=== PATIENT | female | born 1980 | race Caucasian/White ===

== ENCOUNTER 2020-12-10 18:41 | Inpatient (IN) ==
--- OUTSIDE RECORDS SUMMARY | 2020-12-10 18:43 | External Medical Summary | Continuity of Care Document ---
:1980 Author Name Jerry Isbell Address Unavailable Unavailable , Care Team Providers Name Role Phone Elin Isbell Unavailable [email or web address] Active medical history not documented Allergies and Adverse Reactions Allergy history not documented Medications Medications not documented Procedures Procedures not documented Immunizations Immunizations not documented Plan of Treatment Planned Observations Planned Goals not documented Results No Known Results Results not documented
--- OUTSIDE RECORDS SUMMARY | 2020-12-10 18:43 | External Medical Summary | Continuity of Care Document ---
:1980 Author Name Jerry Isbell Address Unavailable Unavailable , Care Team Providers Name Role Phone Elin Isbell Unavailable [email or web address] Active medical history not documented Allergies and Adverse Reactions Allergy history not documented Medications Medications not documented Procedures Procedures not documented Immunizations Immunizations not documented Plan of Treatment Planned Observations Planned Goals not documented Results No Known Results Results not documented
[2020-12-10] MEDS ORDERED: CEFEPIME 2,000 MG/20 ML VIAL IV STA (19:05)
[2020-12-10] MEDS ORDERED: VANCOMYCIN HCL 2,500 MG in SODIUM CHLORIDE 0.9% 500 ML IV ONE (19:05)
[2020-12-10] MEDS ORDERED: SODIUM CHLORIDE 0.9% 1000ML 2,000 ML IV ONE (19:05)
[2020-12-10] MEDS ORDERED: VANCOMYCIN CONSULT ACTIVE PRN ×2 (19:05→22:25)
[2020-12-10] MEDS ORDERED: CLINDAMYCIN 600 MG in DEXTROSE 5% 50 ML IV STA (19:05)
[2020-12-10] MEDS ORDERED: ACETAMINOPHEN 500 MG TAB PO STA (19:09)
--- NOTE | 2020-12-10 19:15 | Emergency Department Note ---
Impression & Plan Sepsis, Gas gangrene, Osteomyelitis of foot, right, acute, COVID-19 ED Provider Note NAME: KUSH WRIGHT AGE: 40 SEX: F : 1980 ARRIVES VIA: Walk-In INFORMANT: Patient ED PROVIDER(S): Kush Peacock DO CHIEF COMPLAINT: Right foot pain HPI: Patient is a 40-year-old female with a past medical history hyperglycemia who presents the ER for right foot pain. She believes this has been present for the past 2 to 3 weeks but is not 100% sure. She believes this is from shoveling snow in her shoes which have holes in it and believes that her feet may have been exposed too long to the cold and she obtained frostbite. She does not believe that she has picked at her foot. She denies any recent trauma. No headache or change in vision. She notes the pain to 10 out of 10 in the right foot. Is painful with walking. Denies any nausea vomiting. No cough or runny nose. No chest pain or shortness of breath. She is unsure when the fever started. ROS: See above HPI for pertinent positives & negatives. A total of 10 systems reviewed and were otherwise negative. PAST MEDICAL HISTORY:See Below PAST SURGICAL HISTORY:See Below FAMILY HISTORY:See Below SOCIAL HISTORY:See Below HOME MEDICATIONS:See Below ALLERGIES:See Below VITALS:See Below PHYSICAL EXAMINATION: GENERAL: Sitting up in bed, alert, disheveled, ill-appearing EYE EXAM: normal conjunctiva. OROPHARYNX: Dry mucous membranes NECK: supple, no nuchal rigidity, no adenopathy, non-tender LUNGS: Clear to auscultation. Normal chest wall mechanics HEART: Tachycardic S1 normal and S2 normal ABDOMEN: abdomen soft, non-tender, normo-active bowel sounds, no masses, no rebound or guarding. UPPER EXTREMITIES: Right lower extremity: Diaper wraparound right foot. Diaper was covered and serosanguineous foul-smelling discharge. Foot is erythematous circumferentially tracking up to ankle. Foot is swollen. Right third digit with an open wound. Plantar surface of foot draining serosanguineous/yellow discharge with skin peeling off. LOWER EXTREMITIES: No pitting edema. NEURO EXAM: Normal sensorium, cranial nerves II-XII grossly intact, normal speech, no gross weakness of arms, no gross weakness of legs. MEDICAL DECISION MAKING: Patient is a 40-year-old female who presents the ER for an infection of her right foot. IV was established blood work was obtained. Following initial evaluation sepsis alert was called. She was febrile and tachycardic. Labs show a leukocytosis of 16,000. No significant anemia. INR was unremarkable. Sodium 124 and potassium 3.2. She is given IV potassium replacement. Glucose was elevated at 472. Lactate was elevated 2.7. LFTs bilirubin were unremarkable. Troponin was negative. Pro-Jorge was elevated 2.8. Beta hydroxybutyric was only slightly elevated at 6.3. UA was contaminated. Covid was positive. X-rays of the foot showed gas likely consistent with fasciitis. Patient was given IV cefepime, clindamycin and vancomycin. Patient was updated bedside. Discussed with podiatry who evaluated the patient at bedside. Covid was ordered. Patient was given total of 2 L normal saline and 1 L of normal salt. Discussed with the hospitalist and patient was admitted and taken to the OR for sepsis secondary to neck fasciitis. Triage Nursing notes reviewed. Limited review of prior medical records performed Vital Signs: reviewed and remarkable for no significant abnormalities Differential diagnosis: Differential diagnosis includes etiologies such as sepsis, UTI, pneumonia, metabolic, electrolyte abnormalities, cardiac sources, intracerebral event, toxicologic, neurological, as well as others were entertained. ER treatment provided: See below Diagnostics interpreted by me: ECG: Sinus tachycardia rate of 109 Normal axis No PVCs T wave flattening in the inferior leads and lateral leads QTC 404 Cardiac Monitoring: An order was placed for continuous cardiac monitoring. The monitor shows a rate of 120 with sinus rhythm. Laboratory studies: As stated above and show below. Imaging studies: X-rays of the foot and tib-fib show osteomyelitis with likely necrotizing fasciitis Consultation(s): Discussed with podiatry as stated above Discussed with Christopher Dominguez has stated above Procedures: none Critical Care: I have personally spent 50 minutes of critical care time in the direct management of this patient. This includes bedside care, interpretation of diagnostic studies, and testing, discussion with consultants, patient, and family members, and other required patient management activities. This 50 minutes is in excess of all separately billable procedures. Past Med/Surg History Medical History No pertinent past medical history Social History Smoking Status: Current every day smoker Do You Dip or Chew Tobacco: No; Hx Alcohol Use: Yes Preferred Language: Guatemalan Feels Safe at Home: Yes Allergies Allergies Allergy/AdvReac Type Severity Reaction Status Date / Time penicillin G Allergy Unknown HIVES Unverified 12/10/20 19:37 Sulfa (Sulfonamide Allergy Unknown RETAINS Unverified 12/10/20 19:37 Antibiotics) WATER Home Meds Home Medications Medication Instructions Recorded Confirmed No Known Home Medications 12/10/20 12/10/20 Results & Data (ED) Vital Signs Vital Signs - 24 hr 12/10/20 18:48 12/10/20 19:27 12/10/20 19:30 Temperature 38.7 C H Temperature Source Temporal Artery Scan Pulse Rate 116 H 113 H 113 H Pulse Rate from SpO2 Sensor 113 H 113 H Respiratory Rate 20 21 22 Respiratory Effort / Characteristics Non-Labored Respiratory Depth Normal Respiratory Pattern Regular Blood Pressure 162/87 H 179/93 H 174/90 H Blood Pressure Mean 112 121 118 Blood Pressure Position Sitting Pulse Oximetry 99 100 97 Oxygen Delivery Method Room Air Sepsis Recent Fever Within 48 Hours Yes Sepsis New/Unexplained Change in Mental Status Yes Sepsis Action Taken by Nursing Physician Notified 12/10/20 19:40 12/10/20 19:50 12/10/20 20:00 Temperature Temperature Source Pulse Rate 111 H 118 H 117 H Pulse Rate from SpO2 Sensor 111 H 119 H 107 H Respiratory Rate 16 20 17 Respiratory Effort / Characteristics Respiratory Depth Respiratory Pattern Blood Pressure Blood Pressure Mean Blood Pressure Position Pulse Oximetry 96 97 92 Oxygen Delivery Method Sepsis Recent Fever Within 48 Hours Sepsis New/Unexplained Change in Mental Status Sepsis Action Taken by Nursing 12/10/20 20:01 12/10/20 20:10 12/10/20 20:20 Temperature Temperature Source Pulse Rate 118 H 111 H 113 H Pulse Rate from SpO2 Sensor 117 H 111 H 113 H Respiratory Rate 23 21 24 Respiratory Effort / Characteristics Respiratory Depth Respiratory Pattern Blood Pressure 127/66 Blood Pressure Mean 86 Blood Pressure Position Pulse Oximetry 97 98 98 Oxygen Delivery Method Sepsis Recent Fever Within 48 Hours Sepsis New/Unexplained Change in Mental Status Sepsis Action Taken by Nursing 12/10/20 20:30 12/10/20 20:40 12/10/20 20:50 Temperature Temperature Source Pulse Rate 112 H 110 H 110 H Pulse Rate from SpO2 Sensor 113 H 110 H 110 H Respiratory Rate 19 21 Respiratory Effort / Characteristics Respiratory Depth Respiratory Pattern Blood Pressure 117/60 Blood Pressure Mean 79 Blood Pressure Position Pulse Oximetry 97 97 97 Oxygen Delivery Method Sepsis Recent Fever Within 48 Hours Sepsis New/Unexplained Change in Mental Status Sepsis Action Taken by Nursing 12/10/20 21:00 12/10/20 21:10 12/10/20 21:20 Temperature Temperature Source Pulse Rate 113 H 104 H 107 H Pulse Rate from SpO2 Sensor 112 H 104 H 107 H Respiratory Rate 17 19 16 Respiratory Effort / Characteristics Respiratory Depth Respiratory Pattern Blood Pressure 106/69 Blood Pressure Mean 81 Blood Pressure Position Pulse Oximetry 99 97 98 Oxygen Delivery Method Sepsis Recent Fever Within 48 Hours Sepsis New/Unexplained Change in Mental Status Sepsis Action Taken by Nursing 12/10/20 21:30 12/10/20 21:40 Temperature Temperature Source Pulse Rate 103 H 103 H Pulse Rate from SpO2 Sensor 103 H 103 H Respiratory Rate 20 21 Respiratory Effort / Characteristics Respiratory Depth Respiratory Pattern Blood Pressure 99/52 L Blood Pressure Mean 67 Blood Pressure Position Pulse Oximetry 99 97 Oxygen Delivery Method Sepsis Recent Fever Within 48 Hours Sepsis New/Unexplained Change in Mental Status Sepsis Action Taken by Nursing Laboratory Data Result diagrams: 12/10/20 19:16 12/10/20 19:16 Lab Results 12/10/20 12/10/20 12/10/20 Range/Units 14:38 19:16 19:16 WBC 16.89 H (4.8-10.8) K/uL RBC 4.53 (4.2-5.4) M/uL Hgb 12.4 (12.0-16.0) g/dL Hct 35.8 L (37-47) % MCV 79.0 L (80-100) fL MCH 27.4 (25-34) pg MCHC 34.6 (32-36) g/dL RDW Std Deviation 44.3 (36.4-46.3) fL RDW Coeff of Yola 15.2 H (11.5-14.5) % Plt Count 416 H (130-400) K/uL MPV 11.6 H (7.4-10.4) fL Immature Gran % (Auto) 0.7 % Neut % (Auto) 87.9 % Lymph % (Auto) 6.6 % Ferry % (Auto) 4.6 % Eos % (Auto) 0.1 % Baso % (Auto) 0.1 % Neut # (Auto) 14.85 H (1.4-6.5) K/uL Lymph # (Auto) 1.11 L (1.2-3.4) K/uL Ferry # (Auto) 0.78 H (0.11-0.59) K/uL Eos # (Auto) 0.02 (0-0.5) K/uL Baso # (Auto) 0.02 (0-0.2) K/uL Immature Gran # (Auto) 0.11 H (0.00-0.02) K/uL PT 11.2 (9.0-12.0) Seconds INR 1.1 (0.9-1.1) APTT 27.5 (21.0-31.0) Seconds PTT Ratio 1.0 Sodium (136-145) mmol/L Potassium (3.5-5.1) mmol/L Chloride (98-107) mmol/L Carbon Dioxide (21-32) mmol/L Anion Gap (3-11) BUN (7-18) mg/dl Creatinine (0.6-1.2) mg/dl Est Cr Clr Drug Dosing ml/min Est GFR ( Amer) Est GFR (Non-Af Amer) BUN/Creatinine Ratio (10-20) Glucose (70-99) mg/dl Lactate (0.4-2.0) mmol/L Calcium (8.5-10.1) mg/dl Magnesium (1.8-2.4) mg/dl Total Bilirubin (0.2-1) mg/dl AST (15-37) U/L ALT (12-78) U/L Alkaline Phosphatase (45-117) U/L Troponin I (0-0.045) ng/ml C-Reactive Protein (0-0.29) mg/dl Total Protein (6.4-8.2) gm/dl Albumin (3.4-5.0) gm/dl Globulin (2.5-4.0) gm/dl Albumin/Globulin Ratio (0.9-2) Beta-Hydroxybutyric Acd (0.2-2.81) mg/dl Procalcitonin (0-0.5) ng/ml HCG, Qual (Negative) Urine Color Dark Yellow Urine Appearance Cloudy A (Clear) Urine pH 6.0 (4.5-7.5) Ur Specific [place] 1.036 H (1.000-1.030) Urine Protein 1+ H (Negative) Urine Glucose (UA) 3+ H (Negative) Urine Ketones 1+ H (Negative) Urine Blood 2+ H (Negative) Urine Nitrite Negative (Negative) Urine Bilirubin 1+ H (Negative) Urine Urobilinogen Positive H (Negative) Ur Leukocyte Esterase Negative (Negative) Urine RBC 5-10 H (0-4) /hpf Urine WBC 10-30 H (0-5) /hpf Ur Epithelial Cells 20-30 H (0-5) /lpf Urine Bacteria Negative (Negative) COVID-19 Eval Order SARS-CoV-2 (PCR) (Negative) Influenza Type A (PCR) (Neg) Influenza Type B (PCR) (Neg) RSV (RT-PCR) (Neg) 12/10/20 12/10/20 12/10/20 Range/Units 19:16 19:16 19:16 WBC (4.8-10.8) K/uL RBC (4.2-5.4) M/uL Hgb (12.0-16.0) g/dL Hct (37-47) % MCV (80-100) fL MCH (25-34) pg MCHC (32-36) g/dL RDW Std Deviation (36.4-46.3) fL RDW Coeff of Yola (11.5-14.5) % Plt Count (130-400) K/uL MPV (7.4-10.4) fL Immature Gran % (Auto) % Neut % (Auto) % Lymph % (Auto) % Ferry % (Auto) % Eos % (Auto) % Baso % (Auto) % Neut # (Auto) (1.4-6.5) K/uL Lymph # (Auto) (1.2-3.4) K/uL Ferry # (Auto) (0.11-0.59) K/uL Eos # (Auto) (0-0.5) K/uL Baso # (Auto) (0-0.2) K/uL Immature Gran # (Auto) (0.00-0.02) K/uL PT (9.0-12.0) Seconds INR (0.9-1.1) APTT (21.0-31.0) Seconds PTT Ratio Sodium 124 L (136-145) mmol/L Potassium 3.2 L (3.5-5.1) mmol/L Chloride 88 L (98-107) mmol/L Carbon Dioxide 29 (21-32) mmol/L Anion Gap 7.0 (3-11) BUN 10 (7-18) mg/dl Creatinine 1.05 (0.6-1.2) mg/dl Est Cr Clr Drug Dosing 85.8 ml/min Est GFR ( Amer) 75.9 Est GFR (Non-Af Amer) 65.5 BUN/Creatinine Ratio 9.3 L (10-20) Glucose 472 H* (70-99) mg/dl Lactate 2.4 H* (0.4-2.0) mmol/L Calcium 8.9 (8.5-10.1) mg/dl Magnesium 2.0 (1.8-2.4) mg/dl Total Bilirubin 1.0 (0.2-1) mg/dl AST 14 L (15-37) U/L ALT 16 (12-78) U/L Alkaline Phosphatase 126 H (45-117) U/L Troponin I < 0.015 (0-0.045) ng/ml C-Reactive Protein 26.10 H (0-0.29) mg/dl Total Protein 8.4 H (6.4-8.2) gm/dl Albumin 2.2 L (3.4-5.0) gm/dl Globulin 6.2 H (2.5-4.0) gm/dl Albumin/Globulin Ratio 0.4 L (0.9-2) Beta-Hydroxybutyric Acd 6.38 H (0.2-2.81) mg/dl Procalcitonin 2.80 H (0-0.5) ng/ml HCG, Qual (Negative) Urine Color Urine Appearance (Clear) Urine pH (4.5-7.5) Ur Specific [place] (1.000-1.030) Urine Protein (Negative) Urine Glucose (UA) (Negative) Urine Ketones (Negative) Urine Blood (Negative) Urine Nitrite (Negative) Urine Bilirubin (Negative) Urine Urobilinogen (Negative) Ur Leukocyte Esterase (Negative) Urine RBC (0-4) /hpf Urine WBC (0-5) /hpf Ur Epithelial Cells (0-5) /lpf Urine Bacteria (Negative) COVID-19 Eval Order SARS-CoV-2 (PCR) (Negative) Influenza Type A (PCR) (Neg) Influenza Type B (PCR) (Neg) RSV (RT-PCR) (Neg) 12/10/20 12/10/20 12/10/20 Range/Units 19:16 20:13 20:13 WBC (4.8-10.8) K/uL RBC (4.2-5.4) M/uL Hgb (12.0-16.0) g/dL Hct (37-47) % MCV (80-100) fL MCH (25-34) pg MCHC (32-36) g/dL RDW Std Deviation (36.4-46.3) fL RDW Coeff of Yola (11.5-14.5) % Plt Count (130-400) K/uL MPV (7.4-10.4) fL Immature Gran % (Auto) % Neut % (Auto) % Lymph % (Auto) % Ferry % (Auto) % Eos % (Auto) % Baso % (Auto) % Neut # (Auto) (1.4-6.5) K/uL Lymph # (Auto) (1.2-3.4) K/uL Ferry # (Auto) (0.11-0.59) K/uL Eos # (Auto) (0-0.5) K/uL Baso # (Auto) (0-0.2) K/uL Immature Gran # (Auto) (0.00-0.02) K/uL PT (9.0-12.0) Seconds INR (0.9-1.1) APTT (21.0-31.0) Seconds PTT Ratio Sodium (136-145) mmol/L Potassium (3.5-5.1) mmol/L Chloride (98-107) mmol/L Carbon Dioxide (21-32) mmol/L Anion Gap (3-11) BUN (7-18) mg/dl Creatinine (0.6-1.2) mg/dl Est Cr Clr Drug Dosing ml/min Est GFR ( Amer) Est GFR (Non-Af Amer) BUN/Creatinine Ratio (10-20) Glucose (70-99) mg/dl Lactate (0.4-2.0) mmol/L Calcium (8.5-10.1) mg/dl Magnesium (1.8-2.4) mg/dl Total Bilirubin (0.2-1) mg/dl AST (15-37) U/L ALT (12-78) U/L Alkaline Phosphatase (45-117) U/L Troponin I (0-0.045) ng/ml C-Reactive Protein (0-0.29) mg/dl Total Protein (6.4-8.2) gm/dl Albumin (3.4-5.0) gm/dl Globulin (2.5-4.0) gm/dl Albumin/Globulin Ratio (0.9-2) Beta-Hydroxybutyric Acd (0.2-2.81) mg/dl Procalcitonin (0-0.5) ng/ml HCG, Qual Negative (Negative) Urine Color Urine Appearance (Clear) Urine pH (4.5-7.5) Ur Specific [place] (1.000-1.030) Urine Protein (Negative) Urine Glucose (UA) (Negative) Urine Ketones (Negative) Urine Blood (Negative) Urine Nitrite (Negative) Urine Bilirubin (Negative) Urine Urobilinogen (Negative) Ur Leukocyte Esterase (Negative) Urine RBC (0-4) /hpf Urine WBC (0-5) /hpf Ur Epithelial Cells (0-5) /lpf Urine Bacteria (Negative) COVID-19 Eval Order [facility]FluRsv at [facility] SARS-CoV-2 (PCR) POSITIVE A* (Negative) Influenza Type A (PCR) Negative (Neg) Influenza Type B (PCR) Negative (Neg) RSV (RT-PCR) Negative (Neg) 12/10/20 Range/Units 21:15 WBC (4.8-10.8) K/uL RBC (4.2-5.4) M/uL Hgb (12.0-16.0) g/dL Hct (37-47) % MCV (80-100) fL MCH (25-34) pg MCHC (32-36) g/dL RDW Std Deviation (36.4-46.3) fL RDW Coeff of Yola (11.5-14.5) % Plt Count (130-400) K/uL MPV (7.4-10.4) fL Immature Gran % (Auto) % Neut % (Auto) % Lymph % (Auto) % Ferry % (Auto) % Eos % (Auto) % Baso % (Auto) % Neut # (Auto) (1.4-6.5) K/uL Lymph # (Auto) (1.2-3.4) K/uL Ferry # (Auto) (0.11-0.59) K/uL Eos # (Auto) (0-0.5) K/uL Baso # (Auto) (0-0.2) K/uL Immature Gran # (Auto) (0.00-0.02) K/uL PT (9.0-12.0) Seconds INR (0.9-1.1) APTT (21.0-31.0) Seconds PTT Ratio Sodium (136-145) mmol/L Potassium (3.5-5.1) mmol/L Chloride (98-107) mmol/L Carbon Dioxide (21-32) mmol/L Anion Gap (3-11) BUN (7-18) mg/dl Creatinine (0.6-1.2) mg/dl Est Cr Clr Drug Dosing ml/min Est GFR ( Amer) Est GFR (Non-Af Amer) BUN/Creatinine Ratio (10-20) Glucose (70-99) mg/dl Lactate 2.7 H* (0.4-2.0) mmol/L Calcium (8.5-10.1) mg/dl Magnesium (1.8-2.4) mg/dl Total Bilirubin (0.2-1) mg/dl AST (15-37) U/L ALT (12-78) U/L Alkaline Phosphatase (45-117) U/L Troponin I (0-0.045) ng/ml C-Reactive Protein (0-0.29) mg/dl Total Protein (6.4-8.2) gm/dl Albumin (3.4-5.0) gm/dl Globulin (2.5-4.0) gm/dl Albumin/Globulin Ratio (0.9-2) Beta-Hydroxybutyric Acd (0.2-2.81) mg/dl Procalcitonin (0-0.5) ng/ml HCG, Qual (Negative) Urine Color Urine Appearance (Clear) Urine pH (4.5-7.5) Ur Specific [place] (1.000-1.030) Urine Protein (Negative) Urine Glucose (UA) (Negative) Urine Ketones (Negative) Urine Blood (Negative) Urine Nitrite (Negative) Urine Bilirubin (Negative) Urine Urobilinogen (Negative) Ur Leukocyte Esterase (Negative) Urine RBC (0-4) /hpf Urine WBC (0-5) /hpf Ur Epithelial Cells (0-5) /lpf Urine Bacteria (Negative) COVID-19 Eval Order SARS-CoV-2 (PCR) (Negative) Influenza Type A (PCR) (Neg) Influenza Type B (PCR) (Neg) RSV (RT-PCR) (Neg) Administered Medications Discontinued Medications Acetaminophen (Acetaminophen 500 Mg Tab) 1,000 mg PO NOW STA Stop: 12/10/20 19:10 Last Admin: 12/10/20 19:28 Dose: 1,000 mg Documented by: [id number] Sodium Chloride (Nss 1000ml) 2,000 mls @ 999 mls/hr IV .Q2H1M ONE Stop: 12/10/20 21:05 Last Admin: 12/10/20 19:28 Dose: 999 mls/hr Documented by: [id number] Cefepime HCl (Maxipime) 2,000 mg in 20 mls @ 5 mls/min IV NOW STA; Protocol Stop: 12/10/20 19:08 Last Admin: 12/10/20 19:28 Dose: 5 mls/min Documented by: [id number] Clindamycin Phosphate 600 mg/ (Dextrose) 54 mls @ 100 mls/hr IV NOW STA Stop: 12/10/20 19:37 Last Infusion: 12/10/20 20:03 Dose: 0 mls/hr Documented by: [id number] Admin: 12/10/20 19:28 Dose: 100 mls/hr Documented by: [id number] Vancomycin HCl 2,500 mg/ (Sodium Chloride) 550 mls @ 200 mls/hr IV NOW ONE Stop: 12/10/20 21:49 Last Admin: 12/10/20 19:27 Dose: 200 mls/hr Documented by: [id number] Potassium Chloride (K Miguel / Wtr) 10 meq in 100 mls @ 100 mls/hr IV Q1H VANNESSA Stop: 12/10/20 21:59 Last Admin: 12/10/20 21:27 Dose: 100 mls/hr Documented by: [id number] Infusion: 12/10/20 21:10 Dose: 0 mls/hr Documented by: [id number] Admin: 12/10/20 20:08 Dose: 100 mls/hr Documented by: [id number] Insulin Human Regular (Novolin-R Insulin Per Unit Charge) 8 units IV NOW STA Stop: 12/10/20 20:00 Last Admin: 12/10/20 20:18 Dose: 8 units Documented by: [id number] Cosigned by: [id number] Discharge Plan Visit Data Chief Complaint: Foot Injury/Pain Stated Complaint: RT FOOT INFECTION ED Provider: Kush Peacock Discharge Problem: Sepsis, Gas gangrene, Osteomyelitis of foot, right, acute, COVID-19 Patient Disposition: Admitted As Inpatient Discharge Instructions Interventions: ED Discharge Assessment Last Done: 12/10/20 21:49 Forms Stand Alone Forms: [facility] Prescriptions Prescriptions: No Action No Known Home Medications RF: 0 Referrals Referrals: PCP,NO [Primary Care Provider] - Discharge Problem: Sepsis Qualifiers: Sepsis type: sepsis due to unspecified organism Sepsis acute organ dysfunction status: unspecified Qualified Code(s): A41.9 - Sepsis, unspecified organism
--- NOTE | 2020-12-10 19:19 | XRay Report ---
XR chest 1V portable HISTORY: 40 years-old Female SEPSIS acute sepsis COMPARISON: Chest radiograph 09/12/2015 TECHNIQUE: Portable AP view of the chest FINDINGS: Cardiac mediastinal and hilar silhouettes are within normal limits. No pneumothorax, pleural effusion , airspace consolidation or overt pulmonary edema. Bones of the chest appear grossly intact. IMPRESSION: No acute process. ACT 112: Negative or not required by law. The above report was generated using voice recognition software. It may contain grammatical, syntax o r spelling errors. Electronically signed by: Edward Elliott M.D. 12/10/2020 7:17 PM
[2020-12-10 19:32] LABS: Basophils # (auto) 0.02 K/uL (0-0.2); Basophils % (auto) 0.1 %; Eosinophils # (auto) 0.02 K/uL (0-0.5); Eosinophils % (auto) 0.1 %; Hematocrit (blood only) 35.8 % (37-47); Hemoglobin 12.4 g/dL (12.0-16.0); Immature Granulocytes # (auto) 0.11 K/uL (0.00-0.02); Immature Granulocytes % (auto) 0.7 %; Lymphocytes # (auto) 1.11 K/uL (1.2-3.4); Lymphocytes % (auto) 6.6 %; Mean Corpuscular Hemoglobin 27.4 pg (25-34); Mean Corpuscular Hgb Conc 34.6 g/dL (32-36); Mean Platelet Volume 11.6 fL (7.4-10.4); Monocytes # (auto) 0.78 K/uL (0.11-0.59); Monocytes % (auto) 4.6 %; Neutrophils # (auto) 14.85 K/uL (1.4-6.5); Neutrophils % (auto) 87.9 %; Platelet Count 416 K/uL (130-400); RDW Coefficient of Variation 15.2 % (11.5-14.5); RDW Standard Deviation 44.3 fL (36.4-46.3); Red Blood Count 4.53 M/uL (4.2-5.4); White Blood Count 16.89 K/uL (4.8-10.8)
[2020-12-10 19:50] LABS: Appearance Urine Cloudy (Clear); Blood Urine 2+ (Negative); Color Urine Dark Yellow; Glucose Urine UA 3+ (Negative); Ketones Urine 1+ (Negative); Leukocyte Esterase Urine Negative (Negative); Nitrite Urine Negative (Negative); Protein Urine 1+ (Negative); Specific Gravity Urine 1.036 (1.000-1.030); Urobilinogen Urine Positive (Negative)
[2020-12-10 19:58] LABS: Bilirubin Urine 1+ (Negative)
[2020-12-10 19:59] LABS: Alanine Aminotransferase 16 U/L (12-78); Albumin Globulin Ratio 0.4 (0.9-2); Albumin Level 2.2 gm/dl (3.4-5.0); Alkaline Phosphatase 126 U/L (45-117); Aspartate Aminotransferase 14 U/L (15-37); BUN Creatinine Ratio 9.3 (10-20); Blood Urea Nitrogen 10 mg/dl (7-18); Calcium 8.9 mg/dl (8.5-10.1); Carbon Dioxide 29 mmol/L (21-32); Chloride 88 mmol/L (98-107); Creatinine Clr Calc Pharmacy 85.8 ml/min; Est GFR (African American) 75.9; Est GFR (Non-African American) 65.5; Globulin 6.2 gm/dl (2.5-4.0); Glucose 472 mg/dl (70-99); Potassium 3.2 mmol/L (3.5-5.1); Sodium 124 mmol/L (136-145); Total Protein 8.4 gm/dl (6.4-8.2); Troponin I < 0.015 ng/ml (0-0.045)
[2020-12-10] MEDS ORDERED: NovoLIN-R INSULIN PER UNIT CHARGE IV STA (19:59)
--- NOTE | 2020-12-10 19:59 | XRay Report ---
XR foot RT min 3V routine, XR tibia fibula RT 2V HISTORY: 40 years-old Female r foot acute right foot and leg lower pain with sepsis COMPARISON: Right tibia and fibula radiographs 09/12/2015 TECHNIQUE: 3 views of the right foot with 2 views of the right tibia and fibula FINDINGS: FOOT: Moderate soft tissue gas is noted within the plantar forefoot. Bony destruction with lysis of the thi rd digit is noted with absence of the middle and distal phalanges and erosion of the distal and mid a spects of the proximal phalanx. Mild hallux valgus with mild multifocal osteoarthritis. There are 2 l inear metallic density foci measuring up to 3 mm within the plantar tissues of the distal first toe. Diffuse soft tissue swelling. Spurring of the calcaneus. TIBIA/FIBULA: Diffuse soft tissue swelling. No acute fracture, dislocation or opaque foreign body. IMPRESSION: 1. Bony destruction/lysis of the third digit as above suggests osteomyelitis. 2. Moderate soft tissue gas of the plantar forefoot is suspicious for fasciitis. 3. Diffuse soft tissue prominence of the right foot and lower leg is suggestive of cellulitis. ACT 112: Negative or not required by law. The above report was generated using voice recognition software. It may contain grammatical, syntax o r spelling errors. Electronically signed by: Edward Elliott M.D. 12/10/2020 7:58 PM
[2020-12-10] MEDS: POTASSIUM CHLORIDE / WTR 10 MEQ/100 ML PLCT IV SCH ×2 (20:08→21:27)
[2020-12-10 20:12] LABS: INR 1.1 (0.9-1.1); Partial Thromboplastin Time 27.5 Seconds (21.0-31.0); Prothrombin Time 11.2 Seconds (9.0-12.0)
[2020-12-10 20:16] LABS: Pregnancy Test, Serum Negative (Negative)
[2020-12-10 20:18] LABS: Epithelial Cell Urine 20-30 /lpf (0-5)
[2020-12-10 20:19] LABS: Bacteria Urine Negative (Negative)
[2020-12-10 20:22] LABS: Beta-Hydroxybutyrate 6.38 mg/dl (0.2-2.81)
[2020-12-10] MEDS ORDERED: NORMOSOL-R 1,000 ML IV ONE (20:30)
--- NOTE | 2020-12-10 20:40 | Podiatry Consultation ---
Date of Consultation December 10, 2020 Assessment & Plan (1) Gas gangrene: Patient seen, evaluated and treated. Reviewed x-ray findings with Patient. Discussed case with ED Physician. Reviewed acute Gas. Patient requires immediate transmetatarsal amputation with washout and delayed primary closure. Medicine agrees to admit to floor for IV abx therapy. Deep cultures will be taken at time of surgical intervention. I have reviewed findings in detail with Patient. I have discussed procedure in detail as well as recovery. I reviewed possible unwanted outcomes. All questions answered. Consent for procedure obtained. (2) Osteomyelitis of foot, right, acute: History of Present Illness History of Present Illness Patient is a type II diabetic, 40-year-old female who presents to the ED for right foot pain. She notes right foot has had symptoms of redness, swelling, and pain for 2 to 3 weeks. While in ED Patient tests positive for COVID-19. X- rays of right foot show gas in tissue. Patient complains of fever but can not say when this symptom first presented. Allergies Allergy/AdvReac Type Severity Reaction Status Date / Time penicillin G Allergy Unknown HIVES Unverified 12/10/20 19:37 Sulfa (Sulfonamide Allergy Unknown RETAINS Unverified 12/10/20 19:37 Antibiotics) WATER Home Medications Medication Instructions Recorded Confirmed Type No Known Home Medications 12/10/20 12/10/20 History Patient History Medical History No pertinent past medical history Social History Smoking Status: Current every day smoker Do You Dip or Chew Tobacco: No; Hx Alcohol Use: Yes Preferred Language: Austrian Feels Safe at Home: Yes Review of Systems Constitutional: + fever and + malaise Ear, Nose, Mouth, Throat: as per Subjective / HPI Respiratory: as per Subjective / HPI Cardiovascular: as per Subjective / HPI Gastrointestinal: as per Subjective / HPI Genitourinary: as per Subjective / HPI Musculoskeletal: as per Subjective / HPI Integumentary: + skin ulcer Neurologic: Loss of epicritc sensation Psychiatric: as per Subjective / HPI Endocrine: as per Subjective / HPI Hematologic / Lymphatic: as per Subjective / HPI Physical Exam Constitutional: well developed, well nourished and + disheveled Eyes: PERRL, conjunctivae normal, anicteric sclerae ENMT: external ear and nose normal, oropharynx normal Neck: trachea midline, no thyromegaly Respiratory: normal respiratory effort Cardiovascular: Rate/Rhythm: regular rate and regular rhythm Gastrointestinal (Abdomen): Inspection/Auscultation: abdomen normal to inspection Musculoskeletal: Right lower extremity: Diaper wraparound right foot. Diaper was covered and serosanguineous foul-smelling discharge. Foot is erythematous circumferentially tracking up to ankle. Foot is swollen. Right third digit with an open wound. Plantar surface of foot draining serosanguineous/yellow discharge with skin peeling off. Neurologic: loss of epicritic sensation Psychiatric: A+Ox3, euthymic affect Results & Data ([facility]) Vital Signs (Past 12 Hours) Vital Signs Temp Pulse Resp BP Pulse Ox 12/10/20 19:40 111 H 16 96 12/10/20 19:30 113 H 22 174/90 H 97 12/10/20 19:27 113 H 21 179/93 H 100 12/10/20 18:48 38.7 C H 116 H 20 162/87 H 99 X-ray: 3 views o the left foot and leg taken and reviewed: IMPRESSION: 1. Bony destruction/lysis of the third digit as above suggests osteomyelitis. 2. Moderate soft tissue gas of the plantar forefoot is suspicious for fasciitis. 3. Diffuse soft tissue prominence of the right foot and lower leg is suggestive of cellulitis.
--- NOTE | 2020-12-10 20:42 | Anesthesiology Consultation ---
Date of Service December 10, 2020 Assessment & Plan (1) Encounter for pre-operative examination: Chart Review Chart Review: Acceptable Risk for Surgery and Patient NOT seen in Pre Admission Testing Patient with sepsis and positive covid. Consults Requested none ASA ASA4E History Surgery Operation Date: 12/10/20 22:00 Proposed Procedures p Endoscopic Plantar Fasciectomy(Right) - Antonio Colmenares DPM, MS Height/Weight Height: 5 ft 8 in Weight: 98.9 kg Allergies Allergy/AdvReac Type Severity Reaction Status Date / Time penicillin G Allergy Unknown HIVES Unverified 12/10/20 19:37 Sulfa (Sulfonamide Allergy Unknown RETAINS Unverified 12/10/20 19:37 Antibiotics) WATER Medications Home Medications Medication Instructions Recorded Confirmed Last Taken No Known Home Medications 12/10/20 12/10/20 Unknown Active Medications Generic Name Dose Route Start Last Admin Trade Name Freq PRN Reason Stop Dose Admin Vancomycin HCl 2,500 mg/ 550 mls @ 200 mls/hr 12/10/20 19:05 12/10/20 19:27 Sodium Chloride IV 12/10/20 21:49 200 mls/hr NOW ONE Administration Potassium Chloride 10 meq in 100 mls @ 100 mls/hr 12/10/20 20:00 12/10/20 21:27 K Miguel / Wtr IV 12/10/20 21:59 100 mls/hr Q1H VANNESSA Administration Past Medical History Medical History No pertinent past medical history Exercise / Class Metabolic Activity II 4-5 Yardwork/Stairs/Walk up hill Social History Smoking Status: Current every day smoker Do You Dip or Chew Tobacco: No Hx Alcohol Use: Yes Physical Exam Vital Signs Last Vital Signs Temp 38.7 C H 12/10/20 18:48 Pulse 111 H 12/10/20 19:40 Resp 16 12/10/20 19:40 BP 174/90 H 12/10/20 19:30 Pulse Ox 96 12/10/20 19:40 Testing Laboratory Results 12/10/20 19:16 12/10/20 19:16 PT 11.2 Seconds (9.0-12.0) 12/10/20 19:16 INR 1.1 (0.9-1.1) 12/10/20 19:16 APTT 27.5 Seconds (21.0-31.0) 12/10/20 19:16 Urine Color Dark Yellow 12/10/20 14:38 Urine Appearance Cloudy (Clear) A 12/10/20 14:38 Urine pH 6.0 (4.5-7.5) 12/10/20 14:38 Ur Specific [place] 1.036 (1.000-1.030) H 12/10/20 14:38 Urine Protein 1+ (Negative) H 12/10/20 14:38 Urine Glucose (UA) 3+ (Negative) H 12/10/20 14:38 Urine Ketones 1+ (Negative) H 12/10/20 14:38 Urine Nitrite Negative (Negative) 12/10/20 14:38 Ur Leukocyte Esterase Negative (Negative) 12/10/20 14:38 Urine RBC 5-10 /hpf (0-4) H 12/10/20 14:38 Urine WBC 10-30 /hpf (0-5) H 12/10/20 14:38 Ur Epithelial Cells 20-30 /lpf (0-5) H 12/10/20 14:38
[2020-12-10] MEDS ORDERED: SUCCINYLCHOLINE 100MG/5ML SYR IV ONE (20:47)
[2020-12-10] MEDS ORDERED: MIDAZOLAM HCL 1 MG/ML 2ML VIAL ONE (20:47)
[2020-12-10] MEDS ORDERED: PROPOFOL IV EMULSION 10 MG/ML 20 ML VIAL IV ONE (20:47)
[2020-12-10] MEDS ORDERED: fentaNYL citrate 100 MCG/2 ML VIAL ONE (20:48)
[2020-12-10 21:11] LABS: Influenza A virus by PCR Negative (Neg); Influenza B virus by PCR Negative (Neg); RSV by PCR Negative (Neg)
[2020-12-10 21:15] LABS: SARS CoV2 RNA(COVID-19) InHosp POSITIVE (Negative)
[2020-12-10] MEDS ORDERED: LIDOCAINE HCL 1% 20 ML VIAL ONE (21:34)
[2020-12-10] MEDS ORDERED: fentaNYL citrate 100 MCG/2 ML VIAL IV PRN (21:43)
[2020-12-10] MEDS ORDERED: ONDANSETRON INJ 2 MG/ML 2 ML VIAL IV PRN (21:43)
[2020-12-10] MEDS ORDERED: ATROPINE SULFATE 0.1 MG/ML 10ML SYR IV PRN (21:43)
[2020-12-10] MEDS ORDERED: HYDROmorphone INJ 1 MG/ML SYRINGE IV PRN (21:43)
[2020-12-10] MEDS ORDERED: ePHEDrine sulfate 50 MG/ML AMP IV PRN (21:43)
--- NOTE | 2020-12-10 22:08 | Post Operative Brief Note ---
Immediate Post Op Note v1 Date of Surgery December 10, 2020 Pre & Post Diagnosis Operation Date: 12/10/20 23:36 I identified the patient and participated in the time-out.: Yes Procedure Transmetatarsal amputation of right foot Operation Date: 12/10/20 22:00 Surgeon Antonio Colmenares DPM, MS Gravity Prospecting Observer None Estimated Blood Loss 50 Findings Consistent with Post-Op Diagnosis
--- NOTE | 2020-12-10 22:26 | History & Physical Report ---
Date of Service December 10, 2020 Assessment & Plan (1) Admitted to intensive care unit: Admitted postop we will consult to podiatry Dr. Colmenares and hydropulper operator Dr. Savage Present on Admission?: Yes (2) Osteomyelitis of foot, right, acute: Right foot osteomyelitis/gas gangrene/sepsis- Broad-spectrum IV antibiotics to be continued from the emergency department. Patient was taken to the OR for surgical treatment. Follow wound cultures and sensitivities. Present on Admission?: Yes (3) Gas gangrene: See above Present on Admission?: Yes (4) Sepsis: See above Present on Admission?: Yes (5) COVID-19: COVID-19 test positive- No active symptoms Patient will be placed in isolation, but would not require active treatment unless symptoms should present. Present on Admission?: Yes (6) Hyperglycemia: Glucose 472 upon admission. Was given 8 units regular insulin and then taken to the OR Placed on ICU hyperglycemic protocol Check hemoglobin A1c Present on Admission?: Yes (7) Hyponatremia: Repeat in a.m. after IV fluids Present on Admission?: Yes History of Present Illness Chief Complaint: The patient presents to the emergency department with complaint of right foot pain of 2 to 3 weeks duration, that she thinks may have occurred due to frostbite from cold exposure due to holes in her sneakers. Primary Care Provider: NO PCP The patient is a 40-year-old female with reported PMH of hyperglycemia, who presents to the emergency department as noted above. Work-up in the emergency department included the following abnormal laboratories: Beta hydroxybutyric acid 6.38, albumin 2.2, pro-Jorge 2.80, WBC 16.89, platelets 416, sodium 124, potassium 3.2, glucose 472, lactate 2.4 and she was COVID-19 positive. Imaging studies included x-ray of right foot, tib/fib which showed bony destruction/lysis of the third digit suggesting osteomyelitis. Moderate soft tissue gas at the plantar forefoot suspicious for fasciitis. Diffuse soft tissue prominence of the right foot and lower leg suggestive of cellulitis. The patient was given vancomycin IV, cefepime IV, clindamycin IV, 1 L Normosol, 2 L normal saline, 2 10 mEq K riders, and 8 units of regular insulin IV in the ED. Patient was taken from the ED to the operating room by Dr. Colmenares, with plans to admit directly to the ICU afterwards. Allergies Allergy/AdvReac Type Severity Reaction Status Date / Time penicillin G Allergy Unknown HIVES Unverified 12/10/20 19:37 Sulfa (Sulfonamide Allergy Unknown RETAINS Unverified 12/10/20 19:37 Antibiotics) WATER Home Medications Medication Instructions Recorded Confirmed Type No Known Home Medications 12/10/20 12/10/20 History Past Med/Surg History Medical History No pertinent past medical history Social History Smoking Status: Current every day smoker Cigarettes Per Day: 1 pack; Do You Dip or Chew Tobacco: No; Hx Alcohol Use: No Hx Substance Use: No Preferred Language: Romanian Communication Ability: Effective Current Living Situation: Spouse Current Living Situation Comment: lives with girlfriend Other Information That Helps Us Care for You: No Feels Safe at Home: Yes Safety Concerns: Feels Safe At This Time Review of Systems Review of Systems: The patient denies chest pain, palpitations, shortness of breath, dyspnea on exertion, cough, sore throat, fevers, chills, sweats, nausea, vomiting, diarrhea , constipation, abdominal pain, pelvic pain, blood in urine or stool, dysuria, urinary frequency or urgency, lightheadedness, dizziness, headache, memory loss, loss of consciousness, focal or generalized weakness, numbness or tingling in arms, generalized arthralgias or myalgias, back or neck pain, or night sweats. The review of systems is otherwise negative other than for that already noted above, and at least 10 systems have been reviewed. Physical Exam Physical Exam: The patient is awake, alert and oriented 3, well developed and well nourished, normocephalic and atraumatic, lying in bed and in no acute distress. HEENT--PERRL, EOMI, mucous membranes and oropharynx dry. Neck--supple. No JVD. No bruits. Thyroid normal, trachea midline, no adenopathy. Heart--normal S1 and S2. No murmurs, rubs or gallops. Lungs--clear bilaterally, no respiratory distress, no accessory muscle use. Abdomen--normal bowel sounds and soft. Nontender. Nondistended. Obese Extremities--deferred due to recent dressing change and urgent plan for OR Dermatologic--see above Neurologic--cranial nerves II through XII grossly intact. Rheumatologic--limited range of motion due to above Psychiatric--normal affect. Results & Data Results & Data ([facility]) Vital Signs (Past 12 Hours) Vital Signs Temp Pulse Resp BP Pulse Ox 12/10/20 21:40 103 H 21 97 12/10/20 21:30 103 H 20 99/52 L 99 12/10/20 21:20 107 H 16 98 12/10/20 21:10 104 H 19 97 12/10/20 21:00 113 H 17 106/69 99 12/10/20 20:50 110 H 97 12/10/20 20:40 110 H 21 97 12/10/20 20:30 112 H 19 117/60 97 12/10/20 20:20 113 H 24 98 12/10/20 20:10 111 H 21 98 12/10/20 20:01 118 H 23 127/66 97 12/10/20 20:00 117 H 17 92 12/10/20 19:50 118 H 20 97 12/10/20 19:40 111 H 16 96 12/10/20 19:30 113 H 22 174/90 H 97 12/10/20 19:27 113 H 21 179/93 H 100 12/10/20 18:48 101.7 F H 116 H 20 162/87 H 99 Laboratory Results Laboratory Results WBC 19.02 K/uL (4.8-10.8) H 12/11/20 04:45 RBC 3.85 M/uL (4.2-5.4) L 12/11/20 04:45 Hgb 10.2 g/dL (12.0-16.0) L 12/11/20 04:45 Hct 30.3 % (37-47) L 12/11/20 04:45 MCV 78.7 fL (80-100) L 12/11/20 04:45 MCH 26.5 pg (25-34) 12/11/20 04:45 MCHC 33.7 g/dL (32-36) 12/11/20 04:45 RDW Std Deviation 43.8 fL (36.4-46.3) 12/11/20 04:45 RDW Coeff of Yola 15.2 % (11.5-14.5) H 12/11/20 04:45 Plt Count 329 K/uL (130-400) 12/11/20 04:45 MPV 11.3 fL (7.4-10.4) H 12/11/20 04:45 Immature Gran % (Auto) 1.0 % 12/11/20 04:45 Neut % (Auto) 82.2 % 12/11/20 04:45 Lymph % (Auto) 8.9 % 12/11/20 04:45 Brown % (Auto) 7.2 % 12/11/20 04:45 Eos % (Auto) 0.5 % 12/11/20 04:45 Baso % (Auto) 0.2 % 12/11/20 04:45 Neut # (Auto) 15.63 K/uL (1.4-6.5) H 12/11/20 04:45 Lymph # (Auto) 1.70 K/uL (1.2-3.4) 12/11/20 04:45 Brown # (Auto) 1.37 K/uL (0.11-0.59) H 12/11/20 04:45 Eos # (Auto) 0.09 K/uL (0-0.5) 12/11/20 04:45 Baso # (Auto) 0.04 K/uL (0-0.2) 12/11/20 04:45 Immature Gran # (Auto) 0.19 K/uL (0.00-0.02) H 12/11/20 04:45 PT 12.4 Seconds (9.0-12.0) H 12/11/20 04:45 INR 1.2 (0.9-1.1) H 12/11/20 04:45 APTT 25.2 Seconds (21.0-31.0) 12/11/20 04:45 PTT Ratio 1.0 12/11/20 04:45 VBG pH 7.36 (7.36-7.41) 12/11/20 04:45 Sodium 131 mmol/L (136-145) L D 12/11/20 01:20 Potassium 3.3 mmol/L (3.5-5.1) L 12/11/20 01:20 Chloride 97 mmol/L (98-107) L 12/11/20 01:20 Carbon Dioxide 26 mmol/L (21-32) 12/11/20 01:20 Anion Gap 8.0 (3-11) 12/11/20 01:20 BUN 11 mg/dl (7-18) 12/11/20 01:20 Creatinine 0.85 mg/dl (0.6-1.2) 12/11/20 01:20 Est Cr Clr Drug Dosing 106.0 ml/min 12/11/20 01:20 Est GFR ( Amer) 98.0 12/11/20 01:20 Est GFR (Non-Af Amer) 84.5 12/11/20 01:20 BUN/Creatinine Ratio 12.7 (10-20) 12/11/20 01:20 Glucose 386 mg/dl (70-99) H* 12/11/20 01:20 POC Glucose 356 mg/dl (70-99) H* 12/11/20 04:49 Lactate 1.6 mmol/L (0.4-2.0) 12/11/20 01:20 Calcium 7.5 mg/dl (8.5-10.1) L D 12/11/20 01:20 Phosphorus 2.3 mg/dl (2.5-4.9) L 12/11/20 01:20 Magnesium 1.8 mg/dl (1.8-2.4) 12/11/20 01:20 Total Bilirubin 1.0 mg/dl (0.2-1) 12/10/20 19:16 AST 14 U/L (15-37) L 12/10/20 19:16 ALT 16 U/L (12-78) 12/10/20 19:16 Alkaline Phosphatase 126 U/L (45-117) H 12/10/20 19:16 Troponin I < 0.015 ng/ml (0-0.045) 12/10/20 19:16 C-Reactive Protein 26.10 mg/dl (0-0.29) H 12/10/20 19:16 Total Protein 8.4 gm/dl (6.4-8.2) H 12/10/20 19:16 Albumin 2.2 gm/dl (3.4-5.0) L 12/10/20 19:16 Globulin 6.2 gm/dl (2.5-4.0) H 12/10/20 19:16 Albumin/Globulin Ratio 0.4 (0.9-2) L 12/10/20 19:16 Beta-Hydroxybutyric Acd 6.83 mg/dl (0.2-2.81) H 12/11/20 01:20 Procalcitonin 2.80 ng/ml (0-0.5) H 12/10/20 19:16 HCG, Qual Negative (Negative) 12/10/20 19:16 Urine Color Dark Yellow 12/10/20 14:38 Urine Appearance Cloudy (Clear) A 12/10/20 14:38 Urine pH 6.0 (4.5-7.5) 12/10/20 14:38 Ur Specific [place] 1.036 (1.000-1.030) H 12/10/20 14:38 Urine Protein 1+ (Negative) H 12/10/20 14:38 Urine Glucose (UA) 3+ (Negative) H 12/10/20 14:38 Urine Ketones 1+ (Negative) H 12/10/20 14:38 Urine Blood 2+ (Negative) H 12/10/20 14:38 Urine Nitrite Negative (Negative) 12/10/20 14:38 Urine Bilirubin 1+ (Negative) H 12/10/20 14:38 Urine Urobilinogen Positive (Negative) H 12/10/20 14:38 Ur Leukocyte Esterase Negative (Negative) 12/10/20 14:38 Urine RBC 5-10 /hpf (0-4) H 12/10/20 14:38 Urine WBC 10-30 /hpf (0-5) H 12/10/20 14:38 Ur Epithelial Cells 20-30 /lpf (0-5) H 12/10/20 14:38 Urine Bacteria Negative (Negative) 12/10/20 14:38 Nasal Screen MRSA (PCR) Negative (Negative) 12/11/20 00:45 COVID-19 Eval Order CovFluRsv at [facility] [place] 12/10/20 20:13 SARS-CoV-2 (PCR) POSITIVE (Negative) A* 12/10/20 20:13 Influenza Type A (PCR) Negative (Neg) 12/10/20 20:13 Influenza Type B (PCR) Negative (Neg) 12/10/20 20:13 RSV (RT-PCR) Negative (Neg) 12/10/20 20:13 Diagnostic Findings [facility], [id number] XRay Report Patient: KUSH WRIGHT AAdmit Date: 12/10/20MR#: [id number]: [address]:[id number]: Date: 1980[facility] Zip: [place], [place] [address]Vyz: 40Location: EDSex: FRoom/Bed:Att Phy:Diagnosis: RT FOOT INFECTIONPri Phy: PCP,NOService Date: 12/10/20Fam Phy:Interpreting Phy: Eric ElliottAdmmar Phy: Ordering Phy: Kush Peacock, DO cc: ~ XR chest 1V portable HISTORY: 40 years-old Female SEPSIS acute sepsis COMPARISON: Chest radiograph 09/12/2015 TECHNIQUE: Portable AP view of the chest FINDINGS: Cardiac mediastinal and hilar silhouettes are within normal limits. No pneumothorax, pleural effusion, airspace consolidation or overt pulmonary edema. Bones of the chest appear grossly intact. IMPRESSION: No acute process. ACT 112: Negative or not required by law. The above report was generated using voice recognition software. It may contain grammatical, syntax or spelling errors. Electronically signed by: Edward Elliott M.D. 12/10/2020 7:17 PM Dictated: 12/10/201916Transcribed: 12/10/201916 [facility], [id number] XRay Report Patient: KUSH WRIGHT AAdmit Date: 12/10/20MR#: [id number]: [address]:[id number]: Date: 1980[facility] Zip: [place], [place] [address]Slm: 40Location: EDSex: FRoom/Bed:Att Phy:Diagnosis: RT FOOT INFECTIONPri Phy: PCP,NOService Date: 12/10/20Fam Phy:Interpreting Phy: Eric ElliottAdmit Phy: Ordering Phy: Kush Peacock DO cc: ~ XR foot RT min 3V routine, XR tibia fibula RT 2V HISTORY: 40 years-old Female r foot acute right foot and leg lower pain with sepsis COMPARISON: Right tibia and fibula radiographs 09/12/2015 TECHNIQUE: 3 views of the right foot with 2 views of the right tibia and fibula FINDINGS: FOOT: Moderate soft tissue gas is noted within the plantar forefoot. Bony destruction with lysis of the third digit is noted with absence of the middle and distal phalanges and erosion of the distal and mid aspects of the proximal phalanx. Mild hallux valgus with mild multifocal osteoarthritis. There are 2 linear meta llic density foci measuring up to 3 mm within the plantar tissues of the distal first toe. Diffuse soft tissue swelling. Spurring of the calcaneus. TIBIA/FIBULA: Diffuse soft tissue swelling. No acute fracture, dislocation or opaque foreign body. IMPRESSION: 1. Bony destruction/lysis of the third digit as above suggests osteomyelitis. 2. Moderate soft tissue gas of the plantar forefoot is suspicious for fasciitis. 3. Diffuse soft tissue prominence of the right foot and lower leg is suggestive of cellulitis. ACT 112: Negative or not required by law. The above report was generated using voice recognition software. It may contain grammatical, syntax or spelling errors. Electronically signed by: Edward Elliott M.D. 12/10/2020 7:58 PM Dictated: 12/10/201953Transcribed: 12/10/201953 Code Status & VTE Plan Code Status Full code VTE Prophylaxis Plan VTE Prophylaxis will be ordered: Yes Critical Care Time Critical Care Time: Yes Total Critical Care Time: 40 PG Care Time/CCT Total # of Minutes Spent Total Time Spent with Patient: Total time spent is greater than 50% in coordina tion of care (as documented) at patient's floor/unit and/or counseling patient: Critical Care Time: Yes Total Critical Care Time: 40 Coding Level of Care Code 16596 Initial Inpt Care Lvl 3 Diagnoses Admitted to intensive care unit Z78.9 Osteomyelitis of foot, right, acute M86.171 Gas gangrene A48.0 Sepsis A41.9 Sepsis acute organ dysfunction status: unspecified Sepsis type: sepsis due to unspecified organism COVID-19 U07.1 Hyperglycemia R73.9 Hyponatremia E87.1 Additional Codes Critical Care Time - Critical Care Time: Yes ([id number]) Time Spent (min) 40 (1) Sepsis Sepsis acute organ dysfunction status: unspecified Sepsis type: sepsis due to unspecified organism Qualified Code(s): A41.9 - Sepsis, unspecified organism
[2020-12-10] MEDS ORDERED: AZTREONAM 2,000 MG in DEXTROSE 5% 100 ML IV SCH (22:30)
[2020-12-10] MEDS ORDERED: VANCOMYCIN HCL 1,000 MG in SODIUM CHLORIDE 0.9% 250 ML IV SCH (22:30)
[2020-12-10] MEDS ORDERED: GELATIN SPONGE SZ 100 ONE (23:23)
[2020-12-10] MEDS ORDERED: BUPIVACAINE 0.5 % 5 MG/1 ML MPF 30ML VIAL INFIL ONE (23:35)
--- NOTE | 2020-12-10 23:40 | History & Physical Report ---
Date of Service December 10, 2020 Assessment & Plan (1) Gas gangrene: Patient seen, evaluated and treated. Reviewed x-ray findings with Patient. Discussed case with ED Physician. Reviewed acute Gas. Patient requires immediate transmetatarsal amputation with washout and delayed primary closure. Medicine agrees to admit to floor for IV abx therapy. Deep cultures will be taken at time of surgical intervention. I have reviewed findings in detail with Patient. I have discussed procedure in detail as well as recovery. I reviewed possible unwanted outcomes. All questions answered. Consent for procedure obtained. All potential risks, benefits, complications, alternatives, rehab, potential for incomplete relief of symptoms, need for further surgery, DVT, PE, , persistent pain, swelling, scarring, weakness, neurovascular, wound complications and potential for amputations were discussed with patient. Unwanted outcomes such as, but not limited to were reviewed including under correction, overcorrection, return of deformity, infection. All questions were answered. Patient has decided to proceed with procedure as indicated. (2) Osteomyelitis of foot, right, acute: History of Present Illness Chief Complaint: Right foot infection Primary Care Provider: NO PCP Patient is a type II diabetic, 40-year-old female who presents to the ED for right foot pain. She notes right foot has had symptoms of redness, swelling, and pain for 2 to 3 weeks. While in ED Patient tests positive for COVID-19. X- rays of right foot show gas in tissue. Patient complains of fever but can not say when this symptom first presented. Allergies Allergy/AdvReac Type Severity Reaction Status Date / Time penicillin G Allergy Unknown HIVES Unverified 12/10/20 19:37 Sulfa (Sulfonamide Allergy Unknown RETAINS Unverified 12/10/20 19:37 Antibiotics) WATER Home Medications Medication Instructions Recorded Confirmed Type No Known Home Medications 12/10/20 12/10/20 History Past Med/Surg History Medical History No pertinent past medical history Social History Smoking Status: Current every day smoker Do You Dip or Chew Tobacco: No; Hx Alcohol Use: Yes Preferred Language: Romanian Feels Safe at Home: Yes Review of Systems + fever and + malaise as per Subjective / HPI as per Subjective / HPI as per Subjective / HPI as per Subjective / HPI as per Subjective / HPI as per Subjective / HPI + skin ulcer Loss of epicritc sensation as per Subjective / HPI as per Subjective / HPI as per Subjective / HPI Physical Exam Constitutional: well developed, well nourished and + disheveled Eyes: PERRL, conjunctivae normal, anicteric sclerae ENMT: external ear and nose normal, oropharynx normal Neck: trachea midline, no thyromegaly Respiratory: normal respiratory effort Cardiovascular: Rate/Rhythm: regular rate and regular rhythm Gastrointestinal (Abdomen): Inspection/Auscultation: abdomen normal to inspection Psychiatric: A+Ox3, euthymic affect Results & Data ([facility]) Vital Signs (Past 12 Hours) Vital Signs Temp Pulse Resp BP Pulse Ox 12/10/20 21:40 103 H 21 97 12/10/20 21:30 103 H 20 99/52 L 99 12/10/20 21:20 107 H 16 98 12/10/20 21:10 104 H 19 97 12/10/20 21:00 113 H 17 106/69 99 12/10/20 20:50 110 H 97 12/10/20 20:40 110 H 21 97 12/10/20 20:30 112 H 19 117/60 97 12/10/20 20:20 113 H 24 98 12/10/20 20:10 111 H 21 98 12/10/20 20:01 118 H 23 127/66 97 12/10/20 20:00 117 H 17 92 12/10/20 19:50 118 H 20 97 12/10/20 19:40 111 H 16 96 12/10/20 19:30 113 H 22 174/90 H 97 12/10/20 19:27 113 H 21 179/93 H 100 12/10/20 18:48 38.7 C H 116 H 20 162/87 H 99 Code Status & VTE Plan VTE Prophylaxis Plan VTE Prophylaxis will be ordered: Yes
--- NOTE | 2020-12-10 23:50 | Operative Report ---
Post Operative Report Pre & Post Diagnosis Operation Date: 12/10/20 22:00 <No data on this case meets the specified criteria> I identified the patient and participated in the time-out.: Yes Procedure Operation Date: 12/10/20 22:00 History of present illness: Patient is a 40-year-old female with Right foot diabetic ulcer, osteomyelitis, and gas gangrene. I reviewed surgical intervention, removal of nonviable bone and soft tissue to include TMA of right foot. Procedure in detail was discussed as well as postoperative care. All questions were answered. All potential risks, benefits, complications, alternatives, rehab, potential for incomplete relief of symptoms, need for further surgery, DVT, PE, , persistent pain, swelling, scarring, weakness, neurovascular, wound complications and potential for amputations were discussed with patient. Unwanted outcomes such as, but not limited to were reviewed including under correction, overcorrection, return of deformity, infection. All questions were answered. Patient has decided to proceed with procedure as indicated. Preoperative diagnosis: Right foot gas gangerne, osteomyelitis, diabetic foot ulcer right foot Postoperative: Same Surgeon Dr. Colmenares Immigration Paralegal: none Anesthesia: local with monitored anesthesia care Hemostasis: pneumatic right ankle tourniquet Estimated blood loss: minimal Procedure in detail: Under mild sedation the patient was brought in the operating room placed on the operating table in supine position. Following IV sedation local anesthesia was obtained about the right ankle utilizing 20 cc of one-to-one mixture of 1% lidocaine plain and 0.5% Marcaine plain. The foot and ankle were then prepped scrubbed and draped in the usual aseptic manner. Attention was then directed to the distal right forefoot. Significant necrosis was noted to the dorsal and plantar soft tissue. Purlence was noted exiting from fourth third digit of right foot. An incision was created proximal to the affected tissue utilizing a sharp, sterile, #15 blade. The incision which was deepened through subcutaneous tissue using sharp blunt dissection. Care was taken to identify and retract all vital neurovascular structures. All bleeders were ligated and cauterized necessary. At this time the left metatarsal phalangeal joints were disarticulated and the toes were removed and placed on the back table. The metatarsals were then resected utilizing an oscillating bone saw. The forefoot was removed and sent to pathology. The third toe was sent to microbiology for cultures and sensitivities. Deep culture swab was taken. The incision was elongated at the rearfoot plantarly utilizing a sharp, sterile, number 15 blade and the rearfoot was opened No trafficking or communicating abscesses were noted. Copious amounts of sterile normal saline were utilized to flush the incision site. The incision site was dressed with sterile compressive dressing consisting of 4 x 4's, Hiren Kerlix, ABD. The Patient tolerated procedure and anesthesia well. She was transferred to recovery room vital signs stable and vascular status intact. Following a period of postoperative monitoring the patient will be ad mitted to the ICU per medicine on the following written and postoperative oral instructions. Keep dressing clean dry and intact, avoid ambulation, elevate right ankle and foot, contact Dr. Colmenares for all postoperative care if any problems arise . Surgeon Antonio Colmenares, DPM, MS Immigration Paralegal None Estimated Blood Loss 50 Findings Consistent with Post-Op Diagnosis Specimens 1.) RIght forefoot Pathology 2.) Right third toe Micro 3.) Deep cultures right foot Description of Procedure History of present illness: Patient is a 40-year-old female with Right foot diabetic ulcer, osteomyelitis, and gas gangrene. I reviewed surgical intervention, removal of nonviable bone and soft tissue to include TMA of right foot. Procedure in detail was discussed as well as postoperative care. All questions were answered. All potential risks, benefits, complications, alternatives, rehab, potential for incomplete relief of symptoms, need for further surgery, DVT, PE, , persistent pain, swelling, scarring, weakness, neurovascular, wound complications and potential for amputations were discussed with patient. Unwanted outcomes such as, but not limited to were reviewed including under correction, overcorrection, return of deformity, infection. All questions were answered. Patient has decided to proceed with procedure as indicated. Preoperative diagnosis: Right foot gas gangerne, osteomyelitis, diabetic foot ulcer right foot Postoperative: Same Surgeon Dr. Colmenares Immigration Paralegal: none Anesthesia: local with monitored anesthesia care Hemostasis: pneumatic right ankle tourniquet Estimated blood loss: minimal Procedure in detail: Under mild sedation the patient was brought in the operating room placed on the operating table in supine position. Following IV sedation local anesthesia was obtained about the right ankle utilizing 20 cc of one-to-one mixture of 1% lidocaine plain and 0.5% Marcaine plain. The foot and ankle were then prepped scrubbed and draped in the usual aseptic manner. Attention was then directed to the distal right forefoot. Significant necrosis was noted to the dorsal and plantar soft tissue. Purlence was noted exiting f rom fourth third digit of right foot. An incision was created proximal to the affected tissue utilizing a sharp, sterile, #15 blade. The incision which was deepened through subcutaneous tissue using sharp blunt dissection. Care was taken to identify and retract all vital neurovascular structures. All bleeders were ligated and cauterized necessary. At this time the left metatarsal phalangeal joints were disarticulated and the toes were removed and placed on the back table. The metatarsals were then resected utilizing an oscillating bone saw. The forefoot was removed and sent to pathology. The third toe was sent to microbiology for cultures and sensitivities. Deep culture swab was taken. The incision was elongated at the rearfoot plantarly utilizing a sharp, sterile, number 15 blade and the rearfoot was opened No trafficking or communicating abscesses were noted. Copious amounts of sterile normal saline were utilized to flush the incision site. The incision site was dressed with sterile compressive dressing consisting of 4 x 4's, Hiren Henderson, ABD. The Patient tolerated procedure and anesthesia well. She was transferred to recovery room vital signs stable and vascular status intact. Following a period of postoperative monitoring the patient will be admitted to the ICU per medicine on the following written and postoperative oral instructions. Keep dressing clean dry and intact, avoid ambulation, elevate right ankle and foot, contact Dr. Colmenares for all postoperative care if any problems arise . I attest to the content of the Intraoperative Record and any orders documented therein. Any exceptions are noted below.
--- NOTE | 2020-12-11 00:40 | Anesthesiology Progress Note ---
Date of Service December 11, 2020 Assessment & Plan (1) Encounter for pre-operative examination: Patient brought to PACU room 19 as it was a negative pressure room. Patient placed on monitors and preoxygenated. RSI with elective glidescope induction done without difficulty. VSS. Transported to OR #1 on monitors with supplemental oxygen via Ambu bag and ETT. Surgery completed as detailed by surgeon. When operation complete, patient brought back to PACU room 19 intubated and with supplemental oxygen via ambu bag. Patient on monitor and successfully extubated without incident. HELP DESK REPRESENTATIVE x2 present to recover patient. She was extubated to [facility] and slowly had oxygen weaned down. She was awake, conversant and oriented x3. Moved extremities x4. Denied pain or nausea. HELP DESK REPRESENTATIVE's transported patient to ICU bed #5 when she met appropriate criteria. Report given by myself to ICU provider, questions answered. Present on Admission?: No Physical Exam Vital Signs: Last Vital Signs Temp 37.0 C 12/11/20 00:20 Pulse 97 H 12/11/20 00:20 Resp 28 H 12/11/20 00:20 BP 112/70 12/11/20 00:20 Pulse Ox 92 12/11/20 00:20 Constitutional: + obese ENMT: Mouth: + dentition abnormality, + edentulous (top) and + poor dentition; no TMJ abnormality and no loose teeth Thyromental Distance: < 3.5 Finger Breadths Mallampati Class: III Neck: normal visual inspection and + thick neck Respiratory: normal respiratory effort and + cough Cardiovascular: Rate/Rhythm: regular rate and regular rhythm Neurologic: + does not move all extremities Psychiatric: Orientation: alert and oriented x 3
--- NOTE | 2020-12-11 00:40 | Anesthesiology Progress Note ---
Date of Service December 11, 2020 Anesthesia Post Procedure Vital Signs Vital Signs: Temp Pulse Pulse Resp BP BP Pulse Ox 12/11/20 00:20 37.0 C 97 H 28 H 112/70 92 12/11/20 00:15 37.1 C 98 H 20 111/72 93 12/11/20 00:10 96 H 22 95 12/11/20 00:05 100 H 26 H 114/68 95 12/10/20 23:55 36.8 C 100 H 24 118/74 86 L 12/10/20 23:45 97 H 20 126/86 85 L 12/10/20 21:40 103 H 21 97 12/10/20 21:30 103 H 20 99/52 L 99 12/10/20 21:20 107 H 16 98 12/10/20 21:10 104 H 19 97 12/10/20 21:00 113 H 17 106/69 99 12/10/20 20:50 110 H 97 12/10/20 20:40 110 H 21 97 12/10/20 20:30 112 H 19 117/60 97 12/10/20 20:20 113 H 24 98 12/10/20 20:10 111 H 21 98 12/10/20 20:01 118 H 23 127/66 97 12/10/20 20:00 117 H 17 92 12/10/20 19:50 118 H 20 97 12/10/20 19:40 111 H 16 96 12/10/20 19:30 113 H 22 174/90 H 97 12/10/20 19:27 113 H 21 179/93 H 100 12/10/20 18:48 38.7 C H 116 H 20 162/87 H 99 Transfer of Care Handoff Completed per policy Notes Mental Status: alert / awake / arousable and participated in evaluation Patient Amnestic to Procedure: Yes Nausea / Vomiting: adequately controlled Pain: adequately controlled Airway Patency, RR, SpO2: stable & adequate BP & HR: stable & adequate Hydration State: stable & adequate Anesthetic Complications: no major complications apparent and Pt Satisfied with anesthetic care
[2020-12-11] MEDS ORDERED: ICU PROTOCOL FOR HYPERGLYCEMIA PRN ×2 (00:47→00:51)
[2020-12-11] MEDS ORDERED: DKA GOAL RANGE 150-250 mg/dl ONE (00:51)
[2020-12-11] MEDS ORDERED: MEROPENEM CONSULT ACITVE PRN (00:56)
[2020-12-11] MEDS ORDERED: PENDING 1/2NSS+20mEq KCL IVF SCH (01:00)
[2020-12-11] MEDS ORDERED: MEROPENEM 1,000 MG in SYRINGE 0 ML IV SCH (01:00)
--- NOTE | 2020-12-11 01:02 | Critical Care Consultation ---
Date of Consultation December 11, 2020 Assessment & Plan (1) Admitted to intensive care unit: Reason Critically Ill: 40-year-old female with osteomyelitis and gas gangrene to the RIGHT foot who is status post transmetatarsal amputation with fasciotomy of the affected extremity. Requiring close hemodynamic monitoring status post surgical intervention. Patient with concomitant hyperglycemia with new diagnosis of diabetes and COVID-19 positive. NEURO - * CAM ICU: NEGATIVE CARDIAC/VASCULAR - * No history of cardiac disease or hypertension. * Monitor closely for hypotension in the patient meeting sepsis criteria with potential for worsening illness status post surgical intervention. * Monitor on telemetry. RESPIRATORY - * COPD and the current smoker. * Requiring oxygen post intubation for surgical intervention. * Chest x-ray initially clear in emergency department. * Monitor closely for progression to COVID-19 pneumonia. GI/NUTRITION - * Progress diet as tolerated. DMII diet * Prophylaxis: Famotidine RENAL/LYTES - * Hypokalemia: * Replace as needed. * Trend K+ while on insulin gtt. * Pseudohyponatremia: * 2/2 Hyperglycemia. * Corrected sodium calculated to be 130. * IVF: 1/2 NSS w/ 20 mEq of KCl - * [place] in place - Strict I&Os. ENDO - * Hyperglycemia w/ new diagnosis of DMII per laboratory findings. * BSGs per unit protocol. ISS --> gtt per unit policy. * Will add AM A1c HEME - * Stable H&H * Will monitor s/p amputation procedure. ID - * Sepsis 2/2 Gas Gangrene of the RIGHT Foot and toes w/ osteomyelitis of the toes. * Initially concerns for necrotizing fasciitis. Per surgeon, tissues w/o findings c/w NSTI. Good tissue margins achieved. * Source control in the form of transmetatarsal amputation. * Blood/Foot cultures pending. * Initially received Cefepime, Vancomycin, and Clindamycin in the ED. * Will Continue Clindamycin and Vancomycin. * Will add Meropenem per NSTI treatment recommendations. * Repeat Lactate/PCT. * COVID-19 Infection: * Uncertain as to onset of infection and/or presence of symptoms. * Patient not w/ c/o SOB, hypoxia, loss of taste/smell, etc. on presentation. * Did c/o generalized fatigue but equated it to foot infection. * CXR w/o infiltrative changes. * Hold on treatment at this time given uncertainty of duration of s/s or if the patient is w/ symptoms at all. * Continue w/ isolation precautions. LINES/IV ACCESS - * PIVs x3 * [place] DVT PROPHYLAXIS - * Will hold on DVT prophylaxis for at least 12 hrs s/p amputation per foot/ankle surgeon recommendations. * SCDs I have personally spent 55 minutes of critical care time in the direct management of this patient. This is a life/limb threatening event. This includes time spent evaluating patient, direct bedside care, chart review, placing orders, interpretation of diagnostic studies, discussion with consultants, patient, and family members, as well as other required patient management activities. This time is exclusive of all separately billable procedures, and teaching time and separate from and in addition to any other critical care service time. Thank you for allowing us to participate in the care of this patient. Please refer to my attending physician's documentation for any further recommendations. (2) Osteomyelitis of foot, right, acute: (3) Gas gangrene: (4) COVID-19: (5) Sepsis: (6) Hyperglycemia: (7) Hypokalemia: Supervising Physician Co-Signing Physician Notes Patient seen separately from the PA overnight. Agree with the assessment and plan. Right foot osteomyelitis status post transmetatarsal amputation. Patient came with hyperglycemia. No evidence of DKA given lack of anion gap acidosis. Will wean off the insulin drip and start long-acting insulin with the assistance of pharmacy team. Continue electrolyte replacement. Continue broad-spectrum antibiotics. Patient is stable for transfer to the floor with telemetry. History of Present Illness Attending Physician: Christopher Dominguez MD History of Present Illness Patient is a 40-year-old female with no significant reported past medical history who presented to the emergency department with intense pain to the RIGHT foot. Apparently, the patient had noticed pain to the RIGHT foot and toes after shoveling snow several days ago. She initially reported blisters and notes that she noticed increasing smell as well as generalized fatigue and fevers. This prompted visit to the emergency department today. While in the emergency department, the patient was noted to have a moderate leukocytosis as well as significant hyperglycemia. She also was noted to have pseudohyponatremia and hypokalemia. X-rays were suspicious of osteomyelitis to toes of the RIGHT foot as well as possibility of gas gangrene. Patient received IV cefepime, clindamycin, and vancomycin in the emergency department. Unfortunately, the patient also tested positive for COVID-19. She was taken emergently to the operating room where she underwent transmetatarsal amputation of the RIGHT great toe as well as fasciotomy of the foot. Foot and ankle surgeon did not feel tissue findings were consistent with necrotizing fasciitis. He was able to achieve clear margins. Patient was successfully extubated status post amputation. Upon arrival in the ICU, the patient is drowsy, but awake and alert. She is oriented. She reports that she had significant pain upon arrival which she reports has completely resolved at this time. 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 She has no prior history of diabetes. She does report a history of COPD with ongoing smoking. When asked about recent sick contacts, particular with COVID-19, she reports that she thinks that she was around people who claimed to find COVID-19, "but I thought I stayed far enough away." She states that she did notice fevers and chills, but she equated this to her increasing foot pain and obvious infection. She denies any shortness of breath, cough, wheezing, nasal congestion, loss of taste or smell, or other constitutional Covid symptoms. Her last tetanus booster was in 2004 she believes. Allergies Allergy/AdvReac Type Severity Reaction Status Date / Time penicillin G Allergy Unknown HIVES Unverified 12/10/20 19:37 Sulfa (Sulfonamide Allergy Unknown RETAINS Unverified 12/10/20 19:37 Antibiotics) WATER Home Medications Medication Instructions Recorded Confirmed Type No Known Home Medications 12/10/20 12/10/20 History Patient History Medical History No pertinent past medical history Social History Smoking Status: Current every day smoker Cigarettes Per Day: 1 pack; Do You Dip or Chew Tobacco: No; Hx Alcohol Use: No Hx Substance Use: No Preferred Language: Montserratian Communication Ability: Effective Current Living Situation: Spouse Current Living Situation Comment: lives with girlfriend Other Information That Helps Us Care for You: No Feels Safe at Home: Yes Safety Concerns: Feels Safe At This Time Review of Systems Review of Systems: A complete 10 point review of systems was reviewed with the patient with pertinent positives and negatives as per history of present illness. All else were negative. Physical Exam Physical Exam: VITAL SIGNS - Vital signs and nursing notes were reviewed. GENERAL - 40-year-old female appearing her stated age who is in no acute distress. Drowsy, but communicates well with provider and answers questions appropriately. SKIN - Postoperative dressing to the RIGHT foot clean, dry, and intact. Mild warmth to touch to the proximal portion of the lower leg. No significant erythema. No crepitus to palpation. No streaking or other significant findings noted. HEAD - NC/AT. EYES - PERRL with EOMI bilaterally. Sclera anicteric. EARS - No deformities of external structures noted on gross examination bilaterally. NOSE - Midline and without cyanosis. MOUTH/OROPHARYNX - Without perioral cyanosis. Buccal mucosa pink and moist and without leukoplakia. NECK - Neck with FROM. No nuchal rigidity. LUNGS - Chest wall symmetric without accessory muscle use, intercostals retractions, or central cyanosis. Normal vesicular breath sounds CTA B/L. No wheezes, rales, or rhonchi appreciated. CARDIAC - RRR with S1/S2. No murmur, rubs, or gallops appreciated. ABDOMEN - Abdominal contour obese without pulsations or visible masses. BS normoactive all four quadrants. No tenderness, palpable masses, hepatosplenomegaly, or ascites noted. EXTREMITIES - As above. +3/5 radial and LEFT sided dorsalis pedis pulses palpated throughout. +5/5 strength noted in UE/LE bilaterally. NEUROLOGIC - Cranial nerves II through XII grossly intact. PSYCH - A&Ox3 and cooperates fully with examiner. Pt is very pleasant and interacts well with examiner. Results & Data Results & Data ([facility]) Vital Signs (Past 12 Hours) Vital Signs Temp Pulse Pulse Resp BP BP Pulse Ox 12/11/20 00:20 37.0 C 97 H 28 H 112/70 92 12/11/20 00:15 37.1 C 98 H 20 111/72 93 12/11/20 00:10 96 H 22 95 12/11/20 00:05 100 H 26 H 114/68 95 12/10/20 23:55 36.8 C 100 H 24 118/74 86 L 12/10/20 23:45 97 H 20 126/86 85 L 12/10/20 21:40 103 H 21 97 12/10/20 21:30 103 H 20 99/52 L 99 12/10/20 21:20 107 H 16 98 12/10/20 21:10 104 H 19 97 12/10/20 21:00 113 H 17 106/69 99 12/10/20 20:50 110 H 97 12/10/20 20:40 110 H 21 97 12/10/20 20:30 112 H 19 117/60 97 12/10/20 20:20 113 H 24 98 12/10/20 20:10 111 H 21 98 12/10/20 20:01 118 H 23 127/66 97 12/10/20 20:00 117 H 17 92 12/10/20 19:50 118 H 20 97 12/10/20 19:40 111 H 16 96 12/10/20 19:30 113 H 22 174/90 H 97 12/10/20 19:27 113 H 21 179/93 H 100 12/10/20 18:48 38.7 C H 116 H 20 162/87 H 99 Coding Level of Care Code Critical Care 1st 30-74 mins Diagnoses Admitted to intensive care unit Z78.9 Osteomyelitis of foot, right, acute M86.171 Gas gangrene A48.0 COVID-19 U07.1 Sepsis A41.9 Sepsis acute organ dysfunction status: unspecified Sepsis type: sepsis due to unspecified organism Hyperglycemia R73.9 Hypokalemia E87.6 Time Spent (min) 55 (1) Sepsis Sepsis acute organ dysfunction status: unspecified Sepsis type: sepsis due to unspecified organism Qualified Code(s): A41.9 - Sepsis, unspecified organism
[2020-12-11] MEDS ORDERED: PHARMACY GLYCEMIC MGMT CONSULT PRN (01:10)
[2020-12-11 01:29] LABS: Hematocrit (blood only) 31.1 % (37-47); Hemoglobin 10.4 g/dL (12.0-16.0)
[2020-12-11] MEDS ORDERED: INSULIN REGULAR 250 UNITS in SODIUM CHLORIDE 0.9% 247.5 ML IV SCH (01:30)
[2020-12-11] MEDS ORDERED: GLUCOSE 10 TABS/TUBE PO PRN (01:30)
[2020-12-11] MEDS ORDERED: GLUCOSE 40% GEL 15 GM TUBE PO PRN (01:30)
[2020-12-11] MEDS ORDERED: NovoLIN-R BOLUS FROM BAG IV ONE (01:30)
[2020-12-11] MEDS ORDERED: CARBOHYDRATES FOR HYPOGLYCEMIA PO PRN (01:30)
[2020-12-11] MEDS ORDERED: GLUCAGON FOR INJ 1 MG VIAL IM PRN (01:30)
[2020-12-11] MEDS ORDERED: DEXTROSE 50% 50 ML SYRINGE IV PRN (01:30)
[2020-12-11] MEDS: NSS + 20MEQ KCL 20 MEQ/1,000 ML BAG IV SCH ×3 (01:31→16:30)
[2020-12-11 01:57] LABS: BUN Creatinine Ratio 12.7 (10-20); Calcium 7.5 mg/dl (8.5-10.1); Est GFR (Non-African American) 84.5; Magnesium 1.8 mg/dl (1.8-2.4); Phosphorus 2.3 mg/dl (2.5-4.9); Potassium 3.3 mmol/L (3.5-5.1)
[2020-12-11] MEDS ORDERED: POTASSIUM PHOS 3 MMOL/1 ML INFUSION IV STA (02:00)
[2020-12-11] MEDS ORDERED: MAGNESIUM SULFATE / D5W 1 GM/100 ML BAG IV ONE (02:00)
[2020-12-11 02:16] LABS: Beta-Hydroxybutyrate 6.83 mg/dl (0.2-2.81)
--- NOTE | 2020-12-11 02:26 | Procedure Note ---
Procedure Note Date of Service December 11, 2020 Procedure: [facility] Indwelling Peripherally Inserted IV Catheter Placement Attending: Dr. Savage APC: Girish Gilbert PA-C Indication: Need for IV Access, Poor Vascular Access Anesthesia: None Verbal consent was obtained from patient prior to performing the procedure. A time-out was completed verifying correct patient, procedure, site, positioning, and implant(s) or special equipment if applicable. Utilizing bedside ultrasound, vascularity of the LEFT upper extremity was assessed. Vessel size was noted for appropriate catheter selection and skin was marked with gentle pressure. Patients LEFT upper extremity was prepped and draped in the usual sterile fashion utilizing chlorhexidine. Ultrasound guidance was used to aid needle placement. A 22 g Endurance Catheter was introduced into the LEFT forearm vein under direct ultrasound guidance. Guide wire was easily deployed without resistance. Catheter was threaded over the guide wire without resistance and the entire apparatus was removed intact. Good venous blood return was noted in the catheter. The IV catheter was easily flushed with sterile saline flush. Sterile clave was attached to the end of the catheter and good blood return was again noted. Tourniquet was released. StatLock device and sterile dressing were applied. The patient tolerated the procedure well. Blood Loss: Minimal Complications: None Procedural Ultrasound Guidance: Procedure Date: 12/11/2020 Indication: Poor Vascular Access Attending: Dr. Savage APC: Girish Gilbert PA-C Artery/Veins Identified: YES Access confirmed in Vein with ultrasound: YES Complications: NONE Patient tolerated procedure: WELL Coding CPT Codes Tubes, Drains, and Vasc Access - Tubes, Drains, and Vasc Access: [id number] Venipuncture, Age 1/>Req phys skill, (sep proc), Dx/Tx (not rtn) ([id number]) [facility] [place] Procedure Codes (Charges) Tubes, Drains, and Vasc Access Procedure 1: Tubes, Drains, and Vasc Access: [id number] Venipuncture, Age 1/>Req phys skill, (sep proc), Dx/Tx (not rtn)
[2020-12-11] MEDS ORDERED: POTASSIUM PHOSPHATE 15 MMOL in SODIUM CHLORIDE 0.9% 250 ML IV ONE (02:30)
[2020-12-11] MEDS: POTASSIUM CHLORIDE / WTR 10 MEQ/100 ML PLCT IV SCH ×4 (02:54→05:50)
[2020-12-11] MEDS: PENDING D5 1/2NS+20mEq KCL IVF SCH ×4 (02:54→18:24)
[2020-12-11] MEDS: CLINDAMYCIN 900 MG in DEXTROSE 5% 50 ML IV SCH ×3 (04:08→20:02)
[2020-12-11 05:00] LABS: Basophils # (auto) 0.04 K/uL (0-0.2); Basophils % (auto) 0.2 %; Eosinophils # (auto) 0.09 K/uL (0-0.5); Eosinophils % (auto) 0.5 %; Hematocrit (blood only) 30.3 % (37-47); Hemoglobin 10.2 g/dL (12.0-16.0); Immature Granulocytes # (auto) 0.19 K/uL (0.00-0.02); Lymphocytes % (auto) 8.9 %; Mean Corpuscular Hemoglobin 26.5 pg (25-34); Mean Corpuscular Hgb Conc 33.7 g/dL (32-36); Mean Corpuscular Volume 78.7 fL (80-100); Mean Platelet Volume 11.3 fL (7.4-10.4); Monocytes # (auto) 1.37 K/uL (0.11-0.59); Monocytes % (auto) 7.2 %; Neutrophils # (auto) 15.63 K/uL (1.4-6.5); Neutrophils % (auto) 82.2 %; Platelet Count 329 K/uL (130-400); RDW Coefficient of Variation 15.2 % (11.5-14.5); RDW Standard Deviation 43.8 fL (36.4-46.3); Red Blood Count 3.85 M/uL (4.2-5.4); White Blood Count 19.02 K/uL (4.8-10.8)
[2020-12-11 05:10] LABS: INR 1.2 (0.9-1.1); Partial Thromboplastin Time 25.2 Seconds (21.0-31.0); Prothrombin Time 12.4 Seconds (9.0-12.0)
[2020-12-11] MEDS: VANCOMYCIN HCL 1,250 MG in SODIUM CHLORIDE 0.9% 250 ML IV SCH ×2 (05:22→20:02)
[2020-12-11 05:43] LABS: Albumin Globulin Ratio 0.3 (0.9-2); Albumin Level 1.5 gm/dl (3.4-5.0); BUN Creatinine Ratio 11.5 (10-20); Bilirubin,Total 0.7 mg/dl (0.2-1); Calcium 7.8 mg/dl (8.5-10.1); Creatinine Clr Calc Pharmacy 96.9 ml/min; Est GFR (African American) 87.9; Est GFR (Non-African American) 75.8; Globulin 4.9 gm/dl (2.5-4.0); Phosphorus 2.7 mg/dl (2.5-4.9); Total Protein 6.4 gm/dl (6.4-8.2)
[2020-12-11 06:05] LABS: Beta-Hydroxybutyrate 0.97 mg/dl (0.2-2.81)
[2020-12-11 06:06] LABS: Magnesium 2.4 mg/dl (1.8-2.4); Potassium 3.7 mmol/L (3.5-5.1)
[2020-12-11 06:10] LABS: Estimated Average Glucose 269 mg/dl
[2020-12-11] MEDS ORDERED: AZTREONAM 2,000 MG in DEXTROSE 5% 100 ML IV SCH (06:30)
--- NOTE | 2020-12-11 07:41 | Pharmacy Report ---
Pharmacy Abx Dose Short Note - Date of Service December 11, 2020 - Assessment & Plan Assessment 40 year old F receiving VANCOMYCIN + MEROPENEM + CLINDAMYCIN for sepsis secondary to nec fasciitis / gas gangrene, osteomyelitis or R foot. Pharmacy is consulted to dose vancomycin S/P TMA R foot and fasciotomy 12/10 Wound and blood cx's obtained MAPs in 60s currently, not receiving pressor support, SCr appears stable but UOP < 0.5mL/kg/hr Plan Vancomycin * 2500mg load x 1 given (~25mg/kg) * Maint dose: 1250mg (~13mg/kg) Q 12 hrs * He may be a candidate for AUC method of dosing, however if renal fxn changing we may need to alter our treatment plan. SCr being checked frequently due to labs ordered for insulin drip monitoring * Goals for sepsis / osteo / nec fasc : AUC/TERESA 400-600 or trough 15-20mcg/mL if unable to use AUC dosing method * Trough level ordered with 3rd maint dose due to concern for changing renal fxn and risk assoc w/ under dosing Pharmacy will continue to follow and will adjust dose/frequency as necessary. Thank you.
--- NOTE | 2020-12-11 07:51 | Hospitalist Progress Note ---
Date of Service December 11, 2020 Assessment & Plan (1) Osteomyelitis of foot, right, acute: Right foot osteomyelitis/gas gangrene/sepsis- 12/10/20 right foot transmetatarsal amputation, Surgeon: Antonio Colmenares clindamycin and meropenem Td given (2) Gas gangrene: Admission pre surgical x ray 12/10/20 IMPRESSION: 1. Bony destruction/lysis of the third digit as above suggests osteomyelitis. 2. Moderate soft tissue gas of the plantar forefoot is suspicious for fasciitis. 3. Diffuse soft tissue prominence of the right foot and lower leg is suggestive of cellulitis (3) Sepsis: Pt with fever tachypnea, leukocytosis and procalcitonin elevation (4) COVID-19: COVID-19 test positive- cxr negative on presentation but is mildly hypoxic requiring supplemental oxygen, pulmonary medicine consult does not feel hypoxia is from covid pneumonina but from post anesthesia hypoventilation and atelectasis Patient will be placed in isolation, but would not require active treatment unless symptoms should present. (5) Hyperglycemia: Glucose 472 upon admission. Was given 8 units regular insulin and then taken to the OR Placed on ICU hyperglycemic protocol, not with DKA hemoglobin A1c 11 (6) Hyponatremia: remains mild (7) DVT prophylaxis: will start post procedure lovenox Admission and Anticipated Discharge Date Admission Date: December 10, 2020 Subjective pt was seen in ICU, seems a bit groggy, good pain control, initial hypoxia felt secondary to post anesthesia hypoventilation, now improved, not suspected to be from Covid + state, CXR did not look concerning. Pt is aware of transmetatarsal amputation Review of Systems Review of Systems: Mild distress and moderate fatigue no headache, blurry or double vision no speech or swallowing issues no chest pain, pressure or palpitations no shortness of breath, cough or wheezes no abdominal pain, nausea or vomiting, diarrhea or constipation no dysuria, hematuria or frequency no focal joint pain patient has neuropathy some distal right lower extremity swelling no back pain, CVA tenderness or radicular pain Surgical site is wrapped no focal signs of weakness as distal extremity neuropathy and numbness at baseline no complaints of anxiety or depression.. Physical Exam Physical Exam: The patient appeared well nourished and normally developed. Vital signs as documented. Head exam is normocephalic atraumatic no scleral icterus Neck is without JVD, thyromegaly, or carotid bruits. Lungs are clear to auscultation, no focal loss of breath sounds Cardiac exam, Rhythm is regular.. No murmurs, rubs or gallops. Abdominal exam reveals normal bowel sounds, soft non tender, no masses Right lower extremity has a bandage in place obvious deformity of a transmetatarsal amputation there is some mild swelling noted above the bandage the bandages not overly tight Neurologic exam is alert and oriented, no focal loss of strength or sensation Skin is without bruises or rashes Psychologically is without concerns for anxiety or depression Results & Data Results & Data ([facility]) Vital Signs (Past 12 Hours) Vital Signs Temp Pulse Pulse Resp BP BP Pulse Ox 12/11/20 06:00 98.4 F 80 93 12/11/20 05:39 80 93/58 L 97 12/11/20 05:06 82 85/49 L 92 12/11/20 05:00 81 94 12/11/20 04:36 78 92/59 L 95 12/11/20 04:06 81 102/60 91 12/11/20 04:00 97.9 F 82 95 12/11/20 03:36 81 98/59 L 90 12/11/20 03:06 81 102/58 L 91 12/11/20 03:00 81 94 12/11/20 02:35 83 103/70 94 12/11/20 02:26 84 103/62 95 12/11/20 02:15 81 98/60 L 94 12/11/20 02:05 82 105/67 93 12/11/20 02:00 83 93 12/11/20 01:55 85 90/61 L 93 12/11/20 01:45 84 109/73 94 12/11/20 01:35 87 111/72 94 12/11/20 01:30 85 94 12/11/20 01:25 87 108/67 96 12/11/20 01:21 85 105/69 92 12/11/20 01:15 88 94 12/11/20 01:05 88 102/60 91 12/11/20 01:00 90 95 12/11/20 00:56 92 H 105/62 95 12/11/20 00:48 91 H 93 12/11/20 00:45 92 H 112/67 93 12/11/20 00:20 98.6 F 97 H 28 H 112/70 92 12/11/20 00:15 98.8 F 98 H 20 111/72 93 12/11/20 00:10 96 H 22 95 12/11/20 00:05 100 H 26 H 114/68 95 12/10/20 23:55 98.2 F 100 H 24 118/74 86 L 12/10/20 23:45 97 H 20 126/86 85 L 12/10/20 21:40 103 H 21 97 12/10/20 21:30 103 H 20 99/52 L 99 12/10/20 21:20 107 H 16 98 12/10/20 21:10 104 H 19 97 12/10/20 21:00 113 H 17 106/69 99 12/10/20 20:50 110 H 97 12/10/20 20:40 110 H 21 97 12/10/20 20:30 112 H 19 117/60 97 12/10/20 20:20 113 H 24 98 12/10/20 20:10 111 H 21 98 12/10/20 20:01 118 H 23 127/66 97 12/10/20 20:00 117 H 17 92 12/10/20 19:50 118 H 20 97 PG Care Time/CCT Total # of Minutes Spent Total Time Spent with Patient: Total time spent is greater than 50% in coordination of care (as documented) at patient's floor/unit and/or counseling patient: Coding Level of Care Code 91229 Subseq Hosp Care Lvl 3 Diagnoses Osteomyelitis of foot, right, acute M86.171 Gas gangrene A48.0 Sepsis A41.9 Sepsis acute organ dysfunction status: unspecified Sepsis type: sepsis due to unspecified organism COVID-19 U07.1 Hyperglycemia R73.9 Hyponatremia E87.1 DVT prophylaxis Z29.9 (1) Sepsis Sepsis acute organ dysfunction status: unspecified Sepsis type: sepsis due to unspecified organism Qualified Code(s): A41.9 - Sepsis, unspecified organism
[2020-12-11] MEDS ORDERED: ACETAMINOPHEN 500 MG TAB PO PRN (07:59)
[2020-12-11] MEDS ORDERED: oxyCODONE HCL IR 5 MG TAB (IMMEDIATE RELEASE) PO PRN ×2 (07:59)
--- NOTE | 2020-12-11 08:20 | Electrocardiogram Report ---
Test Reason : Blood Pressure : / mmHG Vent. Rate : 109 BPM Atrial Rate : 109 BPM P-R Int : 112 ms QRS Dur : 080 ms QT Int : 300 ms P-R-T Axes : 053 007 052 degrees QTc Int : 404 ms Sinus tachycardia Nonspecific T wave abnormality Abnormal ECG When compared with ECG of 31-AUG-1999 11:27, No significant change was found Confirmed by Shan Bradshaw ([id number]) on 12/11/2020 8:19:40 AM Referred By: REFERRED SELF Confirmed By:Speedy Bradshaw
[2020-12-11] MEDS ORDERED: FAMOTIDINE 20 MG in SYRINGE 3 ML IV SCH (09:00)
[2020-12-11] MEDS ORDERED: INSULIN GLARGINE SOLOSTAR 100 UNITS/ML 3 ML PEN SC SCH (09:00)
[2020-12-11] MEDS ORDERED: DIPHTHERIA/TETANUS/PERTUSSIS 0.5 ML SYR/VIAL IM ONE (09:00)
[2020-12-11] MEDS: INSULIN ASPART 100 UNITS/ML 3 ML PEN SC SCH ×6 (10:20→23:36)
[2020-12-11] MEDS: MEROPENEM 500 MG in SYRINGE 0 ML IV SCH ×3 (10:22→21:31)
[2020-12-11] MEDS ORDERED: VANCOMYCIN HCL 1,000 MG in SODIUM CHLORIDE 0.9% 250 ML IV SCH (10:30)
[2020-12-11] MEDS ORDERED: INSULIN PROTOCOL GOAL RANGE ONE (10:32)
--- NOTE | 2020-12-11 10:56 | Pharmacy Report ---
Pharmacy Glycemic Short Note 2 - Date of Service December 11, 2020 - Glycemic Short BSG Results (Last 24 hours): 12/10/20 12/11/20 12/11/20 19:16 00:52 01:20 Glucose 472 H* 386 H* POC Glucose 407 H* 12/11/20 12/11/20 12/11/20 02:26 04:12 04:45 Glucose 344 H* POC Glucose 412 H* 389 H* 12/11/20 12/11/20 12/11/20 04:49 05:33 06:05 Glucose POC Glucose 356 H* 351 H* 337 H* 12/11/20 12/11/20 12/11/20 08:29 09:34 10:34 Glucose POC Glucose 222 H 173 H 149 H OUTPATIENT ANTIDIABETIC REGIMEN: * n/a * A1c = 11% 12/11/20 ASSESSMENT: * Newly dx type 2 diabetic admitted for sepsis, gas gangrene, osteomyelitis of R foot requiring surgical intervention (TMA R foot w/ fasciotomy); pt also found to have COVID19 on screening * Patient was severely hyperglycemic on presentation however no AG acidosis present and calculated serum osmo less than 320 * IV insulin drip initiated this AM for severe hyperglycemia in the setting of sepsis and severe SSTI / osteo. * BSGs have dropped to 140-180 range - will continue insulin drip at this time however begin transition to SQ basal / bolus regimen if diet advanced. Will begin "moderate" stress basal dosing this AM to allow for easier transition in the near future should diet advance. PLAN FOR INPATIENT GLYCEMIC CONTROL: * Continue IV insulin drip, reduce goal range to 110-180 * Basal insulin * Lantus 15 units SQ BID - please administer while on insulin drip; if patient's diet advanced and insulin infusion rate falling, will give additional Lantus and plan to dc insulin drip 2-4 hrs afterwards * Prandial insulin * Nutritional / Prandial insulin per carb ratio of calculated by insulin infusion rate change calculator PLAN FOR DISCHARGE: * given patient's A1c 11 and severe infection; would recommend initiation of triple therapy if possible: metformin + basal insulin + (either prandial insulin or GLP-1 Ag); should avoid SGL2T inhibitors given risks of amputation. Insurance coverage of GLP-1 Ag should be confirmed prior to prescribing.
--- NOTE | 2020-12-11 12:55 | XRay Report ---
XR foot RT min 3V routine HISTORY: 40 years-old Female Post Operative status post partial amputation of the right foot COMPARISON: Right foot radiographs 12/10/2020 TECHNIQUE: 3 views of the right foot FINDINGS: Status post partial rotation of the right foot the level of the proximal aspects of the second throug h fifth metatarsals with complete resection of the first digit. The stump of the fifth metatarsal ext ends 1.4 cm distally in relation to the other metatarsal bases. Expected postoperative soft tissue sw elling with deep tissue air. Spurring of the calcaneus. Arterial calcifications. No opaque foreign noah dy. Overlying gauze material. IMPRESSION: Status post amputation of the right forefoot with expected postoperative changes. ACT 112: Negative or not required by law. The above report was generated using voice recognition software. It may contain grammatical, syntax o r spelling errors. Electronically signed by: Edward Elliott M.D. 12/11/2020 12:53 PM
[2020-12-11] MEDS ORDERED: INSULIN GLARGINE SOLOSTAR 100 UNITS/ML 3 ML PEN SC ONE ×2 (13:30→20:00)
[2020-12-11] MEDS ORDERED: [UNRECOGNIZED DRUG - REMARK] ONE (15:30)
[2020-12-11] MEDS: ENOXAPARIN INJ 40 MG/0.4 ML SYR SQ SCH (20:01)
[2020-12-11] MEDS: FAMOTIDINE 20 MG TAB PO SCH (20:03)
--- NOTE | 2020-12-11 20:31 | Surgery Consultation ---
Date of Consultation December 11, 2020 Assessment & Plan (1) Gas gangrene: 1.) Patient seen, evaluated and treated. 2.) Post op Day #1 Transmetatarsal amputation open with rearfoot fasciotomy 3.) Dressing change saline moisten 4x4 gauze, ABD, kerlix, tessie 4.) Patient is NWB right foot 5.) Wound Vac ordered 125mgHg continuous 6) Patient will require skin graft for wound coverage once granulation present. This was discussed with Patient. (2) Osteomyelitis of foot, right, acute: History of Present Illness Reason for Consultation: Right foot wound Attending Physician: Paresh Cleveland MD History of Present Illness Patient is a 40-year-old female who presented to the emergency department (12/10/20) with pain to the RIGHT foot. She reported blisters and notes that she noticed increasing smell as well as generalized fatigue and fevers. X-rays were suspicious of osteomyelitis to toes of the RIGHT foot as well as gas gangrene. Patient received IV cefepime, clindamycin, and vancomycin in the emergency department. She tested positive for COVID-19 while in ED. Later that evening she underwent a transmetatarsal amputation of the RIGHT great toe as well as fasciotomy of the foot. No apparent tracking was noted and clear margins were achieve. Patient was successfully extubated status post amputation and transferred to the ICU. Allergies Allergy/AdvReac Type Severity Reaction Status Date / Time penicillin G Allergy Intermediate HIVES Unverified 12/11/20 12:16 Sulfa (Sulfonamide AdvReac Mild RETAINS Unverified 12/11/20 12:16 Antibiotics) WATER Home Medications Medication Instructions Recorded Confirmed Type No Known Home Medications 12/10/20 12/10/20 History Patient History Medical History No pertinent past medical history Social History Smoking Status: Current every day smoker Cigarettes Per Day: 1 pack; Do You Dip or Chew Tobacco: No; Hx Alcohol Use: No Hx Substance Use: No Preferred Language: Finnish Communication Ability: Effective Current Living Situation: Spouse Current Living Situation Comment: lives with girlfriend Other Information That Helps Us Care for You: No Feels Safe at Home: Yes Safety Concerns: Feels Safe At This Time Review of Systems Constitutional: + fever and + malaise Ear, Nose, Mouth, Throat: as per Subjective / HPI Respiratory: as per Subjective / HPI Cardiovascular: as per Subjective / HPI Gastrointestinal: as per Subjective / HPI Genitourinary: as per Subjective / HPI Musculoskeletal: as per Subjective / HPI Integumentary: + skin ulcer Neurologic: Loss of epicritc sensation Psychiatric: as per Subjective / HPI Endocrine: as per Subjective / HPI Hematologic / Lymphatic: as per Subjective / HPI Physical Exam Constitutional: well developed, well nourished and + disheveled Eyes: PERRL, conjunctivae normal, anicteric sclerae ENMT: external ear and nose normal, oropharynx normal Neck: trachea midline, no thyromegaly Respiratory: normal respiratory effort Cardiovascular: Rate/Rhythm: regular rate and regular rhythm Gastrointestinal (Abdomen): Inspection/Auscultation: abdomen normal to inspection Psychiatric: A+Ox3, euthymic affect Results & Data ([facility]) Vital Signs (Past 12 Hours) Vital Signs Temp Pulse Pulse Resp BP BP BP 12/11/20 20:15 36.8 C 86 18 112/74 12/11/20 18:38 37.2 C 90 18 109/70 12/11/20 16:00 36.8 C 86 12/11/20 15:36 85 95/69 L 12/11/20 15:06 87 103/66 12/11/20 15:00 37.0 C 85 12/11/20 14:36 86 95/72 L 12/11/20 14:07 80 12/11/20 14:06 80 100/60 12/11/20 14:00 80 12/11/20 13:36 81 93/61 L 12/11/20 13:30 80 12/11/20 13:06 80 89/61 L 12/11/20 13:00 80 12/11/20 12:36 79 94/64 L 12/11/20 12:30 82 12/11/20 12:07 80 12/11/20 12:06 79 92/57 L 12/11/20 12:00 79 12/11/20 11:36 81 87/58 L 12/11/20 11:30 36.9 C 78 12/11/20 11:06 78 89/59 L 12/11/20 11:00 78 12/11/20 10:37 80 12/11/20 10:36 79 91/58 L 12/11/20 10:30 78 12/11/20 10:06 78 101/63 12/11/20 10:00 79 12/11/20 09:36 78 94/58 L 12/11/20 09:30 36.6 C 80 12/11/20 09:06 81 100/60 12/11/20 09:00 81 12/11/20 08:36 79 94/64 L 12/11/20 08:33 80 102/66 12/11/20 08:30 82 12/11/20 08:25 85 102/66 Pulse Ox 12/11/20 20:15 94 12/11/20 18:38 96 12/11/20 16:00 93 12/11/20 15:36 95 12/11/20 15:06 92 12/11/20 15:00 90 12/11/20 14:36 92 12/11/20 14:07 93 12/11/20 14:06 93 12/11/20 14:00 92 12/11/20 13:36 94 12/11/20 13:30 94 12/11/20 13:06 91 12/11/20 13:00 90 12/11/20 12:36 92 12/11/20 12:30 92 12/11/20 12:07 90 12/11/20 12:06 90 12/11/20 12:00 90 12/11/20 11:36 93 12/11/20 11:30 93 12/11/20 11:06 94 12/11/20 11:00 94 12/11/20 10:37 95 12/11/20 10:36 94 12/11/20 10:30 93 12/11/20 10:06 92 12/11/20 10:00 92 12/11/20 09:36 94 12/11/20 09:30 92 12/11/20 09:06 93 12/11/20 09:00 93 12/11/20 08:36 94 12/11/20 08:33 94 12/11/20 08:30 93 12/11/20 08:25 94
[2020-12-12] MEDS: NSS + 20MEQ KCL 20 MEQ/1,000 ML BAG IV SCH ×3 (01:27→23:35)
[2020-12-12] MEDS: CLINDAMYCIN 900 MG in DEXTROSE 5% 50 ML IV SCH ×3 (04:10→20:02)
[2020-12-12] MEDS: MEROPENEM 500 MG in SYRINGE 0 ML IV SCH ×4 (04:10→21:11)
[2020-12-12] MEDS: INSULIN ASPART 100 UNITS/ML 3 ML PEN SC SCH ×5 (04:22→21:29)
[2020-12-12] MEDS ORDERED: VANCOMYCIN TROUGH ONE (07:30)
[2020-12-12 08:10] LABS: Hematocrit (blood only) 30.2 % (37-47); Hemoglobin 10.1 g/dL (12.0-16.0); Mean Corpuscular Hemoglobin 26.5 pg (25-34); Mean Corpuscular Hgb Conc 33.4 g/dL (32-36); Mean Corpuscular Volume 79.3 fL (80-100); Mean Platelet Volume 10.7 fL (7.4-10.4); Platelet Count 383 K/uL (130-400); RDW Coefficient of Variation 15.8 % (11.5-14.5); RDW Standard Deviation 46.4 fL (36.4-46.3); Red Blood Count 3.81 M/uL (4.2-5.4); White Blood Count 17.21 K/uL (4.8-10.8)
[2020-12-12] MEDS: FAMOTIDINE 20 MG TAB PO SCH ×2 (08:12→21:11)
[2020-12-12 08:27] LABS: Basophils % (auto) 0.6 %; Eosinophils # (auto) 0.35 K/uL (0-0.5); Immature Granulocytes # (auto) 0.39 K/uL (0.00-0.02); Immature Granulocytes % (auto) 2.3 %; Lymphocytes # (auto) 2.45 K/uL (1.2-3.4); Lymphocytes % (auto) 14.2 %; Monocytes # (auto) 1.05 K/uL (0.11-0.59); Monocytes % (auto) 6.1 %; Neutrophils # (auto) 12.87 K/uL (1.4-6.5); Neutrophils % (auto) 74.8 %
[2020-12-12 08:38] LABS: Albumin Level 1.4 gm/dl (3.4-5.0); BUN Creatinine Ratio 13.1 (10-20); Calcium 7.7 mg/dl (8.5-10.1); Creatinine Clr Calc Pharmacy 85.9 ml/min; Est GFR (African American) 72.5; Est GFR (Non-African American) 62.6; Potassium 3.5 mmol/L (3.5-5.1)
[2020-12-12 08:41] LABS: Albumin Globulin Ratio 0.3 (0.9-2); Bilirubin,Total 0.5 mg/dl (0.2-1); Globulin 4.8 gm/dl (2.5-4.0); INR 1.1 (0.9-1.1); Partial Thromboplastin Ratio 1.1; Partial Thromboplastin Time 28.8 Seconds (21.0-31.0); Prothrombin Time 11.5 Seconds (9.0-12.0); Total Protein 6.2 gm/dl (6.4-8.2)
--- NOTE | 2020-12-12 08:53 | Pharmacy Report ---
Pharmacy Abx Dose Short Note - Date of Service December 12, 2020 - Assessment & Plan Assessment 40 year old F receiving vancomycin, meropenem, and clindamycin for treatment of sepsis secondary to nec fasciitis / gas gangrene, osteomyelitis or R foot. Pharmacy is consulted to dose vancomycin S/P TMA R foot and fasciotomy 12/10 Wound and blood cx's obtained Day # 3 of antimicrobial therapy. Plan Vancomycin * Trough level of 15.5 mcg/mL is therapeutic. Level is a bit before steady state. Will plan on getting a repeat on morning unless renal function significantly changes tomorrow. * Continue dose of 1250 mg IV every 12 hours * Goal: AUC/TERESA 400-600 or trough 15-20mcg/mL if unable to use AUC dosing method * Trough or random level ordered for: 12/14/20 @0830 Pharmacy will continue to follow and will adjust dose/frequency as necessary. Thank you.
[2020-12-12] MEDS ORDERED: INSULIN GLARGINE SOLOSTAR 100 UNITS/ML 3 ML PEN SC SCH ×2 (09:00→21:00)
[2020-12-12] MEDS: VANCOMYCIN HCL 1,250 MG in SODIUM CHLORIDE 0.9% 250 ML IV SCH ×2 (10:16→21:11)
--- NOTE | 2020-12-12 14:06 | Hospitalist Progress Note ---
Date of Service December 12, 2020 Assessment & Plan (1) Osteomyelitis of foot, right, acute: Right foot osteomyelitis/gas gangrene/sepsis- 12/10/20 right foot transmetatarsal amputation, Surgeon: Antonio Colmenares clindamycin and meropenem Td given Cultures of the intraoperative areas are not yet finalized to de-escalate her antibiotics if appropriate Wound VAC was ordered by surgery and it is currently being procured and will be placed prior to discharge there is mention in surgery's note about possible ventral plastic surgery can flap being needed (2) Gas gangrene: Admission pre surgical x ray 12/10/20 IMPRESSION: 1. Bony destruction/lysis of the third digit as above suggests osteomyelitis. 2. Moderate soft tissue gas of the plantar forefoot is suspicious for fasciitis. 3. Diffuse soft tissue prominence of the right foot and lower leg is suggestive of cellulitis (3) Sepsis: Pt with fever tachypnea, leukocytosis and procalcitonin elevation this is now resolved (4) COVID-19: COVID-19 test positive- cxr negative on presentation Patient will be placed in isolation, hypoxemia has resolved (5) Hyperglycemia: Pharmacy glycemic protocol, although elevated glucose on patient on presentation patient was not with DKA hemoglobin A1c 11 will need to have diabetic education prior to going home due to her poorly compliant A1c (6) Hyponatremia: remains mild (7) DVT prophylaxis: will start post procedure lovenox Admission and Anticipated Discharge Date Admission Date: December 10, 2020 Subjective Patient is slightly emotionally distraught today with anxiety from being socially isolated in the hospital. She was able to be redirected regarding the need to stay to find further culture sensitivities on organisms that cause her diabetic foot infection and eventually result in transmetatarsal amputation. We are also coordinating wound VAC placement as surgery feels once this wound granulates and there actually may require plastic surgery reconstruction. Patient herself besides being emotionally distraught is in no significant distress and her neuropathy is helpful with her pain control Review of Systems Review of Systems: Mild distress and moderate fatigue, she is emotionally distraught no headache, blurry or double vision no speech or swallowing issues no chest pain, pressure or palpitations no shortness of breath, cough or wheezes no abdominal pain, nausea or vomiting, diarrhea or constipation no dysuria, hematuria or frequency no focal joint pain patient has neuropathy some distal right lower extremity swelling no back pain, CVA tenderness or radicular pain Surgical site remains wrapped no focal signs of weakness as distal extremity neuropathy and numbness at baseline no complaints of anxiety or depression.. Physical Exam Physical Exam: The patient appeared well nourished and normally developed. Vital signs as documented. Head exam is normocephalic atraumatic no scleral icterus Neck is without JVD, thyromegaly, or carotid bruits. Lungs are clear to auscultation, no focal loss of breath sounds Cardiac exam, Rhythm is regular.. No murmurs, rubs or gallops. Abdominal exam reveals normal bowel sounds, soft non tender, no masses Right lower extremity has a bandage in place obvious deformity of a transmetatarsal amputation there is some blood seen on bandages in the center of the plantar aspect this wound is not been redressed in surgery. Neurologic exam is alert and oriented, no focal loss of strength or sensation Skin is without bruises or rashes Psychologically is with concerns for anxiety patient is agreeable to as needed Ativan Results & Data Results & Data ([facility]) Vital Signs (Past 12 Hours) Vital Signs Temp Pulse Pulse Resp BP BP Pulse Ox 12/12/20 11:34 98.1 F 86 20 104/65 95 12/12/20 08:10 98.6 F 90 18 123/78 93 12/12/20 07:14 87 12/12/20 04:03 98.1 F 88 18 126/68 93 PG Care Time/CCT Total # of Minutes Spent Total Time Spent with Patient: Total time spent is greater than 50% in coordination of care (as documented) at patient's floor/unit and/or counseling patient: Coding Level of Care Code 24320 Subseq Hosp Care Lvl 3 Diagnoses Osteomyelitis of foot, right, acute M86.171 Gas gangrene A48.0 Sepsis A41.9 Sepsis acute organ dysfunction status: unspecified Sepsis type: sepsis due to unspecified organism COVID-19 U07.1 Hyperglycemia R73.9 Hyponatremia E87.1 DVT prophylaxis Z29.9 (1) Sepsis Sepsis acute organ dysfunction status: unspecified Sepsis type: sepsis due to unspecified organism Qualified Code(s): A41.9 - Sepsis, unspecified organism
--- NOTE | 2020-12-12 14:07 | Pharmacy Report ---
Pharmacy Glycemic Short Note 2 - Date of Service December 12, 2020 - Glycemic Short BSG Results (Last 24 hours): 12/11/20 12/11/20 12/11/20 13:33 14:14 15:38 Glucose POC Glucose 109 H 104 H 111 H 12/11/20 12/11/20 12/12/20 20:03 23:17 04:15 Glucose POC Glucose 131 H 121 H 124 H 12/12/20 12/12/20 12/12/20 07:41 07:52 11:37 Glucose 104 H POC Glucose 122 H 149 H OUTPATIENT ANTIDIABETIC REGIMEN: * n/a * A1c = 11% 12/11/20 ASSESSMENT: 12/12 * Patient successfully transitioned off the insulin infusion yesterday. Blood sugars remain very well controlled today. Of note, PO intake has decreased today and she remains on fluids * Patient continues on antibiotics for SSTI and is not growing alpha strep in 11/23 blood cultures * Will continue with current novolog scale * Will scale evening dose of Lantus due to decreased PO intake 12/11 * Newly dx type 2 diabetic admitted for sepsis, gas gangrene, osteomyelitis of R foot requiring surgical intervention (TMA R foot w/ fasciotomy); pt also found to have COVID19 on screening * Patient was severely hyperglycemic on presentation however no AG acidosis present and calculated serum osmo less than 320 * IV insulin drip initiated this AM for severe hyperglycemia in the setting of sepsis and severe SSTI / osteo. * BSGs have dropped to 140-180 range - will continue insulin drip at this time however begin transition to SQ basal / bolus regimen if diet advanced. Will begin "moderate" stress basal dosing this AM to allow for easier transition in the near future should diet advance. PLAN FOR INPATIENT GLYCEMIC CONTROL: * Basal insulin: Lantus 15 units this morning, then scale this evening (5,10, or 15 units based on BSG-See MAR for details) * Correctional Insulin: Novolog Correction per scale ACHS Goal Range: Low 110 mg/dL - High 140 mg/dL Correction Factor: 25 mg/dL/unit * Prandial insulin: Per carb ratio of 1 unit per 8 grams CHO consumed BSGs continue to improve, no changes needed to inpatient regimen at this time. Pharmacy will continue to monitor patient daily and write orders per [facility] inpatient glycemic control protocol. Thanks. * Please note that the plan above was derived based on current level of insulin resistance and hospital stress. These recommendations are appropriate for inpatient admission only. Plan of care upon discharge will need to be reassessed to avoid potential outpatient hypo/hyperglycemia. PLAN FOR DISCHARGE: * given patient's A1c 11 and severe infection; would recommend initiation of triple therapy if possible: metformin + basal insulin + (either prandial insulin or GLP-1 Ag); should avoid SGL2T inhibitors given risks of amputation. Insurance coverage of GLP-1 Ag should be confirmed prior to prescribing.
[2020-12-12] MEDS ORDERED: LORazepam 0.5 MG TAB PO PRN (17:58)
[2020-12-12] MEDS: ENOXAPARIN INJ 40 MG/0.4 ML SYR SQ SCH (20:01)
--- NOTE | 2020-12-12 21:36 | Orthopedic Progress Note ---
Date of Service December 12, 2020 Assessment & Plan (1) Gas gangrene: 1.) Post op Day #2 Transmetatarsal amputation right foot open with rearfoot fasciotomy 2.) Wound Vac intact and running 3.) Patient is NWB right foot 4.) I will utilize skin graft for closure. This was discussed with Patient who is agreeable. Vac change on 12/13/20, will evaluate granulation tissue for timeline. This can be completed as out Patient if needed. 5.) I discussed use of [facility] upon discharge with Patient who is agreeable if available. 6.) Awaiting culture and sensitivities results. Will consider ID consult for recommendation of Abx therapy upon discharge. (2) Osteomyelitis of foot, right, acute: Admission and Anticipated Discharge Date Admission Date: December 10, 2020 Subjective Post operative Day #2 open transmetatarsal amputation right foot. Patient seen at bedside and is resting comfortably in Bed. She appears with out complaints. Review of Systems Constitutional: + fever and + malaise Ear, Nose, Mouth, Throat: as per Subjective / HPI Respiratory: as per Subjective / HPI Cardiovascular: as per Subjective / HPI Gastrointestinal: as per Subjective / HPI Genitourinary: as per Subjective / HPI Musculoskeletal: as per Subjective / HPI Integumentary: + skin ulcer Neurologic: Loss of epicritc sensation Psychiatric: as per Subjective / HPI Endocrine: as per Subjective / HPI Hematologic / Lymphatic: as per Subjective / HPI Physical Exam Constitutional: well developed, well nourished and + disheveled Eyes: PERRL, conjunctivae normal, anicteric sclerae ENMT: external ear and nose normal, oropharynx normal Neck: trachea midline, no thyromegaly Respiratory: normal respiratory effort Cardiovascular: Rate/Rhythm: regular rate and regular rhythm Gastrointestinal (Abdomen): Inspection/Auscultation: abdomen normal to inspection Psychiatric: A+Ox3, euthymic affect Results & Data ([facility]) Vital Signs (Past 12 Hours) Vital Signs Temp Pulse Pulse Pulse Resp BP BP 12/12/20 20:10 36.7 C 81 16 111/71 12/12/20 18:31 86 12/12/20 14:35 36.6 C 83 18 99/64 L 12/12/20 11:34 36.7 C 86 20 104/65 Pulse Ox 02/23/21 20:10 94 12/12/20 18:31 12/12/20 14:35 97 12/12/20 11:34 95
[2020-12-13] MEDS: MEROPENEM 500 MG in SYRINGE 0 ML IV SCH ×2 (03:31→09:10)
[2020-12-13] MEDS: CLINDAMYCIN 900 MG in DEXTROSE 5% 50 ML IV SCH (03:37)
[2020-12-13 07:39] LABS: Hematocrit (blood only) 27.9 % (37-47); Hemoglobin 9.3 g/dL (12.0-16.0); Mean Corpuscular Hemoglobin 26.1 pg (25-34); Mean Corpuscular Hgb Conc 33.3 g/dL (32-36); Mean Corpuscular Volume 78.4 fL (80-100); Mean Platelet Volume 10.3 fL (7.4-10.4); Platelet Count 378 K/uL (130-400); RDW Coefficient of Variation 15.7 % (11.5-14.5); RDW Standard Deviation 45.7 fL (36.4-46.3); Red Blood Count 3.56 M/uL (4.2-5.4); White Blood Count 16.87 K/uL (4.8-10.8)
[2020-12-13] MEDS: NSS + 20MEQ KCL 20 MEQ/1,000 ML BAG IV SCH (08:00)
[2020-12-13] MEDS: VANCOMYCIN HCL 1,250 MG in SODIUM CHLORIDE 0.9% 250 ML IV SCH (08:01)
[2020-12-13 08:04] LABS: Albumin Level 1.4 gm/dl (3.4-5.0); BUN Creatinine Ratio 13.7 (10-20); Calcium 7.3 mg/dl (8.5-10.1); Creatinine Clr Calc Pharmacy 94.5 ml/min; Est GFR (African American) 84.5; Est GFR (Non-African American) 72.9; Potassium 3.7 mmol/L (3.5-5.1)
[2020-12-13 08:07] LABS: Albumin Globulin Ratio 0.3 (0.9-2); Bilirubin,Total 0.5 mg/dl (0.2-1); Globulin 4.7 gm/dl (2.5-4.0); Total Protein 6.1 gm/dl (6.4-8.2)
[2020-12-13 08:10] LABS: Basophils % (auto) 0.6 %; Eosinophils # (auto) 0.48 K/uL (0-0.5); Eosinophils % (auto) 2.8 %; Immature Granulocytes # (auto) 0.63 K/uL (0.00-0.02); Immature Granulocytes % (auto) 3.7 %; Lymphocytes # (auto) 2.59 K/uL (1.2-3.4); Lymphocytes % (auto) 15.4 %; Monocytes # (auto) 1.02 K/uL (0.11-0.59); Neutrophils # (auto) 12.05 K/uL (1.4-6.5); Neutrophils % (auto) 71.5 %
[2020-12-13 08:11] LABS: INR 1.1 (0.9-1.1); Partial Thromboplastin Ratio 1.1; Partial Thromboplastin Time 30.2 Seconds (21.0-31.0); Prothrombin Time 11.1 Seconds (9.0-12.0)
[2020-12-13] MEDS: FAMOTIDINE 20 MG TAB PO SCH (08:12)
[2020-12-13] MEDS: INSULIN ASPART 100 UNITS/ML 3 ML PEN SC SCH ×2 (08:32→12:50)
[2020-12-13] MEDS ORDERED: INSULIN GLARGINE SOLOSTAR 100 UNITS/ML 3 ML PEN SC SCH (09:00)
--- NOTE | 2020-12-13 10:30 | Pharmacy Report ---
Pharmacy Glycemic Short Note 2 - Date of Service December 13, 2020 - Glycemic Short BSG Results (Last 24 hours): 12/12/20 12/12/20 12/12/20 11:37 17:00 21:10 Glucose POC Glucose 149 H 178 H 141 H 12/13/20 12/13/20 07:14 08:10 Glucose 112 H POC Glucose 117 H OUTPATIENT ANTIDIABETIC REGIMEN: * n/a * A1c = 11% 12/11/20 ASSESSMENT: 12/13: * Pt has received 35 units of insulin over the past 24hrs * 25 units of basal with Lantus * 10 units of bolus with NovoLog * BSGs [phone] mg/dl * AM fasting BSG is in goal range at 117 mg/dl - continue Lantus 25 units per day but change to once daily dosing to transition to outpatient * Post-prandial BSGs are in goal range. No changes needed to CF/CR 12/12 * Patient successfully transitioned off the insulin infusion yesterday. Blood sugars remain very well controlled today. Of note, PO intake has decreased today and she remains on fluids * Patient continues on antibiotics for SSTI and is not growing alpha strep in 11/23 blood cultures * Will continue with current novolog scale * Will scale evening dose of Lantus due to decreased PO intake 12/11 * Newly dx type 2 diabetic admitted for sepsis, gas gangrene, osteomyelitis of R foot requiring surgical intervention (TMA R foot w/ fasciotomy); pt also found to have COVID19 on screening * Patient was severely hyperglycemic on presentation however no AG acidosis present and calculated serum osmo less than 320 * IV insulin drip initiated this AM for severe hyperglycemia in the setting of sepsis and severe SSTI / osteo. * BSGs have dropped to 140-180 range - will continue insulin drip at this time however begin transition to SQ basal / bolus regimen if diet advanced. Will begin "moderate" stress basal dosing this AM to allow for easier transition in the near future should diet advance. PLAN FOR INPATIENT GLYCEMIC CONTROL: * Basal insulin: Lantus 25 units SQ daily in the morning * Correctional Insulin: Novolog Correction per scale ACHS Goal Range: Low 110 mg/dL - High 140 mg/dL Correction Factor: 25 mg/dL/unit * Prandial insulin: Per carb ratio of 1 unit per 8 grams CHO consumed * Please note that the plan above was derived based on current level of insulin resistance and hospital stress. These recommendations are appropriate for inpatient admission only. Plan of care upon discharge will need to be reassessed to avoid potential outpatient hypo/hyperglycemia. PLAN FOR DISCHARGE: * A1c = 11 % on 12/11/20 * Goal A1c = <7 % based on age and comorbidities * A1c is greater than or equal to 10% --> consider triple therapy with metformin + basal insulin + (GLP1-RA OR prandial insulin). May need to continue additional antidiabetic agent based on patient specific factors (efficacy, hypo risk, weight gain/loss, side effects, cost) * Recommend starting once daily basal insulin with Lantus + metformin at discharge. Pt can f/u with PCP re: GLP-1 vs prandial insulin. * Lantus 25 units SQ daily in AM (pt received dose this morning) Pt can take Lantus pen home with her that was used inpatient. * Metformin XR 500mg PO daily with evening meal. Typically the XR formulation of metformin is better tolerated than the immediate release formulation. Continue to titrate metformin dosing upwards as recommended. Dosage increases should be made in increments of 500 mg weekly, up to 2,000 mg/day PO, given in divided doses. Doses above 2000 mg/day may be better tolerated if divided and given 3 times per day with meals. Max: 2,550 mg/day PO, in divided doses * B12 supplementation may be necessary with fci metformin * Discussed with DM educator and RN- will provide additional insulin administration training.
--- NOTE | 2020-12-13 18:07 | Discharge Summary ---
Date of Service December 13, 2020 Admission HPI Per Admitting Provider The patient is a 40-year-old female with reported PMH of hyperglycemia, who presents to the emergency department as noted above. Work-up in the emergency department included the following abnormal laboratories: Beta hydroxybutyric acid 6.38, albumin 2.2, pro-Jorge 2.80, WBC 16.89, platelets 416, sodium 124, potassium 3.2, glucose 472, lactate 2.4 and she was COVID-19 positive. Imaging studies included x-ray of right foot, tib/fib which showed bony destruction/lysis of the third digit suggesting osteomyelitis. Moderate soft tissue gas at the plantar forefoot suspicious for fasciitis. Diffuse soft tissue prominence of the right foot and lower leg suggestive of cellulitis. The patient was given vancomycin IV, cefepime IV, clindamycin IV, 1 L Normosol, 2 L normal saline, 2 10 mEq K riders, and 8 units of regular insulin IV in the ED. Patient was taken from the ED to the operating room by Dr. Colmenares, with plans to admit directly to the ICU afterwards. Principal Diagnosis Diabetic foot infection with resultant transmetatarsal amputation Uncontrolled diabetes with a A1c of 11 Covid positive testing without pulmonary symptoms or hypoxia Discharge Exam The patient appeared morbidly obese with a BMI of 33 Vital signs as documented. Lungs are clear to auscultation and appear unlabored Cardiac exam, Rhythm is regular.. No murmurs, rubs or gallops. Abdominal exam reveals normal bowel sounds, soft non tender, no masses Right foot has a wound VAC on the transmetatarsal amputation Neurologic exam is alert and oriented, no focal loss of strength peripheral neuropathy Psychologically is with concerns for anxiety patient refused additional anxiolytic medications while hospitalized Discharge Data Allergies Allergy/AdvReac Type Severity Reaction Status Date / Time penicillin G Allergy Intermediate HIVES Unverified 12/11/20 12:16 Sulfa (Sulfonamide AdvReac Mild RETAINS Unverified 12/11/20 12:16 Antibiotics) WATER Consultations 12/10/20 20:01 Consult Podiatry Stat ED Decision to Admit Stat 12/11/20 00:47 Consult Case Management - Discharge Planning Routine Consult Senior Oracle Database Administrator Routine 12/12/20 12:09 Consult Case Management - Discharge Planning Routine Procedures Performed Operation Date: 12/10/20 22:00 Actual Procedures p right foot transmetatarsal amputation(Right) - Antonio Colmenares, DPM, MS Diabetes Follow up Diabetes Follow-up Needed for HgbA1c >9% Hospital Course (1) Osteomyelitis of foot, right, acute: Right foot osteomyelitis/gas gangrene/sepsis- 12/10/20 right foot transmetatarsal amputation, Surgeon: Antonio Colmenares clindamycin and ciprofloxacin Td given Cultures of the intraoperative areas are suggestive of strep Wound VAC was ordered by surgery and and is placed at time of discharge there is mention in surgery's note about possible ventral plastic surgery can flap being needed (2) Gas gangrene: Admission pre surgical x ray 12/10/20 IMPRESSION: 1. Bony destruction/lysis of the third digit as above suggests osteomyelitis. 2. Moderate soft tissue gas of the plantar forefoot is suspicious for fasciitis. 3. Diffuse soft tissue prominence of the right foot and lower leg is suggestive of cellulitis (3) Sepsis: Pt with fever tachypnea, leukocytosis and procalcitonin elevation this is now resolved (4) COVID-19: COVID-19 test positive- cxr negative on presentation Patient will be placed in isolation, hypoxemia has resolved She was given home Covid instructions (5) Hyperglycemia: Pharmacy glycemic protocol, although elevated glucose on patient on presentation patient was not with DKA hemoglobin A1c 11 diabetic education prior to going home recommends Metformin and Lantus once a day with continued outpatient follow-up (6) Hyponatremia: remains mild Total Time Total Time Spent Total Time Spent (In Minutes): It required greater than 30 minutes to prepare this patient for discharge Discharge Plan Discharge Items Patient Disposition: Home - Home Health Services Reason For Visit: DIABETIC FOOT OTEOMYELTIS, NECROTIZING FASCIITIS, Discharge Diagnosis: diabetic foot infection gangrene transmetatarsal amputation Activity: Per Instructions section Activity Comment: elevted leg as much as able, keep dressing in place until you see wound fabiola Non-emergency contact: Primary Care Provider and Surgeon Call non-emergency contact if: you have any medication questions and your symptoms worsen Follow-up/Referrals: PCPOLIVIA [Primary Care Provider] - 12/19/20 8:00 am ([facility] [address] [facility] [address] [facility] [address]) Diet: Carb Consistent or DM2 Addtl Attending Provider Instructions: please take good care of your diabetes this will help your wound heal best follow up with wound care center elevate your leg as much as possible take your antibiotics regularly Home Isolation COVID-19 Instructions The following information about Home Isolation is from the CDC Website: https://www.cdc.gov/coronavirus/2019-ncov/hcp/rhejyjhr-fpsavtl-bxaoby.html Stay home except to get medical care People who are mildly ill with COVID-19 are able to isolate at home during their illness. You should restrict activities outside your home, except for getting medical care. Do not go to work, school, or public areas. Avoid using public transportation, ride-sharing, or taxis. Separate yourself from other people and animals in your home People: As much as possible, you should stay in a specific room and away from other people in your home. Also, you should use a separate bathroom, if available. Animals: You should restrict contact with pets and other animals while you are sick with COVID-19, just like you would around other people. Although there have not been reports of pets or other animals becoming sick with COVID-19, it is still recommended that people sick with COVID-19 limit contact with animals until more information is known about the virus. When possible, have another member of your household care for your animals while you are sick. If you are sick with COVID-19, avoid contact with your pet, including petting, snuggling, being kissed or licked, and sharing food. If you must care for your pet or be around animals while you are sick, wash your hands before and after you interact with pets and wear a face mask. Call ahead before visiting your doctor If you have a medical appointment, call the healthcare provider and tell them that you have or may have COVID-19. This will help the healthcare providers office take steps to keep other people from getting infected or exposed. Wear a face mask You should wear a face mask when you are around other people (e.g., sharing a room or vehicle) or pets and before you enter a healthcare providers office. If you are not able to wear a face mask (for example, because it causes trouble breathing), then people who live with you should not stay in the same room with you, or they should wear a face mask if they enter your room. Cover your coughs and sneezes Cover your mouth and nose with a tissue when you cough or sneeze. Throw used tissues in a lined trash can. Immediately wash your hands with soap and water for at least 20 seconds or, if soap and water are not available, clean your hands with an alcohol-based hand fiberglass boat builder that contains at least 60% alcohol. Clean your hands often Wash your hands often with soap and water for at least 20 seconds, especially after blowing your nose, coughing, or sneezing; going to the bathroom; and before eating or preparing food. If soap and water are not readily available, use an alcohol-based hand fiberglass boat builder with at least 60% alcohol, covering all surfaces of your hands and rubbing them together until they feel dry. Soap and water are the best option if hands are visibly dirty. Avoid touching your eyes, nose, and mouth with unwashed hands. Avoid sharing personal household items You should not share dishes, drinking glasses, cups, eating utensils, towels, or bedding with other people or pets in your home. After using these items, they should be washed thoroughly with soap and water. Clean all high-touch surfaces everyday High touch surfaces include counters, tabletops, doorknobs, bathroom fixtures, toilets, phones, keyboards, tablets, and bedside tables. Also, clean any surfaces that may have blood, stool, or body fluids on them. Use a household cleaning spray or wipe, according to the label instructions. Labels contain instructions for safe and effective use of the cleaning product including preca utions you should take when applying the product, such as wearing gloves and making sure you have good ventilation during use of the product. Monitor your symptoms Seek prompt medical attention if your illness is worsening (e.g., difficulty breathing).Beforeseeking care, call your healthcare provider and tell them that you have, or are being evaluated for, COVID-19. Put on a face mask before you enter the facility. These steps will help the healthcare providers office to keep other people in the office or waiting room from getting infected or exposed. Ask your healthcare provider to call the local or state health department. Persons who are placed under active monitoring or facilitated self- monitoring should follow instructions provided by their local health department or occupational health professionals, as appropriate. When working with your local health department check their available hours. If you have a medical emergency and need to call 911, notify the dispatch personnel that you have, or are being evaluated for COVID-19. If possible, put on a face mask before emergency medical services arrive. Discontinuing home isolation Patients with confirmed COVID-19 should remain under home isolation precautions until the risk of secondary transmission to others is thought to be low. The decision to discontinue home isolation precautions should be made on a [id number] basis, in consultation with healthcare providers and state and local health departments. Addtl Fixing Carpenter Provider Instructions: DIABETES - A diabetes medication (Metformin) and insulin (Lantus) is being added to help improve your blood sugar levels. - Lantus is a 24 hour/slow-release insulin. You will take 25 units in the morning, at the same time every day - Metformin is a pill that helps decrease the amount of sugar your body makes and helps make your cells more sensitive to insulin. You will take 500mg with supper every day. You want to take the Metformin with food to help minimize any stomach upset or diarrhea. - Dietary changes are also encouraged. Try to limit/avoid sugar-sweetened drinks, sodas, and juices. Try to watch your portions of carbohydrates (breads, noodles, potatoes, snacks). Try to boost your intake of protein (meat, eggs, nuts, peanut butter) and vegetables. - Check your blood sugar 2x/day- fasting/before breakfast and another time. Try to vary this other time from day to day (before lunch, before supper, before bed). - Please notify your provider with blood sugar levels persistently above 200 or below 70. - If you have any questions, please call our diabetes office anytime at [phone]. Pending Studies at Discharge: No Stand-Alone Forms: My [facility] [id number], Smoking Cessation Medications and DC Order Prescriptions: New clindamycin HCl 300 mg capsule 300 mg PO Q8H 10 Days Qty: 30 RF: 0 ciprofloxacin HCl [Cipro] 500 mg tablet 500 mg PO BID Qty: 20 RF: 0 Lantus Solostar U-100 Insulin 100 unit/mL (3 mL) insulin pen 25 unit subcut PM Qty: 3 RF: 5 (DME) pen needle, diabetic, safety 31 gauge x 3/16" needle See Rx Instructions .ROUTE .MEDSUPPLY Qty: 100 RF: 0 metformin 500 mg tablet 500 mg PO BID Qty: 60 RF: 4 (DME) pen needle, diabetic [Verifine Pen Needle] 32 gauge x 5/32" needle See Rx Instructions .ROUTE .MEDSUPPLY Qty: 50 RF: 0 (DME) lancets [OneTouch Delica Lancets] 33 gauge misc See Rx Instructions .ROUTE .MEDSUPPLY Qty: 100 RF: 0 (DME) OneTouch Verio test strips Strip See Rx Instructions .ROUTE .MEDSUPPLY Qty: 10 RF: 0 No Action No Known Home Medications RF: 0 Discharge Orders: Discharge Order (Routine); Ordered 12/13/20 Ordered By: Paresh Cleveland Admission Data Admit Date/Time: 12/10/20 22:24 Attending Provider: Paresh Cleveland Admit Provider: Christopher Dominguez Primary Care Provider: PCP,NO Other Providers: Antonio Colmenares ; Christopher Dominguez ; Alban Savage ; [facility] Coding Level of Care Code D/C Day Management >30 mins Diagnoses Osteomyelitis of foot, right, acute M86.171 Gas gangrene A48.0 Sepsis A41.9 Sepsis acute organ dysfunction status: unspecified Sepsis type: sepsis due to unspecified organism COVID-19 U07.1 Hyperglycemia R73.9 Hyponatremia E87.1
[2020-12-14] MEDS ORDERED: VANCOMYCIN TROUGH ONE (08:30)
== END 2020-12-13 14:15 | disposition home health service (06) ==
LOC: ED 18:41 → SUATTDRO 22:24 → 1E 22:24 → 2W 12-11 16:06

== ENCOUNTER 2022-09-24 22:50 | Inpatient (IN) ==
[2022-09-24] MEDS ORDERED: LABETALOL HCL IV 5 MG/ML 20ML IV STA (23:21)
--- NOTE | 2022-09-24 23:25 | Emergency Department Note ---
History of Present Illness General Chief complaint: Fall Stated complaint: FALL/WEAKNESS SHORT OF BREATH Time Seen by Provider: 09/24/22 23:03 Source: patient Mode of arrival: EMS Limitations: no limitations History of Present Illness Provider complaint: Shortness of breath, fall This is a 42-year-old female presents emergency department after falling to the floor from a seated position on the edge of her bed due to increased shortness of breath. Patient states she has been weak and dizzy all day. She does not believe she hit her head. She is uncertain if she passed out. No other recent falls or injury. No recent fevers, chills, URI symptoms. Patient states she has had increased swelling to her legs and abdomen over the last 2 weeks, but only in the last few days that she developed some abdominal discomfort. She denies vomiting, diarrhea, change in urine. She denies any history of kidney problems. Patient is a diabetic and states her blood sugars have been between 80 and 120. She states she does not know what her blood pressure normally runs and does not take any antihypertensive medication. Home Medications Medication Instructions Recorded Confirmed Type No Known Home Medications 09/24/22 09/24/22 History Allergies Allergy/AdvReac Type Severity Reaction Status Date / Time penicillin G Allergy Intermediate HIVES Unverified 05/22/21 20:45 Sulfa (Sulfonamide AdvReac Mild RETAINS Unverified 05/22/21 20:45 Antibiotics) WATER Past Med/Surg History Medical History No pertinent past medical history Social History Smoking Status: Current every day smoker Tobacco Type: Cigarettes Cigarettes Per Day: 1 pack; Hx Alcohol Use: Yes Alcohol type: hard liquor Hx Substance Use: No Preferred Language: Stateless Communication Ability: Effective Decal Decorator Required: No Beliefs That Will Affect Care: None Current Living Situation: Spouse Current Living Situation Comment: lives with girlfriend Feels Safe at Home: Yes Assistive Devices: Glasses and Walker Review of Systems A total of 10 systems reviewed and were otherwise negative All systems reviewed & are unremarkable except as noted in HPI & below Physical Exam Vital Signs Vital Signs - 24 hr 09/24/22 22:56 09/24/22 23:45 09/25/22 01:00 Temperature 36.5 C Temperature Source Oral Pulse Rate 92 H Pulse Rate [Apical] 79 78 Pulse Rhythm [Apical] Regular Pulse Strength [Apical] Normal Respiratory Rate 32 H 26 H 20 Respiratory Effort / Characteristics Non-Labored Spontaneous Respiratory Depth Normal Respiratory Pattern Regular Blood Pressure 231/124 H Blood Pressure [Right Arm] 207/114 H 205/111 H Blood Pressure Mean 159 Blood Pressure Mean [Right Arm] 145 142 Blood Pressure Position [Right Arm] Lying Pulse Oximetry 98 98 98 Oxygen Delivery Method Room Air Room Air Room Air Sepsis Recent Fever Within 48 Hours No Sepsis New/Unexplained Change in Mental Status No Sepsis Action Taken by Nursing No Action Required GENERAL: alert, well appearing, well nourished, no distress, non-toxic EYE EXAM: normal conjunctiva, PERRL and EOM's grossly intact OROPHARYNX: no exudate, no erythema, lips, buccal mucosa, and tongue normal and mucous membranes are moist NECK: supple, no nuchal rigidity, no adenopathy, non-tender LUNGS: Clear to auscultation. Normal chest wall mechanics, no w/r/r HEART: no murmurs, S1 normal and S2 normal ABDOMEN: abdomen soft, non-tender, normo-active bowel sounds, no masses, no yuridia ound or guarding. BACK: Back is symmetrical on inspection and there is no deformity, no midline tenderness, no CVA tenderness. SKIN: no rashes and no bruising UPPER EXTREMITIES: upper extremities are grossly normal. FROM, nml pulses b/l. LOWER EXTREMITIES: No pitting edema. FROM, nml pulses b/l. NEURO EXAM: Normal sensorium, cranial nerves II-XII grossly intact, normal speech, no gross weakness of arms, no gross weakness of legs. Gross sensation intact. Course Administered Medications Carvedilol (Carvedilol 12.5 Mg Tab) 12.5 mg PO BID [facility] Stop: 10/25/22 09:44 Last Admin: 09/25/22 21:04 Dose: 12.5 mg Documented By: Admin: 09/25/22 09:45 Dose: 12.5 mg Documented By: SEEMA Enoxaparin Sodium (Enoxaparin Inj 40 Mg/0.4 Ml Syr) 40 mg SQ Q12H VANNESSA Stop: 10/25/22 08:59 Last Admin: 09/25/22 21:03 Dose: 40 mg Documented By: Admin: 09/25/22 12:44 Dose: 40 mg Documented By: YASMIN Pantoprazole Sodium 40 mg/ (Syringe) 10 mls @ 5 mls/min IV BID [facility] Stop: 10/25/22 08:59 Last Admin: 09/25/22 21:05 Dose: 5 mls/min Documented By: Admin: 09/25/22 09:27 Dose: 5 mls/min Documented By: SEEMA Nicardipine HCl 25 mg/ Sodium (Chloride) 250 mls @ 25 mls/hr IV .Q10H VANNESSA; Protocol Stop: 10/25/22 18:59 Last Titration: 09/25/22 21:36 Dose: 2.5 mg/hr, 25 mls/hr Documented By: Admin: 09/25/22 19:16 Dose: 5 mg/hr, 50 mls/hr Documented By: MARIO Co-signed By: KWASI Insulin Aspart (Insulin Aspart Per Unit) 0 units SC ACHS [facility] Stop: 10/25/22 07:29 Last Admin: 09/25/22 21:05 Dose: Not Given Documented By: Admin: 09/25/22 17:06 Dose: Not Given Documented By: SRINIVAS Co-signed By: DEEPA Admin: 09/25/22 14:13 Dose: Not Given Documented By: YASMIN Co-signed By: JANI Admin: 09/25/22 11:24 Dose: Not Given Documented By: SEEMA Co-signed By: LUKASZ Discontinued Medications Clonidine HCl (Clonidine Hcl 0.2 Mg/24 Hr Transderm Sys) 1 patch TD Q7D@0600 [facility] Stop: 10/25/22 05:59 Last Admin: 09/25/22 11:10 Dose: Not Given Documented By: SEEMA Furosemide (Furosemide Inj 20 Mg/2 Ml Vial) 20 mg IV ONE ONE Stop: 09/25/22 00:04 Last Admin: 09/25/22 00:39 Dose: 20 mg Documented By: SRINIVAS(2) Furosemide (Furosemide Inj 20 Mg/2 Ml Vial) 20 mg IV ONE ONE Stop: 09/25/22 02:21 Last Admin: 09/25/22 02:35 Dose: 20 mg Documented By: SRINIVAS(2) Furosemide (Furosemide Inj 20 Mg/2 Ml Vial) Confirm Administered Dose 20 mg IV .STK-MED ONE Stop: 09/25/22 02:34 Last Admin: 09/25/22 02:36 Dose: Not Given Documented By: SRINIVAS(2) Furosemide (Furosemide 40 Mg/4 Ml Vial) 80 mg IV ONE ONE Stop: 09/25/22 10:01 Last Admin: 09/25/22 11:10 Dose: Not Given Documented By: SEEMA Furosemide (Furosemide 40 Mg/4 Ml Vial) Confirm Administered Dose 80 mg IV .STK- MED ONE Stop: 09/25/22 09:21 Last Admin: 09/25/22 09:28 Dose: 80 mg Documented By: SEEMA Hydralazine HCl (Hydralazine Hcl 20 Mg/Ml Vial) 10 mg IV Q20M PRN PRN Reason: SBP > 190 / DBP > 120 Stop: 10/25/22 03:27 Last Admin: 09/25/22 04:10 Dose: 10 mg Documented By: NIMA Sodium Chloride (Nss 1000ml) 1,000 mls @ 125 mls/hr IV .Q8H VANNESSA Stop: 10/24/22 23:29 Last Infusion: 09/25/22 07:40 Dose: 0 mls/hr Documented By: Admin: 09/24/22 23:40 Dose: 125 mls/hr Documented By: SONIA Thiamine HCl 500 mg/ Sodium (Chloride) 55 mls @ 220 mls/hr IV TODAY@1700 ONE Stop: 09/25/22 17:14 Last Infusion: 09/25/22 18:20 Dose: 0 mls/hr Documented By: Admin: 09/25/22 17:32 Dose: 220 mls/hr Documented By: SRINIVAS Labetalol HCl (Labetalol Hcl Iv 5 Mg/Ml 20ml) 10 mg IV NOW STA Stop: 09/24/22 23:22 Last Admin: 09/24/22 23:41 Dose: 10 mg Documented By: SONIA Co-signed By: NIMA Labetalol HCl (Labetalol Hcl Iv 5 Mg/Ml 20ml) 10 mg IV NOW STA Stop: 09/25/22 00:56 Last Admin: 09/25/22 01:10 Dose: 10 mg Documented By: SRINIVAS(2) Co-signed By: NICOL Labetalol HCl (Labetalol Hcl Iv 5 Mg/Ml 20ml) 20 mg IV NOW STA Stop: 09/25/22 03:18 Last Admin: 09/25/22 03:26 Dose: 20 mg Documented By: CC Co-signed By: SONIA Labetalol HCl (Labetalol Hcl Iv 5 Mg/Ml 20ml) 20 mg IV Q15M PRN PRN Reason: 1st Line: SBP >190 /DBP > 120 Stop: 10/25/22 03:27 Last Admin: 09/25/22 06:03 Dose: 20 mg Documented By: CC Co-signed By: SONIA Labetalol HCl (Labetalol Hcl Iv 5 Mg/Ml 20ml) 10 mg IV NOW STA Stop: 09/25/22 04:48 Last Admin: 09/25/22 04:53 Dose: 10 mg Documented By: CC Co-signed By: TAMMY Lorazepam (Lorazepam 1 Mg/1 Ml Syr) 0.25 mg IV NOW STA; Protocol Stop: 09/25/22 02:16 Last Admin: 09/25/22 02:30 Dose: 0.25 mg Documented By: SRINIVAS(2) Lorazepam (Lorazepam 1 Mg/1 Ml Syr) 0.5 mg IV NOW STA; Protocol Stop: 09/25/22 03:29 Last Admin: 09/25/22 04:25 Dose: Not Given Documented By: NIMA Metoprolol Tartrate (Metoprolol Tartrate 25 Mg Tab) 12.5 mg PO BID [facility] Stop: 10/25/22 08:59 Last Admin: 09/25/22 09:18 Dose: Not Given Documented By: SEEMA Metoprolol Tartrate (Metoprolol Tartrate 1 Mg/Ml Vial) 5 mg IV Q4 [facility] Stop: 10/25/22 11:59 Last Admin: 09/25/22 16:55 Dose: 5 mg Documented By: Admin: 09/25/22 14:09 Dose: 5 mg Documented By: YASMIN Miscellaneous (Check Clonidine Patch Placement) 1 each N/A QS [facility] Stop: 10/25/22 07:59 Last Admin: 09/25/22 11:10 Dose: Not Given Documented By: SEEMA Miscellaneous (Remove Nitro-Dur Patch) 1 each N/A TODAY@0630 [facility] Stop: 09/25/22 06:31 Last Admin: 09/25/22 06:48 Dose: 1 each Documented By: NIMA Nitroglycerin (Nitroglycerin 2% Ointment 30gm Tube) 1 inch EXT NOW STA Stop: 09/25/22 00:04 Last Admin: 09/25/22 00:37 Dose: 1 inch Documented By: SRINIVAS(2) Nitroglycerin (Nitroglycerin 2% Ointment 30gm Tube) 1 inch EXT Q6H VANNESSA Stop: 10/25/22 08:14 Last Admin: 09/25/22 16:54 Dose: 1 inch Documented By: Admin: 09/25/22 08:58 Dose: 1 inch Documented By: SEEMA Ondansetron HCl (Ondansetron Inj 2 Mg/Ml 2 Ml Vial) Confirm Administered Dose 4 mg .ROUTE .STK-MED ONE Stop: 09/25/22 09:25 Last Admin: 09/25/22 09:25 Dose: 4 mg Documented By: HG Potassium Chloride (Potassium Chloride 20 Meq/15 Ml Udc) 40 meq PO NOW STA Stop: 09/25/22 09:25 Last Admin: 09/25/22 12:45 Dose: 40 meq Documented By: YASMIN Critical Care Time Critical Care Time: Yes Total Critical Care Time: 48 Critical care of 48 min performed to assess and manage high likelihood of life- threatening hypertensive emergency, involving labs and imaging performed with assessment to evaluate hypertension and shortness of breath diagnosis with frequent reassessment. This time includes bedside time, treatment discussions with patient/family/consultants, documentation time and excludes procedure time. Medical Decision Making Differential Diagnosis Differential diagnoses includes but is not limited to pneumonia, bronchitis, COPD/Asthma exacerbation, pneumothorax, pulmonary embolism, congestive heart failure, acute coronary syndrome Medical Records Attestation: I reviewed the patient's medical records. Home Medications Current Medication List: was personally reviewed by me Laboratory Data Attestation: I reviewed the patient's lab results. Result diagrams: 09/25/22 19:08 09/25/22 19:08 Lab Results 09/24/22 09/24/22 09/24/22 Range/Units 23:02 23:02 23:02 WBC 11.62 H (4.8-10.8) K/ul RBC 3.71 L (3.93-5.22) M/uL Hgb 9.1 L (12.0-16.0) g/dl Hct 29.4 L (34.1-44.9) % MCV 79.2 L (80.0-100.0) fL MCH 24.5 L (25.0-34.0) pg MCHC 31.0 L (32.0-36.0) g/dL RDW Std Deviation 54.4 H (36.4-46.3) fL RDW Coeff of Yola 19.0 H (11.5-14.5) % Plt Count 386 (130-400) K/uL MPV 10.8 (9.4-12.3) fL Immature Gran % (Auto) 0.4 % Neut % (Auto) 85.1 % Lymph % (Auto) 8.6 % Burt % (Auto) 3.4 % Eos % (Auto) 1.5 % Baso % (Auto) 1.0 % Neut # (Auto) 9.88 H (1.4-6.5) K/uL Lymph # (Auto) 1.00 L (1.2-3.4) K/uL Burt # (Auto) 0.39 (0.24-0.82) K/uL Eos # (Auto) 0.18 (0-0.50) K/uL Baso # (Auto) 0.12 (0-0.2) K/uL Immature Gran # (Auto) 0.05 H (0.00-0.02) K/uL PT 11.9 (9.0-12.0) Seconds INR 1.1 (0.9-1.1) Sodium 139 (136-145) mmol/L Potassium 3.8 (3.5-5.1) mmol/L Chloride 110 H (98-107) mmol/L Carbon Dioxide 21 (21-32) mmol/L Anion Gap 8 (3-11) BUN 17 (6-23) mg/dl Creatinine 2.10 H (0.6-1.2) mg/dl Est Cr Clr Drug Dosing 50.3 ml/min Est GFR ( Amer) 32.4 ml/min Est GFR (Non-Af Amer) 27.9 ml/min BUN/Creatinine Ratio 8.1 L (10-20) Glucose 112 H (70-99(Fasting)) mg/dl Calcium 8.3 L (8.5-10.1) mg/dl Magnesium 1.8 (1.7-2.4) mg/dl Total Bilirubin 0.7 (0.2-1.0) mg/dl AST 14 (13-39) U/L ALT 10 (7-52) U/L Alkaline Phosphatase 72 (34-104) U/L Troponin I High Sens 12.5 (0-14) pg/ml B-Natriuretic Peptide (0-100) pg/ml Total Protein 6.9 (6.0-8.3) gm/dl Albumin 3.0 L (3.4-5.0) gm/dl Globulin 3.9 (2.5-4.0) gm/dl Albumin/Globulin Ratio 0.8 L (0.9-2) Lipase 13 (11-82) U/L TSH (0.300-4.500) uIu/ml Free T4 (0.61-1.60) ng/dl HCG, Qual (Negative) Urine Color Urine Appearance (Clear) Urine pH (4.5-7.5) Ur Specific [place] (1.000-1.030) Urine Protein (Negative) Urine Glucose (UA) (Negative) Urine Ketones (Negative) Urine Blood (Negative) Urine Nitrite (Negative) Urine Bilirubin (Negative) Urine Urobilinogen (Negative) Ur Leukocyte Esterase (Negative) Urine WBC (Auto) (0-5) /hpf Urine RBC (Auto) (0-4) /hpf U Hyaline Cast (Auto) (0-5) /lpf U Epithel Cells (Auto) (0-5) /lpf Urine Bacteria (Auto) (Negative) SARS-CoV-2 (PCR) (Negative) Influenza Type A (PCR) (Neg) Influenza Type B (PCR) (Neg) RSV (RT-PCR) (Neg) 09/24/22 09/24/22 09/25/22 Range/Units 23:02 23:02 00:12 WBC (4.8-10.8) K/ul RBC (3.93-5.22) M/uL Hgb (12.0-16.0) g/dl Hct (34.1-44.9) % MCV (80.0-100.0) fL MCH (25.0-34.0) pg MCHC (32.0-36.0) g/dL RDW Std Deviation (36.4-46.3) fL RDW Coeff of Yola (11.5-14.5) % Plt Count (130-400) K/uL MPV (9.4-12.3) fL Immature Gran % (Auto) % Neut % (Auto) % Lymph % (Auto) % Burt % (Auto) % Eos % (Auto) % Baso % (Auto) % Neut # (Auto) (1.4-6.5) K/uL Lymph # (Auto) (1.2-3.4) K/uL Burt # (Auto) (0.24-0.82) K/uL Eos # (Auto) (0-0.50) K/uL Baso # (Auto) (0-0.2) K/uL Immature Gran # (Auto) (0.00-0.02) K/uL PT (9.0-12.0) Seconds INR (0.9-1.1) Sodium (136-145) mmol/L Potassium (3.5-5.1) mmol/L Chloride (98-107) mmol/L Carbon Dioxide (21-32) mmol/L Anion Gap (3-11) BUN (6-23) mg/dl Creatinine (0.6-1.2) mg/dl Est Cr Clr Drug Dosing ml/min Est GFR ( Amer) ml/min Est GFR (Non-Af Amer) ml/min BUN/Creatinine Ratio (10-20) Glucose (70-99(Fasting)) mg/dl Calcium (8.5-10.1) mg/dl Magnesium (1.7-2.4) mg/dl Total Bilirubin (0.2-1.0) mg/dl AST (13-39) U/L ALT (7-52) U/L Alkaline Phosphatase (34-104) U/L Troponin I High Sens (0-14) pg/ml B-Natriuretic Peptide (0-100) pg/ml Total Protein (6.0-8.3) gm/dl Albumin (3.4-5.0) gm/dl Globulin (2.5-4.0) gm/dl Albumin/Globulin Ratio (0.9-2) Lipase (11-82) U/L TSH 4.887 H (0.300-4.500) uIu/ml Free T4 0.78 (0.61-1.60) ng/dl HCG, Qual Negative (Negative) Urine Color Yellow Urine Appearance Cloudy A (Clear) Urine pH 6.5 (4.5-7.5) Ur Specific [place] 1.017 (1.000-1.030) Urine Protein 4+ H (Negative) Urine Glucose (UA) Trace H (Negative) Urine Ketones Trace H (Negative) Urine Blood 1+ H (Negative) Urine Nitrite Negative (Negative) Urine Bilirubin Negative (Negative) Urine Urobilinogen Negative (Negative) Ur Leukocyte Esterase Negative (Negative) Urine WBC (Auto) >30 H (0-5) /hpf Urine RBC (Auto) 0-4 (0-4) /hpf U Hyaline Cast (Auto) 5-10 H (0-5) /lpf U Epithel Cells (Auto) >30 H (0-5) /lpf Urine Bacteria (Auto) 2+ H (Negative) SARS-CoV-2 (PCR) (Negative) Influenza Type A (PCR) (Neg) Influenza Type B (PCR) (Neg) RSV (RT-PCR) (Neg) 09/25/22 09/25/22 Range/Units 00:15 00:17 WBC (4.8-10.8) K/ul RBC (3.93-5.22) M/uL Hgb (12.0-16.0) g/dl Hct (34.1-44.9) % MCV (80.0-100.0) fL MCH (25.0-34.0) pg MCHC (32.0-36.0) g/dL RDW Std Deviation (36.4-46.3) fL RDW Coeff of Yola (11.5-14.5) % Plt Count (130-400) K/uL MPV (9.4-12.3) fL Immature Gran % (Auto) % Neut % (Auto) % Lymph % (Auto) % Burt % (Auto) % Eos % (Auto) % Baso % (Auto) % Neut # (Auto) (1.4-6.5) K/uL Lymph # (Auto) (1.2-3.4) K/uL Burt # (Auto) (0.24-0.82) K/uL Eos # (Auto) (0-0.50) K/uL Baso # (Auto) (0-0.2) K/uL Immature Gran # (Auto) (0.00-0.02) K/uL PT (9.0-12.0) Seconds INR (0.9-1.1) Sodium (136-145) mmol/L Potassium (3.5-5.1) mmol/L Chloride (98-107) mmol/L Carbon Dioxide (21-32) mmol/L Anion Gap (3-11) BUN (6-23) mg/dl Creatinine (0.6-1.2) mg/dl Est Cr Clr Drug Dosing ml/min Est GFR ( Amer) ml/min Est GFR (Non-Af Amer) ml/min BUN/Creatinine Ratio (10-20) Glucose (70-99(Fasting)) mg/dl Calcium (8.5-10.1) mg/dl Magnesium (1.7-2.4) mg/dl Total Bilirubin (0.2-1.0) mg/dl AST (13-39) U/L ALT (7-52) U/L Alkaline Phosphatase (34-104) U/L Troponin I High Sens (0-14) pg/ml B-Natriuretic Peptide 1316 H (0-100) pg/ml Total Protein (6.0-8.3) gm/dl Albumin (3.4-5.0) gm/dl Globulin (2.5-4.0) gm/dl Albumin/Globulin Ratio (0.9-2) Lipase (11-82) U/L TSH (0.300-4.500) uIu/ml Free T4 (0.61-1.60) ng/dl HCG, Qual (Negative) Urine Color Urine Appearance (Clear) Urine pH (4.5-7.5) Ur Specific [place] (1.000-1.030) Urine Protein (Negative) Urine Glucose (UA) (Negative) Urine Ketones (Negative) Urine Blood (Negative) Urine Nitrite (Negative) Urine Bilirubin (Negative) Urine Urobilinogen (Negative) Ur Leukocyte Esterase (Negative) Urine WBC (Auto) (0-5) /hpf Urine RBC (Auto) (0-4) /hpf U Hyaline Cast (Auto) (0-5) /lpf U Epithel Cells (Auto) (0-5) /lpf Urine Bacteria (Auto) (Negative) SARS-CoV-2 (PCR) NEGATIVE (Negative) Influenza Type A (PCR) Negative (Neg) Influenza Type B (PCR) Negative (Neg) RSV (RT-PCR) Negative (Neg) Imaging Data My Impression: X-ray: I interpreted the following studies. Chest: A single view study of the chest was reviewed and was negative for focal infiltrate, effusion, or wide mediastinum. Marked CM noted compared to prior. Appearance of evolving pulmon mayra edema. Radiologist's Impression: Chest X-Ray 09/24/22 23:21 XR chest 1V portable HISTORY: 42 years-old Female sob acute shortness of breath COMPARISON: CT abdomen and pelvis of same day, Chest radiograph 12/10/2020 TECHNIQUE: AP view of the chest FINDINGS: Cardiac silhouette is enlarged. Mild pulmonary vascular congestion. No pneumothorax. Small pleural effusions with mild bibasilar atelectasis. Bones appear grossly intact. IMPRESSION: 1. Cardiomegaly with pulmonary vascular congestion. 2. Small pleural effusions. ACT 112: Negative or not required by law. The above report was generated using voice recognition software. It may contain grammatical, syntax or spelling errors. Electronically signed by: Eric Elliott M.D. 09/25/2022 6:[address] abdomen pelvis without contrast: Moderate right and small left pleural effusion, small pericardial fluid, moderate abdominal ascites and diffuse subcutaneous edema may reflect anasarca in the correct clinical setting. Cholelithiasis noted. Equivocal slight gallbladder wall thickening. Further evaluation with sonography recommended if right upper quadrant symptoms are present. Wall thickening may reflect inflammation or noninflammatory causes of wall thickening such as underdistention or portal hypertension of present. Nonobstructing right-sided renal calyceal stone noted. Radiologist: Aneudy Mittal MD ECG Data Attestation: I personally reviewed and interpreted this ECG as follows: Indication: + SOB/dyspnea Rate (beats per minute): 90 Rhythm: + normal sinus ECG Intervals/blocks: + Normal QRS and + Normal QT ECG [place]: + Normal ECG ST segments: + Nonspecific ST abnormalities MDM Narrative An order was placed for continuous cardiac monitoring. The monitor shows a rate of _82_ with _normal sinus__ rhythm. This is a 42-year-old female presents emergency department due to concern for shortness of breath and fall earlier this evening. Patient noted to have severe hypertension on arrival via EMS. Patient not hypoxic but did complain of feeling short of breath. Patient also noted evolving lower extremity edema over the last 2 weeks. Labs drawn and sent, EKG and chest x-ray performed. Chest x- ray with marked cardiomegaly compared to prior as well as appearance of evolving pulmonary edema. Patient given IV labetalol initially and following review of c hest x-ray, Nitropaste and Lasix was added. Patient does not routinely use diuretics. Patient does have a prior documented history of noncompliance. No prior cardiac history, patient is a known diabetic. Patient found to have EVA, no significant hyperglycemia or evidence of DKA. Patient with a normal and nonfocal neuro exam, she denies headaches, vision changes, and dizziness. Fall was from a seated position on the edge of her bed earlier this evening. She denies any concern for injury, no evidence of trauma on physical exam. Patient given additional labetalol, and due to some abdominal pain noted during bedside exam, she was sent for CT imaging. No evidence of other acute pathology. UA was ultimately obtained which showed significant proteinuria and hematuria. It is unclear if this is strictly secondary to EVA versus evolving nephrotic syndrome. Case discussed with hospitalist for additional evaluation and management. Patient had no worsening shortness of breath while in the emergency room. She was not hypoxic, although did feel improved with supplemental oxygen via nasal cannula. Impression & Plan Acute dyspnea, Generalized weakness, Hypertensive emergency, EVA (acute kidney injury), Noncompliance Discharge Plan Visit Data Chief Complaint: Fall Stated Complaint: FALL/WEAKNESS SHORT OF BREATH ED Provider: Sienna Dorantes Discharge Problem: Acute dyspnea, Generalized weakness, Hypertensive emergency, EVA (acute kidney injury), Noncompliance Patient Disposition: Admitted As Inpatient Discharge Instructions Interventions: ED Discharge Assessment Last Done: 09/25/22 03:38
[2022-09-24] MEDS ORDERED: SODIUM CHLORIDE 0.9% 1000ML 1,000 ML IV SCH (23:30)
[2022-09-24 23:41] LABS: Basophils # (auto) 0.12 K/uL (0-0.2); Eosinophils # (auto) 0.18 K/uL (0-0.50); Eosinophils % (auto) 1.5 %; Hematocrit (blood only) 29.4 % (34.1-44.9); Hemoglobin 9.1 g/dl (12.0-16.0); Immature Granulocytes # (auto) 0.05 K/uL (0.00-0.02); Immature Granulocytes % (auto) 0.4 %; Lymphocytes % (auto) 8.6 %; Mean Corpuscular Hemoglobin 24.5 pg (25.0-34.0); Mean Corpuscular Volume 79.2 fL (80.0-100.0); Mean Platelet Volume 10.8 fL (9.4-12.3); Monocytes # (auto) 0.39 K/uL (0.24-0.82); Monocytes % (auto) 3.4 %; Neutrophils # (auto) 9.88 K/uL (1.4-6.5); Neutrophils % (auto) 85.1 %; Platelet Count 386 K/uL (130-400); RDW Standard Deviation 54.4 fL (36.4-46.3); Red Blood Count 3.71 M/uL (3.93-5.22); White Blood Count 11.62 K/ul (4.8-10.8)
[2022-09-24 23:46] LABS: Pregnancy Test, Serum Negative (Negative)
[2022-09-24 23:58] LABS: Albumin Globulin Ratio 0.8 (0.9-2); BUN Creatinine Ratio 8.1 (10-20); Bilirubin,Total 0.7 mg/dl (0.2-1.0); Calcium 8.3 mg/dl (8.5-10.1); Creatinine Clr Calc Pharmacy 50.3 ml/min; Est GFR (African American) 32.4 ml/min; Est GFR (Non-African American) 27.9 ml/min; Globulin 3.9 gm/dl (2.5-4.0); Magnesium 1.8 mg/dl (1.7-2.4); Potassium 3.8 mmol/L (3.5-5.1); Total Protein 6.9 gm/dl (6.0-8.3)
[2022-09-24 23:59] LABS: Troponin I High Sensitivity 12.5 pg/ml (0-14)
[2022-09-25 00:01] LABS: INR 1.1 (0.9-1.1); Prothrombin Time 11.9 Seconds (9.0-12.0)
[2022-09-25] MEDS ORDERED: NITROGLYCERIN 2% OINTMENT 30GM TUBE EXT STA (00:03)
[2022-09-25] MEDS ORDERED: FUROSEMIDE INJ 20 MG/2 ML VIAL IV ONE ×3 (00:03→02:33)
[2022-09-25 00:08] LABS: Thyroid Stimulating Hormone 4.887 uIu/ml (0.300-4.500)
[2022-09-25 00:28] LABS: Appearance Urine Cloudy (Clear); Bacteria Urine Automated 2+ (Negative); Bilirubin Urine Negative (Negative); Blood Urine 1+ (Negative); Color Urine Yellow; Epithelial Cell Urine Auto >30 /lpf (0-5); Glucose Urine UA Trace (Negative); Ketones Urine Trace (Negative); Leukocyte Esterase Urine Negative (Negative); Nitrite Urine Negative (Negative); Protein Urine 4+ (Negative); Specific Gravity Urine 1.017 (1.000-1.030); Urobilinogen Urine Negative (Negative); WBC Urine Automated >30 /hpf (0-5); pH Urine 6.5 (4.5-7.5)
[2022-09-25 00:40] LABS: T4 Free Thyroxine 0.78 ng/dl (0.61-1.60)
[2022-09-25] MEDS ORDERED: LABETALOL HCL IV 5 MG/ML 20ML IV STA ×4 (00:55→04:47)
[2022-09-25 01:36] LABS: Influenza A virus by PCR Negative (Neg); Influenza B virus by PCR Negative (Neg); RSV by PCR Negative (Neg); SARS CoV2 RNA(COVID-19) Ceph NEGATIVE (Negative)
[2022-09-25] MEDS ORDERED: ACETAMINOPHEN 325 MG TAB PO PRN (01:36)
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
[2022-09-25] MEDS ORDERED: LORazepam 1 MG/1 ML SYR IV STA ×2 (02:15→03:28)
[2022-09-25 02:53] LABS: RBC Urine Automated 0-4 /hpf (0-4)
[2022-09-25] MEDS ORDERED: hydrALAZINE HCL 20 MG/ML VIAL IV PRN ×4 (03:28→09:21)
[2022-09-25] MEDS ORDERED: LABETALOL HCL IV 5 MG/ML 20ML IV PRN ×3 (03:28→03:39)
[2022-09-25] MEDS ORDERED: GLUCOSE 40% GEL 15 GM TUBE PO PRN (03:37)
[2022-09-25] MEDS ORDERED: DEXTROSE 50% 50 ML SYRINGE IV PRN (03:37)
[2022-09-25] MEDS ORDERED: CARBOHYDRATES FOR HYPOGLYCEMIA PO PRN (03:37)
[2022-09-25] MEDS ORDERED: GLUCOSE 10 TAB/TUBE PO PRN (03:37)
[2022-09-25] MEDS ORDERED: GLUCAGON FOR INJ 1 MG VIAL SQ PRN (03:37)
[2022-09-25 05:50] LABS: Basophils # (auto) 0.09 K/uL (0-0.2); Basophils % (auto) 0.9 %; Eosinophils # (auto) 0.11 K/uL (0-0.50); Eosinophils % (auto) 1.1 %; Hematocrit (blood only) 24.5 % (34.1-44.9); Hemoglobin 7.8 g/dl (12.0-16.0); Immature Granulocytes # (auto) 0.04 K/uL (0.00-0.02); Immature Granulocytes % (auto) 0.4 %; Lymphocytes # (auto) 1.05 K/uL (1.2-3.4); Lymphocytes % (auto) 10.2 %; Mean Corpuscular Hemoglobin 24.8 pg (25.0-34.0); Mean Corpuscular Hgb Conc 31.8 g/dL (32.0-36.0); Mean Platelet Volume 10.5 fL (9.4-12.3); Monocytes # (auto) 0.45 K/uL (0.24-0.82); Monocytes % (auto) 4.4 %; Neutrophils # (auto) 8.57 K/uL (1.4-6.5); Platelet Count 310 K/uL (130-400); RDW Coefficient of Variation 18.9 % (11.5-14.5); RDW Standard Deviation 53.5 fL (36.4-46.3); Red Blood Count 3.14 M/uL (3.93-5.22); White Blood Count 10.31 K/ul (4.8-10.8)
[2022-09-25 06:11] LABS: BUN Creatinine Ratio 8.4 (10-20); Est GFR (African American) 33.7 ml/min; Est GFR (Non-African American) 29.1 ml/min; Potassium 3.4 mmol/L (3.5-5.1)
--- NOTE | 2022-09-25 06:44 | XRay Report ---
XR chest 1V portable HISTORY: 42 years-old Female sob acute shortness of breath COMPARISON: CT abdomen and pelvis of same day, Chest radiograph 12/10/2020 TECHNIQUE: AP view of the chest FINDINGS: Cardiac silhouette is enlarged. Mild pulmonary vascular congestion. No pneumothorax. Small pleural ef fusions with mild bibasilar atelectasis. Bones appear grossly intact. IMPRESSION: 1. Cardiomegaly with pulmonary vascular congestion. 2. Small pleural effusions. ACT 112: Negative or not required by law. The above report was generated using voice recognition software. It may contain grammatical, syntax o r spelling errors. Electronically signed by: Eric Elliott M.D. 09/25/2022 6:43 AM
[2022-09-25 06:50] LABS: Ovalocytes 2+; Polychromasia 1+; Tear Drop Cells 1+
--- NOTE | 2022-09-25 07:03 | CT Scan Report ---
ABDOMEN AND PELVIS CT WITHOUT CONTRAST CT DOSE: 2541.83 mGy.cm HISTORY: Acute generalized abdominal pain abd pain TECHNIQUE: Multiaxial CT images of the abdomen and pelvis were performed without contrast. A dose lo wering technique was utilized adhering to the principles of ALARA. COMPARISON STUDY: None. FINDINGS: Cardiomegaly. Decreased attenuation of the cardiac blood pool suggestive of anemia. Trace p ericardial effusion. Small left and small to moderate right pleural effusions. Intralobular septal th ickening with subsegmental bibasilar atelectasis. No pneumatosis or pneumoperitoneum. The unenhanced spleen is enlarged measuring up to 14 cm. There is trace edema surrounding the pancreas. Adrenal glan d thickening suggestive of hyperplasia. Cholelithiasis without gallbladder distention or definite gal lbladder wall thickening. The unenhanced liver is within normal limits. 4 mm nonobstructing calculus of the interpolar right kidney. Bilateral perinephric stranding. No uret eral calculi or hydronephrosis. Partial distention of the urinary bladder with mild wall thickening. 1.4 cm cystic focus within the cervix may represent a nabothian cyst. Right ovarian follicle. Atheros clerosis of the aorta without aneurysm. Mild periportal lymphadenopathy. Mildly enlarged iliac chain lymph nodes. Pelvic sidewall lymph nodes measure up to 1.2 cm on the right. Inguinal adenopathy measu res up to 1.4 cm on the right. No bowel obstruction or bowel wall thickening. The appendix is not visualized. Small volume of abdomi nal pelvic ascites with anasarca. No acute fracture. IMPRESSION: 1. Cardiomegaly with fluid overload manifested by pulmonary edema, small left and small to moderate r ight pleural effusions, trace pericardial effusion with small volume of abdominopelvic ascites and an asarca. 2. No bowel obstruction or bowel wall thickening. 3. Cholelithiasis. 4. Nonobstructing right renal calculus. 5. Additional findings as above. ACT 112: Negative or not required by law. The above report was generated using voice recognition software. It may contain grammatical, syntax o r spelling errors. Electronically signed by: Eric Elliott M.D. 09/25/2022 7:01 AM
[2022-09-25 07:20] LABS: Estimated Average Glucose 91 mg/dl; Hemoglobin A1C 4.8 % (4.5-5.6)
[2022-09-25] MEDS ORDERED: SODIUM CHLORIDE 0.9% 250 ML IV PRN (07:51)
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
[2022-09-25] MEDS ORDERED: CHECK CLONIDINE PATCH PLACEMENT SCH (08:00)
[2022-09-25] MEDS: NITROGLYCERIN 2% OINTMENT 30GM TUBE EXT SCH ×2 (08:58→16:54)
[2022-09-25] MEDS ORDERED: NITROGLYCERIN 0.3 MG/HR PATCH TD SCH (09:00)
[2022-09-25] MEDS ORDERED: METOPROLOL TARTRATE 25 MG TAB PO SCH (09:00)
--- NOTE | 2022-09-25 09:03 | XCELERA ---
[id number]
[2022-09-25] MEDS ORDERED: FUROSEMIDE 40 MG/4 ML VIAL IV ONE ×3 (09:20→11:00)
[2022-09-25] MEDS ORDERED: POTASSIUM CHLORIDE 20 MEQ/15 ML UDC PO STA (09:24)
[2022-09-25] MEDS ORDERED: ONDANSETRON INJ 2 MG/ML 2 ML VIAL ONE (09:24)
[2022-09-25] MEDS: PANTOprazole 40 MG in SYRINGE 0 ML IV SCH ×2 (09:27→21:05)
[2022-09-25] MEDS: carvediloL 12.5 MG TAB PO SCH ×2 (09:45→21:04)
--- NOTE | 2022-09-25 09:58 | Cardiology Consultation ---
Date of Consultation September 25, 2022 Assessment & Plan (1) Acute diastolic CHF (congestive heart failure): (2) Hypervolemia: Ms. Daugherty is a 42 year old female with a history of Type 2 Diabetes Mellitus, Osteomyelitis of the Right Foot s/p Partial Amputation, Tobacco Use, Obesity, Uncontrolled Hypertension, and Non-compliance who presented last evening with Newly Diagnosed Diastolic CHF/Acute Hypervolemia, Markedly Elevated Blood Pressure, EVA, and Anemia. She presented to [facility] ER on the evening of 09/24/22 complaining of Generalized Weakness resulting in a fall, and she was unable to get herself up off the floor. Additionally, patient complains of shortness of breath, dyspnea on exertion, orthopnea, PND, swollen and heavy legs, and marked abdominal distention which has gradually accumulated over the past week and a half. Admittedly, the patient has been eating more salt leading up to this h ospitalization. Patient has never had anything like this in the past. She has been unable to get any significant sleep over the past week because of her breathing issues with orthopnea and PND. Patient's current body weight is 137 kg and her body weight on 05/22/2021 was 106 kg -- and a lot of this appears to be fluid weight. She also remains markedly hypertensive with systolic blood pressures ranging between 170-215 mmHg. I&O's so far show a negative fluid balance of > 1.5 L. Her EKG on admission shows normal sinus rhythm with short OR interval, low voltage QRS, and nonspecific ST and T-wave abnormalities. Chest x-ray shows marked cardiomegaly with pulmonary edema. BNP is elevated at 1316 pg/mL, high sensitivity troponin I is unremarkable. Patient is markedly anemic today with a microcytic hypochromic anemia and hemoglobin of 7.8 g/dL. She is hypokalemic at 3.4 mmol/L. Serum creatinine was elevated at 2.10 mg/dL, but is now down to 2.03 mg/dL. Her TSH is elevated and her hemoglobin A1c is down to 4.8% after previously being 11%. Echocardiogram 09/25/22: -- Normal LV size and systolic function with an LVEF of 60%-65%, no regional wall motion abnormalities. -- Normal RV size and systolic function. -- Mild concentric LVH with type 2 LV diastolic dysfunction. -- Borderline left atrial enlargement. -- Normal aortic root dimensions. -- Mild MR. -- Mild TR. -- RVSP is elevated at 40 to 50 mmHg. -- IVC was not visualized. We had this discussion today regarding what congestive heart failure is, and specifically what diastolic congestive heart failure is as well as contributing factors. We discussed the importance of blood pressure control to prevent progression of LVH and worsened diastolic dysfunction. Patient was counseled at length regarding the importance of sodium restriction in her diet. We reviewed her echocardiogram findings in the various tests that she has had done up to this point. Recommend the followin. Stop oral Metoprolol. 2. Begin Coreg 12.5 mg b.i.d., with plans to titrate this dose. 3. IV Lasix 80 mg now x 1 dose. 4. Potassium Chloride Elixir 40 mEq now x 1 dose. 5. Daily BMP, serum Mg levels. 6. 2 gram low sodium diet. 7. Monitor daily body weights. 8. Monitor I&O's. 9. Consider adding Jardiance 10 mg daily. 10. When renal function allows start an ACEI or an ARB. 11. Increase IV Hydralazine to 20 mg every 6 hours as needed for hypertension. We will continue to follow this patient along while hospitalized. We will also get her enrolled in [facility] either while hospitalized or shortly after discharge. All the patient's questions were answered to her satisfaction. (3) Uncontrolled hypertension: She remains markedly hypertensive despite the initiation of antihypertensive medications -- with systolic blood pressures ranging between 170-215 mmHg. -- Begin Coreg 12.5 mg b.i.d.. -- When renal function allows start an ACEI or an ARB. -- Increase IV Hydralazine to 20 mg every 6 hours as needed for hypertension. -- IV Lasix 80 mg x 1 dose now. (4) EVA (acute kidney injury): Serum creatinine on admission was 2.10 mg/dL and is now down to 2.03 mg/dL -- suspect that this is related to marked hypervolemia, intravascular overload with inefficient perfusion to the kidneys. -- Treat volume overload, monitor daily BMP. (5) Hypokalemia: Serum K+ today is slightly low at 3.4 mmol/L. -- Add potassium chloride supplementation. (6) Microcytic anemia: Hgb is 7.8 g/dL and she has a known microcytic hypochromic anemia -- suspect that her hemoglobin appears lower because of the hypervolemia and its dilutional effect. -- Type and crossmatch PRBCs. -- Transfuse as per hospitalist service. History of Present Illness Reason for Consultation: -- Hypervolemia. -- Newly diagnosed Diastolic CHF. Requesting Physician: Paresh Cleveland MD Attending Physician: Brian Conroy MD History of Present Illness Ms. Daugherty is a 42 year old female with a history of Type 2 Diabetes Mellitus, Osteomyelitis of the Right Foot s/p Partial Amputation, Tobacco Use, Obesity, Uncontrolled Hypertension, and Non-compliance who presented to [facility] ER on the evening of 09/24/22 complaining of Generalized Weakness resulting in a fall, and she was unable to get herself up off the floor. Additionally, patient complains of shortness of breath, dyspnea on exertion, orthopnea, PND, swollen and heavy legs, and marked abdominal distention which has gradually accumulated over the past week and a half. Admittedly, the patient has been eating more salt leading up to this hospitalization. Patient has never had anything like this in the past. She has been unable to get any significant sleep over the past week because of her breathing issues with orthopnea and PND. Patient's current body weight is 137 kg and her body weight on 05/22/2021 was 106 kg -- and a lot of this appears to be fluid weight. She also remains markedly hypertensive with systolic blood pressures ranging between 170-215 mmHg. I&O's so far show a negative fluid balance of > 1.5 L. Her EKG on admission shows normal sinus rhythm with short OR interval, low voltage QRS, and nonspecific ST and T-wave abnormalities. Chest x-ray shows marked cardiomegaly with pulmonary edema. BNP is elevated at 1316 pg/mL, high sensitivity troponin I is unremarkable. Patient is markedly anemic today with a microcytic hypochromic anemia and hemoglobin of 7.8 g/dL. She is hypokalemic at 3.4 mmol/L. Serum creatinine was elevated at 2.10 mg/dL, but is now down to 2.03 mg/dL. Her TSH is elevated and her hemoglobin A1c is down to 4.8% after previously being 11%. Echocardiogram 09/25/22 shows normal LV size and systolic function with an LVEF of 60%-65%, no regional wall motion abnormalities, normal RV size and systolic function, mild concentric LVH with type 2 LV diastolic dysfunction, borderline left atrial enlargement, normal aortic root, mild MR, mild TR, and RVSP is elevated at 40 to 50 mmHg. IVC was not visualized. Patient offers no other complaints. Patient denies any exertional chest pain, heaviness, tightness, pressure, or discomfort. She denies any exertional neck, jaw, back, or arm pain. She denies any palpitations, tachy-palpitations, syncope, or any significant near-syncope. Patient has not had any signs or symptoms suggestive of stroke or mini stroke. Patient has not had any recent fevers, chills, melena, hematochezia, hematemesis, hematuria, or any obvious sources of blood loss. Past Medical History: -- Type 2 DM. -- Osteomyelitis of the right foot s/p transmetatarsal amputation 12/10/2020. -- Microcytic hypochromic anemia. -- SARS Co-V 2 infection. Social History: -- Lives with girlfriend. -- Smokes 1 ppd, began smoking at age 7. Allergies Allergy/AdvReac Type Severity Reaction Status Date / Time penicillin G Allergy Intermediate HIVES Unverified 05/22/21 20:45 Sulfa (Sulfonamide AdvReac Mild RETAINS Unverified 05/22/21 20:45 Antibiotics) WATER Home Medications Medication Instructions Recorded Confirmed Type No Known Home Medications 09/24/22 09/24/22 History Patient History Medical History No pertinent past medical history Social History Smoking Status: Current every day smoker Tobacco Type: Cigarettes Cigarettes Per Day: 1 pack; Hx Alcohol Use: No Hx Substance Use: No Preferred Language: Estonian Communication Ability: Effective Current Living Situation: Spouse Current Living Situation Comment: lives with girlfriend Feels Safe at Home: Yes Assistive Devices: Glasses Review of Systems Review of Systems: -- Patient does feel nauseated at the present but has not been vomiting. Continues to complain of abdominal pain secondary to distention. -- 10 point ROS completed and is negative with the exception of what is mentioned in the HPI. Physical Exam Physical Exam: GENERAL: Patient is lying semi recumbent on her ER litter, she is tachypneic with a respiratory rate of 25. Current BP 181/95. HEENT: Head is atraumatic, normocephalic. EOM's intact. Facies symmetric. No perioral cyanosis. NECK: JVP cannot be assessed due to body habitus. Carotid upstrokes are + 2 bilaterally without obvious bruits. CHEST/LUNGS: Diminished breath sounds with crackles in bilateral bases to the mid lung [place]. No wheezes appreciated. CVS: S1 and S2 are regular without obvious murmurs, gallops, or rubs. PMI is nonpalpable. No lifts, heaves, or thrills. No abdominal aortic or renal bruits. ABDOMINAL EXAM: Bowel sounds are present. Abdomen appears to be distended, it is also edematous. No masses or organomegaly. EXTREMITIES: No clubbing or cyanosis, previous transmetatarsal amputation of the right foot is noted. +3 distal leg edema, +2 pitting edema in bilateral thighs. Intact radial pulses bilaterally. NEUROLOGIC EXAM: Patient is awake, alert, and oriented. Pleasant and cooperative. Answers questions appropriately. Speech is clear. 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 -- No arrhythmias identified. Results & Data ([facility]) Vital Signs (Past 12 Hours) Vital Signs Temp Pulse Pulse Resp BP BP Pulse Ox 09/25/22 09:30 79 23 97 09/25/22 09:30 179/97 H 09/25/22 09:15 80 22 96 09/25/22 09:15 179/86 H 09/25/22 09:00 71 13 98 09/25/22 09:00 181/95 H 09/25/22 08:46 97 09/25/22 08:46 205/138 H 09/25/22 08:45 97 09/25/22 08:31 80 18 97 09/25/22 08:31 215/112 H 09/25/22 08:30 80 27 H 97 09/25/22 08:15 79 21 98 09/25/22 08:15 171/99 H 09/25/22 08:00 78 14 96 09/25/22 08:00 189/100 H 09/25/22 07:45 79 26 H 97 09/25/22 07:45 123/94 09/25/22 07:30 78 25 H 98 09/25/22 07:30 176/97 H 09/25/22 07:15 78 21 98 09/25/22 07:15 178/102 H 09/25/22 07:00 77 23 98 09/25/22 07:00 189/105 H 09/25/22 06:46 77 24 97 09/25/22 06:46 179/100 H 09/25/22 06:45 77 32 H 98 09/25/22 06:49 76 20 179/100 H 98 09/25/22 06:30 76 19 158/74 H 98 09/25/22 06:16 74 17 147/78 H 98 09/25/22 06:00 77 18 171/97 H 97 09/25/22 05:45 75 17 189/99 H 100 09/25/22 05:36 76 18 198/104 H 100 09/25/22 05:15 75 19 179/106 H 100 09/25/22 05:09 73 18 192/101 H 100 09/25/22 04:45 76 17 189/105 H 100 09/25/22 04:30 75 18 184/119 H 100 09/25/22 04:00 73 18 196/104 H 100 09/25/22 03:58 73 28 H 100 09/25/22 03:45 77 19 195/111 H 100 09/25/22 03:32 74 18 182/102 H 97 09/25/22 03:00 77 21 231/126 H 100 09/25/22 02:07 89 29 H 100 09/25/22 01:00 78 20 205/111 H 98 09/24/22 23:45 79 26 H 207/114 H 98 09/24/22 22:56 36.5 C 92 H 32 H 231/124 H 98 O2 Del Method FiO2 09/25/22 09:30 Room Air 09/25/22 09:30 09/25/22 09:15 Room Air 09/25/22 09:15 09/25/22 09:00 Room Air 09/25/22 09:00 09/25/22 08:46 Room Air 09/25/22 08:46 09/25/22 08:45 Room Air 09/25/22 08:31 Room Air 09/25/22 08:31 09/25/22 08:30 Room Air 09/25/22 08:15 Room Air 09/25/22 08:15 09/25/22 08:00 Room Air 09/25/22 08:00 09/25/22 07:45 Room Air 09/25/22 07:45 09/25/22 07:30 Room Air 09/25/22 07:30 09/25/22 07:15 Room Air 09/25/22 07:15 09/25/22 07:00 Room Air 09/25/22 07:00 09/25/22 06:46 Room Air 09/25/22 06:46 09/25/22 06:45 Room Air 09/25/22 06:49 Room Air 09/25/22 06:30 Room Air 09/25/22 06:16 Room Air 09/25/22 06:00 Room Air 09/25/22 05:45 BiPAP 09/25/22 05:36 BiPAP 09/25/22 05:15 BiPAP 09/25/22 05:09 BiPAP 09/25/22 04:45 BiPAP 09/25/22 04:30 BiPAP 09/25/22 04:00 BiPAP 09/25/22 03:58 40 09/25/22 03:45 BiPAP 09/25/22 03:32 Room Air 09/25/22 03:00 BiPAP 09/25/22 02:07 40 09/25/22 01:00 Room Air 09/24/22 23:45 Room Air 09/24/22 22:56 Room Air Laboratory Results Laboratory Results - last 24 hr 09/24/22 09/24/22 09/24/22 23:02 23:02 23:02 WBC 11.62 H RBC 3.71 L Hgb 9.1 L Hct 29.4 L MCV 79.2 L MCH 24.5 L MCHC 31.0 L RDW Std Deviation 54.4 H RDW Coeff of Yola 19.0 H Plt Count 386 MPV 10.8 Immature Gran % (Auto) 0.4 Neut % (Auto) 85.1 Lymph % (Auto) 8.6 [place] % (Auto) 3.4 Eos % (Auto) 1.5 Baso % (Auto) 1.0 Neut # (Auto) 9.88 H Lymph # (Auto) 1.00 L [place] # (Auto) 0.39 Eos # (Auto) 0.18 Baso # (Auto) 0.12 Immature Gran # (Auto) 0.05 H Polychromasia Tear Drop Cells Ovalocytes PT 11.9 INR 1.1 Sodium 139 Potassium 3.8 Chloride 110 H Carbon Dioxide 21 Anion Gap 8 BUN 17 Creatinine 2.10 H Est Cr Clr Drug Dosing 50.3 Est GFR ( Amer) 32.4 Est GFR (Non-Af Amer) 27.9 BUN/Creatinine Ratio 8.1 L Glucose 112 H POC Glucose Estimat Average Glucose Hemoglobin A1c Calcium 8.3 L Magnesium 1.8 Total Bilirubin 0.7 AST 14 ALT 10 Alkaline Phosphatase 72 Troponin I High Sens 12.5 B-Natriuretic Peptide Total Protein 6.9 Albumin 3.0 L Globulin 3.9 Albumin/Globulin Ratio 0.8 L Lipase 13 TSH Free T4 HCG, Qual Urine Color Urine Appearance Urine pH Ur Specific [place] Urine Protein Urine Glucose (UA) Urine Ketones Urine Blood Urine Nitrite Urine Bilirubin Urine Urobilinogen Ur Leukocyte Esterase Urine WBC (Auto) Urine RBC (Auto) U Hyaline Cast (Auto) U Epithel Cells (Auto) Urine Bacteria (Auto) SARS-CoV-2 (PCR) Influenza Type A (PCR) Influenza Type B (PCR) RSV (RT-PCR) Blood Type Blood Type Recheck Antibody Screen Crossmatch 09/24/22 09/24/22 09/25/22 23:02 23:02 00:12 WBC RBC Hgb Hct MCV MCH MCHC RDW Std Deviation RDW Coeff of Yola Plt Count MPV Immature Gran % (Auto) Neut % (Auto) Lymph % (Auto) [place] % (Auto) Eos % (Auto) Baso % (Auto) Neut # (Auto) Lymph # (Auto) [place] # (Auto) Eos # (Auto) Baso # (Auto) Immature Gran # (Auto) Polychromasia Tear Drop Cells Ovalocytes PT INR Sodium Potassium Chloride Carbon Dioxide Anion Gap BUN Creatinine Est Cr Clr Drug Dosing Est GFR ( Amer) Est GFR (Non-Af Amer) BUN/Creatinine Ratio Glucose POC Glucose Estimat Average Glucose Hemoglobin A1c Calcium Magnesium Total Bilirubin AST ALT Alkaline Phosphatase Troponin I High Sens B-Natriuretic Peptide Total Protein Albumin Globulin Albumin/Globulin Ratio Lipase TSH 4.887 H Free T4 0.78 HCG, Qual Negative Urine Color Yellow Urine Appearance Cloudy A Urine pH 6.5 Ur Specific [place] 1.017 Urine Protein 4+ H Urine Glucose (UA) Trace H Urine Ketones Trace H Urine Blood 1+ H Urine Nitrite Negative Urine Bilirubin Negative Urine Urobilinogen Negative Ur Leukocyte Esterase Negative Urine WBC (Auto) >30 H Urine RBC (Auto) 0-4 U Hyaline Cast (Auto) 5-10 H U Epithel Cells (Auto) >30 H Urine Bacteria (Auto) 2+ H SARS-CoV-2 (PCR) Influenza Type A (PCR) Influenza Type B (PCR) RSV (RT-PCR) Blood Type Blood Type Recheck Antibody Screen Crossmatch 09/25/22 09/25/22 09/25/22 00:15 00:17 05:31 WBC 10.31 RBC 3.14 L Hgb 7.8 L Hct 24.5 L MCV 78.0 L MCH 24.8 L MCHC 31.8 L RDW Std Deviation 53.5 H RDW Coeff of [place]ola 18.9 H Plt Count 310 MPV 10.5 Immature Gran % (Auto) 0.4 Neut % (Auto) 83.0 Lymph % (Auto) 10.2 [place] % (Auto) 4.4 Eos % (Auto) 1.1 Baso % (Auto) 0.9 Neut # (Auto) 8.57 H Lymph # (Auto) 1.05 L [place] # (Auto) 0.45 Eos # (Auto) 0.11 Baso # (Auto) 0.09 Immature Gran # (Auto) 0.04 H Polychromasia 1+ Tear Drop Cells 1+ Ovalocytes 2+ PT INR Sodium Potassium Chloride Carbon Dioxide Anion Gap BUN Creatinine Est Cr Clr Drug Dosing Est GFR ( Amer) Est GFR (Non-Af Amer) BUN/Creatinine Ratio Glucose POC Glucose Estimat Average Glucose Hemoglobin A1c Calcium Magnesium Total Bilirubin AST ALT Alkaline Phosphatase Troponin I High Sens B-Natriuretic Peptide 1316 H Total Protein Albumin Globulin Albumin/Globulin Ratio Lipase TSH Free T4 HCG, Qual Urine Color Urine Appearance Urine pH Ur Specific [place] Urine Protein Urine Glucose (UA) Urine Ketones Urine Blood Urine Nitrite Urine Bilirubin Urine Urobilinogen Ur Leukocyte Esterase Urine WBC (Auto) Urine RBC (Auto) U Hyaline Cast (Auto) U Epithel Cells (Auto) Urine Bacteria (Auto) SARS-CoV-2 (PCR) NEGATIVE Influenza Type A (PCR) Negative Influenza Type B (PCR) Negative RSV (RT-PCR) Negative Blood Type Blood Type Recheck Antibody Screen Crossmatch 09/25/22 09/25/22 09/25/22 05:31 05:31 08:18 WBC RBC Hgb Hct MCV MCH MCHC RDW Std Deviation RDW Coeff of [place]ola Plt Count MPV Immature Gran % (Auto) Neut % (Auto) Lymph % (Auto) [place] % (Auto) Eos % (Auto) Baso % (Auto) Neut # (Auto) Lymph # (Auto) [place] # (Auto) Eos # (Auto) Baso # (Auto) Immature Gran # (Auto) Polychromasia Tear Drop Cells Ovalocytes PT INR Sodium 140 Potassium 3.4 L Chloride 112 H Carbon Dioxide 21 Anion Gap 7 BUN 17 Creatinine 2.03 H Est Cr Clr Drug Dosing 52.0 Est GFR ( Amer) 33.7 Est GFR (Non-Af Amer) 29.1 BUN/Creatinine Ratio 8.4 L Glucose 107 H POC Glucose Estimat Average Glucose 91 Hemoglobin A1c 4.8 Calcium 8.0 L Magnesium Total Bilirubin AST ALT Alkaline Phosphatase Troponin I High Sens B-Natriuretic Peptide Total Protein Albumin Globulin Albumin/Globulin Ratio Lipase TSH Free T4 HCG, Qual Urine Color Urine Appearance Urine pH Ur Specific [place] Urine Protein Urine Glucose (UA) Urine Ketones Urine Blood Urine Nitrite Urine Bilirubin Urine Urobilinogen Ur Leukocyte Esterase Urine WBC (Auto) Urine RBC (Auto) U Hyaline Cast (Auto) U Epithel Cells (Auto) Urine Bacteria (Auto) SARS-CoV-2 (PCR) Influenza Type A (PCR) Influenza Type B (PCR) RSV (RT-PCR) Blood Type O Positive Blood Type Recheck Antibody Screen NEGATIVE Crossmatch See Detail 09/25/22 09/25/22 08:58 09:50 WBC RBC Hgb Hct MCV MCH MCHC RDW Std Deviation RDW Coeff of [place] Plt Count MPV Immature Gran % (Auto) Neut % (Auto) Lymph % (Auto) [place] % (Auto) Eos % (Auto) Baso % (Auto) Neut # (Auto) Lymph # (Auto) [place] # (Auto) Eos # (Auto) Baso # (Auto) Immature Gran # (Auto) Polychromasia Tear Drop Cells Ovalocytes PT INR Sodium Potassium Chloride Carbon Dioxide Anion Gap BUN Creatinine Est Cr Clr Drug Dosing Est GFR ( Amer) Est GFR (Non-Af Amer) BUN/Creatinine Ratio Glucose POC Glucose 124 H Estimat Average Glucose Hemoglobin A1c Calcium Magnesium Total Bilirubin AST ALT Alkaline Phosphatase Troponin I High Sens B-Natriuretic Peptide Total Protein Albumin Globulin Albumin/Globulin Ratio Lipase TSH Free T4 HCG, Qual Urine Color Urine Appearance Urine pH Ur Specific [place] Urine Protein Urine Glucose (UA) Urine Ketones Urine Blood Urine Nitrite Urine Bilirubin Urine Urobilinogen Ur Leukocyte Esterase Urine WBC (Auto) Urine RBC (Auto) U Hyaline Cast (Auto) U Epithel Cells (Auto) Urine Bacteria (Auto) SARS-CoV-2 (PCR) Influenza Type A (PCR) Influenza Type B (PCR) RSV (RT-PCR) Blood Type Blood Type Recheck O Positive Antibody Screen Crossmatch Diagnostic Findings CXR 09/24/22: Cardiac silhouette is enlarged. Mild pulmonary vascular congestion. No pneumothorax. Small pleural effusions with mild bibasilar atelectasis. Bones appear grossly intact. IMPRESSION: 1. Cardiomegaly with pulmonary vascular congestion. 2. Small pleural effusions. CT SCAN ABD/PELVIS 09/24/22: 1. Cardiomegaly with fluid overload manifested by pulmonary edema, small left and small to moderate right pleural effusions, trace pericardial effusion with small volume of abdominopelvic ascites and anasarca. 2. No bowel obstruction or bowel wall thickening. 3. Cholelithiasis. 4. Nonobstructing right renal calculus. 5. Additional findings as above. Medications Administered Medications No Known Home Medications 09/24/22 [History Confirmed 09/24/22] Home Medications Acetaminophen (Acetaminophen 325 Mg Tab) 650 mg PO Q4H PRN PRN Reason: Pain or Fever Stop: 10/25/22 01:35 Carvedilol (Carvedilol 12.5 Mg Tab) 12.5 mg PO BID VANNESSA Stop: 10/25/22 09:44 Last Admin: 09/25/22 09:45 Dose: 12.5 mg Dextrose (Dextrose 50% 50 Ml Syringe) 25 - 50 ml IV UD PRN; Protocol PRN Reason: Hypoglycemia Protocol Stop: 10/25/22 03:36 Enoxaparin Sodium (Enoxaparin Inj 40 Mg/0.4 Ml Syr) 40 mg SQ Q12H VANNESSA Stop: 10/25/22 08:59 Glucagon (Glucagon For Inj 1 Mg Vial) 1 mg SQ UD PRN; Protocol PRN Reason: Hypoglycemia Protocol Stop: 10/25/22 03:36 Glucose (Glucose 40% Gel 15 Gm Tube) 15 - 30 gm PO UD PRN; Protocol PRN Reason: Hypoglycemia Protocol Stop: 10/25/22 03:36 Glucose (Glucose 10 Tab/Tube) 4 - 8 tab PO UD PRN; Protocol PRN Reason: Hypoglycemia Treatment Stop: 10/25/22 03:36 Hydralazine HCl (Hydralazine Hcl 20 Mg/Ml Vial) 20 mg IV Q6H PRN PRN Reason: sbp>185 or dbp>95 Stop: 10/25/22 08:03 Pantoprazole Sodium 40 mg/ (Syringe) 10 mls @ 5 mls/min IV BID VANNESSA Stop: 10/25/22 08:59 Last Admin: 09/25/22 09:27 Dose: 5 mls/min Sodium Chloride (Nss) 250 mls @ 15 mls/hr IV .[id number] PRN PRN Reason: For Transfusion Duration Stop: 09/25/22 17:51 Insulin Aspart (Insulin Aspart Per Unit) 0 units SC ACHS [facility] Stop: 10/25/22 07:29 Metoprolol Tartrate (Metoprolol Tartrate 1 Mg/Ml Vial) 5 mg IV Q4 [facility] Stop: 10/25/22 11:59 Miscellaneous (Carbohydrates For Hypoglycemia ) 15 - 30 gm PO UD PRN PRN Reason: Hypoglycemia Protocol Stop: 10/25/22 03:36 Nitroglycerin (Nitroglycerin 2% Ointment 30gm Tube) 1 inch EXT Q6H [facility] Stop: 10/25/22 08:14 Last Admin: 09/25/22 08:58 Dose: 1 inch PG Care Time/CCT Total # of Minutes Spent Total Time Spent with Patient: Total time spent is greater than 50% in coordination of care (as documented) at patient's floor/unit and/or counseling patient:42 [place] [address] Inpt Consult Level 5 Patient Type New History Detailed Exam Detailed Medical Decision Making High Complexity Diagnoses Acute diastolic CHF (congestive heart failure) I50.31 Hypervolemia E87.70 Uncontrolled hypertension I10 EVA (acute kidney injury) N17.9 Hypokalemia E87.6 Microcytic anemia D50.9 Time Spent (min) 68
[2022-09-25] MEDS: INSULIN ASPART PER UNIT SC SCH ×4 (11:24→21:05)
[2022-09-25] MEDS: ENOXAPARIN INJ 40 MG/0.4 ML SYR SQ SCH ×2 (12:44→21:03)
[2022-09-25] MEDS: METOPROLOL TARTRATE 1 MG/ML VIAL IV SCH ×2 (14:09→16:55)
--- NOTE | 2022-09-25 14:15 | Electrocardiogram Report ---
Test Reason : Blood Pressure : / mmHG Vent. Rate : 090 BPM Atrial Rate : 090 BPM P-R Int : 126 ms QRS Dur : 080 ms QT Int : 310 ms P-R-T Axes : 030 -12 259 degrees QTc Int : 379 ms Normal sinus rhythm Possible Left atrial enlargement Low voltage QRS Nonspecific ST and T wave abnormality Abnormal ECG When compared with ECG of 10-DEC-2020 19:20, No significant change Confirmed by Brian Conroy ([id number]) on 09/25/2022 2:14:53 PM Referred By: REFERRED SELF Confirmed By:Brian Conroy
--- NOTE | 2022-09-25 14:19 | Electrocardiogram Report ---
Test Reason : Blood Pressure : / mmHG Vent. Rate : 079 BPM Atrial Rate : 079 BPM P-R Int : 108 ms QRS Dur : 066 ms QT Int : 256 ms P-R-T Axes : 046 -03 -61 degrees QTc Int : 293 ms Poor data quality, interpretation may be adversely affected Sinus rhythm with short AR Low voltage QRS Nonspecific ST and T wave abnormality Abnormal ECG When compared with ECG of 24-SEP-2022 23:05, (unconfirmed) QT has shortened Confirmed by Brian Conroy ([id number]) on 09/25/2022 2:18:45 PM Referred By: REFERRED SELF Confirmed By:Brian Conroy
[2022-09-25] MEDS ORDERED: THIAMINE HCL 500 MG in SODIUM CHLORIDE 0.9% 50 ML IV ONE (17:00)
--- NOTE | 2022-09-25 17:10 | Nephrology Consultation ---
Date of Consultation September 25, 2022 Assessment & Plan (1) EVA (acute kidney injury): * EVA possibly related to hypertensive emergency and acute diastolic CHF * Urinalysis w/ 4+ protein. Microscopy is negative for blood or cellular casts * Will order renal US * Monitor PRP * Agree w/ IV diuretic therapy (2) Chronic kidney disease, stage II (mild): * Stage G2/A3 CKD (mild impairment). Baseline Cr 0.9. Probable underlying DKD, hypertensive nephrosclerosis (3) Hypertensive emergency: * Management as per hospitalist service and Cardiology * Consider ACEi/ARB once kidney function is clearly improving (4) Acute diastolic CHF (congestive heart failure): * Continue diuresis * Will likely need maintenance diuretic therapy and regular follow up at CHF clinic as outpatient History of Present Illness Reason for Consultation: EVA/CKD Attending Physician: Paresh Cleveland MD History of Present Illness Miss Daugherty is a 42 year old white female who is seen at the request of Dr. Cleveland for evaluation of EVA/CKD. Medical records in the EMR were reviewed today and are summarized as follows: Miss Daugherty reports a history of AODM and HTN but does not have a PCP and has not maintained regular medical follow up. Her medical history is also significant for obesity, active tobacco use and PVD s/p partial amputation of R foot. Miss Daugherty reports a 60 lb weight gain over the last couple of weeks. Today she fell while trying to get out of bed. She presented to [facility] where she was found to have hypertensive urgency w/ SBP 200 and EVA/CKD. Cr has risen from 0.9 to 2.0. Urinalysis was + for protein. She was anemic w/ Hgb of 7.8. Physical exam revealed abdominal distention and tense LE swelling. 09/25/22 Echo w/ LVEF 60-65%, mild LVH, RVSP 40-50 mm Hg. Primary service has treated HTN w/ IV Labetalol. Cardiology has started oral Coreg and provided IV Hydralazine and Furosemide. Patient reports diuresis. Allergies Allergy/AdvReac Type Severity Reaction Status Date / Time penicillin G Allergy Intermediate HIVES Unverified 05/22/21 20:45 Sulfa (Sulfonamide AdvReac Mild RETAINS Unverified 05/22/21 20:45 Antibiotics) WATER Home Medications Medication Instructions Recorded Confirmed Type No Known Home Medications 09/24/22 09/24/22 History Patient History Medical History No pertinent past medical history Social History Smoking Status: Current every day smoker Tobacco Type: Cigarettes Cigarettes Per Day: 1 pack; Hx Alcohol Use: No Hx Substance Use: No Preferred Language: Angolan Communication Ability: Effective Current Living Situation: Spouse Current Living Situation Comment: lives with girlfriend Feels Safe at Home: Yes Assistive Devices: Glasses Review of Systems Constitutional: no fever Eyes: no worsening vision Ear, Nose, Mouth, Throat: no problem reported Respiratory: no cough and no dyspnea Cardiovascular: no chest pain Gastrointestinal: no abdominal pain, no nausea, no vomiting and no diarrhea/loose stools Physical Exam Constitutional: + obese; not in distress Eyes: PERRL, conjunctivae normal, anicteric sclerae ENMT: external ear and nose normal, oropharynx normal Neck: normal visual inspection Respiratory: normal respiratory effort, lungs clear to auscultation Cardiovascular: Rate/Rhythm: regular rate and regular rhythm Extremities: + edema Gastrointestinal (Abdomen): Inspection/Auscultation: + abdomen distended and + hypoactive bowel sounds Percussion/Palpation: abdomen nontender Neurologic: Speech / Cognition: normal speech and normal cognition Results & Data ([facility]) Vital Signs (Past 12 Hours) Vital Signs Temp Pulse Pulse Resp BP BP Pulse Ox 09/25/22 14:09 72 193/101 H 09/25/22 14:09 36.6 C 71 18 193/101 H 97 09/25/22 12:20 72 20 169/89 H 97 09/25/22 11:20 36.6 C 76 20 169/81 H 97 09/25/22 11:13 09/25/22 11:13 78 20 170/97 H 96 09/25/22 10:50 36.6 C 78 22 117/83 96 09/25/22 10:35 36.6 C 79 16 173/113 H 95 09/25/22 10:15 36.5 C 78 22 176/85 H 93 09/25/22 09:30 79 23 97 09/25/22 09:30 179/97 H 09/25/22 09:15 80 22 96 09/25/22 09:15 179/86 H 09/25/22 09:00 71 13 98 09/25/22 09:00 181/95 H 09/25/22 08:46 97 09/25/22 08:46 205/138 H 09/25/22 08:45 97 09/25/22 08:31 80 18 97 09/25/22 08:31 215/112 H 09/25/22 08:30 80 27 H 97 09/25/22 08:15 79 21 98 09/25/22 08:15 171/99 H 09/25/22 08:00 78 14 96 09/25/22 08:00 189/100 H 09/25/22 07:45 79 26 H 97 09/25/22 07:45 123/94 09/25/22 07:30 78 25 H 98 09/25/22 07:30 176/97 H 09/25/22 07:15 78 21 98 09/25/22 07:15 178/102 H 09/25/22 07:00 77 23 98 09/25/22 07:00 189/105 H 09/25/22 06:46 77 24 97 09/25/22 06:46 179/100 H 09/25/22 06:45 77 32 H 98 09/25/22 06:49 76 20 179/100 H 98 09/25/22 06:30 76 19 158/74 H 98 09/25/22 06:16 74 17 147/78 H 98 09/25/22 06:00 77 18 171/97 H 97 09/25/22 05:45 75 17 189/99 H 100 09/25/22 05:36 76 18 198/104 H 100 09/25/22 05:15 75 19 179/106 H 100 09/25/22 05:09 73 18 192/101 H 100 Pulse Ox O2 Del Method O2 Del Method 09/25/22 14:09 09/25/22 14:09 09/25/22 12:20 09/25/22 11:20 09/25/22 11:13 96 Room Air 09/25/22 11:13 Room Air 09/25/22 10:50 09/25/22 10:35 09/25/22 10:15 09/25/22 09:30 Room Air 09/25/22 09:30 09/25/22 09:15 Room Air 09/25/22 09:15 09/25/22 09:00 Room Air 09/25/22 09:00 09/25/22 08:46 Room Air 09/25/22 08:46 09/25/22 08:45 Room Air 09/25/22 08:31 Room Air 09/25/22 08:31 09/25/22 08:30 Room Air 09/25/22 08:15 Room Air 09/25/22 08:15 09/25/22 08:00 Room Air 09/25/22 08:00 09/25/22 07:45 Room Air 09/25/22 07:45 09/25/22 07:30 Room Air 09/25/22 07:30 09/25/22 07:15 Room Air 09/25/22 07:15 09/25/22 07:00 Room Air 09/25/22 07:00 09/25/22 06:46 Room Air 09/25/22 06:46 09/25/22 06:45 Room Air 09/25/22 06:49 Room Air 09/25/22 06:30 Room Air 09/25/22 06:16 Room Air 09/25/22 06:00 Room Air 09/25/22 05:45 BiPAP 09/25/22 05:36 BiPAP 09/25/22 05:15 BiPAP 09/25/22 05:09 BiPAP Laboratory Results Laboratory Results - last 24 hr 09/24/22 09/24/22 09/24/22 23:02 23:02 23:02 WBC 11.62 H RBC 3.71 L Hgb 9.1 L Hct 29.4 L MCV 79.2 L MCH 24.5 L MCHC 31.0 L RDW Std Deviation 54.4 H RDW Coeff of Yola 19.0 H Plt Count 386 MPV 10.8 Immature Gran % (Auto) 0.4 Neut % (Auto) 85.1 Lymph % (Auto) 8.6 Carlton % (Auto) 3.4 Eos % (Auto) 1.5 Baso % (Auto) 1.0 Neut # (Auto) 9.88 H Lymph # (Auto) 1.00 L Carlton # (Auto) 0.39 Eos # (Auto) 0.18 Baso # (Auto) 0.12 Immature Gran # (Auto) 0.05 H Polychromasia Tear Drop Cells Ovalocytes PT 11.9 INR 1.1 Sodium 139 Potassium 3.8 Chloride 110 H Carbon Dioxide 21 Anion Gap 8 BUN 17 Creatinine 2.10 H Est Cr Clr Drug Dosing 50.3 Est GFR ( Amer) 32.4 Est GFR (Non-Af Amer) 27.9 BUN/Creatinine Ratio 8.1 L Glucose 112 H POC Glucose Estimat Average Glucose Hemoglobin A1c Calcium 8.3 L Magnesium 1.8 Total Bilirubin 0.7 AST 14 ALT 10 Alkaline Phosphatase 72 Troponin I High Sens 12.5 B-Natriuretic Peptide Total Protein 6.9 Albumin 3.0 L Globulin 3.9 Albumin/Globulin Ratio 0.8 L Lipase 13 TSH Free T4 HCG, Qual Urine Color Urine Appearance Urine pH Ur Specific [place] Urine Protein Urine Glucose (UA) Urine Ketones Urine Blood Urine Nitrite Urine Bilirubin Urine Urobilinogen Ur Leukocyte Esterase Urine WBC (Auto) Urine RBC (Auto) U Hyaline Cast (Auto) U Epithel Cells (Auto) Urine Bacteria (Auto) SARS-CoV-2 (PCR) Influenza Type A (PCR) Influenza Type B (PCR) RSV (RT-PCR) Blood Type Blood Type Recheck Antibody Screen Crossmatch 09/24/22 09/24/22 09/25/22 23:02 23:02 00:12 WBC RBC Hgb Hct MCV MCH MCHC RDW Std Deviation RDW Coeff of Yola Plt Count MPV Immature Gran % (Auto) Neut % (Auto) Lymph % (Auto) Carlton % (Auto) Eos % (Auto) Baso % (Auto) Neut # (Auto) Lymph # (Auto) Carlton # (Auto) Eos # (Auto) Baso # (Auto) Immature Gran # (Auto) Polychromasia Tear Drop Cells Ovalocytes PT INR Sodium Potassium Chloride Carbon Dioxide Anion Gap BUN Creatinine Est Cr Clr Drug Dosing Est GFR ( Amer) Est GFR (Non-Af Amer) BUN/Creatinine Ratio Glucose POC Glucose Estimat Average Glucose Hemoglobin A1c Calcium Magnesium Total Bilirubin AST ALT Alkaline Phosphatase Troponin I High Sens B-Natriuretic Peptide Total Protein Albumin Globulin Albumin/Globulin Ratio Lipase TSH 4.887 H Free T4 0.78 HCG, Qual Negative Urine Color Yellow Urine Appearance Cloudy A Urine pH 6.5 Ur Specific [place] 1.017 Urine Protein 4+ H Urine Glucose (UA) Trace H Urine Ketones Trace H Urine Blood 1+ H Urine Nitrite Negative Urine Bilirubin Negative Urine Urobilinogen Negative Ur Leukocyte Esterase Negative Urine WBC (Auto) >30 H Urine RBC (Auto) 0-4 U Hyaline Cast (Auto) 5-10 H U Epithel Cells (Auto) >30 H Urine Bacteria (Auto) 2+ H SARS-CoV-2 (PCR) Influenza Type A (PCR) Influenza Type B (PCR) RSV (RT-PCR) Blood Type Blood Type Recheck Antibody Screen Crossmatch 09/25/22 09/25/22 09/25/22 00:15 00:17 05:31 WBC 10.31 RBC 3.14 L Hgb 7.8 L Hct 24.5 L MCV 78.0 L MCH 24.8 L MCHC 31.8 L RDW Std Deviation 53.5 H RDW Coeff of Yola 18.9 H Plt Count 310 MPV 10.5 Immature Gran % (Auto) 0.4 Neut % (Auto) 83.0 Lymph % (Auto) 10.2 Carlton % (Auto) 4.4 Eos % (Auto) 1.1 Baso % (Auto) 0.9 Neut # (Auto) 8.57 H Lymph # (Auto) 1.05 L Carlton # (Auto) 0.45 Eos # (Auto) 0.11 Baso # (Auto) 0.09 Immature Gran # (Auto) 0.04 H Polychromasia 1+ Tear Drop Cells 1+ Ovalocytes 2+ PT INR Sodium Potassium Chloride Carbon Dioxide Anion Gap BUN Creatinine Est Cr Clr Drug Dosing Est GFR ( Amer) Est GFR (Non-Af Amer) BUN/Creatinine Ratio Glucose POC Glucose Estimat Average Glucose Hemoglobin A1c Calcium Magnesium Total Bilirubin AST ALT Alkaline Phosphatase Troponin I High Sens B-Natriuretic Peptide 1316 H Total Protein Albumin Globulin Albumin/Globulin Ratio Lipase TSH Free T4 HCG, Qual Urine Color Urine Appearance Urine pH Ur Specific [place] Urine Protein Urine Glucose (UA) Urine Ketones Urine Blood Urine Nitrite Urine Bilirubin Urine Urobilinogen Ur Leukocyte Esterase Urine WBC (Auto) Urine RBC (Auto) U Hyaline Cast (Auto) U Epithel Cells (Auto) Urine Bacteria (Auto) SARS-CoV-2 (PCR) NEGATIVE Influenza Type A (PCR) Negative Influenza Type B (PCR) Negative RSV (RT-PCR) Negative Blood Type Blood Type Recheck Antibody Screen Crossmatch 09/25/22 09/25/22 09/25/22 05:31 05:31 08:18 WBC RBC Hgb Hct MCV MCH MCHC RDW Std Deviation RDW Coeff of Yola Plt Count MPV Immature Gran % (Auto) Neut % (Auto) Lymph % (Auto) Carlton % (Auto) Eos % (Auto) Baso % (Auto) Neut # (Auto) Lymph # (Auto) Carlton # (Auto) Eos # (Auto) Baso # (Auto) Immature Gran # (Auto) Polychromasia Tear Drop Cells Ovalocytes PT INR Sodium 140 Potassium 3.4 L Chloride 112 H Carbon Dioxide 21 Anion Gap 7 BUN 17 Creatinine 2.03 H Est Cr Clr Drug Dosing 52.0 Est GFR ( Amer) 33.7 Est GFR (Non-Af Amer) 29.1 BUN/Creatinine Ratio 8.4 L Glucose 107 H POC Glucose Estimat Average Glucose 91 Hemoglobin A1c 4.8 Calcium 8.0 L Magnesium Total Bilirubin AST ALT Alkaline Phosphatase Troponin I High Sens B-Natriuretic Peptide Total Protein Albumin Globulin Albumin/Globulin Ratio Lipase TSH Free T4 HCG, Qual Urine Color Urine Appearance Urine pH Ur Specific [place] Urine Protein Urine Glucose (UA) Urine Ketones Urine Blood Urine Nitrite Urine Bilirubin Urine Urobilinogen Ur Leukocyte Esterase Urine WBC (Auto) Urine RBC (Auto) U Hyaline Cast (Auto) U Epithel Cells (Auto) Urine Bacteria (Auto) SARS-CoV-2 (PCR) Influenza Type A (PCR) Influenza Type B (PCR) RSV (RT-PCR) Blood Type O Positive Blood Type Recheck Antibody Screen NEGATIVE Crossmatch See Detail 09/25/22 09/25/22 09/25/22 08:58 09:50 11:40 WBC RBC Hgb Hct MCV MCH MCHC RDW Std Deviation RDW Coeff of Yola Plt Count MPV Immature Gran % (Auto) Neut % (Auto) Lymph % (Auto) Carlton % (Auto) Eos % (Auto) Baso % (Auto) Neut # (Auto) Lymph # (Auto) Carlton # (Auto) Eos # (Auto) Baso # (Auto) Immature Gran # (Auto) Polychromasia Tear Drop Cells Ovalocytes PT INR Sodium Potassium Chloride Carbon Dioxide Anion Gap BUN Creatinine Est Cr Clr Drug Dosing Est GFR ( Amer) Est GFR (Non-Af Amer) BUN/Creatinine Ratio Glucose POC Glucose 124 H 127 H Estimat Average Glucose Hemoglobin A1c Calcium Magnesium Total Bilirubin AST ALT Alkaline Phosphatase Troponin I High Sens B-Natriuretic Peptide Total Protein Albumin Globulin Albumin/Globulin Ratio Lipase TSH Free T4 HCG, Qual Urine Color Urine Appearance Urine pH Ur Specific [place] Urine Protein Urine Glucose (UA) Urine Ketones Urine Blood Urine Nitrite Urine Bilirubin Urine Urobilinogen Ur Leukocyte Esterase Urine WBC (Auto) Urine RBC (Auto) U Hyaline Cast (Auto) U Epithel Cells (Auto) Urine Bacteria (Auto) SARS-CoV-2 (PCR) Influenza Type A (PCR) Influenza Type B (PCR) RSV (RT-PCR) Blood Type Blood Type Recheck O Positive Antibody Screen Crossmatch 09/25/22 16:59 WBC RBC Hgb Hct MCV MCH MCHC RDW Std Deviation RDW Coeff of Yola Plt Count MPV Immature Gran % (Auto) Neut % (Auto) Lymph % (Auto) Carlton % (Auto) Eos % (Auto) Baso % (Auto) Neut # (Auto) Lymph # (Auto) Carlton # (Auto) Eos # (Auto) Baso # (Auto) Immature Gran # (Auto) Polychromasia Tear Drop Cells Ovalocytes PT INR Sodium Potassium Chloride Carbon Dioxide Anion Gap BUN Creatinine Est Cr Clr Drug Dosing Est GFR ( Amer) Est GFR (Non-Af Amer) BUN/Creatinine Ratio Glucose POC Glucose 111 H Estimat Average Glucose Hemoglobin A1c Calcium Magnesium Total Bilirubin AST ALT Alkaline Phosphatase Troponin I High Sens B-Natriuretic Peptide Total Protein Albumin Globulin Albumin/Globulin Ratio Lipase TSH Free T4 HCG, Qual Urine Color Urine Appearance Urine pH Ur Specific [place] Urine Protein Urine Glucose (UA) Urine Ketones Urine Blood Urine Nitrite Urine Bilirubin Urine Urobilinogen Ur Leukocyte Esterase Urine WBC (Auto) Urine RBC (Auto) U Hyaline Cast (Auto) U Epithel Cells (Auto) Urine Bacteria (Auto) SARS-CoV-2 (PCR) Influenza Type A (PCR) Influenza Type B (PCR) RSV (RT-PCR) Blood Type Blood Type Recheck Antibody Screen Crossmatch PG Care Time/CCT Total # of Minutes Spent Total Time Spent with Patient: Total time spent is greater than 50% in coordination of care (as documented) at patient's floor/unit and/or counseling patient: Coding Level of Care Code 17899 Inpt Consult Level 5 Diagnoses EVA (acute kidney injury) N17.9 Chronic kidney disease, stage II (mild) N18.2 Hypertensive emergency I16.1 Acute diastolic CHF (congestive heart failure) I50.31
[2022-09-25 17:48] LABS: Appearance Urine Clear (Clear); Bacteria Urine Automated Negative (Negative); Bilirubin Urine Negative (Negative); Blood Urine Trace (Negative); Color Urine Yellow; Epithelial Cell Urine Auto >30 /lpf (0-5); Glucose Urine UA Negative (Negative); Ketones Urine Negative (Negative); Leukocyte Esterase Urine Negative (Negative); Nitrite Urine Negative (Negative); Protein Urine 3+ (Negative); RBC Urine Automated 0-4 /hpf (0-4); Specific Gravity Urine 1.009 (1.000-1.030); Urobilinogen Urine Negative (Negative); pH Urine 5.5 (4.5-7.5)
[2022-09-25 18:27] LABS: Creatinine Urine Random 25.1 mg/dl; Protein Creatinine Ratio Urine 11.5 (0-0.2)
[2022-09-25] MEDS ORDERED: niCARdipine 25 MG in SODIUM CHLORIDE 0.9% 240 ML IV SCH (19:00)
[2022-09-25] MEDS ORDERED: STAT IV Infusion **Titration per Protocol STA (19:00)
[2022-09-25 19:20] LABS: Basophils # (auto) 0.11 K/uL (0-0.2); Basophils % (auto) 1.1 %; Hematocrit (blood only) 26.8 % (34.1-44.9); Hemoglobin 8.5 g/dl (12.0-16.0); Immature Granulocytes # (auto) 0.03 K/uL (0.00-0.02); Immature Granulocytes % (auto) 0.3 %; Lymphocytes # (auto) 1.04 K/uL (1.2-3.4); Lymphocytes % (auto) 10.3 %; Mean Corpuscular Hemoglobin 25.4 pg (25.0-34.0); Mean Corpuscular Hgb Conc 31.7 g/dL (32.0-36.0); Mean Corpuscular Volume 80.2 fL (80.0-100.0); Monocytes # (auto) 0.55 K/uL (0.24-0.82); Monocytes % (auto) 5.4 %; Neutrophils # (auto) 8.17 K/uL (1.4-6.5); Neutrophils % (auto) 80.9 %; Platelet Count 305 K/uL (130-400); RDW Coefficient of Variation 18.9 % (11.5-14.5); RDW Standard Deviation 55.3 fL (36.4-46.3); Red Blood Count 3.34 M/uL (3.93-5.22)
[2022-09-25 19:46] LABS: BUN Creatinine Ratio 8.1 (10-20); Creatinine Clr Calc Pharmacy 49.4 ml/min; Est GFR (African American) 32.2 ml/min; Est GFR (Non-African American) 27.8 ml/min; Magnesium 1.6 mg/dl (1.7-2.4); Potassium 3.7 mmol/L (3.5-5.1); Troponin I High Sensitivity 10.8 pg/ml (0-14)
--- NOTE | 2022-09-25 19:57 | Critical Care Consultation ---
Date of Consultation September 25, 2022 Assessment & Plan (1) Hypertensive emergency: Reason Critically Ill: 42-year-old female presents to the ICU with hypertensive emergency and acute diastolic heart failure, now requiring nicardipine drip and diuresis. Neuro - [facility] ICU: Negative Cardiac - Hypertensive emergencyinitial SBP 230 and most recent 190. Patient remained hypertensive following oral management and now requiring vasoactive antihypertensive drip, nicardipine -History of uncontrolled hypertension -Goal SBP 140-160. We will wean nicardipine as tolerated and uptitrate dose of oral medications. -Plan to start CHARAN inhibitor once renal function improves Acute diastolic heart failurelikely onset by uncontrolled hypertension/hypertensive emergency -No prior history. Normal LV and systolic function with mild concentric LVH and type II diastolic dysfunction on echo. Mild MR, mild TR, and RV SP elevated 40-50 also noted -Cardiology following appreciate recommendations -Patient was started on Coreg 1.5 twice daily in favor of metoprolol. Will uptitrate -Given 80 mg Lasix IV x1 dose, maintain negative fluid balance -Low-sodium diet, strict I's and O's, daily weights -Expect to improve with blood pressure control and diuresis Respiratory - History of tobacco abuse. Due to pulmonary edema patient was started on BiPAP in the emergency department but refused therapy. She is currently stable from a pulmonary standpoint and lungs are currently clear to auscultation following d iuresis. -CXR: Cardiomegaly with with pulmonary vascular congestion and small pleural effusions -Continuous monitoring on pulse ox -Encourage smoking cessation -Continue with diuresis as needed GI - CT abdomen and pelvis: 1. Cardiomegaly with fluid overload manifested by pulmonary edema, small left and small to moderate right pleural effusions, trace pericardial effusion with small volume of abdominopelvic ascites and anasarca. 2. No bowel obstruction or bowel wall thickening. 3. Cholelithiasis. 4. Nonobstructing right renal calculus. RENAL/LYTES - EVA on CKDpatient currently hypervolemic and creatinine of 2.2 appears to show slight improvement -Nephrology following and appreciate recommendations -Suspect this is most likely related to hypertensive emergency and acute diastolic heart failure urinalysis plus for protein -. Undergoing 24-hour urine study -Follow-up renal ultrasound -Continue diuresis -Monitor routine BMP and replete electrolytes as indicated -Nephrotoxins and renally adjust medications - Refused Foleymonitor strict I's and O's ENDO - DM type IImost recent hemoglobin A1c of 4.8 with previous study of 11 -Patient noncompliant with previous home meds? -Continue sliding scale -ICU hyperglycemic protocol HEME - Microcytic anemiamost recent hemoglobin 8.5 appears to be chronic -No indication for transfusion at this time. Monitor with routine CBC ID - No indication for infectious process at this time LINES/IV ACCESS - Peripheral IVs DVT PROPHYLAXIS - SCDs I have personally spent 40 minutes of critical care time in the direct management of this patient. This is a life/limb threatening event. This includes time spent evaluating patient, direct bedside care, chart review, placing orders, interpretation of diagnostic studies, discussion with consultants, patient, and family members, as well as other required patient management activities. This time is exclusive of all separately billable procedures, and teaching time and separate from and in addition to any other critical care service time. Thank you for allowing us to participate in the care of this patient. Please refer to my attending physician's documentation for any further recommendations. (2) Acute diastolic CHF (congestive heart failure): (3) EVA (acute kidney injury): (4) Acute dyspnea: (5) Generalized weakness: (6) Hypervolemia: (7) Tobacco use: (8) Microcytic anemia: (9) Chronic kidney disease, stage II (mild): (10) Diabetes: (11) Hypokalemia: History of Present Illness Attending Physician: Paresh Cleevland MD History of Present Illness Patient is a 42-year-old female with past medical history significant for uncontrolled DM type II, osteomyelitis of right foot s/p partial amputation, tobacco abuse, uncontrolled hypertension, obesity who presents to the emergency department on 09/24 with complaints of generalized weakness and recent fall in which she was unable to get herself up off the floor. Patient also reported shortness of breath and recent weight gain of 60 pounds over the past few weeks. Patient apparently has failed to follow-up with primary care in the past. Chest x-ray showed marked cardiomegaly with pulmonary edema and she had elevated BNP. She was significantly hypertensive with initial SBP 230. She had microcytic anemia with hemoglobin 7.8. EVA with creatinine 2.10. She underwent an echo today which showed EF 60 to 65%, mild concentric LVH with type II LV diastolic dysfunction, mild MR, mild TR, and elevated RVSP. Patient was undergoing diuresis and treatment for hypertensive urgency and CHF exacerbation. She underwent CT abdomen which showed Cardiomegaly with fluid overload manifested by pulmonary edema, small left and small to moderate right pleural effusions, trace pericardial effusion with small volume of abdominopelvic asci thien and anasarca; No bowel obstruction or bowel wall thickening; cholelithiasis; Nonobstructing right renal calculus. On arrival to the ICU the patient is alert and oriented and is currently hemodynamically stable. She has refused BiPAP but is currently maintaining oxygen saturation on room air. We will blood pressure appears to be responsive to nicardipine and is currently within range of SBP 140-160. She currently denies headache, dizziness, syncopal events, changes in vision, cough or congestion, fevers, shortness of breath or wheezing, chest pain or palpitations, abdominal pain, nausea vomiting or diarrhea. She does report extensive swelling in her lower extremities which she states started a couple of weeks ago. She is undergoing 24-hour urine study but has refused catheter. She remained hypertensive despite oral meds and was started on nicardipine drip and has been transferred to ICU for further management at this time. Allergies Allergy/AdvReac Type Severity Reaction Status Date / Time penicillin G Allergy Intermediate HIVES Unverified 05/22/21 20:45 Sulfa (Sulfonamide AdvReac Mild RETAINS Unverified 05/22/21 20:45 Antibiotics) WATER Home Medications Medication Instructions Recorded Confirmed Type No Known Home Medications 09/24/22 09/24/22 History Patient History Medical History No pertinent past medical history Social History Smoking Status: Current every day smoker Tobacco Type: Cigarettes Cigarettes Per Day: 1 pack; Hx Alcohol Use: Yes Alcohol type: hard liquor Hx Substance Use: No Preferred Language: Salvadorean Communication Ability: Effective 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 Beliefs That Will Affect Care: None Current Living Situation: Spouse Current Living Situation Comment: lives with girlfriend Feels Safe at Home: Yes Assistive Devices: Glasses and Walker Review of Systems Review of Systems: All systems reviewed & are unremarkable except as noted in HPI & below Physical Exam Constitutional: WD/WN, vitals as above + obese, cooperative and comfortable Eyes: PERRL, conjunctivae normal, anicteric sclerae ENMT: external ear and nose normal, oropharynx normal Neck: trachea midline, no thyromegaly Respiratory: normal respiratory effort, lungs clear to auscultation Cardiovascular: Rate/Rhythm: regular rate and regular rhythm Heart Sounds: normal S1 and normal S2; no murmur Extremities: + edema (Bilateral lower extremity +4) Gastrointestinal (Abdomen): normal bowel sounds, soft, nontender, no hepatosplenomegaly Musculoskeletal: no cyanosis or clubbing, extremities motor strength 5/5 (Pa rtial amputation of the left lower extremity) Skin: no rashes, warm and dry Psychiatric: A+Ox3, euthymic affect Results & Data Results & Data ([facility]) Vital Signs (Past 12 Hours) Vital Signs Temp Pulse Pulse Resp BP BP Pulse Ox 09/25/22 18:43 36.7 C 70 19 196/102 H 98 09/25/22 18:40 09/25/22 17:35 78 20 198/101 H 95 09/25/22 16:55 73 187/100 H 09/25/22 14:09 72 193/101 H 09/25/22 14:09 36.6 C 71 18 193/101 H 97 09/25/22 12:20 72 20 169/89 H 97 09/25/22 11:20 36.6 C 76 20 169/81 H 97 09/25/22 11:13 09/25/22 11:13 78 20 170/97 H 96 09/25/22 10:50 36.6 C 78 22 117/83 96 09/25/22 10:35 36.6 C 79 16 173/113 H 95 09/25/22 10:15 36.5 C 78 22 176/85 H 93 09/25/22 09:30 79 23 97 09/25/22 09:30 179/97 H 09/25/22 09:15 80 22 96 09/25/22 09:15 179/86 H 09/25/22 09:00 71 13 98 09/25/22 09:00 181/95 H 09/25/22 08:46 97 09/25/22 08:46 205/138 H 09/25/22 08:45 97 09/25/22 08:31 80 18 97 09/25/22 08:31 215/112 H 09/25/22 08:30 80 27 H 97 09/25/22 08:15 79 21 98 09/25/22 08:15 171/99 H 09/25/22 08:00 78 14 96 09/25/22 08:00 189/100 H Pulse Ox O2 Del Method O2 Del Method 09/25/22 18:43 Room Air 09/25/22 18:40 Room Air 09/25/22 17:35 09/25/22 16:55 09/25/22 14:09 09/25/22 14:09 09/25/22 12:20 09/25/22 11:20 09/25/22 11:13 96 Room Air 09/25/22 11:13 Room Air 09/25/22 10:50 09/25/22 10:35 09/25/22 10:15 09/25/22 09:30 Room Air 09/25/22 09:30 09/25/22 09:15 Room Air 09/25/22 09:15 09/25/22 09:00 Room Air 09/25/22 09:00 09/25/22 08:46 Room Air 09/25/22 08:46 09/25/22 08:45 Room Air 09/25/22 08:31 Room Air 09/25/22 08:31 09/25/22 08:30 Room Air 09/25/22 08:15 Room Air 09/25/22 08:15 09/25/22 08:00 Room Air 09/25/22 08:00 Coding Level of Care Code Critical Care 1st 30-74 mins Diagnoses Hypertensive emergency I16.1 Acute diastolic CHF (congestive heart failure) I50.31 EVA (acute kidney injury) N17.9 Acute dyspnea R06.00 Generalized weakness R53.1 Hypervolemia E87.70 Tobacco use Z72.0 Microcytic anemia D50.9 Chronic kidney disease, stage II (mild) N18.2 Diabetes E11.9 Hypokalemia E87.6
[2022-09-26 05:23] LABS: Ferritin 34.3 ng/ml (8-388)
[2022-09-26 05:26] LABS: Iron 17 mcg/dl (35-150); Total Iron Binding Cap Calc 160 mcg/dl (250-450); Transferrin (FE) Percent Satur 11 % (15-50); Unsaturated Iron Binding Cap 143 mcg/dl (155-355)
[2022-09-26 05:31] LABS: BUN Creatinine Ratio 7.9 (10-20); Calcium 7.7 mg/dl (8.5-10.1); Creatinine Clr Calc Pharmacy 45.7 ml/min; Est GFR (African American) 29.3 ml/min; Est GFR (Non-African American) 25.3 ml/min; Potassium 3.6 mmol/L (3.5-5.1)
--- NOTE | 2022-09-26 05:34 | Billing Data ---
Date of Service September 26, 2022 Coding Level of Care Code 94632 Initial Inpt Care Lvl 3
[2022-09-26] MEDS: ENOXAPARIN INJ 40 MG/0.4 ML SYR SQ SCH (07:25)
[2022-09-26] MEDS: carvediloL 12.5 MG TAB PO SCH (07:25)
[2022-09-26] MEDS: POTASSIUM CHLORIDE / WTR 10 MEQ/100 ML PLCT IV SCH ×2 (07:26→08:34)
[2022-09-26] MEDS: INSULIN ASPART PER UNIT SC SCH ×2 (08:12→12:02)
--- NOTE | 2022-09-26 08:24 | Nephrology Consultation ---
Date of Consultation September 26, 2022 Assessment & Plan (1) EVA (acute kidney injury): * EVA possibly related to hypertensive emergency and acute diastolic CHF * Urinalysis w/ 4+ protein. Microscopy is negative for blood or cellular casts * Will order renal US * Monitor PRP * Agree w/ IV diuretic therapy (2) Chronic kidney disease, stage II (mild): * Stage G2/A3 CKD (mild impairment). Baseline Cr 0.9. Probable underlying DKD, hypertensive nephrosclerosis (3) Hypertensive emergency: * Management as per hospitalist service and Cardiology * Consider ACEi/ARB once kidney function is clearly improving (4) Acute diastolic CHF (congestive heart failure): * Continue diuresis * Will likely need maintenance diuretic therapy and regular follow up at CHF clinic as outpatient History of Present Illness Attending Physician: Rico Price MD Allergies Allergy/AdvReac Type Severity Reaction Status Date / Time penicillin G Allergy Intermediate HIVES Unverified 05/22/21 20:45 Sulfa (Sulfonamide AdvReac Mild RETAINS Unverified 05/22/21 20:45 Antibiotics) WATER Home Medications Medication Instructions Recorded Confirmed Type No Known Home Medications 09/24/22 09/24/22 History Patient History Medical History No pertinent past medical history Social History Smoking Status: Current every day smoker Tobacco Type: Cigarettes Cigarettes Per Day: 1 pack; Hx Alcohol Use: Yes Alcohol type: hard liquor Hx Substance Use: No Preferred Language: Tajik Communication Ability: Effective 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 Beliefs That Will Affect Care: None Current Living Situation: Spouse Current Living Situation Comment: lives with girlfriend Feels Safe at Home: Yes Assistive Devices: Glasses and Walker Review of Systems Constitutional: no fever Eyes: no worsening vision Ear, Nose, Mouth, Throat: no problem reported Respiratory: no cough and no dyspnea Cardiovascular: no chest pain Gastrointestinal: no abdominal pain, no nausea, no vomiting and no diarrhea/loose stools Physical Exam Constitutional: + obese; not in distress Eyes: PERRL, conjunctivae normal, anicteric sclerae ENMT: external ear and nose normal, oropharynx normal Neck: normal visual inspection Respiratory: normal respiratory effort, lungs clear to auscultation Cardiovascular: Rate/Rhythm: regular rate and regular rhythm Extremities: + edema Gastrointestinal (Abdomen): Inspection/Auscultation: + abdomen distended and + hypoactive bowel sounds Percussion/Palpation: abdomen nontender Neurologic: Speech / Cognition: normal speech and normal cognition Results & Data ([facility]) Vital Signs (Past 12 Hours) Vital Signs Temp Pulse Pulse Resp BP BP Pulse Ox 09/26/22 08:21 36.5 C 67 22 150/78 H 96 09/26/22 06:15 65 16 93 09/26/22 06:15 153/80 H 09/26/22 06:00 64 14 93 09/26/22 06:00 148/78 H 09/25/22 23:00 67 18 95 09/25/22 23:00 137/88 09/25/22 22:45 67 19 98 09/25/22 22:45 147/83 H 09/25/22 22:30 68 18 99 09/25/22 22:30 134/99 09/25/22 22:15 69 17 99 09/25/22 22:15 144/81 H 09/25/22 22:00 69 19 100 09/25/22 22:00 145/90 H 09/25/22 21:45 71 24 100 09/25/22 21:45 144/89 H 09/25/22 21:30 72 22 98 09/25/22 21:30 141/74 H 09/25/22 21:15 70 19 98 09/25/22 21:15 141/75 H 09/25/22 21:00 71 20 93 09/25/22 21:00 136/73 09/25/22 20:45 72 12 94 09/25/22 20:45 141/80 H 09/25/22 20:30 71 22 92 09/26/22 05:45 66 15 91 09/26/22 05:45 154/78 H 09/26/22 05:30 66 18 93 09/26/22 05:30 145/81 H 09/26/22 05:15 66 17 93 09/26/22 05:15 146/77 H 09/26/22 05:00 66 17 94 09/26/22 05:00 144/79 H 09/26/22 04:45 66 17 94 09/26/22 04:45 153/77 H 09/26/22 04:15 64 17 92 09/26/22 04:15 130/65 09/26/22 04:00 64 18 92 09/26/22 04:00 128/65 09/26/22 03:45 64 12 93 09/26/22 03:45 135/66 09/26/22 03:30 63 17 93 09/26/22 03:30 128/68 09/26/22 03:15 64 16 93 09/26/22 03:15 133/68 09/26/22 03:00 63 19 94 09/26/22 03:00 131/65 09/26/22 02:45 64 16 92 09/26/22 02:45 127/64 09/26/22 02:30 65 17 91 09/26/22 02:30 132/64 09/26/22 02:15 64 14 89 L 09/26/22 02:15 129/64 09/26/22 02:00 64 16 91 09/26/22 02:00 114/61 09/26/22 01:45 65 19 91 09/26/22 01:45 125/60 09/26/22 01:30 67 18 92 09/26/22 01:30 136/69 09/26/22 01:15 67 18 94 09/26/22 01:15 129/68 09/26/22 01:00 67 17 96 09/26/22 01:00 146/72 H 09/26/22 00:45 74 18 09/26/22 00:30 69 22 98 09/26/22 00:30 165/87 H 09/26/22 00:15 73 18 09/26/22 00:15 143/73 H 09/26/22 00:00 69 15 92 09/26/22 00:00 156/83 H 09/25/22 23:45 68 18 95 09/25/22 23:45 159/79 H 09/25/22 23:30 64 17 93 09/25/22 23:30 129/75 09/26/22 00:00 112 H O2 Del Method O2 Flow Rate 09/26/22 08:21 Nasal Cannula 1 09/26/22 06:15 09/26/22 06:15 09/26/22 06:00 09/26/22 06:00 09/25/22 23:00 09/25/22 23:00 09/25/22 22:45 09/25/22 22:45 09/25/22 22:30 09/25/22 22:30 09/25/22 22:15 09/25/22 22:15 09/25/22 22:00 09/25/22 22:00 09/25/22 21:45 09/25/22 21:45 09/25/22 21:30 09/25/22 21:30 09/25/22 21:15 09/25/22 21:15 09/25/22 21:00 09/25/22 21:00 09/25/22 20:45 09/25/22 20:45 09/25/22 20:30 09/26/22 05:45 09/26/22 05:45 09/26/22 05:30 09/26/22 05:30 09/26/22 05:15 09/26/22 05:15 09/26/22 05:00 09/26/22 05:00 09/26/22 04:45 09/26/22 04:45 09/26/22 04:15 09/26/22 04:15 09/26/22 04:00 09/26/22 04:00 09/26/22 03:45 09/26/22 03:45 09/26/22 03:30 09/26/22 03:30 09/26/22 03:15 09/26/22 03:15 09/26/22 03:00 09/26/22 03:00 09/26/22 02:45 09/26/22 02:45 09/26/22 02:30 09/26/22 02:30 09/26/22 02:15 09/26/22 02:15 09/26/22 02:00 09/26/22 02:00 09/26/22 01:45 09/26/22 01:45 09/26/22 01:30 09/26/22 01:30 09/26/22 01:15 09/26/22 01:15 09/26/22 01:00 09/26/22 01:00 09/26/22 00:45 09/26/22 00:30 09/26/22 00:30 09/26/22 00:15 09/26/22 00:15 09/26/22 00:00 09/26/22 00:00 09/25/22 23:45 2 09/25/22 23:45 09/25/22 23:30 2 09/25/22 23:30 09/26/22 00:00 Laboratory Results Laboratory Tests 09/26/22 09/26/22 04:21 04:21 Sodium 140 Potassium 3.6 Chloride 112 H Carbon Dioxide 23 BUN 18 Creatinine 2.28 H Glucose 78 Transferrin % Sat 11 L Ferritin 34.3 Laboratory Tests 09/25/22 09/25/22 17:29 17:29 Urine Color Yellow Ur Specific Surveyor 1.009 Urine Protein 3+ H Urine Blood Trace H Ur Leukocyte Esterase Negative Urine RBC (Auto) 0-4 Protein/Creatinin Ratio 11.5 H Diagnostic Findings 09/24/[address]: Cardiomegaly. Decreased attenuation of the cardiac blood pool suggestive of anemia. Trace pericardial effusion. Small left and small to moderate right pleural effusions. Intralobular septal thickening with subsegmental bibasilar atelectasis. No pneumatosis or pneumoperitoneum. The unenhanced spleen is enlarged measuring up to 14 cm. There is trace edema surrounding the pancreas. Adrenal gland thickening suggestive of hyperplasia. Cholelithiasis without gallbladder distention or definite gallbladder wall thickening. The unenhanced liver is within normal limits. 4 mm nonobstructing calculus of the interpolar right kidney. Bilateral perinephric stranding. No ureteral calculi or hydronephrosis. Partial distention of the urinary bladder with mild wall thickening. 1.4 cm cystic focus within the cervix may represent a nabothian cyst. Right ovarian follicle. Atherosclerosis of the aorta without aneurysm. Mild periportal lymphadenopathy. Mildly enlarged iliac chain lymph nodes. Pelvic sidewall lymph nodes measure up to 1.2 cm on the right. Inguinal adenopathy measures up to 1.4 cm on the right. No bowel obstruction or bowel wall thickening. The appendix is not visualized. Small volume of abdominal pelvic ascites with anasarca. No acute fracture. PG Care Time/CCT Total # of Minutes Spent Total Time Spent with Patient: Total time spent is greater than 50% in coordination of care (as documented) at patient's floor/unit and/or counseling patient: Coding Diagnoses EVA (acute kidney injury) N17.9 Chronic kidney disease, stage II (mild) N18.2 Hypertensive emergency I16.1 Acute diastolic CHF (congestive heart failure) I50.31
--- NOTE | 2022-09-26 08:27 | Critical Care Progress Note ---
Date of Service September 26, 2022 Assessment & Plan (1) Uncontrolled hypertension: Plan: Reason Critically Ill: 42-year-old female with he/him pronouns presents to the ICU with hypertensive emergency and acute diastolic heart failure, now requiring nicardipine drip and diuresis. Neuro - [facility]: Negative Concern Bipolar/Schizophrenia/ADD/ADHD -patient states he has these conditions, stopped medications since psychiatrist several years ago and never found another psychiatrist. -consulted behavioral health to reconnect patient to psychiatric services Cardiac - Hypertensive emergencyinitial SBP 230 and most recent 150. Patient remained hypertensive following oral management and required vasoactive antihypertensive drip, nicardipine, stopped 11:30pm on 09/25 -History of uncontrolled hypertension -Goal SBP 140-160. Will uptitrate dose of oral medications. -Plan to start CHARAN inhibitor once renal function improves Acute diastolic heart failurelikely onset by uncontrolled hypertension/hypertensive emergency -No prior history. Normal LV and systolic function with mild concentric LVH and type II diastolic dysfunction on echo. Mild MR, mild TR, and RV SP elevated 40-50 also noted -Cardiology following appreciate recommendations -Patient was started on Coreg 12.5mg twice daily in favor of metoprolol. Will uptitrate -Given 80 mg Lasix IV x1 dose on admit, maintain negative fluid balance -Low-sodium diet with fluid restriction, strict I's and O's, daily weights -Expect to improve with blood pressure control and diuresis Respiratory - History of tobacco abuse. Due to pulmonary edema patient was started on BiPAP in the emergency department but refused therapy. he is currently stable from a pulmonary standpoint and lungs are currently clear to auscultation following diuresis. -CXR: Cardiomegaly with with pulmonary vascular congestion and small pleural effusions -Continuous monitoring on pulse ox -Encourage smoking cessation -Continue with diuresis as needed GI - CT abdomen and pelvis: 1. Cardiomegaly with fluid overload manifested by pulmonary edema, small left and small to moderate right pleural effusions, trace pericardial effusion with small volume of abdominopelvic ascites and anasarca. 2. No bowel obstruction or bowel wall thickening. 3. Cholelithiasis. 4. Nonobstructing right renal calculus. RENAL/LYTES - EVA on CKDpatient currently hypervolemic and creatinine of 2.28 -Nephrology following and appreciate recommendations -Suspect this is most likely related to hypertensive emergency and acute diastolic heart failure urinalysis plus for protein -Undergoing 24-hour urine study -Follow-up renal ultrasound -Continue diuresis -Monitor routine BMP and replete electrolytes as indicated -Nephrotoxins and renally adjust medications - Refused Foleymonitor strict I's and O's ENDO - DM type IImost recent hemoglobin A1c of 4.8 with previous study of 11 -Patient noncompliant with previous home meds? -Continue sliding scale -ICU hyperglycemic protocol HEME - Microcytic anemiamost recent hemoglobin 8.5 appears to be chronic -No indication for transfusion at this time. Monitor with routine CBC ID - No indication for infectious process at this time LINES/IV ACCESS - Peripheral IVs DVT PROPHYLAXIS - SCDs Thank you for allowing us to participate in this patient's care. Please see Dr. Savage's note for further details. Patient may be downgraded from the ICU at this time. (2) Acute diastolic CHF (congestive heart failure): (3) Chronic kidney disease, stage II (mild): (4) Hypervolemia: (5) Generalized weakness: (6) EVA (acute kidney injury): (7) Noncompliance: (8) Diabetes: (9) Severe anxiety: Plan Patient seen and examined with the resident physician. Agree with plan aside for any additions/exceptions noted: Patient with acute diastolic heart failure and uncontrolled hypertension likely due to poor compliance. Renal failure is noted as well likely from hypertensive nephrosclerosis. Appreciate cardiology and nephrology input. Defer diuretics to them. Patient stable for downgrade to the floor. Patient keeps reiterating that she is going to leave AGAINST MEDICAL ADVICE. I encouraged her to stay given her multiple health issues which are acute on chronic. We are consulting psychiatry to assist with the behavioral health issues. On exam she appears edematous. Minimal crackles noted at the bases. No wheezes. No obvious murmur. Neurologically intact. Anxious appearing. Poor eye contact. Admission and Anticipated Discharge Date Admission Date: September 25, 2022 Subjective 42yo Female uses He/him pronouns seen at bedside seated in chair, calm comfortable cooperative, states fluid in his legs improved and had no difficulty walking to bathroom. He denies SOB, headache, CP or abd pain. He repeatedly asks to go home, states he has schizophrenia bipolar ADD that is better managed at home. When asked about his weight increase of 30kg over the past year, he states he 'must have eaten a lot of good food'. Patient states he does not have a fisher gill net and did not know he had heart failure. Review of Systems Review of Systems: All systems reviewed & are unremarkable except as noted in HPI & below Physical Exam Constitutional: + morbidly obese, cooperative, comfortable and + edematous Eyes: PERRL, conjunctivae normal, anicteric sclerae ENMT: external ear and nose normal, oropharynx normal Neck: trachea midline, no thyromegaly Respiratory: Auscultation: + diminished lung sounds Cardiovascular: Rate/Rhythm: regular rate and regular rhythm Extremities: + edema (pitting b/l up to thigh) Gastrointestinal (Abdomen): Inspection/Auscultation: + abdomen distended and + abdominal edema Percussion/Palpation: abdomen nontender Skin: no rashes, warm and dry Results & Data Results & Data ([facility]) Vital Signs (Past 12 Hours) Vital Signs Pulse Resp BP Pulse Ox O2 Flow Rate 09/26/22 06:15 65 16 93 09/26/22 06:15 153/80 H 09/26/22 06:00 64 14 93 09/26/22 06:00 148/78 H 09/25/22 23:00 67 18 95 09/25/22 23:00 137/88 09/25/22 22:45 67 19 98 09/25/22 22:45 147/83 H 09/25/22 22:30 68 18 99 09/25/22 22:30 134/99 09/25/22 22:15 69 17 99 09/25/22 22:15 144/81 H 09/25/22 22:00 69 19 100 09/25/22 22:00 145/90 H 09/25/22 21:45 71 24 100 09/25/22 21:45 144/89 H 09/25/22 21:30 72 22 98 09/25/22 21:30 141/74 H 09/25/22 21:15 70 19 98 09/25/22 21:15 141/75 H 09/25/22 21:00 71 20 93 09/25/22 21:00 136/73 09/25/22 20:45 72 12 94 09/25/22 20:45 141/80 H 09/25/22 20:30 71 22 92 09/26/22 05:45 66 15 91 09/26/22 05:45 154/78 H 09/26/22 05:30 66 18 93 09/26/22 05:30 145/81 H 09/26/22 05:15 66 17 93 09/26/22 05:15 146/77 H 09/26/22 05:00 66 17 94 09/26/22 05:00 144/79 H 09/26/22 04:45 66 17 94 09/26/22 04:45 153/77 H 09/26/22 04:15 64 17 92 09/26/22 04:15 130/65 09/26/22 04:00 64 18 92 09/26/22 04:00 128/65 09/26/22 03:45 64 12 93 09/26/22 03:45 135/66 09/26/22 03:30 63 17 93 09/26/22 03:30 128/68 09/26/22 03:15 64 16 93 09/26/22 03:15 133/68 09/26/22 03:00 63 19 94 09/26/22 03:00 131/65 09/26/22 02:45 64 16 92 09/26/22 02:45 127/64 09/26/22 02:30 65 17 91 09/26/22 02:30 132/64 09/26/22 02:15 64 14 89 L 09/26/22 02:15 129/64 09/26/22 02:00 64 16 91 09/26/22 02:00 114/61 09/26/22 01:45 65 19 91 09/26/22 01:45 125/60 09/26/22 01:30 67 18 92 09/26/22 01:30 136/69 09/26/22 01:15 67 18 94 09/26/22 01:15 129/68 09/26/22 01:00 67 17 96 09/26/22 01:00 146/72 H 09/26/22 00:45 74 18 09/26/22 00:30 69 22 98 09/26/22 00:30 165/87 H 09/26/22 00:15 73 18 09/26/22 00:15 143/73 H 09/26/22 00:00 69 15 92 09/26/22 00:00 156/83 H 09/25/22 23:45 68 18 95 2 09/25/22 23:45 159/79 H 09/25/22 23:30 64 17 93 2 09/25/22 23:30 129/75 09/26/22 00:00 112 H Laboratory Results Laboratory Results WBC 10.10 K/ul (4.8-10.8) 09/25/22 19:08 RBC 3.34 M/uL (3.93-5.22) L 09/25/22 19:08 Hgb 8.5 g/dl (12.0-16.0) L 09/25/22 19:08 Hct 26.8 % (34.1-44.9) L 09/25/22 19:08 MCV 80.2 fL (80.0-100.0) 09/25/22 19:08 MCH 25.4 pg (25.0-34.0) 09/25/22 19:08 MCHC 31.7 g/dL (32.0-36.0) L 09/25/22 19:08 RDW Std Deviation 55.3 fL (36.4-46.3) H 09/25/22 19:08 RDW Coeff of [place] 18.9 % (11.5-14.5) H 09/25/22 19:08 Plt Count 305 K/uL (130-400) 09/25/22 19:08 MPV 11.0 fL (9.4-12.3) 09/25/22 19:08 Immature Gran % (Auto) 0.3 % 09/25/22 19:08 Neut % (Auto) 80.9 % 09/25/22 19:08 Lymph % (Auto) 10.3 % 09/25/22 19:08 [place] % (Auto) 5.4 % 09/25/22 19:08 Eos % (Auto) 2.0 % 09/25/22 19:08 Baso % (Auto) 1.1 % 09/25/22 19:08 Neut # (Auto) 8.17 K/uL (1.4-6.5) H 09/25/22 19:08 Lymph # (Auto) 1.04 K/uL (1.2-3.4) L 09/25/22 19:08 [place] # (Auto) 0.55 K/uL (0.24-0.82) 09/25/22 19:08 Eos # (Auto) 0.20 K/uL (0-0.50) 09/25/22 19:08 Baso # (Auto) 0.11 K/uL (0-0.2) 09/25/22 19:08 Immature Gran # (Auto) 0.03 K/uL (0.00-0.02) H 09/25/22 19:08 Polychromasia 1+ 09/25/22 05:31 Tear Drop Cells 1+ 09/25/22 05:31 Ovalocytes 2+ 09/25/22 05:31 PT 11.9 Seconds (9.0-12.0) 09/24/22 23:02 INR 1.1 (0.9-1.1) 09/24/22 23:02 Sodium 140 mmol/L (136-145) 09/26/22 04:21 Potassium 3.6 mmol/L (3.5-5.1) 09/26/22 04:21 Chloride 112 mmol/L (98-107) H 09/26/22 04:21 Carbon Dioxide 23 mmol/L (21-32) 09/26/22 04:21 Anion Gap 5 (3-11) 09/26/22 04:21 BUN 18 mg/dl (6-23) 09/26/22 04:21 Creatinine 2.28 mg/dl (0.6-1.2) H 09/26/22 04:21 Est Cr Clr Drug Dosing 45.7 ml/min 09/26/22 04:21 Est GFR ( Amer) 29.3 ml/min 09/26/22 04:21 Est GFR (Non-Af Amer) 25.3 ml/min 09/26/22 04:21 BUN/Creatinine Ratio 7.9 (10-20) L 09/26/22 04:21 Glucose 78 mg/dl (70-99(Fasting)) 09/26/22 04:21 POC Glucose 91 mg/dl (70-99) 09/26/22 07:22 Estimat Average Glucose 91 mg/dl 09/25/22 05:31 Hemoglobin A1c 4.8 % (4.5-5.6) 09/25/22 05:31 Calcium 7.7 mg/dl (8.5-10.1) L 09/26/22 04:21 Magnesium 1.6 mg/dl (1.7-2.4) L 09/25/22 19:08 Iron 17 mcg/dl (35-150) L 09/26/22 04:21 TIBC 160 mcg/dl (250-450) L 09/26/22 04:21 Unsaturated IBC 143 mcg/dl (155-355) L 09/26/22 04:21 Transferrin % Sat 11 % (15-50) L 09/26/22 04:21 Ferritin 34.3 ng/ml (8-388) 09/26/22 04:21 Total Bilirubin 0.7 mg/dl (0.2-1.0) 09/24/22 23:02 AST 14 U/L (13-39) 09/24/22 23:02 ALT 10 U/L (7-52) 09/24/22 23:02 Alkaline Phosphatase 72 U/L (34-104) 09/24/22 23:02 Troponin I High Sens 10.8 pg/ml (0-14) 09/25/22 19:08 B-Natriuretic Peptide 1316 pg/ml (0-100) H 09/25/22 00:17 Total Protein 6.9 gm/dl (6.0-8.3) 09/24/22 23:02 Albumin 3.0 gm/dl (3.4-5.0) L 09/24/22 23:02 Globulin 3.9 gm/dl (2.5-4.0) 09/24/22 23:02 Albumin/Globulin Ratio 0.8 (0.9-2) L 09/24/22 23:02 Lipase 13 U/L (11-82) 09/24/22 23:02 TSH 4.887 uIu/ml (0.300-4.500) H 09/24/22 23:02 Free T4 0.78 ng/dl (0.61-1.60) 09/24/22 23:02 HCG, Qual Negative (Negative) 09/24/22 23:02 Urine Color Yellow 09/25/22 17:29 Urine Appearance Clear (Clear) 09/25/22 17:29 Urine pH 5.5 (4.5-7.5) 09/25/22 17:29 Ur Specific [place] 1.009 (1.000-1.030) 09/25/22 17:29 Urine Protein 3+ (Negative) H 09/25/22 17:29 Urine Glucose (UA) Negative (Negative) 09/25/22 17:29 Urine Ketones Negative (Negative) 09/25/22 17:29 Urine Blood Trace (Negative) H 09/25/22 17:29 Urine Nitrite Negative (Negative) 09/25/22 17:29 Urine Bilirubin Negative (Negative) 09/25/22 17:29 Urine Urobilinogen Negative (Negative) 09/25/22 17:29 Ur Leukocyte Esterase Negative (Negative) 09/25/22 17:29 Urine WBC (Auto) 10-30 /hpf (0-5) H 09/25/22 17:29 Urine RBC (Auto) 0-4 /hpf (0-4) 09/25/22 17:29 U Hyaline Cast (Auto) 5-10 /lpf (0-5) H 09/25/22 17:29 U Epithel Cells (Auto) >30 /lpf (0-5) H 09/25/22 17:29 Urine Bacteria (Auto) Negative (Negative) 09/25/22 17:29 Ur Random Creatinine 25.1 mg/dl 09/25/22 17:29 U Random Total Protein 289.0 mg/dl (0-11.9) H 09/25/22 17:29 Protein/Creatinin Ratio 11.5 (0-0.2) H 09/25/22 17:29 Nasal Screen MRSA (PCR) Negative (Negative) 09/26/22 06:05 SARS-CoV-2 (PCR) NEGATIVE (Negative) 09/25/22 00:15 Influenza Type A (PCR) Negative (Neg) 09/25/22 00:15 Influenza Type B (PCR) Negative (Neg) 09/25/22 00:15 RSV (RT-PCR) Negative (Neg) 09/25/22 00:15 Blood Type O Positive 09/25/22 08:18 Blood Type Recheck O Positive 09/25/22 08:58 Antibody Screen NEGATIVE 09/25/22 08:18 Crossmatch See Detail 09/25/22 08:18 Impressions Chest X-Ray 09/24/22 23:21 XR chest 1V portable HISTORY: 42 years-old Female sob acute shortness of breath COMPARISON: CT abdomen and pelvis of same day, Chest radiograph 12/10/2020 TECHNIQUE: AP view of the chest FINDINGS: Cardiac silhouette is enlarged. Mild pulmonary vascular congestion. No pneumothorax. Small pleural effusions with mild bibasilar atelectasis. Bones appear grossly intact. IMPRESSION: 1. Cardiomegaly with pulmonary vascular congestion. 2. Small pleural effusions. ACT 112: Negative or not required by law. The above report was generated using voice recognition software. It may contain grammatical, syntax or spelling errors. Electronically signed by: Eric Elliott M.D. 09/25/2022 6:43 AM Abdomen/Pelvis CT 09/24/22 23:[address] WITHOUT CONTRAST CT DOSE: 2541.83 mGy.cm HISTORY: Acute generalized abdominal pain abd pain TECHNIQUE: Multiaxial CT images of the abdomen and pelvis were performed without contrast. A dose lowering technique was utilized adhering to the principles of ALARA. COMPARISON STUDY: None. FINDINGS: Cardiomegaly. Decreased attenuation of the cardiac blood pool suggestive of anemia. Trace pericardial effusion. Small left and small to moderate right pleural effusions. Intralobular septal thickening with subsegmental bibasilar atelectasis. No pneumatosis or pneumoperitoneum. The unenhanced spleen is enlarged measuring up to 14 cm. There is trace edema surrounding the pancreas. Adrenal gland thickening suggestive of hyperplasia. Cholelithiasis without gallbladder distention or definite gallbladder wall thickening. The unenhanced liver is within normal limits. 4 mm nonobstructing calculus of the interpolar right kidney. Bilateral perinephric stranding. No ureteral calculi or hydronephrosis. Partial distention of the urinary bladder with mild wall thickening. 1.4 cm cystic focus within the cervix may represent a nabothian cyst. Right ovarian follicle. Atherosclerosis of the aorta without aneurysm. Mild periportal lymphadenopathy. Mildly enlarged iliac chain lymph nodes. Pelvic sidewall lymph nodes measure up to 1.2 cm on the right. Inguinal adenopathy measures up to 1.4 cm on the right. No bowel obstruction or bowel wall thickening. The appendix is not visualized. Small volume of abdominal pelvic ascites with anasarca. No acute fracture. IMPRESSION: 1. Cardiomegaly with fluid overload manifested by pulmonary edema, small left and small to moderate right pleural effusions, trace pericardial effusion with small volume of abdominopelvic ascites and anasarca. 2. No bowel obstruction or bowel wall thickening. 3. Cholelithiasis. 4. Nonobstructing right renal calculus. 5. Additional findings as above. ACT 112: Negative or not required by law. The above report was generated using voice recognition software. It may contain grammatical, syntax or spelling errors. Electronically signed by: Eric Elliott M.D. 09/25/2022 7:01 AM Medications Administered Current Inpatient Medications Acetaminophen (Acetaminophen 325 Mg Tab) 650 mg PO Q4H PRN PRN Reason: Pain or Fever Stop: 10/25/22 01:35 Carvedilol (Carvedilol 12.5 Mg Tab) 12.5 mg PO BID [facility] Stop: 10/25/22 09:44 Last Admin: 09/26/22 07:25 Dose: 12.5 mg Dextrose (Dextrose 50% 50 Ml Syringe) 25 - 50 ml IV UD PRN; Protocol PRN Reason: Hypoglycemia Protocol Stop: 10/25/22 03:36 Enoxaparin Sodium (Enoxaparin Inj 40 Mg/0.4 Ml Syr) 40 mg SQ Q12H [facility] Stop: 10/25/22 08:59 Last Admin: 09/26/22 07:25 Dose: 40 mg Glucagon (Glucagon For Inj 1 Mg Vial) 1 mg SQ UD PRN; Protocol PRN Reason: Hypoglycemia Protocol Stop: 10/25/22 03:36 Glucose (Glucose 40% Gel 15 Gm Tube) 15 - 30 gm PO UD PRN; Protocol PRN Reason: Hypoglycemia Protocol Stop: 10/25/22 03:36 Glucose (Glucose 10 Tab/Tube) 4 - 8 tab PO UD PRN; Protocol PRN Reason: Hypoglycemia Treatment Stop: 10/25/22 03:36 Pantoprazole Sodium 40 mg/ (Syringe) 10 mls @ 5 mls/min IV BID [facility] Stop: 10/25/22 08:59 Last Admin: 09/25/22 21:05 Dose: 5 mls/min Nicardipine HCl 25 mg/ Sodium (Chloride) 250 mls @ 0 mls/hr IV .Q0M [facility]ANNESSA; Protocol Stop: 10/25/22 18:59 Last Titration: 09/26/22 08:11 Dose: Infused Potassium Chloride (K Miguel / Wtr) 10 meq in 100 mls @ 100 mls/hr IV Q1H [facility] Stop: 09/26/22 08:44 Last Admin: 09/26/22 07:26 Dose: 100 mls/hr Insulin Aspart (Insulin Aspart Per Unit) 0 units SC ACHS [facility] Stop: 10/25/22 07:29 Last Admin: 09/26/22 08:12 Dose: 1 units Miscellaneous (Carbohydrates For Hypoglycemia ) 15 - 30 gm PO UD PRN PRN Reason: Hypoglycemia Protocol Stop: 10/25/22 03:36 Resident Activity Tracking Resident Involvement: Resident Care Provided Care Provided: Adult Hospital Medicine
[2022-09-26] MEDS: PANTOprazole 40 MG in SYRINGE 0 ML IV SCH (10:04)
--- NOTE | 2022-09-26 10:27 | Billing Data ---
Date of Service September 26, 2022 Coding Level of Care Code 21705 Subseq Hosp Care Lvl 2
[2022-09-26] MEDS ORDERED: FUROSEMIDE 40 MG/4 ML VIAL IV SCH (10:30)
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
[2022-09-26] MEDS: MAGNESIUM SULFATE / D5W 1 GM/100 ML BAG IV SCH ×2 (10:49→11:38)
--- NOTE | 2022-09-26 14:20 | Ultrasound Report ---
ULTRASOUND KIDNEYS AND BLADDER CLINICAL HISTORY: Acute renal insufficiency. COMPARISON STUDY: Abdominal CT dated 09/25/2022. TECHNIQUE: Real-time, grayscale, and color flow sonography of the kidneys and bladder is performed. I mages are reviewed in the transverse and longitudinal planes. FINDINGS: Kidneys: The kidneys are normal in size and echotexture. The right kidney measures 11.4 x 6.7 x 8.7 c m and the left kidney measures 12.3 x 7.4 x 6.9 cm. There is no hydronephrosis. A right renal calcul us is noted. There is no sonographic evidence of contour deforming renal mass lesion. No perinephric fluid is identified. Bladder: The bladder is normal in appearance. Ureteral jets were not seen. Abdomen: There is a small volume of abdominal ascites. IMPRESSION: 1. The kidneys are normal in size and without hydronephrosis. 2. Right-sided nephrolithiasis. 3. Small volume ascites. ACT 112: Negative or not required by law. Electronically signed by: Lcai Morgan M.D. 09/26/2022 2:19 PM
--- NOTE | 2022-09-26 15:34 | Cardiology Progress Note ---
Date of Service September 26, 2022 Assessment & Plan (1) Acute heart failure with preserved ejection fraction (HFpEF): (2) Hypertensive emergency: (3) HTN (hypertension): Plan ASSESSMENT/PLAN: 1. Acute heart failure with preserved EF: Remains hypervolemic. Continue diuretic. Try to obtain net negative fluid balance of at least 1 L over this 24 hours. Monitor I&Os, daily weights. Monitor renal function and electrolytes. Low-sodium diet, less than 2000 mg daily recommended and discussed with Paul. 2. Hypertensive emergency/hypertension: Blood pressure remains elevated but improved. Now on carvedilol. Continue diuretic. If renal function allows, would recommend CHARAN-inhibitor or ARB. If renal function does not allow, recommend calcium channel vel. 3. Disposition: Patient wishes to be discharged or plans on signing out AMA. Recommended continued hospitalization given multiple medical problems, including continued hypervolemia. Notify primary hospitalist. Dr. Conroy will resume cardiology care tomorrow. Recommend heart failure program. Ana Martin of HF program informed. Follow-up with Dr. Conroy on discharge. Admission and Anticipated Discharge Date Admission Date: September 25, 2022 Subjective Patient was seen this afternoon. Paul feels back to baseline. Denies shortness of breath, orthopnea, syncope, near seen, palpitations, or chest discomfort. Has chronic lower extremity edema which is felt to be back to baseline. Paul became tearful and once to be discharged and if not, plans on signing out AMA. Admits that pre-hospital, took Lasix on a daily basis, but no other medications. Consumed large amounts of sodium, including Jc noodles. Paul was unaccompanied. Physical Exam Physical Exam: Gen.: No acute distress. Alert and oriented. HEENT: Anicteric sclera. Neck: JVD 1/2 way to mandible sitting upright. Cardiac: No ventricular heave. Regular. Normal S1-S2. No murmurs, rubs, or gallops. Pulmonary: Clear to auscultation bilaterally without wheezes, rales, or rhonchi. Abdomen: Soft, nontender, nondistended, with normoactive bowel sounds. 1+ abdominal edema. Extremities: 2+ radial pulses bilaterally. 2+ bilateral lower extremity edema to knees and 1+ above the knees to hips. No cyanosis. Results & Data ([facility]) Vital Signs (Past 12 Hours) Vital Signs Temp Pulse Pulse Resp BP BP Pulse Ox 09/26/22 12:15 165/88 H 09/26/22 12:15 63 17 99 09/26/22 11:31 160/113 H 09/26/22 11:31 62 21 96 09/26/22 11:15 140/81 09/26/22 11:15 65 26 H 96 09/26/22 11:00 63 17 96 09/26/22 11:00 151/77 H 09/26/22 10:45 153/88 H 09/26/22 10:45 61 14 97 09/26/22 10:30 144/75 H 09/26/22 10:30 59 L 17 95 09/26/22 10:15 60 15 96 09/26/22 10:15 151/75 H 09/26/22 10:00 62 10 L 95 09/26/22 10:00 151/87 H 09/26/22 09:46 155/75 H 09/26/22 09:46 62 17 95 09/26/22 09:30 158/78 H 09/26/22 09:30 63 17 95 09/26/22 12:01 63 09/26/22 09:15 146/74 H 09/26/22 09:15 63 21 97 09/26/22 09:01 181/104 H 09/26/22 09:01 63 22 09/26/22 09:00 62 13 99 09/26/22 08:45 176/89 H 09/26/22 08:45 63 17 98 09/26/22 08:43 179/92 H 09/26/22 08:43 65 20 99 09/26/22 08:31 69 22 97 09/26/22 08:15 69 20 97 09/26/22 08:15 183/91 H 09/26/22 08:00 67 20 99 09/26/22 08:00 162/96 H 09/26/22 07:45 68 17 98 09/26/22 07:45 180/92 H 09/26/22 07:34 69 17 97 09/26/22 07:34 177/88 H 09/26/22 07:20 150/78 H 09/26/22 07:20 68 22 96 09/26/22 07:16 147/98 H 09/26/22 07:16 70 18 95 09/26/22 07:00 67 24 98 09/26/22 07:00 165/89 H 09/26/22 06:53 69 9 L 09/26/22 08:00 65 09/26/22 08:21 36.5 C 67 22 150/78 H 96 09/26/22 06:15 65 16 93 09/26/22 06:15 153/80 H 09/26/22 06:00 64 14 93 09/26/22 06:00 148/78 H 09/26/22 05:45 66 15 91 09/26/22 05:45 154/78 H 09/26/22 05:30 66 18 93 09/26/22 05:30 145/81 H 09/26/22 05:15 66 17 93 09/26/22 05:15 146/77 H 09/26/22 05:00 66 17 94 09/26/22 05:00 144/79 H 09/26/22 04:45 66 17 94 09/26/22 04:45 153/77 H 09/26/22 04:15 64 17 92 09/26/22 04:15 130/65 09/26/22 04:00 64 18 92 09/26/22 04:00 128/65 09/26/22 03:45 64 12 93 09/26/22 03:45 135/66 09/26/22 03:30 63 17 93 09/26/22 03:30 128/68 O2 Del Method O2 Flow Rate 09/26/22 12:15 09/26/22 12:15 09/26/22 11:31 09/26/22 11:31 09/26/22 11:15 09/26/22 11:15 09/26/22 11:00 09/26/22 11:00 09/26/22 10:45 09/26/22 10:45 09/26/22 10:30 09/26/22 10:30 09/26/22 10:15 09/26/22 10:15 09/26/22 10:00 09/26/22 10:00 09/26/22 09:46 09/26/22 09:46 09/26/22 09:30 09/26/22 09:30 09/26/22 12:01 09/26/22 09:15 09/26/22 09:15 09/26/22 09:01 09/26/22 09:01 09/26/22 09:00 09/26/22 08:45 09/26/22 08:45 09/26/22 08:43 09/26/22 08:43 09/26/22 08:31 09/26/22 08:15 09/26/22 08:15 09/26/22 08:00 09/26/22 08:00 09/26/22 07:45 09/26/22 07:45 09/26/22 07:34 09/26/22 07:34 09/26/22 07:20 09/26/22 07:20 09/26/22 07:16 09/26/22 07:16 09/26/22 07:00 09/26/22 07:00 09/26/22 06:53 09/26/22 08:00 09/26/22 08:21 Nasal Cannula 1 09/26/22 06:15 09/26/22 06:15 09/26/22 06:00 09/26/22 06:00 09/26/22 05:45 09/26/22 05:45 09/26/22 05:30 09/26/22 05:30 09/26/22 05:15 09/26/22 05:15 09/26/22 05:00 09/26/22 05:00 09/26/22 04:45 09/26/22 04:45 09/26/22 04:15 09/26/22 04:15 09/26/22 04:00 09/26/22 04:00 09/26/22 03:45 09/26/22 03:45 09/26/22 03:30 09/26/22 03:30 Intake & Output 09/24/22 09/25/22 09/26/22 09/27/22 06:59 06:59 06:59 06:59 Intake Total 1579.584 / 1579.584 800 / 800 Output Total 650 / 650 400 / 400 Balance 929.584 / 929.584 400 / 400 Weight 302 lb 0.533 oz 294 lb 5.074 oz Laboratory Results Laboratory Results - last 24 hr 09/25/22 09/25/22 09/25/22 16:59 17:29 17:29 WBC RBC Hgb Hct MCV MCH MCHC RDW Std Deviation RDW Coeff of [place]ola Plt Count MPV Immature Gran % (Auto) Neut % (Auto) Lymph % (Auto) [place] % (Auto) Eos % (Auto) Baso % (Auto) Neut # (Auto) Lymph # (Auto) [place] # (Auto) Eos # (Auto) Baso # (Auto) Immature Gran # (Auto) Sodium Potassium Chloride Carbon Dioxide Anion Gap BUN Creatinine Est Cr Clr Drug Dosing Est GFR ( Amer) Est GFR (Non-Af Amer) BUN/Creatinine Ratio Glucose POC Glucose 111 H Calcium Magnesium Iron TIBC Unsaturated IBC Transferrin % Sat Ferritin Troponin I High Sens Whole Bld Vitamin B1 Urine Color Yellow Urine Appearance Clear Urine pH 5.5 Ur Specific [place] 1.009 Urine Protein 3+ H Urine Glucose (UA) Negative Urine Ketones Negative Urine Blood Trace H Urine Nitrite Negative Urine Bilirubin Negative Urine Urobilinogen Negative Ur Leukocyte Esterase Negative Urine WBC (Auto) 10-30 H Urine RBC (Auto) 0-4 U Hyaline Cast (Auto) 5-10 H U Epithel Cells (Auto) >30 H Urine Bacteria (Auto) Negative Ur Random Creatinine 25.1 U Random Total Protein 289.0 H Protein/Creatinin Ratio 11.5 H Nasal Screen MRSA (PCR) 09/25/22 09/25/22 09/25/22 19:08 19:08 20:45 WBC 10.10 RBC 3.34 L Hgb 8.5 L Hct 26.8 L MCV 80.2 MCH 25.4 MCHC 31.7 L RDW Std Deviation 55.3 H RDW Coeff of [place] 18.9 H Plt Count 305 MPV 11.0 Immature Gran % (Auto) 0.3 Neut % (Auto) 80.9 Lymph % (Auto) 10.3 [place] % (Auto) 5.4 Eos % (Auto) 2.0 Baso % (Auto) 1.1 Neut # (Auto) 8.17 H Lymph # (Auto) 1.04 L [place] # (Auto) 0.55 Eos # (Auto) 0.20 Baso # (Auto) 0.11 Immature Gran # (Auto) 0.03 H Sodium 141 Potassium 3.7 Chloride 112 H Carbon Dioxide 22 Anion Gap 7 BUN 17 Creatinine 2.11 H Est Cr Clr Drug Dosing 49.4 Est GFR ( Amer) 32.2 Est GFR (Non-Af Amer) 27.8 BUN/Creatinine Ratio 8.1 L Glucose 99 POC Glucose 113 H Calcium 8.0 L Magnesium 1.6 L Iron TIBC Unsaturated IBC Transferrin % Sat Ferritin Troponin I High Sens 10.8 Whole Bld Vitamin B1 Urine Color Urine Appearance Urine pH Ur Specific [place] Urine Protein Urine Glucose (UA) Urine Ketones Urine Blood Urine Nitrite Urine Bilirubin Urine Urobilinogen Ur Leukocyte Esterase Urine WBC (Auto) Urine RBC (Auto) U Hyaline Cast (Auto) U Epithel Cells (Auto) Urine Bacteria (Auto) Ur Random Creatinine U Random Total Protein Protein/Creatinin Ratio Nasal Screen MRSA (PCR) 09/26/22 09/26/22 09/26/22 04:21 04:21 04:21 WBC RBC Hgb Hct MCV MCH MCHC RDW Std Deviation RDW Coeff of [place] Plt Count MPV Immature Gran % (Auto) Neut % (Auto) Lymph % (Auto) [place] % (Auto) Eos % (Auto) Baso % (Auto) Neut # (Auto) Lymph # (Auto) [place] # (Auto) Eos # (Auto) Baso # (Auto) Immature Gran # (Auto) Sodium 140 Potassium 3.6 Chloride 112 H Carbon Dioxide 23 Anion Gap 5 BUN 18 Creatinine 2.28 H Est Cr Clr Drug Dosing 45.7 Est GFR ( Amer) 29.3 Est GFR (Non-Af Amer) 25.3 BUN/Creatinine Ratio 7.9 L Glucose 78 POC Glucose Calcium 7.7 L Magnesium Iron 17 L TIBC 160 L Unsaturated IBC 143 L Transferrin % Sat 11 L Ferritin 34.3 Troponin I High Sens Whole Bld Vitamin B1 Pending Urine Color Urine Appearance Urine pH Ur Specific [place] Urine Protein Urine Glucose (UA) Urine Ketones Urine Blood Urine Nitrite Urine Bilirubin Urine Urobilinogen Ur Leukocyte Esterase Urine WBC (Auto) Urine RBC (Auto) U Hyaline Cast (Auto) U Epithel Cells (Auto) Urine Bacteria (Auto) Ur Random Creatinine U Random Total Protein Protein/Creatinin Ratio Nasal Screen MRSA (PCR) 09/26/22 09/26/22 09/26/22 04:21 06:05 07:22 WBC RBC Hgb Hct MCV MCH MCHC RDW Std Deviation RDW Coeff of [place] Plt Count MPV Immature Gran % (Auto) Neut % (Auto) Lymph % (Auto) [place] % (Auto) Eos % (Auto) Baso % (Auto) Neut # (Auto) Lymph # (Auto) [place] # (Auto) Eos # (Auto) Baso # (Auto) Immature Gran # (Auto) Sodium Potassium Chloride Carbon Dioxide Anion Gap BUN Creatinine Est Cr Clr Drug Dosing Est GFR ( Amer) Est GFR (Non-Af Amer) BUN/Creatinine Ratio Glucose POC Glucose 91 Calcium Magnesium 1.6 L Iron TIBC Unsaturated IBC Transferrin % Sat Ferritin Troponin I High Sens Whole Bld Vitamin B1 Urine Color Urine Appearance Urine pH Ur Specific [place] Urine Protein Urine Glucose (UA) Urine Ketones Urine Blood Urine Nitrite Urine Bilirubin Urine Urobilinogen Ur Leukocyte Esterase Urine WBC (Auto) Urine RBC (Auto) U Hyaline Cast (Auto) U Epithel Cells (Auto) Urine Bacteria (Auto) Ur Random Creatinine U Random Total Protein Protein/Creatinin Ratio Nasal Screen MRSA (PCR) Negative 09/26/22 11:02 WBC RBC Hgb Hct MCV MCH MCHC RDW Std Deviation RDW Coeff of [place] Plt Count MPV Immature Gran % (Auto) Neut % (Auto) Lymph % (Auto) [place] % (Auto) Eos % (Auto) Baso % (Auto) Neut # (Auto) Lymph # (Auto) [place] # (Auto) Eos # (Auto) Baso # (Auto) Immature Gran # (Auto) Sodium Potassium Chloride Carbon Dioxide Anion Gap BUN Creatinine Est Cr Clr Drug Dosing Est GFR ( Amer) Est GFR (Non-Af Amer) BUN/Creatinine Ratio Glucose POC Glucose 86 Calcium Magnesium Iron TIBC Unsaturated IBC Transferrin % Sat Ferritin Troponin I High Sens Whole Bld Vitamin B1 Urine Color Urine Appearance Urine pH Ur Specific [place] Urine Protein Urine Glucose (UA) Urine Ketones Urine Blood Urine Nitrite Urine Bilirubin Urine Urobilinogen Ur Leukocyte Esterase Urine WBC (Auto) Urine RBC (Auto) U Hyaline Cast (Auto) U Epithel Cells (Auto) Urine Bacteria (Auto) Ur Random Creatinine U Random Total Protein Protein/Creatinin Ratio Nasal Screen MRSA (PCR) Diagnostic Findings Telemetry personally reviewed: No arrhythmia noted. 09/25/2022 at 1:56 a.m.: Sinus rhythm 79 beats per minute. Nonspecific ST/T- wave abnormality. Echo 09/25/2022: Normal LV size, wall motion, systolic function. EF 60-65%. Mild LVH. Mild MR. Medications Administered Current Inpatient Medications Acetaminophen (Acetaminophen 325 Mg Tab) 650 mg PO Q4H PRN PRN Reason: Pain or Fever Stop: 10/25/22 01:35 Carvedilol (Carvedilol 12.5 Mg Tab) 12.5 mg PO BID [facility] Stop: 10/25/22 09:44 Last Admin: 09/26/22 07:25 Dose: 12.5 mg Dextrose (Dextrose 50% 50 Ml Syringe) 25 - 50 ml IV UD PRN; Protocol PRN Reason: Hypoglycemia Protocol Stop: 10/25/22 03:36 Enoxaparin Sodium (Enoxaparin Inj 40 Mg/0.4 Ml Syr) 40 mg SQ Q12H VANNESSA Stop: 10/25/22 08:59 Last Admin: 09/26/22 07:25 Dose: 40 mg Furosemide (Furosemide 40 Mg/4 Ml Vial) 80 mg IV BID VANNESSA Stop: 10/26/22 10:29 Last Admin: 09/26/22 10:50 Dose: 80 mg Glucagon (Glucagon For Inj 1 Mg Vial) 1 mg SQ UD PRN; Protocol PRN Reason: Hypoglycemia Protocol Stop: 10/25/22 03:36 Glucose (Glucose 40% Gel 15 Gm Tube) 15 - 30 gm PO UD PRN; Protocol PRN Reason: Hypoglycemia Protocol Stop: 10/25/22 03:36 Glucose (Glucose 10 Tab/Tube) 4 - 8 tab PO UD PRN; Protocol PRN Reason: Hypoglycemia Treatment Stop: 10/25/22 03:36 Pantoprazole Sodium 40 mg/ (Syringe) 10 mls @ 5 mls/min IV BID VANNESSA Stop: 10/25/22 08:59 Last Admin: 09/26/22 10:04 Dose: 5 mls/min Insulin Aspart (Insulin Aspart Per Unit) 0 units SC ACHS VANNESSA Stop: 10/25/22 07:29 Last Admin: 09/26/22 12:02 Dose: 1 units Miscellaneous (Carbohydrates For Hypoglycemia ) 15 - 30 gm PO UD PRN PRN Reason: Hypoglycemia Protocol Stop: 10/25/22 03:36 PG Care Time/CCT Total # of Minutes Spent Total Time Spent with Patient: Total time spent is greater than 50% in coordination of care (as documented) at patient's floor/unit and/or counseling patient: Coding Level of Care Code 22987 Subseq Hosp Care Lvl 3 Diagnoses Acute heart failure with preserved ejection fraction (HFpEF) I50.31 Hypertensive emergency I16.1 HTN (hypertension) I10
--- NOTE | 2022-09-26 17:17 | Communication Note ---
Date of Service: September 26, 2022 Asked by primary hospitalist to evaluate for capacity. Patient asking to leave against advice. Whenever I approached patient, he initially was starting to talk over me about needing to leave. Once I explained why I was there, that I needed to be sure that he understood the gravity of his decision, he noted that he was aware that his primary hospitalist was concerned about him possibly deteriorating to dialysis or without acute intervention/diagnosis/treatment. He noted that he needed to leave because he has signed out AMA from nearly every hospital stay he has hadI noted that simply because he has before it does not mean that he had to again. Also noted the acuity of the situation, and the complexity of the situationmeaning that the pace of the outpatient world might not meet his needs, and that he might suffer irreparable harm or worse by going home. He reiterated understanding of this, but still noted that he was leaving. Given that he had capacity, I informed his primary hospitalist.
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
== END 2022-09-26 18:05 | disposition left against medical advice (07) | DRG 291 ==
LOC: ED 22:50 → SUATTDRO 09-25 01:36 → EDINP 09-25 01:36 → 1E 09-25 03:38

== ENCOUNTER 2023-02-24 13:30 | Inpatient (IN) ==
--- NOTE | 2023-02-24 14:14 | Emergency Department Note ---
Impression & Plan Anasarca, Hypertension, Elevated troponin ED Provider Note NAME: KUSH WRIGHT AGE: 42 SEX: F : 1980 ARRIVES VIA: Ambulance INFORMANT: Patient ED PROVIDER(S): Kush Peacock DO CHIEF COMPLAINT: abdominal swelling and leg swelling HPI: Patient is a 42-year-old female who identifies as a male who presents to the ER with a past medical history of CHF, hypertension, tobacco use, CKD, diabetes who presents ER for left lower extremity swelling. She notes that she only gets out of bed to go to the bathroom and get up as needed. She does not really do much else. She complains of swelling on the left lower extremity. She always lays on her left side and notes that her belly lays on her left leg. Abdomen feels very taut and full as well. No dysuria, urgency, or frequency. She can no longer walk and get around. She does follow with [facility] primary care doctor but has not seen them in 5 months. PAST MEDICAL HISTORY:See Below PAST SURGICAL HISTORY:See Below FAMILY HISTORY:See Below SOCIAL HISTORY:See Below HOME MEDICATIONS:See Below ALLERGIES:See Below VITALS:See Below PHYSICAL EXAMINATION: GENERAL: Sitting up in bed, alert, disheveled, morbidly obese EYE EXAM: normal conjunctiva. OROPHARYNX:mucous membranes are moist NECK: supple, no nuchal rigidity, no adenopathy, non-tender LUNGS: Clear to auscultation. Normal chest wall mechanics HEART: no murmurs, S1 normal and S2 normal ABDOMEN: abdomen soft, non-tender, normo-active bowel sounds, no masses, no rebound or guarding. Diffuse pitting edema throughout abdomen BACK: Back is symmetrical on inspection and there is no deformity, no midline tenderness, no CVA tenderness. UPPER EXTREMITIES: upper extremities are grossly normal. LOWER EXTREMITIES: Left lower extremity with diffuse pitting edema tracking all the way up to the left chest with an indent on the left thigh from her pannus hanging onto her left thigh NEURO EXAM: Normal sensorium, cranial nerves II-XII grossly intact, normal speech, no gross weakness of arms, no gross weakness of legs. No drift. Finger to nose intact. Gross sensation intact. MEDICAL DECISION MAKING: Patient is a 42-year-old female who presents the ER for swelling of the left lower extremity as well as abdomen unable to get around. IV was established with orders obtained. Labs show no significant leukocytosis. Mild anemia at 8.5 fairly consistent with baseline. Platelets mildly elevated at 500. Hypokalemia at 3.2. Creatinine at 2.4 with a new baseline over the past year which appears to be 2. Troponin mildly elevated at 16. Do favor the swelling in her left lower extremity secondary to her abdomen laying on her left leg causing the edema as well as positioning. Patient was given Lasix. She is updated bedside. [facility] clean. Triage Nursing notes reviewed. Limited review of prior medical records performed Vital Signs: reviewed and remarkable for no significant abnormalities Differential diagnosis: Differential diagnoses includes but is not limited to gastritis, peptic ulcer d isease, GERD, gallbladder disease, pancreatitis, small bowel obstruction, appendicitis, diverticulitis, hernia, urinary tract infection, torsion, perforation, trauma, infectious. ER treatment provided: See below Diagnostics interpreted by me include EKG and cardiac monitoring as listed below: -Cardiac Monitoring: An order was placed for continuous cardiac monitoring. The monitor shows a rate of 80 with sinus rhythm. -ECG: Sinus rhythm rate of 78 Left axis No PVCs T wave inversion in the high lateral leads as well as septal leads with mild depressions in V2 T wave inversion is new in comparison to previous -Laboratory studies:Interpreted by me as stated above in MDM and shown below. Imaging studies: Xrays: As interpreted by me: Portable AP upright 1 view of the chest shows no pneumonia CTs show: none Consultation(s): As described in MDM Procedures:none Critical Care: None Past Med/Surg History Medical History ADHD Amputation of right foot Gas gangrene HTN (hypertension) Osteomyelitis of foot, right, acute Severe anxiety Tobacco use Social History (Updated 02/24/23 @ 18:30 by MARISOL Lima) Smoking Status: Current every day smoker Tobacco Type: Cigarettes Cigarettes Per Day: 1 pack; Second Hand Exposure: Yes; Do You Dip or Chew Tobacco: No; Tobacco Cessation Education Requested by Patient: No Hx Alcohol Use: No Hx Substance Use: No Preferred Language: [place] Zealander Communication Ability: Effective Pump Press Operator Required: No Beliefs That Will Affect Care: None Current Living Situation: Spouse Current Living Situation Comment: lives with girlfriend Other Information That Helps Us Care for You: No Feels Safe at Home: Yes Safety Concerns: Feels Safe At This Time Assistive Devices: Cane and Walker Allergies Allergies Allergy/AdvReac Type Severity Reaction Status Date / Time penicillin G Allergy Intermediate HIVES Verified 02/24/23 17:19 aloe vera Allergy Difficulty Verified 02/24/23 17:17 Breathing/ edema Sulfa (Sulfonamide AdvReac Mild RETAINS Verified 02/24/23 17:19 Antibiotics) WATER Home Meds Home Medications Medication Instructions Recorded Confirmed No Known Home Medications 02/24/23 02/24/23 Results & Data (ED) Vital Signs Vital Signs - 24 hr 02/24/23 13:40 02/24/23 13:50 02/24/23 16:15 Temperature 36.8 C Temperature Source Oral Pulse Rate 83 81 Pulse Rate [Apical] 90 Pulse Rhythm Regular Pulse Rhythm [Apical] Regular Pulse Strength Normal Pulse Strength [Apical] Normal Respiratory Rate 17 18 Respiratory Effort / Characteristics Non-Labored Spontaneous Non-Labored Spontaneous Respiratory Depth Normal Normal Respiratory Pattern Regular Regular Blood Pressure 172/95 H Blood Pressure [Right Arm] 177/103 H Blood Pressure Mean 120 Blood Pressure Mean [Right Arm] 127 Blood Pressure Position Lying Blood Pressure Position [Right Arm] Lying Pulse Oximetry 97 98 Oxygen Delivery Method Room Air Room Air Sepsis Recent Fever Within 48 Hours No Sepsis New/Unexplained Change in Mental Status N/A Sepsis Action Taken by Nursing No Action Required Laboratory Data 02/24/23 14:35 02/24/23 14:35 Lab Results 02/24/23 02/24/23 02/24/23 Range/Units 14:31 14:35 14:35 WBC 8.43 (4.8-10.8) K/ul RBC 3.50 L (4.20-5.40) M/uL Hgb 8.5 L (12.0-16.0) g/dl Hct 26.6 L (37.0-47.0) % MCV 76.0 L (80.0-100.0) fL MCH 24.3 L (25.0-34.0) pg MCHC 32.0 (32.0-36.0) g/dL RDW Std Deviation 47.0 H (36.4-46.3) fL RDW Coeff of Yola 17.1 H (11.5-14.5) % Plt Count 511 H (130-400) K/uL MPV 9.4 (9.4-12.4) fL Immature Gran % (Auto) 0.6 % Neut % (Auto) 80.4 % Lymph % (Auto) 11.4 % Williams % (Auto) 5.2 % Eos % (Auto) 1.5 % Baso % (Auto) 0.9 % Neut # (Auto) 6.77 H (1.40-6.50) K/uL Lymph # (Auto) 0.96 L (1.2-3.4) K/uL Williams # (Auto) 0.44 (0.11-0.59) K/uL Eos # (Auto) 0.13 (0-0.50) K/uL Baso # (Auto) 0.08 (0-0.2) K/uL Immature Gran # (Auto) 0.05 (0.01-0.20) K/uL Sodium 139 (136-145) mmol/L Potassium 3.2 L (3.5-5.1) mmol/L Chloride 108 H (98-107) mmol/L Carbon Dioxide 25 (21-32) mmol/L Anion Gap 6 (3-11) BUN 24 H (6-23) mg/dl Creatinine 2.44 H (0.6-1.2) mg/dl Est Cr Clr Drug Dosing 34.8 ml/min Est GFR ( Amer) 27.0 ml/min Est GFR (Non-Af Amer) 23.3 ml/min BUN/Creatinine Ratio 9.8 L (10-20) Glucose 96 (70-99(Fasting)) mg/dl Calcium 7.6 L (8.6-10.3) mg/dl Iron (35-150) mcg/dl Transferrin (200-360) mg/dl Ferritin (8-388) ng/ml Total Bilirubin 0.4 (0.2-1.0) mg/dl AST 9 L (13-39) U/L ALT 4 L (7-52) U/L Alkaline Phosphatase 57 (34-104) U/L Troponin I High Sens 16.6 H (0-14) pg/ml Total Protein 6.1 (6.0-8.3) gm/dl Albumin 2.4 L (3.4-5.0) gm/dl Globulin 3.7 (2.5-4.0) gm/dl Albumin/Globulin Ratio 0.6 L (0.9-2) Lipase 14 (11-82) U/L Vitamin B12 352 (180-914) pg/ml Folate 14.56 (>5.38) ng/ml 02/24/23 Range/Units 14:35 WBC (4.8-10.8) K/ul RBC (4.20-5.40) M/uL Hgb (12.0-16.0) g/dl Hct (37.0-47.0) % MCV (80.0-100.0) fL MCH (25.0-34.0) pg MCHC (32.0-36.0) g/dL RDW Std Deviation (36.4-46.3) fL RDW Coeff of Yola (11.5-14.5) % Plt Count (130-400) K/uL MPV (9.4-12.4) fL Immature Gran % (Auto) % Neut % (Auto) % Lymph % (Auto) % Williams % (Auto) % Eos % (Auto) % Baso % (Auto) % Neut # (Auto) (1.40-6.50) K/uL Lymph # (Auto) (1.2-3.4) K/uL Williams # (Auto) (0.11-0.59) K/uL Eos # (Auto) (0-0.50) K/uL Baso # (Auto) (0-0.2) K/uL Immature Gran # (Auto) (0.01-0.20) K/uL Sodium (136-145) mmol/L Potassium (3.5-5.1) mmol/L Chloride (98-107) mmol/L Carbon Dioxide (21-32) mmol/L Anion Gap (3-11) BUN (6-23) mg/dl Creatinine (0.6-1.2) mg/dl Est Cr Clr Drug Dosing ml/min Est GFR ( Amer) ml/min Est GFR (Non-Af Amer) ml/min BUN/Creatinine Ratio (10-20) Glucose (70-99(Fasting)) mg/dl Calcium (8.6-10.3) mg/dl Iron 21 L (35-150) mcg/dl Transferrin < 95 L (200-360) mg/dl Ferritin 88.1 (8-388) ng/ml Total Bilirubin (0.2-1.0) mg/dl AST (13-39) U/L ALT (7-52) U/L Alkaline Phosphatase (34-104) U/L Troponin I High Sens (0-14) pg/ml Total Protein (6.0-8.3) gm/dl Albumin (3.4-5.0) gm/dl Globulin (2.5-4.0) gm/dl Albumin/Globulin Ratio (0.9-2) Lipase (11-82) U/L Vitamin B12 (180-914) pg/ml Folate (>5.38) ng/ml Administered Medications Discontinued Medications Potassium Chloride (Potassium Chloride Crtab 20 Meq Tabcr) 20 meq PO NOW STA Stop: 02/24/23 16:06 Last Admin: 02/24/23 16:13 Dose: 20 meq Documented By: BEZ Imaging Data Radiologist's Impression: Venous Doppler Study 02/24/23 14:11 ULTRASOUND LEFT LOWER EXTREMITY VENOUS CLINICAL HISTORY: Left leg swelling. COMPARISON STUDY: No priors. TECHNIQUE: Real-time, grayscale, and color Doppler sonography of the deep veins of the left lower extremity was performed from the inguinal crease to the calf. The patient could not tolerate compression. The examination is degraded by lower extremity edema and lack of patient cooperation. FINDINGS: There is no sonographic evidence of deep venous thrombosis identified in the left lower extremity. The patient declined evaluation of the common femoral vein. The superficial femoral and popliteal veins are patent. The visualized calf veins are patent. IMPRESSION: There is no sonographic evidence of deep venous thrombosis identified in the left lower extremity. Note that the common femoral vein was not interrogated, and the patient declined compressions. ACT 112: Negative or not required by law. Electronically signed by: Laci Morgan M.D. 02/24/2023 3:55 PM Chest X-Ray 02/24/23 14:12 SINGLE VIEW CHEST CLINICAL HISTORY: Atypical chest pain. FINDINGS: 2 AP, portable, semierect chest radiographs compare to study dated 09/24/2022. The examination is significantly degraded by portable technique and apical lordotic positioning. The cardiomediastinal silhouette is top normal for projection. There are low lung volumes with bibasilar atelectasis. No airspace consolidation or large pleural effusion is identified. No pneumothorax is seen. The bony thorax is grossly intact. IMPRESSION: Low lung volumes with no acute cardiopulmonary abnormality identified. ACT 112: Negative or not required by law. Electronically signed by: Laci Morgan M.D. 02/24/2023 2:24 PM Discharge Plan Visit Data Chief Complaint: Edema To Extremity ED Provider: Kush Peacock Discharge Problem: Anasarca, Hypertension, Elevated troponin Patient Disposition: Admitted As Inpatient Discharge Instructions Interventions: ED Discharge Assessment Last Done: 02/24/23 17:56
--- NOTE | 2023-02-24 14:25 | XRay Report ---
SINGLE VIEW CHEST CLINICAL HISTORY: Atypical chest pain. FINDINGS: 2 AP, portable, semierect chest radiographs compare to study dated 09/24/2022. The examinati on is significantly degraded by portable technique and apical lordotic positioning. The cardiomediast inal silhouette is top normal for projection. There are low lung volumes with bibasilar atelectasis. No airspace consolidation or large pleural effusion is identified. No pneumothorax is seen. The bony thorax is grossly intact. IMPRESSION: Low lung volumes with no acute cardiopulmonary abnormality identified. ACT 112: Negative or not required by law. Electronically signed by: Laci Morgan M.D. 02/24/2023 2:24 PM
[2023-02-24 14:53] LABS: Basophils # (auto) 0.08 K/uL (0-0.2); Basophils % (auto) 0.9 %; Eosinophils # (auto) 0.13 K/uL (0-0.50); Eosinophils % (auto) 1.5 %; Hematocrit (blood only) 26.6 % (37.0-47.0); Hemoglobin 8.5 g/dl (12.0-16.0); Immature Granulocytes # (auto) 0.05 K/uL (0.01-0.20); Immature Granulocytes % (auto) 0.6 %; Lymphocytes # (auto) 0.96 K/uL (1.2-3.4); Lymphocytes % (auto) 11.4 %; Mean Corpuscular Hemoglobin 24.3 pg (25.0-34.0); Mean Platelet Volume 9.4 fL (9.4-12.4); Monocytes # (auto) 0.44 K/uL (0.11-0.59); Monocytes % (auto) 5.2 %; Neutrophils # (auto) 6.77 K/uL (1.40-6.50); Neutrophils % (auto) 80.4 %; Platelet Count 511 K/uL (130-400); RDW Coefficient of Variation 17.1 % (11.5-14.5); White Blood Count 8.43 K/ul (4.8-10.8)
[2023-02-24 15:18] LABS: Troponin I High Sensitivity 16.6 pg/ml (0-14)
[2023-02-24 15:42] LABS: Albumin Level 2.4 gm/dl (3.4-5.0); Bilirubin,Total 0.4 mg/dl (0.2-1.0); Calcium 7.6 mg/dl (8.6-10.3); Potassium 3.2 mmol/L (3.5-5.1)
[2023-02-24 15:48] LABS: Albumin Globulin Ratio 0.6 (0.9-2); BUN Creatinine Ratio 9.8 (10-20); Creatinine Clr Calc Pharmacy 34.8 ml/min; Est GFR (Non-African American) 23.3 ml/min; Globulin 3.7 gm/dl (2.5-4.0); Total Protein 6.1 gm/dl (6.0-8.3)
--- NOTE | 2023-02-24 15:56 | Ultrasound Report ---
ULTRASOUND LEFT LOWER EXTREMITY VENOUS CLINICAL HISTORY: Left leg swelling. COMPARISON STUDY: No priors. TECHNIQUE: Real-time, grayscale, and color Doppler sonography of the deep veins of the left lower ext remity was performed from the inguinal crease to the calf. The patient could not tolerate compression . The examination is degraded by lower extremity edema and lack of patient cooperation. FINDINGS: There is no sonographic evidence of deep venous thrombosis identified in the left lower ext remity. The patient declined evaluation of the common femoral vein. The superficial femoral and popli teal veins are patent. The visualized calf veins are patent. IMPRESSION: There is no sonographic evidence of deep venous thrombosis identified in the left lower e xtremity. Note that the common femoral vein was not interrogated, and the patient declined compressio ns. ACT 112: Negative or not required by law. Electronically signed by: Laci Morgan M.D. 02/24/2023 3:55 PM
[2023-02-24] MEDS ORDERED: POTASSIUM CHLORIDE CRTAB 20 MEQ TABCR PO STA ×2 (16:05→17:34)
[2023-02-24] MEDS ORDERED: FUROSEMIDE 40 MG/4 ML VIAL IV ONE (16:12)
[2023-02-24] MEDS ORDERED: hydrALAZINE HCL 20 MG/ML VIAL IV ONE (17:16)
--- NOTE | 2023-02-24 17:41 | History & Physical Report ---
Date of Service February 24, 2023 Assessment & Plan (1) Hypervolemia: (2) Left leg swelling: Plan: Admit to med surg w/ tele Patient presenting from home with reports of progressive worsening left leg and abdomen swelling. Patient admitted to [facility] 09/2022 for hypertensive emergency, volume overload, acute diastolic CHF, EVA with nephrotic range proteinuria -- patient unfortunately signed out AMA and was lost to follow-up. Today, patient is found to have significant and extensive swelling of the left leg and a very protuberant abdomen. Little to no swelling noted to the RLE. Left leg is warm to touch, palpable pulses, no pain. ? lymphedema vs. compressive etiology -- may benefit from venogram but unable to preform due to renal function Abdominal US showing Ufjyn-wz-trikygyw volume of abdominopelvic ascites and evidence of cirrhosis Lasix 40mg IV BID Patient declining [place] catheter Update echo Nephrology and Cardiology consults (3) Hypertensive urgency: (4) Uncontrolled hypertension: Plan: BP 172/95 Will resume carvedilol 12.5mg BID -- dose from previous admission. PRN hydralazine. Diuresis as above. Unable to use CHARAN/ARB due to kidney function. Would avoid amlodipine due to leg edema. Appreciated cardiology and nephrology input (5) Abnormal renal function: Plan: Creat 2.4 -- slightly worse from September 2022 Likely CKD due to uncontrolled HTN. Noted nephrotic range proteinuria during September 2022 admission. Nephrology consult (6) Elevated troponin: Plan: HS trop 16.6 No reports of chest pain. Awaiting EKG. Likely demand ischemia in the setting of hypertensive urgency and volume overload Continue to trend, check resting echo (7) Microcytic anemia: Plan: Hgb 8.5 -- similar to findings when admitted 09/2022 No signs of bleeding Iron level 21 Start iron replacement Underlying kidney disease may also be contributing Will need colonoscopy as an outpatient (8) Ascites: (9) Cirrhosis: Plan: Abdominal US showing Gcpfn-os-agrmtbma volume of abdominopelvic ascites and evidence of cirrhosis ? cardiac cirrhosis due to uncontrolled HTN, chronic volume overload Denies alochol use Will need GI eval as an outpatient LFTs WNL (10) Noncompliance: Plan: Admitted in September 2022 for hypertensive emergency, volume overload, EVA. Patient signed out AMA and has not followed up since that time. (11) Ahrqhi-yi-jxix transgender person: Plan: Patient identifies as a male. Denies surgical history or hormone replacement therapy. DVT PROPHYLAXIS SQ heparin Patient seen in collaboration with Dr. Larios. I spent a total of 75 minutes coordinating, documenting, and providing care for this patient excluding time spent in the performance of separately billed services. This included personally reviewing all current laboratories and imaging studies, medication reconciliation, outpatient chart review, and discussion with specialists. Plan presentation of moderate sized left lower extremity swelling for the past 3 months in the absence of any recent surgeries, radiation or extrinsic injury Diffferential diagnosis of lymphedema vs extrinsic compression of left illiac vein ultrasound imaging done , unable to pinpoint etiology Rx would be to diurese to help patient feel more comfortable will get an echo in am. once renal function improves will consider venogram to assess for any blocks or narrowing History of Present Illness Chief Complaint: left leg and abdomen swelling Primary Care Provider: Albino Tenorio MD 42 year old female to male transgender (no hx of surgery or HRT) with PMH HTN, diastolic CHF, and other problems listed below who presents to the ED for evaluation of left leg and abdomen swelling. History obtained from patient and review of previous admission notes. Patient admitted to [facility] 09/2022 for hypertensive emergency, EVA, volume overload, and nephrotic range proteinuria. Patient unfortunately signed out AMA and has not followed up with outpatient providers since hospitalization. Patient was discharged on carvedilol and furosemide. He states that he took these medications for the 30 days it was prescribed however did not obtain any refills. Patient states that since that time, his left leg has been progressively getting more swollen. Abdomen is also retaining fluid however patient states abdomen has not gotten much larger since September. Patient says that he only gets out of bed to go to the bathroom. Denies chest pain and shortness of breath. No lightheadedness, dizziness, diaphoresis, syncopal events. Denies any other recent illnesses, fevers, chills. No urinary symptoms. Patient was ordered Lasix 40 mg IV however is requesting for this to be administered when he reaches his room upstairs. Allergies Allergy/AdvReac Type Severity Reaction Status Date / Time penicillin G Allergy Intermediate HIVES Verified 02/24/23 17:19 aloe vera Allergy Difficulty Verified 02/24/23 17:17 Breathing/ edema Sulfa (Sulfonamide AdvReac Mild RETAINS Verified 02/24/23 17:19 Antibiotics) WATER Home Medications Medication Instructions Recorded Confirmed Type No Known Home Medications 02/24/23 02/24/23 History Past Med/Surg History Medical History ADHD Amputation of right foot Gsqhbl-cq-[id number] transgender person Gas gangrene HTN (hypertension) Osteomyelitis of foot, right, acute Severe anxiety Tobacco use Social History (Updated 02/24/23 @ 18:30 by MARISOL Lima) Smoking Status: Current every day smoker Tobacco Type: Cigarettes Cigarettes Per Day: 1 pack; Second Hand Exposure: Yes; Do You Dip or Chew Tobacco: No; Tobacco Cessation Education Requested by Patient: No Hx Alcohol Use: No Hx Substance Use: No Preferred Language: Vietnamese Communication Ability: Effective Grain Unloader Required: No Beliefs That Will Affect Care: None Current Living Situation: Spouse Current Living Situation Comment: lives with girlfriend Other Information That Helps Us Care for You: No Feels Safe at Home: Yes Safety Concerns: Feels Safe At This Time Assistive Devices: Cane and Walker Review of Systems Review of Systems: ROS per HPI, all other systems reviewed and negative Physical Exam Constitutional: WD/WN, vitals as above + obese Eyes: PERRL, conjunctivae normal, anicteric sclerae ENMT: external ear and nose normal, oropharynx normal Respiratory: normal respiratory effort, lungs clear to auscultation Cardiovascular: Rate/Rhythm: regular rate and regular rhythm Vessels: normal peripheral pulses Extremities: + edema (extensive +4 edema LLE; leg is warm, pink in color ) Gastrointestinal (Abdomen): Percussion/Palpation: abdomen nontender large, protuberant abdomen Musculoskeletal: no cyanosis or clubbing, extremities motor strength 5/5 Skin: no rashes, warm and dry Neurologic: PERRL, EOMI, accommodation nl, no face palsy, no dysarthria Psychiatric: A+Ox3, euthymic affect Results & Data Results & Data Vital Signs (Past 12 Hours) Vital Signs Temp Pulse Pulse Resp BP BP Pulse Ox 02/24/23 16:15 90 18 177/103 H 98 02/24/23 13:50 81 02/24/23 13:40 36.8 C 83 17 172/95 H 97 O2 Del Method 02/24/23 16:15 Room Air 02/24/23 13:50 02/24/23 13:40 Room Air Laboratory Results Short CBC 02/24/23 Range/Units 14:35 WBC 8.43 (4.8-10.8) K/ul Hgb 8.5 L (12.0-16.0) g/dl Hct 26.6 L (37.0-47.0) % Plt Count 511 H (130-400) K/uL BMP 02/24/23 14:35 Sodium 139 Potassium 3.2 L Chloride 108 H Carbon Dioxide 25 BUN 24 H Creatinine 2.44 H Glucose 96 Calcium 7.6 L Liver Function 02/24/23 Range/Units 14:35 Total Bilirubin 0.4 (0.2-1.0) mg/dl AST 9 L (13-39) U/L ALT 4 L (7-52) U/L Alkaline Phosphatase 57 (34-104) U/L Albumin 2.4 L (3.4-5.0) gm/dl Diagnostic Findings Venous Doppler Study 02/24/23 14:11 ULTRASOUND LEFT LOWER EXTREMITY VENOUS CLINICAL HISTORY: Left leg swelling. COMPARISON STUDY: No priors. TECHNIQUE: Real-time, grayscale, and color Doppler sonography of the deep veins of the left lower extremity was performed from the inguinal crease to the calf. The patient could not tolerate compression. The examination is degraded by lower extremity edema and lack of patient cooperation. FINDINGS: There is no sonographic evidence of deep venous thrombosis identified in the left lower extremity. The patient declined evaluation of the common femoral vein. The superficial femoral and popliteal veins are patent. The visualized calf veins are patent. IMPRESSION: There is no sonographic evidence of deep venous thrombosis identified in the left lower extremity. Note that the common femoral vein was not interrogated, and the patient declined compressions. ACT 112: Negative or not required by law. Electronically signed by: Laci Morgan M.D. 02/24/2023 3:55 PM Chest X-Ray 02/24/23 14:12 SINGLE VIEW CHEST CLINICAL HISTORY: Atypical chest pain. FINDINGS: 2 AP, portable, semierect chest radiographs compare to study dated 09/24/2022. The examination is significantly degraded by portable technique and apical lordotic positioning. The cardiomediastinal silhouette is top normal for projection. There are low lung volumes with bibasilar atelectasis. No airspace consolidation or large pleural effusion is identified. No pneumothorax is seen. The bony thorax is grossly intact. IMPRESSION: Low lung volumes with no acute cardiopulmonary abnormality identified. ACT 112: Negative or not required by law. Electronically signed by: Laci Morgan M.D. 02/24/2023 2:24 PM Abdomen Ultrasound 02/24/23 17:15 ULTRASOUND ASCITES CHECK CLINICAL HISTORY: Abdominal ascites. COMPARISON STUDY: Abdominal CT dated 09/25/2022. FINDINGS: Real-time grayscale and color flow sonography of all 4 quadrants of the abdomen is performed to assess for abdominal ascites. There is a sebdr-vx-tmcmuoyu volume of abdominopelvic ascites. The largest pocket is seen in the right lower quadrant. The liver is enlarged and cirrhotic in morphology. IMPRESSION: Seogo-ud-yhyclbry volume of abdominopelvic ascites. Electronically signed by: Laci Morgan M.D. 02/24/2023 6:10 PM Code Status & VTE Plan VTE Prophylaxis Plan VTE Prophylaxis will be ordered: Yes
[2023-02-24 18:08] LABS: Iron 21 mcg/dl (35-150); Transferrin < 95 mg/dl (200-360)
--- NOTE | 2023-02-24 18:11 | Ultrasound Report ---
ULTRASOUND ASCITES CHECK CLINICAL HISTORY: Abdominal ascites. COMPARISON STUDY: Abdominal CT dated 09/25/2022. FINDINGS: Real-time grayscale and color flow sonography of all 4 quadrants of the abdomen is performe d to assess for abdominal ascites. There is a ganbc-db-xdekoaie volume of abdominopelvic ascites. The largest pocket is seen in the right lower quadrant. The liver is enlarged and cirrhotic in morpholog y. IMPRESSION: Xsnnm-bv-mpxytlfz volume of abdominopelvic ascites. Electronically signed by: Laci Morgan M.D. 02/24/2023 6:10 PM
[2023-02-24 18:24] LABS: Ferritin 88.1 ng/ml (8-388)
[2023-02-24] MEDS ORDERED: ACETAMINOPHEN 325 MG TAB PO PRN (18:26)
[2023-02-24] MEDS: HEPARIN SOD 5,000 UNIT/0.5 ML VIAL SQ SCH (19:55)
[2023-02-24] MEDS ORDERED: hydrALAZINE HCL 20 MG/ML VIAL IV PRN (21:45)
[2023-02-24] MEDS: carvediloL 12.5 MG TAB PO SCH (22:23)
[2023-02-25 00:25] LABS: Appearance Urine Clear (Clear); Bacteria Urine Automated Negative (Negative); Bilirubin Urine Negative (Negative); Blood Urine 3+ (Negative); Color Urine Orange; Epithelial Cell Urine Auto 20-30 /lpf (0-5); Glucose Urine UA Negative (Negative); Ketones Urine Negative (Negative); Leukocyte Esterase Urine Negative (Negative); Nitrite Urine Negative (Negative); Protein Urine 2+ (Negative); RBC Urine Automated >30 /hpf (0-4); Specific Gravity Urine 1.008 (1.000-1.030); Urobilinogen Urine Negative (Negative)
[2023-02-25 04:38] LABS: Hematocrit (blood only) 24.7 % (37.0-47.0); Mean Corpuscular Hemoglobin 24.7 pg (25.0-34.0); Mean Corpuscular Hgb Conc 32.4 g/dL (32.0-36.0); Mean Corpuscular Volume 76.2 fL (80.0-100.0); Mean Platelet Volume 9.9 fL (9.4-12.4); Platelet Count 474 K/uL (130-400); RDW Coefficient of Variation 16.7 % (11.5-14.5); RDW Standard Deviation 46.6 fL (36.4-46.3); Red Blood Count 3.24 M/uL (4.20-5.40); White Blood Count 8.12 K/ul (4.8-10.8)
[2023-02-25 04:53] LABS: BUN Creatinine Ratio 10.5 (10-20); Calcium 7.2 mg/dl (8.6-10.3); Creatinine Clr Calc Pharmacy 42.8 ml/min; Est GFR (African American) 27.8 ml/min; Potassium 3.3 mmol/L (3.5-5.1)
[2023-02-25 04:59] LABS: Troponin I High Sensitivity 24.5 pg/ml (0-14)
[2023-02-25] MEDS: HEPARIN SOD 5,000 UNIT/0.5 ML VIAL SQ SCH (05:49)
[2023-02-25] MEDS ORDERED: carvediloL 12.5 MG TAB PO SCH (08:00)
[2023-02-25] MEDS ORDERED: FERROUS SULFATE 325 MG TAB PO SCH (08:00)
[2023-02-25] MEDS ORDERED: POTASSIUM CHLORIDE CRTAB 20 MEQ TABCR PO STA (08:25)
[2023-02-25] MEDS ORDERED: FUROSEMIDE 40 MG/4 ML VIAL IV SCH ×2 (09:00→14:00)
[2023-02-25] MEDS: carvediloL 12.5 MG TAB PO SCH (09:02)
[2023-02-25] MEDS ORDERED: POTASSIUM CHLORIDE 20 MEQ/15 ML UDC PO STA (09:10)
[2023-02-25] MEDS ORDERED: POTASSIUM CHLORIDE CRTAB 20 MEQ TABCR PO SCH (10:15)
--- NOTE | 2023-02-25 10:45 | Cardiology Consultation ---
Date of Consultation February 25, 2023 Assessment & Plan (1) Diastolic heart failure: (2) Iron deficiency anemia: (3) Acute heart failure with preserved ejection fraction (HFpEF): (4) Ascites: (5) Elevated troponin: (6) Abnormal renal function: (7) Tobacco use: (8) Uncontrolled hypertension: (9) Noncompliance: Plan Complex 42-year-old patient admitted with volume overload appearing to be multifactorial in etiology (nephrotic range proteinuria, hypoalbuminemia, iron deficiency anemia, diastolic congestive heart failure, noncompliance with diuretic therapy as well as sodium restriction, ? cirrhosis). Blood pressures have significantly improved with resumption of carvedilol and diuretic therapy. Nephrology and GI consultations pending. Recommendations: Restrict sodium intake to less than 2 g/day Monitor I&Os, daily weights, renal function and electrolytes at least daily. Remove volume overload cautious with IV loop diuretic, adding spironolactone if okay with Nephrology Add CHARAN/ARB if able from Nephrology standpoint. Continue carvedilol Treat iron deficiency anemia and evaluate for underlying cause Note: Patient unable to tolerate telemetry monitoring, contemplating allowing further inpatient care versus leaving against medical advise again; patient educated. Supervising Physician Co-Signing Physician Notes Patient seen and examined at the bedside. Presented to the emergency department due to shortness of breath, volume overload, abdominal distention, and edema. Patient declining lower extremity venous duplex. Echocardiogram demonstrating preserved LV systolic function with evidence of ascites. Reports orthopnea and difficulty lying flat. No palpitations, lightheadedness, dizziness, syncope, or near syncope. PE: VSS. Gen: NAD, AAOx3. Heart: Regular rhythm. Normal S1S2. No murmur. Lungs: Clear bilateral, no rales, rhonchi, wheeze. Abdomen: Distended, nontender. Normal bowel sounds. Extremities: 2+ edema with stasis changes, R>L. A/P: Agree with above PA-C history, physical exam, assessment and plan. Patient presenting with marked volume overload, primarily right-sided signs/symptoms. Recommend addition of IV loop diuretic. Will await input from nephrology due to renal insufficiency and history of nephrotic range proteinuria. Continue carvedilol. Consider addition of Aldactone pending clinical course. History of Present Illness Reason for Consultation: Volume overload, uncontrolled hypertension Requesting Physician: Esperanza Attending Physician: Gregory History of Present Illness Paul Daugherty is a 42-year-old female patient who identifies as male. Patient admitted to [facility] on February 24, 2023 after presenting to the ER with a main complaint of abdominal distention and lower extremity peripheral edema. On questioning, patient notes worsening shortness of breath, dyspnea precluding activities of daily living, orthopnea, and intermittent PND. Patient noncompliant with sodium restriction as well as diuretic/medications. Nephrotic range proteinuria reported noted with nephrology consultation pending. EKG on presentation revealed sinus rhythm at 91 bpm with a short HI interval, possible left atrial enlargement, low voltage QRS, possible old septal infarct, diffuse T wave abnormality. QTc 455 ms. Resting echocardiography on February 25, 2023 was technically limited, revealing preserved LV systolic function, ejection fraction 60 to 65%, with moderate concentric LVH. Incomplete assessment of valvular anatomy/function, without evidence of significant stenosis or regurgitation. Ascites observed at the time of resting echocardiography. Continuous telemetry monitoring initially revealed sinus tachycardia though with resumption of carvedilol heart rates have improved, currently sinus rhythm at 80 bpm Blood pressure elevated on presentation, 172/95, normalizing since admission Labs with multiple abnormalities. Creatinine 2.44 on admission. Hypokalemia observed with a potassium of 3.2. High-sensitivity troponin I mildly elevated at 16.6, 22.3, 24.5. Anemia present with admission hemoglobin of 8.5, 8.0 this morning. Hypochromic microcytic indices observed, iron deficiency noted. + Hypoalbuminemia. LFTs normal. Abdominal ultrasound revealed small to moderate volume abdominopelvic ascites. Venous duplex was limited with patient refusing to cooperate for the evaluation. Common femoral vein not interrogated. No sonographic evidence of DVT identified in the left lower extremity. Chest x-ray was interpreted by the radiologist as revealing low lung volumes with no acute cardiopulmonary abnormality identified. Patient denies chest pain. No palpitations. No dizziness, near syncope, or true syncope. No current fevers or chills. No melena, hematochezia, or hematuria. Patient notes significant irritation and anxiety regarding telemetry monitoring. She cannot stand anything on her skin. Device removed by the patient during my evaluation. Past Medical and Surgical History: Type 2 diabetes mellitus Chronic kidney disease Nephrotic range proteinuria Diastolic congestive heart failure Osteomyelitis status post partial right foot amputation Iron deficiency anemia Chronic tobacco abuse Uncontrolled hypertension Dyslipidemia Obesity Noncompliance Social History: Smoker, 1 pack/day. She started smoking at the age of 7. No alcohol. Denies illegal drug use. Lives with girlfriend in [place], originally from [place]. Identifies as male. Allergies Allergy/AdvReac Type Severity Reaction Status Date / Time penicillin G Allergy Intermediate HIVES Verified 02/24/23 17:19 aloe vera Allergy Difficulty Verified 02/24/23 17:17 Breathing/ edema Sulfa (Sulfonamide AdvReac Mild RETAINS Verified 02/24/23 17:19 Antibiotics) WATER Home Medications Medication Instructions Recorded Confirmed Type No Known Home Medications 02/24/23 02/24/23 History Patient History Medical History ADHD Amputation of right foot [id number]-[id number] transgender person Gas gangrene HTN (hypertension) Osteomyelitis of foot, right, acute Severe anxiety Tobacco use Social History Smoking Status: Current every day smoker Tobacco Type: Cigarettes Cigarettes Per Day: 1 pack; Second Hand Exposure: Yes; Do You Dip or Chew Tobacco: No; Tobacco Cessation Education Requested by Patient: No Hx Alcohol Use: No Hx Substance Use: No Preferred Language: Latvian Communication Ability: Effective Fitter Placer Required: No Beliefs That Will Affect Care: None Current Living Situation: Spouse Current Living Situation Comment: lives with girlfriend Other Information That Helps Us Care for You: No Feels Safe at Home: Yes Safety Concerns: Feels Safe At This Time Assistive Devices: Cane and Walker Review of Systems Review of Systems: Complete Review of Systems is as stated above, negative, or noncontributory. Physical Exam Physical Exam: General: A&Ox3. NAD. Elevated BMI Skin: Multiple tattoos on extremities and abdomen HENT: Normocephalic. Atraumatic. Multiple piercings Eyes: PER. Conjunctiva pink, sclera pale. Neck: No carotid bruits. No overt JVD. Heart: RRR. No murmur appreciated. Lungs: Clear to auscultation. Abdomen: Last name tattooed across abdomen which was large, protuberant, firm. Positive bowel sounds. Nontender. Extremities: Thick, with chronic indurated edema. Status post partial amputation of the right foot. No clubbing. No cyanosis. No pulses. Limited neurological examination is without focal deficits. Results & Data Vital Signs (Past 12 Hours) Vital Signs Temp Pulse Pulse Resp BP Pulse Ox O2 Del Method 02/25/23 07:40 36.5 C 70 16 132/69 96 Room Air 02/25/23 07:25 72 02/25/23 03:24 36.4 C L 76 18 106/73 97 Room Air 02/25/23 02:42 77 02/24/23 23:24 36.5 C 94 H 18 160/103 H 98 Room Air Laboratory Results Cardiac Enzymes 02/24/23 02/24/23 02/25/23 Range/Units 14:35 21:22 03:47 AST 9 L (13-39) U/L Troponin I High Sens 16.6 H 22.3 H 24.5 H (0-14) pg/ml CBC 02/24/23 02/25/23 Range/Units 14:35 03:47 WBC 8.43 8.12 (4.8-10.8) K/ul RBC 3.50 L 3.24 L (4.20-5.40) M/uL Hgb 8.5 L 8.0 L (12.0-16.0) g/dl Hct 26.6 L 24.7 L (37.0-47.0) % Plt Count 511 H 474 H (130-400) K/uL Neut # (Auto) 6.77 H (1.40-6.50) K/uL Lymph # (Auto) 0.96 L (1.2-3.4) K/uL Benzie # (Auto) 0.44 (0.11-0.59) K/uL Eos # (Auto) 0.13 (0-0.50) K/uL Baso # (Auto) 0.08 (0-0.2) K/uL Comprehensive Metabolic Panel 02/24/23 02/25/23 Range/Units 14:35 03:47 Sodium 139 139 (136-145) mmol/L Potassium 3.2 L 3.3 L (3.5-5.1) mmol/L Chloride 108 H 109 H (98-107) mmol/L Carbon Dioxide 25 22 (21-32) mmol/L BUN 24 H 25 H (6-23) mg/dl Creatinine 2.44 H 2.38 H (0.6-1.2) mg/dl Glucose 96 91 (70-99(Fasting)) mg/dl Calcium 7.6 L 7.2 L (8.6-10.3) mg/dl AST 9 L (13-39) U/L ALT 4 L (7-52) U/L Alkaline Phosphatase 57 (34-104) U/L Total Protein 6.1 (6.0-8.3) gm/dl Albumin 2.4 L (3.4-5.0) gm/dl Intake and Output 02/24/23 02/25/23 02/25/23 22:59 06:59 14:59 Intake Total 100 / 150 50 / 150 Output Total 450 / 1075 625 / 1075 Balance -350 / -925 -575 / -925 Intake: Oral 100 / 150 50 / 150 Output: Urine 450 / 1075 625 / 1075 Other: Weight 129.1 kg Weight Measurement Method Built in [facility]
--- NOTE | 2023-02-25 11:03 | Consultation Report ---
NEPHROLOGY CONSULTATION NOTE REASON FOR CONSULTATION: Nephrotic range proteinuria, anasarca and abnormal kidney function. HISTORY OF PRESENT ILLNESS: The patient is a 42-year-old male who does not get regular healthcare. He presented to the Emergency Department yesterday because of abdominal swelling and lower extremity swelling associated with orthopnea and shortness of breath. The patient was admitted with similar complaints back in September 2022 and at that time, he left against medical advice. During that admission, he had hypertensive urgency, abnormal kidney function with a creatinine of low 2s and 11 gram proteinuria. He did have echocardiogram done at that time and was seen by Cardiology and echocardiogram was only slightly abnormal with some grade 2 diastolic dysfunction and was labeled as diastolic congestive heart failure. He did not have any kidney biopsy done and he did not have any serological test done for nephrotic syndrome. Since being admitted yesterday, the patient has received IV Lasix 40 mg twice daily and with that he feels he is making a lot more urine than at home. His vital signs are relatively good at this time, although his blood pressure was elevated when he presented to the Emergency Department. His kidney function is abnormal with a creatinine of 2.3, but not that much different compared to his discharge creatinine of 2.2 five months ago. Potassium is slightly low and he is getting potassium supplement. The patient has a habit of no show and leaving against medical advice. His PCP has not even seen the patient. His other medical problems include obesity, multiple psychiatric problems, history of osteomyelitis, status post amputation of the right foot, type 2 diabetes, relatively mild and currently not on any medication. PAST MEDICAL AND SURGICAL HISTORY: Includes ADHD as well as other psychiatric problems, history of amputation of the right foot with osteomyelitis of the foot, female to male transgender person, hypertension, severe anxiety, tobacco abuse. SOCIAL HISTORY: Current everyday smoker. Current living situation is lives with his girlfriend. No alcohol, no drugs. FAMILY HISTORY: Negative for renal disease or dialysis. ALLERGIES: Reviewed. MEDICATIONS: Home medications, currently not taking any medications. REVIEW OF SYSTEMS: Positive for orthopnea, shortness of breath, increasing abdominal swelling, increasing lower extremity edema with some skin changes, more so on the left. Appetite has been low. Denies any hematuria or urinary complaints, but his urine output is not very good at home. Otherwise, 12 systems reviewed and negative. PHYSICAL EXAMINATION: GENERAL: Chronically ill-appearing young male, who looks lot older than stated age. He is awake, alert, oriented, is not in any respiratory distress at resting. VITAL SIGNS: Blood pressure is 132/69, pulse rate 70, temperature 36.5, 96% on room air. HEENT: Mucous membrane is moist. NECK: Supple. No jugular venous distention. CHEST: Bilaterally clear to auscultation. Decreased breath sounds at the bases. CVS: S1 and S2, regular. ABDOMEN: Significantly distended with significant ascites noted on physical examination. EXTREMITIES: Show 1+ edema in the right and 2+ in the left with chronic skin changes. NEUROLOGIC: Awake, alert and oriented. Normal speech. Moving all 4 extremities. LABORATORY TEST: Hemoglobin 8.0, platelet count 474. Creatinine is 2.38; five months ago, he had a creatinine of similar. BUN 25. Sodium 139, potassium 3.3, chloride 109, calcium 7.2. Liver enzymes within normal range. Albumin is low at 2.4. Urine sediment done yesterday shows 2+ protein, 3+ blood. There were quite a few epithelial cells as well as RBC and WBCs. Chest x-ray quality was very poor, and no acute cardiopulmonary abnormality noted. Abdominal ultrasound and according to the report shows moderate volume of ascites as well as enlarged liver with cirrhotic morphology. ASSESSMENT AND PLAN: A 42-year-old male admitted with increasing abdominal distention, ascites and lower extremity edema with orthopnea and shortness of breath. I have been consulted for: 1. Abnormal kidney function. 2. Nephrotic range proteinuria. The patient was admitted in September 2022 with very similar complaints and problems. At that time, he had 11 gram proteinuria with a low albumin, which qualifies this as a case of nephrotic syndrome. His echocardiogram was not very revealing and I do not think this is a primary cardiac problem. His ultrasound done yesterday was reported as having cirrhotic morphology, but I do believe we have to have a more definitive imaging to see whether or not he has cirrhosis. Because of his body habitus, ultrasound is very difficult imaging, but given nephrotic range proteinuria with features of nephrotic syndrome, we would have to do a full workup for nephrotic syndrome and that would include anti-PLAR2 antibody, C3, C4, ALFONZO, ANCA, urine for Bence-Ordaz, serum immunofixation, hepatitis panel. I would like to repeat the urine for protein to creatinine ratio again. To me, it looks like this is a primary renal problem causing ascites and lower extremity edema and massive proteinuria. However, we do have to evaluate for cardiac as well as hepatic etiology. We will consider repeating echocardiogram. Would consider gastroenterology evaluation to definitely comment about the cirrhosis. On the CAT scan done in September 2022, it was not reported as cirrhotic. For the time being, I would increase the Lasix to 40 mg IV q.8 hour and also put him on a maintenance potassium supplement of 20 b.i.d. He might need more. I also had a brief discussion that it is quite possible that he needs a kidney biopsy to know the exact etiology of the nephrotic syndrome, but he has refused to do that and said we should focus only on the symptom management. Thank you very much for the consult. Job ID: [id number] [facility]STCHESTERAlexia
--- NOTE | 2023-02-25 13:19 | Hospitalist Progress Note ---
Date of Service February 25, 2023 Assessment & Plan (1) Hypervolemia: (2) Left leg swelling: Plan: Admit to med surg w/ tele Patient presenting from home with reports of progressive worsening left leg and abdomen swelling. Patient admitted to [facility] 09/2022 for hypertensive emergency, volume overload, acute diastolic CHF, EVA with nephrotic range proteinuria -- patient unfortunately signed out AMA and was lost to follow-up. Today, patient is found to have significant and extensive swelling of the left leg and a very protuberant abdomen. Little to no swelling noted to the RLE. Left leg is warm to touch, palpable pulses, no pain. ? lymphedema vs. compressive etiology -- may benefit from venogram but unable to preform due to renal function Abdominal US showing Ekabt-ax-lqqipgyg volume of abdominopelvic ascites and evidence of cirrhosis Lasix 40mg IV BID Patient declining [place] catheter Update echo Nephrology and Cardiology consults (3) Hypertensive urgency: (4) Uncontrolled hypertension: Plan: BP 172/95 Will resume carvedilol 12.5mg BID -- dose from previous admission. PRN hydralazine. Diuresis as above. Unable to use CHARAN/ARB due to kidney function. Would avoid amlodipine due to leg edema. Appreciated cardiology and nephrology input (5) Abnormal renal function: Plan: Creat 2.4 -- slightly worse from September 2022 Likely CKD due to uncontrolled HTN. Noted nephrotic range proteinuria during September 2022 admission. Nephrology consult (6) Elevated troponin: Plan: HS trop 16.6 No reports of chest pain. Awaiting EKG. Likely demand ischemia in the setting of hypertensive urgency and volume overload Continue to trend, check resting echo (7) Microcytic anemia: Plan: Hgb 8.5 -- similar to findings when admitted 09/2022 No signs of bleeding Iron level 21 Start iron replacement Underlying kidney disease may also be contributing Will need colonoscopy as an outpatient (8) Ascites: (9) Cirrhosis: Plan: Abdominal US showing Qxuel-zp-[id number] volume of abdominopelvic ascites and evidence of cirrhosis ? cardiac cirrhosis due to uncontrolled HTN, chronic volume overload Denies alochol use Will need GI eval as an outpatient LFTs WNL (10) Noncompliance: Plan: Admitted in September 2022 for hypertensive emergency, volume overload, EVA. Patient signed out AMA and has not followed up since that time. (11) Scrytx-rd-szrl transgender person: Plan: Patient identifies as a male. Denies surgical history or hormone replacement therapy. DVT PROPHYLAXIS SQ heparin Patient seen in collaboration with Dr. Larios. I spent a total of 75 minutes coordinating, documenting, and providing care for this patient excluding time spent in the performance of separately billed services. This included personally reviewing all current laboratories and imaging studies, medication reconciliation, outpatient chart review, and discussion with specialists. Plan presentation of moderate sized left lower extremity swelling for the past 3 months in the absence of any recent surgeries, radiation or extrinsic injury Diffferential diagnosis of lymphedema vs extrinsic compression of left illiac vein ultrasound imaging done , unable to pinpoint etiology Rx would be to diurese to help patient feel more comfortable will get an echo in am. once renal function improves will consider venogram to assess for any blocks or narrowing Admission and Anticipated Discharge Date Admission Date: February 24, 2023 Subjective 42-year-old obese transgender male presenting with increased swelling of abdomen. Work-up to date reveals nephrotic syndrome. Results & Data Results & Data Vital Signs (Past 12 Hours) Vital Signs Temp Pulse Pulse Resp BP Pulse Ox O2 Del Method 02/25/23 11:28 36.5 C 78 18 136/80 97 Room Air 02/25/23 07:40 36.5 C 70 16 132/69 96 Room Air 02/25/23 07:25 72 02/25/23 03:24 36.4 C L 76 18 106/73 97 Room Air 02/25/23 02:42 77
--- NOTE | 2023-02-25 13:24 | Discharge Summary ---
Discharge Summary Date of Service February 25, 2023 Notes For Next Care Provider Medication Changes From Visit n/a Admission HPI Per Admitting Provider 42 year old female to male transgender (no hx of surgery or HRT) with PMH HTN, diastolic CHF, and other problems listed below who presents to the ED for evaluation of left leg and abdomen swelling. History obtained from patient and review of previous admission notes. Patient admitted to [facility] 09/2022 for hypertensive emergency, EVA, volume overload, and nephrotic range proteinuria. Patient unfortunately signed out AMA and has not followed up with outpatient providers since hospitalization. Patient was discharged on carvedilol and furosemide. He states that he took these medications for the 30 days it was prescribed however did not obtain any refills. Patient states that since that time, his left leg has been progressively getting more swollen. Abdomen is also retaining fluid however patient states abdomen has not gotten much larger since September. Patient says that he only gets out of bed to go to the bathroom. Denies chest pain and shortness of breath. No lightheadedness, dizziness, diaphoresis, syncopal events. Denies any other recent illnesses, fevers, chills. No urinary symptoms. Patient was ordered Lasix 40 mg IV however is requesting for this to be administered when he reaches his room upstairs. Principal Dx & Hospital Course #1 = Principal Diagnosis (1) Nephrotic range proteinuria: (2) Hypervolemia: (3) Left leg swelling: (4) Hypertensive urgency: (5) Uncontrolled hypertension: (6) Abnormal renal function: (7) Elevated troponin: (8) Microcytic anemia: (9) Ascites: (10) Noncompliance: (11) Ilamxg-eb-ufnm transgender person: Plan 42-year-old obese transgender male presenting with increased swelling of abdomen. Work-up to date reveals nephrotic syndrome. No evidence of DVT although workup was limited 2/2 patient refusal. Nephrology has seen patient and is recommending a full work-up including serologies immunofixation hepatitis panel and repeat urine protein to creatinine ratio. It appears he has a primary renal problem causing ascites lower extremity edema and massive proteinuria. Cirrhosis is not ruled out with possible evidence of this on imaging. Doubt cardiac or liver origin for swelling. Notably on the CAT scan from September 2022 patient was not reported as a cirrhotic. Lasix IV was started for now. Cardiology also was able to see patient this morning recommending sodium restriction to less than 2 g/day and continuing IV loop diuretic as well as spironolactone. Although I discussed addition of CHARAN and ARB, in this acute setting it is not appropriate per nephrology. I explained all this to the patient who reports he has no abdominal pain. He denies any issues with shortness of breath or chest pain. I explained this is probably a primarily nephrology issue with large amounts of protein in his urine. I explained this situation with his current clinical picture is not easily managed in the clinic and he should remain here. He reports that he simply does not want to be here and that he has a phobia of hospitals. I asked him if he was suicidal and he said no. I advised him that he might if he leaves and he said he understood. Discharged AGAINST MEDICAL ADVICE. Discharge Exam CONSTITUTIONAL: morbid obesity, vitals as above, generally NAD EYES: normal conjunctivae, no scleral icterus ENT: external ear and nose normal, MMM NECK: trachea midline RESPIRATORY: clear to auscultation bilaterally, no crackles, rales or wheezes, normal respiratory effort CARDIOVASCULAR: regular rate and rhythm, S1 and 2 heard without murmurs, gallops or rubs, no JVD, 3+ peripheral edema. CHEST: inspection of chest was normal GASTROINTESTINAL: large protuberant abdomen with distension present, nontender. MUSCULOSKELETAL: strength 5/5 throughout, difficulty with lying down and getting back up again. head is normocephalic and atraumatic SKIN: warm and dry NEUROLOGIC: CN 2-12 grossly intact, no sensory deficit, normal cognition, normal speech, no tremor PSYCHIATRIC: alert cooperative and oriented to person, place and time. Euthymic mood, makes good eye contact, language grossly intact, recent and remote memory grossly intact. Updated Medication List Medication Instructions Recorded Confirmed Type No Known Home Medications 02/24/23 02/24/23 History Hospital Stay Data Consultations 02/24/23 16:12 ED Decision to Admit Stat 02/24/23 18:26 Consult Cardiology Routine Consult Nephrology Routine 02/25/23 10:13 Consult Gastroenterology Routine Diagnostic Imagining Performed 02/24/23 14:11 US venous doppler LE LT Stat 02/24/23 17:15 US abdomen ltd ascites Urgent 02/25/23 08:27 US duplex portal hepatic veins Routine 02/26/23 10:44 IR paracentesis abd w/img US Routine Total Time Total Time Spent Total Time Spent (In Minutes): 60
--- NOTE | 2023-02-25 13:57 | Gastrointestinal Consultation ---
Date of Consultation February 25, 2023 Assessment & Plan (1) Nephrotic range proteinuria: (2) Hypervolemia: Pt is a 42 yo female to male transgender admitted for volume overload, and nephrotic syndrome. ? cirrhosis on u/s w ascites accumulation. Last CT abd wo contrast in 09/2022 liver appears normal. - US paracentesis w cell ct, albumin, protein, cx; calculate SAAG - Obtain serologies to r/o AIH, acute hepatitis, ceruloplasmin, ferritin, TTG Iga Ab, Iga - Avoid ETOH - No APAP >2g a day - 2g Na diet - Diuretics when renal function tolerates: Spironolactone 100mg daily + Furosemide 40mg daily - Repeat CT liver w contrast when renal function allows to confirm cirrhosis - Echo Addendum: since our conversation this morning, pt had signed out AMA. I will ask our GI schedulers to offer him a f/u in GI clinic for cirrhosis workup and management Supervising Physician Co-Signing Physician Notes Patient was seen and examined on 02/25 with MARISOL Ayala whose note reflects our findings and plan. History of Present Illness Reason for Consultation: ? cirrhosis Requesting Physician: Dr. Deirdre Jenkins Attending Physician: Dr. Lisa Sanchez History of Present Illness Pt is a 42 female to male transgender pt w PMHx of HTN, CHF, anxiety, anemia who presented to ED yesterday w c/o LLE swelling and abd distension. Last admitted at [facility] in 09/2022 for HTN, EVA, volume overload, nephrotic proteinuria. Left AMA and hasn't f/u with OP providers afterwards. He reports leg and abd swelling had been going on for weeks. At home takes Furosemide but cannot tell me dose. Denies CP, SOB. + abd discomfort, no n/v, denies GI bleeding symptoms. Workup indicates nephrotic syndrome. LLE duplex wo DVT, CXR unremarkable, us abd showed up to moderate amt of ascites w liver appearing cirrhotic and enlarged. + tattoos, denies illicit drugs, ETOH. Smokes tobacco Denies family hx of liver dz or autoimmune disease, GI malignancy Allergies Allergy/AdvReac Type Severity Reaction Status Date / Time penicillin G Allergy Intermediate HIVES Verified 02/24/23 17:19 aloe vera Allergy Difficulty Verified 02/24/23 17:17 Breathing/ edema Sulfa (Sulfonamide AdvReac Mild RETAINS Verified 02/24/23 17:19 Antibiotics) WATER Home Medications Medication Instructions Recorded Confirmed Type No Known Home Medications 02/24/23 02/24/23 History Patient History Medical History ADHD Amputation of right foot [id number] transgender person Gas gangrene HTN (hypertension) Osteomyelitis of foot, right, acute Severe anxiety Tobacco use Social History Smoking Status: Current every day smoker Tobacco Type: Cigarettes Cigarettes Per Day: 1 pack; Second Hand Exposure: Yes; Do You Dip or Chew Tobacco: No; Tobacco Cessation Education Requested by Patient: No Hx Alcohol Use: No Hx Substance Use: No Preferred Language: Mozambican Communication Ability: Effective Radio Program Director Required: No Beliefs That Will Affect Care: None Current Living Situation: Spouse Current Living Situation Comment: lives with girlfriend Other Information That Helps Us Care for You: No Feels Safe at Home: Yes Safety Concerns: Feels Safe At This Time Assistive Devices: Cane and Walker Review of Systems Review of Systems: All systems reviewed & are unremarkable except as noted in HPI & below Physical Exam Constitutional: WD/WN, vitals as above well groomed and cooperative Eyes: PERRL, conjunctivae normal, anicteric sclerae ENMT: external ear and nose normal, oropharynx normal Respiratory: normal respiratory effort, lungs clear to auscultation Cardiovascular: RRR, no murmur, no edema Gastrointestinal (Abdomen): Distended, non tender, BS hypoactive Skin: no rashes, warm and dry no jaundice Neurologic: Motor/Sensory: no asterixis Psychiatric: A+Ox3, euthymic affect Lymphatic: Bilateral LE edema, L>R with erythema on LLE skin Results & Data Vital Signs (Past 12 Hours) Vital Signs Temp Pulse Pulse Resp BP Pulse Ox O2 Del Method 02/25/23 10:45 Room Air 02/25/23 11:28 36.5 C 78 18 136/80 97 Room Air 02/25/23 07:40 36.5 C 70 16 132/69 96 Room Air 02/25/23 07:25 72 02/25/23 03:24 36.4 C L 76 18 106/73 97 Room Air 02/25/23 02:42 77
--- NOTE | 2023-02-26 05:18 | Electrocardiogram Report ---
Test Reason : Blood Pressure : / mmHG Vent. Rate : 078 BPM Atrial Rate : 078 BPM P-R Int : 134 ms QRS Dur : 056 ms QT Int : 354 ms P-R-T Axes : 000 -37 270 degrees QTc Int : 403 ms Age and gender specific ECG analysis Normal sinus rhythm Left axis deviation Low voltage QRS Lateral infarct T wave abnormality, consider lateral ischemia Poor R wave progression, consider anterior NH vs. lead placement vs. LVH Abnormal ECG When compared with ECG of 25-SEP-2022 01:56, T wave inversion now evident in Lateral leads Lateral infarct is now Present Confirmed by Shar Ojeda ([id number]) on 02/26/2023 5:17:41 AM Referred By: REFERRED SELF Confirmed By:Shar Ojeda
--- NOTE | 2023-02-26 05:38 | Electrocardiogram Report ---
Test Reason : Blood Pressure : / mmHG Vent. Rate : 091 BPM Atrial Rate : 091 BPM P-R Int : 080 ms QRS Dur : 084 ms QT Int : 370 ms P-R-T Axes : 069 -20 129 degrees QTc Int : 455 ms Sinus rhythm with short NE Possible Left atrial enlargement Low voltage QRS T wave abnormality, consider lateral ischemia Abnormal ECG When compared with ECG of 14:28, No significant change Confirmed by Shar Ojeda ([id number]) on 02/26/2023 5:38:33 AM Referred By: REFERRED SELF Confirmed By:Shar Ojeda
[2023-03-05 22:27] LABS: ANCA Screen Negative (Negative); Anti Nuclear Antibody Screen NEGATIVE (NEGATIVE); Complement C3 116 mg/dL (83-193); Complement Total(CH50) >60 U/mL (31-60); HBSAG NON-REACTIVE (NON-REACTIVE); Hepatitis A Antibody IgM NON-REACTIVE (NON-REACTIVE); Hepatitis B Core Antibody IgM NON-REACTIVE (NON-REACTIVE)
[2023-03-06 17:22] LABS: Alpha 1 Antitrypsin 203 mg/dL (83-199); Anti Mitochondrial Antibody NEGATIVE (NEGATIVE); Ceruloplasmin 25 mg/dL (18-53); Smooth Muscle Antibody POSITIVE (NEGATIVE); Transglutaminase, Tissue IgA <1.0 U/mL
[2023-03-07 12:33] LABS: Smooth Muscle Ab Titer 1:40 titer (<1:20)
== END 2023-02-25 13:33 | disposition left against medical advice (07) | DRG 695 ==
LOC: ED 13:30 → 2W 16:44 → SUATTDRO 16:44 → 2W 17:56

== ENCOUNTER 2023-05-01 17:14 | Inpatient (IN) ==
--- NOTE | 2023-05-01 17:37 | Emergency Department Note ---
ED Provider Note NAME: KUSH WRIGHT AGE: 42 SEX: F : 1980 ARRIVES VIA: Ambulance INFORMANT: [Patient][, ] ED PROVIDER(S): [Mark Strong MD] Patient left AMA after being admitted due to concern for possible nephrotic syndrome. Is thought to be a primary renal problem causing ascites and lower extremity edema as a primary liver reportedly normal last CT of the abdomen without contrast in September 2022 plan for cardiology was restrict sodium monitor I's and O's CHARAN ARB and Coreg. CHIEF COMPLAINT: Abdominal pain, shortness of breath MEDICAL DECISION MAKING: Patient presents due to concern for abdominal pain and shortness of breath. Patient reportedly refused an x-ray. Prior /Outside records reviewed: [none] Differential diagnosis: Appendicitis, testicular torsion, infections, diverticulitis, UTI, obstruction, mesenteric ischemia, aortic pathology, inflammatory bowel disease, renal colic, PUD, pancreatitis, biliary pathology, hernia, volvulus, constipation, as well as other pathologies. Diagnostics, as interpreted by me: ECG: [none] Cardiac monitoring: An order was placed for continuous cardiac monitoring. The monitor shows a rate of 87 with sinus rhythm. [Patient was placed on pulse oximetry] Medical decision rules: [none] Imaging studies: See below HPI: Patient presents from home due to concern for abdominal pain and shortness of breath. The patient is yet to follow-up with outpatient providers in later April. Patient reportedly has been noncompliant not taking medications. The patient relates that she is only not taking her diuretics today as she cannot get up to use the bathroom. PAST MEDICAL HISTORY: [See Below] PAST SURGICAL HISTORY: [See Below] SOCIAL HISTORY: [See Below] HOME MEDICATIONS: [See Below] ALLERGIES: [See Below] VITALS: [See Below] PHYSICAL EXAMINATION: GENERAL: NAD, [wearing a mask,] non-toxic. EYE EXAM: Normal conjunctiva. PERRL, no anisocoria and EOM's grossly intact w/o pain. NECK: Supple, no nuchal rigidity, no adenopathy, non-tender. No signs of meningismus. FROM of the neck with good chin to chest and neck extension. No stridor. LUNGS: Clear to auscultation. Normal chest wall mechanics. HEART: NSR, no MRG. ABDOMEN: Abdomen soft, non-tender, no masses, no rebound or guarding. BACK: No CVA TTP. SKIN: No rashes and no bruising. UPPER EXTREMITIES: Upper extremities are grossly normal. LOWER EXTREMITIES: Grossly normal, no edema. NEURO EXAM: A&O x3, cranial nerves II-XII grossly intact, normal speech, moves all 4 extremities. Past Med/Surg History Medical History ADHD Amputation of right foot [id number] transgender person Gas gangrene HTN (hypertension) Osteomyelitis of foot, right, acute Severe anxiety Tobacco use Social History Smoking Status: Current every day smoker Tobacco Type: Cigarettes Cigarettes Per Day: 1 pack; Second Hand Exposure: Yes; Do You Dip or Chew Tobacco: No; Hx Alcohol Use: No Hx Substance Use: No Preferred Language: Thai Communication Ability: Effective Project Director Required: No Beliefs That Will Affect Care: None Current Living Situation: Spouse Current Living Situation Comment: lives with girlfriend Feels Safe at Home: Yes Assistive Devices: Cane and Walker Allergies Allergies Allergy/AdvReac Type Severity Reaction Status Date / Time penicillin G Allergy Intermediate HIVES Verified 02/24/23 17:19 aloe vera Allergy Difficulty Verified 02/24/23 17:17 Breathing/ edema Sulfa (Sulfonamide AdvReac Mild RETAINS Verified 02/24/23 17:19 Antibiotics) WATER Home Meds Home Medications Medication Instructions Recorded Confirmed No Known Home Medications 02/24/23 02/24/23 Results & Data (ED) Vital Signs Vital Signs - 24 hr 05/01/23 17:27 05/01/23 17:57 05/01/23 17:30 Temperature 36.7 C Temperature Source Oral Pulse Rate 94 H Pulse Rate from SpO2 Sensor Respiratory Rate 18 Blood Pressure 163/100 H 149/98 H Blood Pressure Mean 121 125 Pulse Oximetry 95 Oxygen Delivery Method Room Air Room Air Sepsis New/Unexplained Change in Mental Status No Sepsis Action Taken by Nursing No Action Required 05/01/23 17:30 Temperature Temperature Source Pulse Rate 86 Pulse Rate from SpO2 Sensor 78 Respiratory Rate 24 Blood Pressure Blood Pressure Mean Pulse Oximetry 95 Oxygen Delivery Method Room Air Sepsis New/Unexplained Change in Mental Status Sepsis Action Taken by Fpc Medications Current Medication List: was personally reviewed by me Laboratory Data Attestation: I reviewed the patient's lab results. Discharge Plan Visit Data Chief Complaint: Abdominal Pain Stated Complaint: ABDOMINAL PAIN ED Provider: Mark Strong Forms Stand Alone Forms: [facility] [employer] Prescriptions Prescriptions: No Action No Known Home Medications Referrals Referrals: Albino Tenorio MD [Primary Care Provider] -
[2023-05-01] MEDS ORDERED: FUROSEMIDE 40 MG/4 ML VIAL IV ONE (17:46)
[2023-05-01 18:30] LABS: Basophils # (auto) 0.09 K/uL (0-0.2); Basophils % (auto) 0.8 %; Eosinophils # (auto) 0.22 K/uL (0-0.50); Eosinophils % (auto) 1.8 %; Hematocrit (blood only) 29.1 % (37.0-47.0); Hemoglobin 9.3 g/dl (12.0-16.0); Immature Granulocytes # (auto) 0.06 K/uL (0.01-0.20); Immature Granulocytes % (auto) 0.5 %; Lymphocytes # (auto) 1.15 K/uL (1.2-3.4); Lymphocytes % (auto) 9.6 %; Mean Corpuscular Hemoglobin 25.1 pg (25.0-34.0); Mean Corpuscular Volume 78.6 fL (80.0-100.0); Mean Platelet Volume 9.8 fL (9.4-12.4); Monocytes # (auto) 0.77 K/uL (0.11-0.59); Monocytes % (auto) 6.4 %; Neutrophils # (auto) 9.71 K/uL (1.40-6.50); Neutrophils % (auto) 80.9 %; Platelet Count 606 K/uL (130-400); RDW Coefficient of Variation 16.5 % (11.5-14.5)
[2023-05-01 18:41] LABS: Albumin Globulin Ratio 0.6 (0.9-2); Albumin Level 2.4 gm/dl (3.4-5.0); BUN Creatinine Ratio 12.7 (10-20); Bilirubin,Total 0.7 mg/dl (0.2-1.0); Calcium 7.6 mg/dl (8.6-10.3); Est GFR (Non-African American) 21.6 ml/min; Globulin 4.2 gm/dl (2.5-4.0); Potassium 3.5 mmol/L (3.5-5.1); Total Protein 6.6 gm/dl (6.0-8.3)
[2023-05-01 18:52] LABS: INR 1.2 (0.9-1.1); Partial Thromboplastin Ratio 1.1; Prothrombin Time 12.5 Seconds (9.0-12.0)
--- NOTE | 2023-05-01 19:17 | CT Scan Report ---
ABDOMEN AND PELVIS CT WITHOUT CONTRAST CT DOSE: 2172.14 mGy.cm HISTORY: Generalized abdominal pain. Abdominal swelling. TECHNIQUE: Multiaxial CT images of the abdomen and pelvis were performed without contrast. A dose lo wering technique was utilized adhering to the principles of ALARA. COMPARISON STUDY: Abdomen and pelvis CT 09/25/2022. FINDINGS: Suboptimal evaluation of the abdomen and pelvis due to patient positioning. A few bibasilar linear densities consistent with subsegmental atelectasis. There are few small patchy peripheral koby undglass densities within the right lower lobe. This could represent a pneumonia. No pneumoperitoneum . No pneumatosis. No acute fractures identified. Small hiatus hernia. Trace pericardial effusion is n oted. The heart is top normal in size. Extensive subcutaneous edema within the anterior abdominal wal l. An underlying cellulitis is not excluded. No soft tissue gas identified. Mild bilateral inguinal l ymphadenopathy. This may be reactive. There is a markedly distended abdomen secondary to the large am ount of ascites. Borderline enlarged bilateral pelvic sidewall lymph nodes are again noted. The bladd er, uterus, bilateral adnexa are unremarkable. Hepatic steatosis. Cholelithiasis. No definite gallbla dder wall thickening. The unenhanced spleen, adrenal glands, and pancreas are unremarkable. Right-stephany ed nephrolithiasis again noted. Additional punctate calcifications within the renal sinuses may be va scular. No ureteral stones. No hydronephrosis. Moderate bilateral perinephric edema persists. Normal caliber abdominal aorta. No retroperitoneal lymphadenopathy. Suboptimal evaluation for bowel patholog y due to the lack of intravenous and oral contrast. There is a 5.2 cm rectal stool ball. No definite bowel wall thickening or obstruction. IMPRESSION: 1. Large amount of ascites resulting in the markedly distended abdomen. 2. Extensive subcutaneous edema within the anterior abdominal wall. An underlying cellulitis is not e xcluded. 3. No significant change in the mildly enlarged pelvic and inguinal lymph nodes. These may be reactiv e. 4. No definite bowel wall thickening or obstruction. 5. Cholelithiasis. 6. Right-sided nephrolithiasis. No hydronephrosis. 7. Additional findings as described above. ACT 112: Negative or not required by law. Electronically signed by: Buddy Velez M.D. 05/01/2023 7:15 PM
[2023-05-01] MEDS ORDERED: cefTRIAXone SODIUM 2,000 MG/70 ML BAG IV STA (19:51)
[2023-05-01] MEDS ORDERED: LIDO/EPINEPHRINE/SOD BICARB 50 ML VIAL INFIL ONE (19:56)
--- NOTE | 2023-05-01 20:13 | History & Physical Report ---
Date of Service May 01, 2023 Assessment & Plan (1) Ascites: Plan: Per plan below. SBP ruled out with diagnostic tap this evening. (2) Nephrotic range proteinuria: Plan: Has not been worked up secondary to patient lack of followup in the office. Consulting nephrology here for assistance. May be the main reason for his ascites. Patient with large volume ascites for over 6 months with previous admissions where he left AMA prior to workup or treatment for decompensation of this now presents with extreme fluid overload limiting QOL and daily functions. There is wasting of arms and a cachectic and malnourished appearance to the patient who also is reporting not being able to eat in the past week. SAAG gradient is 0.8 suggesting that portal HTN is not necessarily the cause of the ascites. Previously, it was suspected that this ascites may be related to nephrotic range proteinuria. He has a known history of noncompliance with medications and nephrotic range proteinuria with no workup as he has declined followup. Notably, he was recently admitted for a short time where an echo revealed a preserved EF and diastolic dysfunction was present. Notably CAT scan reveals fatty liver without evidence of cirrhosis. No comment on clear portal vein on CT scan so US liver ordered to ensure this was ruled out. (3) HTN (hypertension): Plan: uncontrolled, patient has a h/o noncompliance and poorly controlled blood pressure. Cont current medications for now and adjust medications as needed in hospital. Low salt diet for now. (4) Abdominal wall cellulitis: Plan: Patient would not allow a full examination and had a possible cellulitis on the swollen lwoer abdomen with discomfort which was supported on imaging. Cont with Rocephin empirically pending clinical improvement. (5) Pneumonia: Plan: chronic smoker with ongoing chronic disease at risk for pneumonia, especially given the lack of physical movement recently. Covering empirically for pneumonia with Rocephin and azithromycin for now until he is more clinically improved and may be reassessed pending blood and sputum cultures and clinical improvement. (6) Tobacco use: Plan: ongoing smoker, contemplative phase. (7) Severe protein-calorie malnutrition: Plan: 2/2 ongoing cirrhosis and poor PO intake and some vomiting in the last 3 days. Supportive care with antiemetics as needed and dietary consulted. (8) Morbid obesity: (9) Noncompliance: Plan: He is a member of the [employer]. Heparin Full Code as confirmed with the patient on admission. Dispo-to PCU I spent a total [id number] coordinating, documenting, and providing care for this patient excluding time spent in the performance of separately billed services Deirdre Jenkins DO [facility] Hospitalist History of Present Illness Chief Complaint: abdominal pain Primary Care Provider: Albino Tenorio MD 42 yo transgender female presents with increased pain and increased ascitic fluid. She reports being sent in by home nurses "to get the fluid off." She denies fevers, chills. She has exertional SOB. Cannot lay on her back, walk or reposition. Feels more comfortable on her left side. Reports 3 days of vomiting "could be black or green" denies blood Denies lightheadedness Hasn't eaten food in one week Says she is staying hydrated but "I don't know how much fluid I am taking in. Whatever my body will allow." denies blood per rectum Doesn't take laxatives and she states "I have IBS and I go whenever it is convenient for my belly" has been taking "lots" of Tylenol for pain-->cannot quantify States she was taken off spironolactone and potassium recently, "because of the fluid" No urinary issues and she is urinating Main concern is that she wants the fluid taken off Allergies Allergy/AdvReac Type Severity Reaction Status Date / Time penicillin G Allergy Intermediate HIVES Verified 02/24/23 17:19 aloe vera Allergy Difficulty Verified 02/24/23 17:17 Breathing/ edema Sulfa (Sulfonamide AdvReac Mild RETAINS Verified 02/24/23 17:19 Antibiotics) WATER Home Medications Medication Instructions Recorded Confirmed Type carvedilol 12.5 mg tablet 12.5 mg PO AMPM 05/01/23 05/01/23 History furosemide 40 mg tablet 40 mg PO QAM 05/01/23 05/01/23 History metformin 500 mg tablet 500 mg PO QAM 05/01/23 05/01/23 History pantoprazole 40 mg tablet,delayed 40 mg PO QAM 05/01/23 05/01/23 History release Past Med/Surg History Medical History ADHD Amputation of right foot [id number] transgender person Gas gangrene HTN (hypertension) Osteomyelitis of foot, right, acute Severe anxiety Tobacco use Surgical History History of tonsillectomy Social History Smoking Status: Current every day smoker Tobacco Type: Cigarettes Cigarettes Per Day: 1 pack; Second Hand Exposure: Yes; Do You Dip or Chew Tobacco: No; Hx Alcohol Use: No Hx Substance Use: No Preferred Language: Yemeni Communication Ability: Effective Naturalization Examiner Required: No Beliefs That Will Affect Care: None Current Living Situation: Spouse Current Living Situation Comment: lives with girlfriend Feels Safe at Home: Yes Assistive Devices: Cane and Walker Review of Systems Review of Systems: All systems were reviewed and negative except as indicated on HPI above. Physical Exam Physical Exam: CONSTITUTIONAL:morbidly obese, vitals as above, in mild distress, appears anxious EYES: normal conjunctivae, no scleral icterus ENT: external ear and nose normal, oropharynx clear NECK: trachea midline RESPIRATORY: clear to auscultation bilaterally, no crackles, rales or wheezes, normal respiratory effort CARDIOVASCULAR: regular rate and rhythm, S1 and 2 heard without murmurs, gallops or rubs, no JVD, no peripheral edema CHEST: inspection of chest was normal GASTROINTESTINAL: patient was resistant to move off of left side and would not allow a full physical exam, could not visualize entire abdomen as a result. soft, nontender, protuberant, no guarding MUSCULOSKELETAL: generalized weakness. Cachectic SKIN: warm and dry, erythema on left leg where she said her legs were stacked on top of each other and she had just asked them to be moved apart. Very limited skin exam 2/2 patient noncompliance with exam and discomfort. NEUROLOGIC: CN 2-12 grossly intact, no sensory deficit, normal cognition, normal speech, no tremor PSYCHIATRIC: alert cooperative and oriented to person, place and time. Results & Data Results & Data Vital Signs (Past 12 Hours) Vital Signs Temp Pulse Resp BP Pulse Ox O2 Del Method 05/01/23 19:49 78 17 148/70 H 93 Room Air 05/01/23 19:30 77 20 05/01/23 19:00 73 18 05/01/23 18:50 80 18 93 Room Air 05/01/23 18:49 156/84 H 05/01/23 18:14 82 16 07/13/23 18:00 80 22 94 Room Air 05/01/23 18:00 158/97 H 05/01/23 17:30 86 24 95 Room Air 05/01/23 17:30 149/98 H 05/01/23 17:57 Room Air 05/01/23 17:27 36.7 C 94 H 18 163/100 H 95 Room Air Laboratory Results Short CBC 05/01/23 Range/Units 17:27 WBC 12.00 H (4.8-10.8) K/ul Hgb 9.3 L (12.0-16.0) g/dl Hct 29.1 L (37.0-47.0) % Plt Count 606 H (130-400) K/uL BMP 05/01/23 17:27 Sodium 141 Potassium 3.5 Chloride 113 H Carbon Dioxide 19 L BUN 33 H Creatinine 2.60 H Glucose 92 Calcium 7.6 L Liver Function 05/01/23 Range/Units 17:27 Total Bilirubin 0.7 (0.2-1.0) mg/dl AST 9 L (13-39) U/L ALT 4 L (7-52) U/L Alkaline Phosphatase 59 (34-104) U/L Albumin 2.4 L (3.4-5.0) gm/dl Diagnostic Findings Abdomen/Pelvis CT 05/01/23 17:[address] WITHOUT CONTRAST CT DOSE: 2172.14 mGy.cm HISTORY: Generalized abdominal pain. Abdominal swelling. TECHNIQUE: Multiaxial CT images of the abdomen and pelvis were performed without contrast. A dose lowering technique was utilized adhering to the principles of ALARA. COMPARISON STUDY: Abdomen and pelvis CT 09/25/2022. FINDINGS: Suboptimal evaluation of the abdomen and pelvis due to patient positioning. A few bibasilar linear densities consistent with subsegmental atelectasis. There are few small patchy peripheral groundglass densities within the right lower lobe. This could represent a pneumonia. No pneumoperitoneum. No pneumatosis. No acute fractures identified. Small hiatus hernia. Trace pericardial effusion is noted. The heart is top normal in size. Extensive subcutaneous edema within the anterior abdominal wall. An underlying cellulitis is not excluded. No soft tissue gas identified. Mild bilateral inguinal lymphadenopathy. This may be reactive. There is a markedly distended abdomen secondary to the large amount of ascites. Borderline enlarged bilateral pelvic sidewall lymph nodes are again noted. The bladder, uterus, bilateral adnexa are unremarkable. Hepatic steatosis. Cholelithiasis. No definite gallbladder wall thickening. The unenhanced spleen, adrenal glands, and pancreas are unremarkable. Right-sided nephrolithiasis again noted. Additional punctate calci fications within the renal sinuses may be vascular. No ureteral stones. No hydronephrosis. Moderate bilateral perinephric edema persists. Normal caliber abdominal aorta. No retroperitoneal lymphadenopathy. Suboptimal evaluation for bowel pathology due to the lack of intravenous and oral contrast. There is a 5.2 cm rectal stool ball. No definite bowel wall thickening or obstruction. IMPRESSION: 1. Large amount of ascites resulting in the markedly distended abdomen. 2. Extensive subcutaneous edema within the anterior abdominal wall. An underlying cellulitis is not excluded. 3. No significant change in the mildly enlarged pelvic and inguinal lymph nodes. These may be reactive. 4. No definite bowel wall thickening or obstruction. 5. Cholelithiasis. 6. Right-sided nephrolithiasis. No hydronephrosis. 7. Additional findings as described above. ACT 112: Negative or not required by law. Electronically signed by: Buddy Velez M.D. 05/01/2023 7:15 PM
[2023-05-01 21:17] LABS: Albumin Peritoneal Fluid 1.6 gm/dl
[2023-05-01 21:18] LABS: Appearance Peritoneal Fluid Slightly Hazy; Basophils, Fluid 1 %; Color Peritoneal Fluid Straw; Lymphocytes, Fluid 10 %; Mono,Macrophage,Mesothelial 81 %; Neutrophils, Fluid 8 %; RBC Peritoneal Fluid Auto 4000 /uL; WBC Peritoneal Fluid Auto 140 /ul (0-300)
[2023-05-01 21:23] LABS: Total Protein Peritoneal Fluid 4.1 gm/dl
[2023-05-01] MEDS ORDERED: ACETAMINOPHEN 325 MG TAB PO PRN (22:12)
[2023-05-01] MEDS ORDERED: clonazePAM 0.5 MG TAB PO PRN (22:12)
[2023-05-01] MEDS ORDERED: AZITHROMYCIN 500 MG in DEXTROSE 5% 250 ML IV SCH (22:30)
[2023-05-01] MEDS: HEPARIN SOD 5,000 UNIT/0.5 ML VIAL SQ SCH (22:44)
[2023-05-01] MEDS: carvediloL 12.5 MG TAB PO SCH (22:45)
[2023-05-01] MEDS ORDERED: PROMETHAZINE HCL 12.5 MG in SODIUM CHLORIDE 0.9% 50 ML IV PRN (23:24)
[2023-05-01] MEDS: ALBUMIN 25% 25 GM/100 ML VIAL IV ONE (23:40)
[2023-05-02] MEDS: ALBUMIN 25% 25 GM/100 ML VIAL IV ONE (00:38)
[2023-05-02 03:10] LABS: Total Protein Urine Random 82.8 mg/dl (0-11.9)
[2023-05-02 03:15] LABS: Creatinine Urine Random 51.7 mg/dl; Protein Creatinine Ratio Urine 1.6 (0-0.2)
[2023-05-02] MEDS: HEPARIN SOD 5,000 UNIT/0.5 ML VIAL SQ SCH ×2 (06:01→13:10)
[2023-05-02 06:33] LABS: Hemoglobin 8.3 g/dl (12.0-16.0); Mean Corpuscular Hemoglobin 25.3 pg (25.0-34.0); Mean Corpuscular Hgb Conc 31.9 g/dL (32.0-36.0); Mean Corpuscular Volume 79.3 fL (80.0-100.0); Mean Platelet Volume 9.8 fL (9.4-12.4); Platelet Count 473 K/uL (130-400); RDW Coefficient of Variation 16.4 % (11.5-14.5); RDW Standard Deviation 47.7 fL (36.4-46.3); Red Blood Count 3.28 M/uL (4.20-5.40); White Blood Count 10.14 K/ul (4.8-10.8)
[2023-05-02 06:53] LABS: Albumin Globulin Ratio 0.6 (0.9-2); Albumin Level 2.3 gm/dl (3.4-5.0); BUN Creatinine Ratio 12.8 (10-20); Bilirubin,Total 0.5 mg/dl (0.2-1.0); Calcium 7.8 mg/dl (8.6-10.3); Est GFR (African American) 22.7 ml/min; Est GFR (Non-African American) 19.5 ml/min; Globulin 4.1 gm/dl (2.5-4.0); Magnesium 1.7 mg/dl (1.7-2.4); Phosphorus 3.9 mg/dl (2.5-4.9); Potassium 3.7 mmol/L (3.5-5.1); Total Protein 6.4 gm/dl (6.0-8.3)
[2023-05-02] MEDS ORDERED: ALBUMIN 25% 25 GM/100 ML VIAL IV ONE (07:00)
[2023-05-02 07:03] LABS: INR 1.1 (0.9-1.1); Prothrombin Time 12.4 Seconds (9.0-12.0)
--- NOTE | 2023-05-02 07:42 | Hospitalist Progress Note ---
Date of Service May 02, 2023 Assessment & Plan (1) Ascites: Plan: per admitting service notes with addendum: likely from Proteinuria possible underlying Cirrhosis? -- for therapeutic parecentesis today with albumin -- GI and Nephro consulted (2) Nephrotic range proteinuria: Plan: Chronic kidney disease, stage 4 Has not been worked up secondary to patient lack of followup in the office. Consulting nephrology here for assistance. May be the main reason for his ascites. Patient with large volume ascites for over 6 months with previous admissions where he left AMA prior to workup or treatment for decompensation of this now presents with extreme fluid overload limiting QOL and daily functions. There is wasting of arms and a cachectic and malnourished appearance to the patient who also is reporting not being able to eat in the past week. SAAG gradient is 0.8 suggesting that portal HTN is not necessarily the cause of the ascites. Previously, it was suspected that this ascites may be related to nephrotic range proteinuria. He has a known history of noncompliance with medications and nephrotic range proteinuria with no workup as he has declined followup. Notably, he was recently admitted for a short time where an echo revealed a preserved EF and diastolic dysfunction was present. Notably CAT scan reveals fatty liver without evidence of cirrhosis. No comment on clear portal vein on CT scan so US liver ordered to ensure this was ruled out. -- crea 2.6 to 2.8 Nephro consulted (3) HTN (hypertension): Plan: uncontrolled, patient has a h/o noncompliance and poorly controlled blood pressure. Cont current medications for now and adjust medications as needed in hospital. Low salt diet for now. -- BP improving continue Carvedilol (4) Abdominal wall cellulitis: Plan: continue Ceftriaxone IV (5) Pneumonia: Plan: chronic smoker with ongoing chronic disease at risk for pneumonia, especially given the lack of physical movement recently. Covering empirically for pneumonia with Rocephin and azithromycin for now until he is more clinically improved and may be reassessed pending blood and sputum cultures and clinical improvement. -- sputum culture: pending Ceftri + Azithro (6) Tobacco use: Plan: ongoing smoker, contemplative phase. (7) Severe protein-calorie malnutrition: Plan: 2/2 ongoing cirrhosis and poor PO intake and some vomiting in the last 3 days. Supportive care with antiemetics as needed and dietary consulted. (8) Morbid obesity: (9) Noncompliance: Plan: He is a member of the [facility]. Heparin Full Code as confirmed with the patient on admission. Disposition pending lives at home plan of care discussed with patient in detail and at length all questions answered patient is understanding, agreeable, comfortable with the plan of care FATEMEH Dominguez at bedside during exam Admission and Anticipated Discharge Date Admission Date: May 01, 2023 Subjective ff up for ascites, etc seen resting in bed, comfortable states stomach is feeling really distended denies fever/chills no shortness of breath has chronic cough- unchanged no problems voiding no other symptoms Review of Systems Review of Systems: all noted and negative except for above Physical Exam Physical Exam: General- oriented x 3, not in distress, speaks in sentences with no effort or accessory muscle use Head- atraumatic Eyes- PERRL, EOMI, anicteric ENT- oropharynx clear Neck- supple, no JVD, no adenopathy, no thyromegaly; carotids +2/2, no bruits appreciated Lungs- mild crackles right base clear on the left Heart- normal rate, regular rhythm; no murmur, no gallop, no rub appreciated Abdomen- normal bowel sounds, (+) significantly distended, somewhat tense indurated, mildly erythematous area on the lower abdomen, mildly tender Extremities- mild lower extremity edema, no calf tenderness; peripheral pulses intact Neuro- alert, oriented x 3; CN 2-12 grossly intact; motor 5/5 bilaterally;sensation 100% on all extremities; no other gross focal neurologic deficits Skin- warm & dry Results & Data Results & Data Vital Signs (Past 12 Hours) Vital Signs Temp Pulse Pulse Resp BP BP Pulse Ox 05/02/23 07:15 36.2 C L 65 14 123/70 93 05/02/23 02:55 37 C 67 18 121/63 93 05/01/23 23:59 80 05/01/23 22:29 05/01/23 22:12 05/01/23 22:12 36.9 C 76 18 148/79 H 93 05/01/23 20:36 77 15 150/80 H 93 05/01/23 20:00 80 17 05/01/23 19:49 78 17 148/70 H 93 Pulse Ox O2 Del Method O2 Del Method 05/02/23 07:15 Room Air 05/02/23 02:55 Room Air 07/13/23 23:59 05/01/23 22:29 Room Air 05/01/23 22:12 93 Room Air 05/01/23 22:12 Room Air 05/01/23 20:36 Room Air 05/01/23 20:00 05/01/23 19:49 Room Air all noted and reviewed including below
[2023-05-02] MEDS: carvediloL 12.5 MG TAB PO SCH (08:03)
[2023-05-02] MEDS ORDERED: PANTOprazole 40 MG TAB PO SCH (09:00)
[2023-05-02] MEDS: ALBUMIN 25% 25 GM/100 ML VIAL IV SCH ×2 (09:09→10:51)
--- NOTE | 2023-05-02 09:42 | Gastrointestinal Consultation ---
Date of Consultation May 02, 2023 Assessment & Plan (1) Hypervolemia: (2) Arsdtf-yh-gowr transgender person: Pt is a 42 yo transgender male who presented with large volume ascites, and anasarca. BNP elevated. Hx of nephrotic syndrome, and suspected cirrhosis but not confirmed(MELD 17). - Antibiotics management for cellulitis and pneumonia per primary team - US guided paracentesis w fluid analysis (cell ct, culture, albumin, protein, cytology) and Albumin IV repletion - US doppler to r/o PVT - Recommend liver biopsy to confirm cirrhosis diagnosis via either EUS guided or transjugular - Recommend also Cardiology eval to r/o HF - Nephrology consulted; restart diuretics once cleared by Nephrology - Previous liver serologies reviewed. + ASMA. Needs f/u in Hepatology clinic if cirrhosis confirmed via liver bx - 2g Na diet - Miralax 17g BID given evidence of constipation on CT Supervising Physician Co-Signing Physician Notes I saw and evaluated the patient,. This is a fairly complex patient that appears to have complications as result of nephrotic syndrome. In the past there was a question about liver disease as the patient does have ascites. Of note the patient did have a prior ASMA that was positive but has a normal platelet count. Given this the patient's past metastatic from our standpoint would be an outpatient liver biopsy. The patient has been given appointments in the past but has not shown for there evaluations. Given the patient's proBNP I think a cardiology evaluation may be of benefit as well to look for evidence of congestive heart failure. Physical examination no Distress No scleral icterus Obese abdomen, ascites noted Impression: Patient with a history of nephrotic syndrome in addition to ascites, given the clinical scenario I suspect that the patient be best served with an l iver biopsy to determine if they may have liver disease. If negative then the patient will need further evaluation by nephrology in addition to potentially cardiology to screen for evidence of heart disease. The patient is expressed that they do not want to have a liver biopsy on the patient's contusion therefore this patient could be referred to another facility if needed. Recommendations Outpatient liver biopsy as this can be done by EUS guidance for even by a transjugular liver biopsy with the radiologist. low Sodium diet Call with any questions or concerns History of Present Illness Reason for Consultation: Decompensated cirrhosis Requesting Physician: Dr. Amandeep Milian Attending Physician: Dr. Isabela Lewis History of Present Illness Pt is a 42 yo transgender male w PMHx of suspected cirrhosis, HTN, HF, nephrotic syndrome who presented to ED yesterday w c/o increased abd distension and pain. She presented similarly at last admission and left AMA. She denies fever, chills, CP, but having trouble taking deep breath and eating due to the abd distension. She reports to be on Lasix and Spironolactone diuretics at home. Denies any blood per rectum or dark tarry stools. She CT abd/pelvis wo contrast w large ascites, anasarca ? cellulitis of abdominal wall, reactive lymphadenopathy. No leukocytosis, stable anemia, no coagulopathy, LFTs normal, BNP up, lipase normal. Allergies Allergy/AdvReac Type Severity Reaction Status Date / Time penicillin G Allergy Intermediate HIVES Verified 02/24/23 17:19 aloe vera Allergy Difficulty Verified 02/24/23 17:17 Breathing/ edema Sulfa (Sulfonamide AdvReac Mild RETAINS Verified 02/24/23 17:19 Antibiotics) WATER Home Medications Medication Instructions Recorded Confirmed Type carvedilol 12.5 mg tablet 12.5 mg PO AMPM 05/01/23 05/01/23 History furosemide 40 mg tablet 40 mg PO QAM 05/01/23 05/01/23 History metformin 500 mg tablet 500 mg PO QAM 05/01/23 05/01/23 History pantoprazole 40 mg tablet,delayed 40 mg PO QAM 05/01/23 05/01/23 History release Patient History Medical History ADHD Amputation of right foot Thnvov-vb-chtu transgender person Gas gangrene HTN (hypertension) Osteomyelitis of foot, right, acute Severe anxiety Tobacco use Surgical History History of tonsillectomy Social History Smoking Status: Current every day smoker Tobacco Type: Cigarettes Cigarettes Per Day: 1 pack; Second Hand Exposure: Yes; Do You Dip or Chew Tobacco: No; Hx Alcohol Use: No Hx Substance Use: No Preferred Language: Cypriot Communication Ability: Effective Rolled Seat Trimmer Required: No Beliefs That Will Affect Care: None Current Living Situation: Spouse Current Living Situation Comment: lives with girlfriend Feels Safe at Home: Yes Safety Concerns: Feels Safe At This Time Assistive Devices: Glasses Review of Systems Review of Systems: All systems reviewed & are unremarkable except as noted in HPI & below Physical Exam Constitutional: well groomed and cooperative; + uncomfortable (c/o abd pain) Eyes: PERRL, conjunctivae normal, anicteric sclerae ENMT: external ear and nose normal, oropharynx normal Respiratory: normal respiratory effort, lungs clear to auscultation Cardiovascular: RRR, no murmur, no edema Gastrointestinal (Abdomen): Distended abdomen, TTP, hypoactive BS Skin: no rashes, warm and dry no jaundice Neurologic: Motor/Sensory: no asterixis Psychiatric: A+Ox3, euthymic affect Lymphatic: + lymphedema (bilateral LE ) Results & Data Vital Signs (Past 12 Hours) Vital Signs Temp Pulse Pulse Resp BP Pulse Ox Pulse Ox 05/02/23 09:12 67 05/02/23 07:51 05/02/23 07:15 36.2 C L 65 14 123/70 93 05/02/23 02:55 37 C 67 18 121/63 93 05/01/23 23:59 80 05/01/23 22:29 05/01/23 22:12 93 05/01/23 22:12 36.9 C 76 18 148/79 H 93 O2 Del Method O2 Del Method 05/02/23 09:12 05/02/23 07:51 Room Air 05/02/23 07:15 Room Air 05/02/23 02:55 Room Air 05/01/23 23:59 05/01/23 22:29 Room Air 05/01/23 22:12 Room Air 05/01/23 22:12 Room Air
--- NOTE | 2023-05-02 10:52 | Ultrasound Report ---
US duplex portal hepatic veins CLINICAL HISTORY: r/o PVT TECHNIQUE: Grayscale, color and spectral waveform Doppler examination of the abdomen was performed. Comparison: None available at the time of this dictation. FINDINGS: Evaluation of the splenic vein was limited by patient intolerance. The hepatic veins, portal veins, a nd IVC are patent with no thrombus identified. Hepatic artery is unremarkable. Flow is in the correct direction. Prominent ascites is partially visualized. IMPRESSION: No portal vein thrombosis. ACT 112: Negative or not required by law. Electronically signed by: Aneudy Mark M.D. 05/02/2023 10:50 AM
--- NOTE | 2023-05-02 11:21 | Hospitalist Progress Note ---
Date of Service May 02, 2023 Assessment & Plan (1) Ascites: Plan: per admitting service notes with addendum: likely from Proteinuria possible underlying Cirrhosis? -- for therapeutic parecentesis today with albumin -- GI and Nephro consulted (2) Nephrotic range proteinuria: Plan: Chronic kidney disease, stage 4 Has not been worked up secondary to patient lack of followup in the office. Consulting nephrology here for assistance. May be the main reason for his ascites. Patient with large volume ascites for over 6 months with previous admissions where he left AMA prior to workup or treatment for decompensation of this now presents with extreme fluid overload limiting QOL and daily functions. There is wasting of arms and a cachectic and malnourished appearance to the patient who also is reporting not being able to eat in the past week. SAAG gradient is 0.8 suggesting that portal HTN is not necessarily the cause of the ascites. Previously, it was suspected that this ascites may be related to nephrotic range proteinuria. He has a known history of noncompliance with medications and nephrotic range proteinuria with no workup as he has declined followup. Notably, he was recently admitted for a short time where an echo revealed a preserved EF and diastolic dysfunction was present. Notably CAT scan reveals fatty liver without evidence of cirrhosis. No comment on clear portal vein on CT scan so US liver ordered to ensure this was ruled out. -- crea 2.6 to 2.8 Nephro consulted (3) HTN (hypertension): Plan: uncontrolled, patient has a h/o noncompliance and poorly controlled blood pressure. Cont current medications for now and adjust medications as needed in hospital. Low salt diet for now. -- BP improving continue Carvedilol (4) Abdominal wall cellulitis: Plan: continue Ceftriaxone IV (5) Pneumonia: Plan: chronic smoker with ongoing chronic disease at risk for pneumonia, especially given the lack of physical movement recently. Covering empirically for pneumonia with Rocephin and azithromycin for now until he is more clinically improved and may be reassessed pending blood and sputum cultures and clinical improvement. -- sputum culture: pending Ceftri + Azithro (6) Tobacco use: Plan: ongoing smoker, contemplative phase. (7) Severe protein-calorie malnutrition: Plan: 2/2 ongoing cirrhosis and poor PO intake and some vomiting in the last 3 days. Supportive care with antiemetics as needed and dietary consulted. (8) Morbid obesity: (9) Noncompliance: Plan: He is a member of the [employer] [facility]. Heparin Full Code as confirmed with the patient on admission. Disposition pending lives at home plan of care discussed with patient in detail and at length all questions answered patient is understanding, agreeable, comfortable with the plan of care FATEMEH Dominguez at bedside during exam Admission and Anticipated Discharge Date Admission Date: May 01, 2023 Subjective ff up for Results & Data Results & Data Vital Signs (Past 12 Hours) Vital Signs Temp Pulse Pulse Resp BP Pulse Ox O2 Del Method 05/02/23 11:15 36.3 C L 83 18 124/70 94 Room Air 05/02/23 09:12 67 05/02/23 07:51 Room Air 05/02/23 07:15 36.2 C L 65 14 123/70 93 Room Air 05/02/23 02:55 37 C 67 18 121/63 93 Room Air 05/01/23 23:59 80
--- NOTE | 2023-05-02 11:32 | Nephrology Consultation ---
Date of Consultation May 02, 2023 Assessment & Plan (1) Hypervolemia: (2) Cirrhosis: (3) Ascites: (4) Nephrotic range proteinuria: (5) Pneumonia: (6) Abdominal wall cellulitis: (7) CKD (chronic kidney disease) stage 4, GFR 15-29 ml/min: Plan CKD 4 Nephrotic range proteinuria Severe hypervolemia predominantly ascites related with liver cirrhosis. Likely Pneumonia and Abd Wall cellulitis ----Patient has very extensive medical problem despite her young. She almost certainly has liver cirrhosis with positive anti-smooth muscle antibody. However she has not had liver biopsy and her follow-up has been very bad. She did not follow-up last time also with nephrology. She had 11 g proteinuria in September but 1.6 now but even then I believe she would likely benefit with a renal biopsy as well as a liver biopsy to establish the diagnosis Better. Serological test has already been done including anti-PLAR2 antibody, C3, C4, ALFONZO, ANCA, urine for Bence-Ordaz, serum immunofixation and everything was normal/negative. For now if patient agreeable would use Lasix 80 IV twice daily with albumin. But almost certainly patient is living AGAINST MEDICAL ADVICE she is already demanding to be discharged. Exact discharge will be as per primary team. Also recommend to increase Lasix dose to at least 80 daily but I doubt even that will be enough. She will need nephrology as well as hepatology follow-up----ideally would like to do both liver and kidney biopsy. History of Present Illness Reason for Consultation: Nephrotic syndrome and CKD Attending Physician: Amandeep Milian MD History of Present Illness 42-year-old transgender female converted to male , morbid obesity multiple psychiatric issues presented to the hospital because of increasing abdominal distention . Patient has cirrhosis as well as nephrotic syndrome which has been established after true previous admission in September 2022 and then again in February 2023. Both times she left AGAINST MEDICAL ADVICE . During the admission in February I did see the patient and ordered a full panel of serological tests including anti-PLAR2 antibody, C3, C4, ALFONZO, ANCA, urine for Bence-Ordaz, serum immunofixation---all were normal/negative. However anti-smooth muscle antibody was positive as ordered by GI. Already seen by GI earlier today and they recommend paracentesis w fluid analysis +. US doppler to r/o PVT. They also did Recommend liver biopsy to confirm cirrhosis diagnosis. She had 11 g proteinuria back in September but yesterday was only 1.6 g. She was supposed to have follow-up in nephrology clinic which she never did. Earlier today she had abdominal paracentesis done and 5 L removed. Now she is already demanding to be discharged. At home she takes furosemide 40 daily. She had 1 dose of IV Lasix 80 mg yesterday but not since then Review of systems----positive for increasing abdominal distention. Some shortness of breath edema. Patient likes to downplay her symptoms and states she is otherwise completely fine and needs to go home [facility]. Allergies Allergy/AdvReac Type Severity Reaction Status Date / Time penicillin G Allergy Intermediate HIVES Verified 02/24/23 17:19 aloe vera Allergy Difficulty Verified 02/24/23 17:17 Breathing/ edema Sulfa (Sulfonamide AdvReac Mild RETAINS Verified 02/24/23 17:19 Antibiotics) WATER Home Medications Medication Instructions Recorded Confirmed Type carvedilol 12.5 mg tablet 12.5 mg PO AMPM 05/01/23 05/01/23 History furosemide 40 mg tablet 40 mg PO QAM 05/01/23 05/01/23 History metformin 500 mg tablet 500 mg PO QAM 05/01/23 05/01/23 History pantoprazole 40 mg tablet,delayed 40 mg PO QAM 05/01/23 05/01/23 History release Patient History Medical History ADHD Amputation of right foot Damzew-bs-dujc transgender person Gas gangrene HTN (hypertension) Osteomyelitis of foot, right, acute Severe anxiety Tobacco use Surgical History History of tonsillectomy Social History Smoking Status: Current every day smoker Tobacco Type: Cigarettes Cigarettes Per Day: 1 pack; Second Hand Exposure: Yes; Do You Dip or Chew Tobacco: No; Hx Alcohol Use: No Hx Substance Use: No Preferred Language: Tajik Communication Ability: Effective Finishing Supervisor Required: No Beliefs That Will Affect Care: None Current Living Situation: Spouse Current Living Situation Comment: lives with girlfriend Feels Safe at Home: Yes Safety Concerns: Feels Safe At This Time Assistive Devices: Glasses Physical Exam Physical Exam: Female to male converted transgender. She is morbidly obese and looks a lot older than her stated age. Constitutional: Awake and alert. No respiratory distress. Able to give a pretty detailed account of her medical problems. Normal speech Neck: Supple no jugular venous distention Respiratory: Bilateral decreased breath sounds poor inspiratory effort Cardiovascular: Regular rate and rhythm. 1+ edema bilaterally Gastrointestinal (Abdomen): Massive ascites Musculoskeletal: Multiple wounds in her lower extremity as well as transmetatarsal amputation Results & Data Vital Signs (Past 12 Hours) Vital Signs Temp Pulse Pulse Resp BP Pulse Ox O2 Del Method 05/02/23 11:15 36.3 C L 83 18 124/70 94 Room Air 05/02/23 09:12 67 05/02/23 07:51 Room Air 05/02/23 07:15 36.2 C L 65 14 123/70 93 Room Air 05/02/23 02:55 37 C 67 18 121/63 93 Room Air 05/01/23 23:59 80 Laboratory Results Detailed serological test done in February 2023 admission was reviewed in detail--- only thing positive was anti-smooth muscle antibody. 11 g proteinuria in September 2022 but only 1.6 g today.
[2023-05-02 11:59] LABS: Albumin Peritoneal Fluid 1.6 gm/dl
[2023-05-02 12:05] LABS: Total Protein Peritoneal Fluid 4.2 gm/dl
--- NOTE | 2023-05-02 12:09 | Electrocardiogram Report ---
Test Reason : Blood Pressure : / mmHG Vent. Rate : 082 BPM Atrial Rate : 082 BPM P-R Int : 088 ms QRS Dur : 102 ms QT Int : 412 ms P-R-T Axes : 043 -34 165 degrees QTc Int : 481 ms Sinus rhythm Left axis deviation Lateral infarct , age undetermined Nonspecific ST abnormality Abnormal ECG When compared with ECG of 24-FEB-2023 19:41, Lateral infarct is now Present Non-specific change in ST segment in Lateral leads Confirmed by Shan Bradshaw ([id number]) on 05/02/2023 12:09:08 PM Referred By: REFERRED SELF Confirmed By:Speedy Bradshaw
--- NOTE | 2023-05-02 12:26 | Ultrasound Report ---
Ultrasound-guided paracentesis INDICATION: Ascites PROCEDURE: Procedure and risks were explained. Informed consent was obtained. A final timeout was com pleted. The left lower quadrant was prepped and draped in sterile fashion. 1% buffered lidocaine was utilized for skin anesthesia. Utilizing ultrasound guidance, a 5 Azerbaijani safety centesis catheter was advanced into the pocket of clayton dexter. Ultrasound images were obtained. 5 L of yellow ascites fluid was removed, with 1 L sent to the lab for analysis. The catheter was removed and Band-Aid applied. The patient tolerated the procedure well. Vital signs will be monitored postprocedure. IMPRESSION: Ultrasound-guided paracentesis as above. Performed, dictated, and signed by Pedrito Maya PA-C; to be co-signed by Dr. Buddy Velez. Electronically signed by: Buddy Velez M.D. 05/02/2023 12:32 PM
[2023-05-02 12:41] LABS: Appearance Peritoneal Fluid Slightly Hazy; Basophils, Fluid 1 %; Color Peritoneal Fluid Yellow; Eosinophils, Fluid 1 %; Lymphocytes, Fluid 21 %; Mono,Macrophage,Mesothelial 77 %; Neutrophils, Fluid 0 %; RBC Peritoneal Fluid Auto < 2000 /uL; WBC Peritoneal Fluid Auto 77 /ul (0-300)
--- NOTE | 2023-05-02 17:36 | Discharge Summary ---
Discharge Summary Date of Service May 02, 2023 Admission HPI Per Admitting Provider 42 yo transgender female presents with increased pain and increased ascitic fluid. She reports being sent in by home nurses "to get the fluid off." She denies fevers, chills. She has exertional SOB. Cannot lay on her back, walk or reposition. Feels more comfortable on her left side. Reports 3 days of vomiting "could be black or green" denies blood Denies lightheadedness Hasn't eaten food in one week Says she is staying hydrated but "I don't know how much fluid I am taking in. Whatever my body will allow." denies blood per rectum Doesn't take laxatives and she states "I have IBS and I go whenever it is convenient for my belly" has been taking "lots" of Tylenol for pain-->cannot quantify States she was taken off spironolactone and potassium recently, "because of the fluid" No urinary issues and she is urinating Main concern is that she wants the fluid taken off Principal Dx & Hospital Course #1 = Principal Diagnosis (1) Ascites: (2) Nephrotic range proteinuria: (3) HTN (hypertension): (4) Abdominal wall cellulitis: (5) Pneumonia: (6) Tobacco use: (7) Severe protein-calorie malnutrition: (8) Morbid obesity: (9) Noncompliance: Updated Medication List Medication Instructions Recorded Confirmed Type carvedilol 12.5 mg tablet 12.5 mg PO AMPM 05/01/23 05/01/23 History furosemide 40 mg tablet 40 mg PO QAM 05/01/23 05/01/23 History metformin 500 mg tablet 500 mg PO QAM 05/01/23 05/01/23 History pantoprazole 40 mg tablet,delayed 40 mg PO QAM 05/01/23 05/01/23 History release azithromycin 250 mg tablet 250 mg PO DAILY 4 days #4 tabs 05/02/23 Rx cefuroxime axetil 500 mg tablet 500 mg PO DAILY #7 tabs 05/02/23 Rx Hospital Stay Data Consultations 05/01/23 19:26 ED Decision to Admit Stat 05/01/23 22:12 Consult Gastroenterology Routine Consult Nephrology Routine Diagnostic Imagining Performed 05/01/23 17:46 CT abd pelvis wo con Stat 05/02/23 08:49 IR paracentesis abd w/img US Urgent 05/02/23 21:15 US duplex portal hepatic veins Routine Pending Results Patient Have Any Pending Studies at Discharge: Yes
[2023-05-02] MEDS ORDERED: cefTRIAXone SODIUM 2,000 MG in DEXTROSE 5% 50 ML IV SCH (20:00)
[2023-05-02] MEDS ORDERED: POLYETHYLENE (MIRALAX) 17 GM PACK PO SCH (21:00)
== END 2023-05-02 18:01 | disposition left against medical advice (07) | DRG 698 ==
LOC: EDSEX → ED 17:14 → 2E 20:49

== ENCOUNTER 2023-05-02 22:01 | Inpatient (IN) ==
--- NOTE | 2023-05-02 22:52 | Emergency Department Note ---
History of Present Illness General Chief complaint: Abdominal Pain Stated complaint: WATER IN BELLY,ABDOMINAL PAIN Time Seen by Provider: 05/02/23 22:50 History of Present Illness Maximum Pain Intensity: 9 This 42-year-old female to male transgender patient presents to the emergency department for evaluation of cirrhosis and ascites. Has had large-volume ascites for the past 6 months, but has been poorly compliant with treatment. Question is whether ascites is truly from the cirrhosis or possibly due to nephrotic range proteinuria. The patient was last admitted on 05/01/23 and had 5 L of fluid removed today via paracentesis per patient. Apparently he signed himself out AMA today to go see his . The patient states that he is now not able to walk at all independently. The patient states that he was not sure what his plan was after leaving the hospital. The patient states that he spent the next few hours after leaving AMA driving around aimlessly in his car until he a rrived back at the hospital where he contacted ER staff to assist him with exiting his vehicle and signing into the ER. He denies any changes in his symptoms, but states that he does not feel he can take care of himself at home because of his symptoms. The patient states that he understands that he made a mistake and that he desires to be admitted again. Home Medications Medication Instructions Recorded Confirmed Type carvedilol 12.5 mg tablet 12.5 mg PO AMPM 05/01/23 05/01/23 History pantoprazole 40 mg tablet,delayed 40 mg PO QAM 05/01/23 05/01/23 History release azithromycin 250 mg tablet 250 mg PO DAILY 4 days #4 tabs 05/02/23 Rx cefuroxime axetil 500 mg tablet 500 mg PO DAILY #7 tabs 05/02/23 Rx furosemide 40 mg tablet 40 mg PO QAM 05/03/23 History Allergies Allergy/AdvReac Type Severity Reaction Status Date / Time penicillin G Allergy Intermediate HIVES Verified 02/24/23 17:19 aloe vera Allergy Difficulty Verified 02/24/23 17:17 Breathing/ edema Sulfa (Sulfonamide AdvReac Mild RETAINS Verified 02/24/23 17:19 Antibiotics) WATER Past Med/Surg History Medical History ADHD Amputation of right foot [id number] transgender person Gas gangrene HTN (hypertension) Osteomyelitis of foot, right, acute Severe anxiety Tobacco use Surgical History History of tonsillectomy Social History Smoking Status: Current every day smoker Tobacco Type: Cigarettes Cigarettes Per Day: 1 pack; Second Hand Exposure: Yes; Do You Dip or Chew Tobacco: No; Hx Alcohol Use: No Hx Substance Use: No Preferred Language: Bengali Communication Ability: Effective Food And Nutrition Supervisor Required: No Beliefs That Will Affect Care: None Current Living Situation: Significant Other Current Living Situation Comment: lives with girlfriend Feels Safe at Home: Yes Gender Identity: Male Assistive Devices: Walker Review of Systems See HPI for pertinent positives & negatives. Physical Exam Vital Signs Vital Signs - 24 hr 05/02/23 22:03 05/02/23 22:56 05/02/23 22:24 Temperature 36.2 C L Temperature Source Temporal Artery Scan Pulse Rate 70 64 65 Pulse Rate from SpO2 Sensor 65 Pulse Rhythm Regular Respiratory Rate 16 16 20 Respiratory Effort / Characteristics Non-Labored Spontaneous Respiratory Depth Normal Blood Pressure 118/76 Blood Pressure Mean 90 Pulse Oximetry 100 96 97 Oxygen Delivery Method Room Air Room Air Sepsis Recent Fever Within 48 Hours No Sepsis New/Unexplained Change in Mental Status No Sepsis Action Taken by Nursing No Action Required 05/02/23 22:30 05/02/23 22:40 05/02/23 22:50 Temperature Temperature Source Pulse Rate 63 59 L 74 Pulse Rate from SpO2 Sensor 63 60 77 Pulse Rhythm Respiratory Rate 21 19 21 Respiratory Effort / Characteristics Respiratory Depth Blood Pressure 124/67 Blood Pressure Mean 86 Pulse Oximetry 95 95 93 Oxygen Delivery Method Sepsis Recent Fever Within 48 Hours Sepsis New/Unexplained Change in Mental Status Sepsis Action Taken by Nursing 05/02/23 23:00 05/02/23 23:10 05/02/23 23:20 Temperature Temperature Source Pulse Rate 64 69 82 Pulse Rate from SpO2 Sensor 64 69 80 Pulse Rhythm Respiratory Rate 22 22 23 Respiratory Effort / Characteristics Respiratory Depth Blood Pressure 130/69 Blood Pressure Mean 89 Pulse Oximetry 95 96 96 Oxygen Delivery Method Sepsis Recent Fever Within 48 Hours Sepsis New/Unexplained Change in Mental Status Sepsis Action Taken by Nursing 05/02/23 23:30 05/02/23 23:40 05/02/23 23:50 Temperature Temperature Source Pulse Rate 68 67 73 Pulse Rate from SpO2 Sensor 68 67 75 Pulse Rhythm Respiratory Rate 16 22 16 Respiratory Effort / Characteristics Respiratory Depth Blood Pressure Blood Pressure Mean Pulse Oximetry 96 93 97 Oxygen Delivery Method Sepsis Recent Fever Within 48 Hours Sepsis New/Unexplained Change in Mental Status Sepsis Action Taken by Nursing 05/03/23 00:00 05/03/23 00:10 05/03/23 00:14 Temperature Temperature Source Pulse Rate 73 69 76 Pulse Rate from SpO2 Sensor 74 69 76 Pulse Rhythm Respiratory Rate 24 21 13 Respiratory Effort / Characteristics Respiratory Depth Blood Pressure 134/74 Blood Pressure Mean 94 Pulse Oximetry 97 95 96 Oxygen Delivery Method Sepsis Recent Fever Within 48 Hours Sepsis New/Unexplained Change in Mental Status Sepsis Action Taken by Nursing 05/03/23 00:20 05/03/23 00:30 05/03/23 00:40 Temperature Temperature Source Pulse Rate 75 74 74 Pulse Rate from SpO2 Sensor 74 75 75 Pulse Rhythm Respiratory Rate 21 18 19 Respiratory Effort / Characteristics Respiratory Depth Blood Pressure 116/65 Blood Pressure Mean 82 Pulse Oximetry 95 93 91 Oxygen Delivery Method Sepsis Recent Fever Within 48 Hours Sepsis New/Unexplained Change in Mental Status Sepsis Action Taken by Nursing 05/03/23 00:50 05/03/23 01:00 05/03/23 01:10 Temperature Temperature Source Pulse Rate 79 83 80 Pulse Rate from SpO2 Sensor 78 Pulse Rhythm Respiratory Rate 19 19 18 Respiratory Effort / Characteristics Respiratory Depth Blood Pressure Blood Pressure Mean Pulse Oximetry 90 Oxygen Delivery Method Sepsis Recent Fever Within 48 Hours Sepsis New/Unexplained Change in Mental Status Sepsis Action Taken by Nursing 05/03/23 01:20 05/03/23 01:30 05/03/23 01:40 Temperature Temperature Source Pulse Rate 78 75 79 Pulse Rate from SpO2 Sensor 78 75 80 Pulse Rhythm Respiratory Rate 17 20 21 Respiratory Effort / Characteristics Respiratory Depth Blood Pressure Blood Pressure Mean Pulse Oximetry 95 93 91 Oxygen Delivery Method Sepsis Recent Fever Within 48 Hours Sepsis New/Unexplained Change in Mental Status Sepsis Action Taken by Nursing 05/03/23 01:50 05/03/23 02:00 05/03/23 02:10 Temperature Temperature Source Pulse Rate 78 79 81 Pulse Rate from SpO2 Sensor 78 78 82 Pulse Rhythm Respiratory Rate 20 17 17 Respiratory Effort / Characteristics Respiratory Depth Blood Pressure Blood Pressure Mean Pulse Oximetry 94 93 93 Oxygen Delivery Method Sepsis Recent Fever Within 48 Hours Sepsis New/Unexplained Change in Mental Status Sepsis Action Taken by Nursing 05/03/23 02:20 05/03/23 02:30 05/03/23 02:40 Temperature Temperature Source Pulse Rate 80 81 79 Pulse Rate from SpO2 Sensor 82 80 77 Pulse Rhythm Respiratory Rate 17 19 15 Respiratory Effort / Characteristics Respiratory Depth Blood Pressure Blood Pressure Mean Pulse Oximetry 94 92 92 Oxygen Delivery Method Sepsis Recent Fever Within 48 Hours Sepsis New/Unexplained Change in Mental Status Sepsis Action Taken by Nursing 05/03/23 02:44 05/03/23 02:50 05/03/23 03:00 Temperature Temperature Source Pulse Rate 79 78 75 Pulse Rate from SpO2 Sensor 77 78 75 Pulse Rhythm Respiratory Rate 23 17 20 Respiratory Effort / Characteristics Respiratory Depth Blood Pressure 137/61 138/75 Blood Pressure Mean 86 96 Pulse Oximetry 93 94 94 Oxygen Delivery Method Sepsis Recent Fever Within 48 Hours Sepsis New/Unexplained Change in Mental Status Sepsis Action Taken by Nursing 05/03/23 03:10 Temperature Temperature Source Pulse Rate 87 Pulse Rate from SpO2 Sensor 87 Pulse Rhythm Respiratory Rate 13 Respiratory Effort / Characteristics Respiratory Depth Blood Pressure Blood Pressure Mean Pulse Oximetry 92 Oxygen Delivery Method Sepsis Recent Fever Within 48 Hours Sepsis New/Unexplained Change in Mental Status Sepsis Action Taken by Nursing VITALS: Vitals are noted on the nurse's note and reviewed by myself. GENERAL: Malnourished and cachectic appearing, but nontoxic and in no acute distress. SKIN: Capillary refill <2 sec. EYES: PERRLA. EOMI. Conjunctivae without injection, sclerae without icterus. NOSE: Patent without discharge. MOUTH: Mucous membranes moist. Uvula midline. Airway patent. NECK: Supple without nuchal rigidity. HEART: Regular rate and rhythm without murmurs gallops or rubs. LUNGS: Clear to auscultation bilaterally without wheezes, rales or rhonchi. No retractions or accessory muscle use. ABDOMEN: Positive bowel sounds x 4. Significant abdominal distention with ascites present. Full exam was unable to be performed due to poor patient positioning and inability to move into appropriate positioning. MUSCULOSKELETAL: Cachectic. NEURO: Patient was alert and oriented to person place and time. Course Administered Medications Heparin Sodium (Porcine) (Heparin Sod 5,000 Unit/0.5 Ml Vial) 5,000 units SQ Q8 VANNESSA Stop: 06/02/23 05:59 Last Admin: 05/03/23 06:40 Dose: 5,000 units Documented By: MARIANGEL Insulin Aspart (Insulin Aspart Per Unit Charge) 0 units SC ACHS [facility] Stop: 06/02/23 04:44 Last Admin: 05/03/23 05:11 Dose: Not Given Documented By: PATITO Co-signed By: MARIANGEL Discontinued Medications Albuterol (Albut/Ipratrop 3mg/0.5mg Neb 3 Ml Vial) 3 ml NEB NOW STA; Protocol Stop: 05/03/23 04:23 Last Admin: 05/03/23 04:42 Dose: 3 ml Documented By: PATITO Carvedilol (Carvedilol 12.5 Mg Tab) 12.5 mg PO NOW STA Stop: 05/03/23 05:02 Last Admin: 05/03/23 05:22 Dose: 12.5 mg Documented By: PATITO Albumin Human (Albumin 25%) 25 gm in 100 mls @ 50 mls/hr IV ONE ONE Stop: 05/03/23 03:15 Last Infusion: 05/03/23 04:17 Dose: 0 mls/hr Documented By: Admin: 05/03/23 01:42 Dose: 50 mls/hr Documented By: PATITO Magnesium Sulfate/Dextrose (Magnesium Sulfate / D5w) 1 gm in 100 mls @ 50 mls/hr IV ONE ONE Stop: 05/03/23 03:16 Last Infusion: 05/03/23 05:54 Dose: 0 mls/hr Documented By: Admin: 05/03/23 03:48 Dose: 50 mls/hr Documented By: PATITO Potassium Chloride (K Miguel / Wtr) 10 meq in 100 mls @ 100 mls/hr IV Q1H [facility] Stop: 05/03/23 06:44 Last Admin: 05/03/23 07:00 Dose: 100 mls/hr Documented By: Infusion: 05/03/23 06:53 Dose: 100 mls/hr Documented By: Admin: 05/03/23 05:53 Dose: 100 mls/hr Documented By: Infusion: 05/03/23 05:42 Dose: 100 mls/hr Documented By: Admin: 05/03/23 04:42 Dose: 100 mls/hr Documented By: Infusion: 05/03/23 04:42 Dose: 100 mls/hr Documented By: Admin: 05/03/23 03:48 Dose: 100 mls/hr Documented By: PATITO Melatonin (Melatonin 3 Mg Tab) 3 mg PO NOW STA Stop: 05/03/23 03:09 Last Admin: 05/03/23 03:24 Dose: 3 mg Documented By: PATITO Oxycodone HCl (Oxycodone Hcl Ir 5 Mg Tab (Immediate Release)) 5 mg PO NOW STA Stop: 05/03/23 03:09 Last Admin: 05/03/23 03:24 Dose: 5 mg Documented By: PATITO Potassium Chloride (Potassium Chloride Crtab 20 Meq Tabcr) 40 meq PO NOW STA Stop: 05/03/23 01:18 Last Admin: 05/03/23 01:56 Dose: Not Given Documented By: PATITO Medical Decision Making Differential Diagnosis Differential diagnosis includes ascites, cirrhosis, nephrotic range proteinuria, SBP, or others. Laboratory Data Attestation: I reviewed the patient's lab results. 05/03/23 00:02 05/03/23 00:02 Lab Results 05/02/23 05/03/23 05/03/23 Range/Units 23: 00:02 00:02 WBC 10.18 (4.8-10.8) K/ul RBC 3.04 L (4.20-5.40) M/uL Hgb 7.7 L (12.0-16.0) g/dl Hct 23.9 L (37.0-47.0) % MCV 78.6 L (80.0-100.0) fL MCH 25.3 (25.0-34.0) pg MCHC 32.2 (32.0-36.0) g/dL RDW Std Deviation 47.2 H (36.4-46.3) fL RDW Coeff of Yola 16.4 H (11.5-14.5) % Plt Count 432 H (130-400) K/uL MPV 9.8 (9.4-12.4) fL Immature Gran % (Auto) 0.6 % Neut % (Auto) 84.1 % Lymph % (Auto) 7.6 % Montgomery % (Auto) 5.8 % Eos % (Auto) 1.4 % Baso % (Auto) 0.5 % Neut # (Auto) 8.57 H (1.40-6.50) K/uL Lymph # (Auto) 0.77 L (1.2-3.4) K/uL Montgomery # (Auto) 0.59 (0.11-0.59) K/uL Eos # (Auto) 0.14 (0-0.50) K/uL Baso # (Auto) 0.05 (0-0.2) K/uL Immature Gran # (Auto) 0.06 (0.01-0.20) K/uL Polychromasia 1+ Poikilocytosis Present PT 12.9 H (9.0-12.0) Seconds INR 1.2 H (0.9-1.1) APTT 35.0 H (21.0-31.0) Seconds PTT Ratio 1.2 Sodium (136-145) mmol/L Potassium (3.5-5.1) mmol/L Chloride (98-107) mmol/L Carbon Dioxide (21-32) mmol/L Anion Gap (3-11) BUN (6-23) mg/dl Creatinine (0.6-1.2) mg/dl Est Cr Clr Drug Dosing Est GFR ( Amer) ml/min Est GFR (Non-Af Amer) ml/min BUN/Creatinine Ratio (10-20) Glucose (70-99(Fasting)) mg/dl Calcium (8.6-10.3) mg/dl Magnesium (1.7-2.4) mg/dl Total Bilirubin (0.2-1.0) mg/dl AST (13-39) U/L ALT (7-52) U/L Alkaline Phosphatase (34-104) U/L Ammonia (18-72) umol/L Total Protein (6.0-8.3) gm/dl Albumin (3.4-5.0) gm/dl Globulin (2.5-4.0) gm/dl Albumin/Globulin Ratio (0.9-2) Lipase (11-82) U/L SARS-CoV-2, RNA, NAAT NEGATIVE (NEGATIVE) 05/03/23 05/03/23 Range/Units 00:02 00:08 WBC (4.8-10.8) K/ul RBC (4.20-5.40) M/uL Hgb (12.0-16.0) g/dl Hct (37.0-47.0) % MCV (80.0-100.0) fL MCH (25.0-34.0) pg MCHC (32.0-36.0) g/dL RDW Std Deviation (36.4-46.3) fL RDW Coeff of Yola (11.5-14.5) % Plt Count (130-400) K/uL MPV (9.4-12.4) fL Immature Gran % (Auto) % Neut % (Auto) % Lymph % (Auto) % Montgomery % (Auto) % Eos % (Auto) % Baso % (Auto) % Neut # (Auto) (1.40-6.50) K/uL Lymph # (Auto) (1.2-3.4) K/uL Montgomery # (Auto) (0.11-0.59) K/uL Eos # (Auto) (0-0.50) K/uL Baso # (Auto) (0-0.2) K/uL Immature Gran # (Auto) (0.01-0.20) K/uL Polychromasia Poikilocytosis PT (9.0-12.0) Seconds INR (0.9-1.1) APTT (21.0-31.0) Seconds PTT Ratio Sodium 141 (136-145) mmol/L Potassium 3.2 L (3.5-5.1) mmol/L Chloride 111 H (98-107) mmol/L Carbon Dioxide 21 (21-32) mmol/L Anion Gap 9 (3-11) BUN 36 H (6-23) mg/dl Creatinine 2.81 H (0.6-1.2) mg/dl Est Cr Clr Drug Dosing Not Reportable Est GFR ( Amer) 22.8 ml/min Est GFR (Non-Af Amer) 19.6 ml/min BUN/Creatinine Ratio 12.8 (10-20) Glucose 87 (70-99(Fasting)) mg/dl Calcium 8.0 L (8.6-10.3) mg/dl Magnesium 1.6 L (1.7-2.4) mg/dl Total Bilirubin 0.7 (0.2-1.0) mg/dl AST 8 L (13-39) U/L ALT 3 L (7-52) U/L Alkaline Phosphatase 45 (34-104) U/L Ammonia 11.0 L (18-72) umol/L Total Protein 6.2 (6.0-8.3) gm/dl Albumin 2.8 L (3.4-5.0) gm/dl Globulin 3.4 (2.5-4.0) gm/dl Albumin/Globulin Ratio 0.8 L (0.9-2) Lipase 22 (11-82) U/L SARS-CoV-2, RNA, NAAT (NEGATIVE) MDM Narrative I examined the patient. I reviewed the patient's past medical records including his most recent admission. The patient left AMA, but states that they are now willing to be admitted again cooperate with treatment as directed. No change in symptoms since admission and leaving AMA. An IV lock was placed and labs were drawn. I spoke with the on-call hospitalist who agreed to admit the patient for further evaluation and treatment. Please refer to their dictation for further details. Laboratory studies were reviewed by myself, but will be managed by the inpatient team. White blood cell count normal at 10.18. Hemoglobin low at 7.7. Platelet count elevated at 432. INR 1.2. Potassium 3.2, BUN 36, creatinine 2.81. Magnesium 1.6. LFTs were not elevated. Ammonia level not elevated. Lipase normal. COVID-negative. The patient was admitted in stable condition. Impression & Plan Ascites, Cirrhosis, Nephrotic range proteinuria Discharge Plan Visit Data Chief Complaint: Abdominal Pain Stated Complaint: WATER IN BELLY,ABDOMINAL PAIN ED Provider: Ashwin Gomez ED Midlevel Provider: Shala Benavides Discharge Problem: Ascites, Cirrhosis, Nephrotic range proteinuria Patient Disposition: Admitted As Inpatient Condition: Good Discharge Instructions Interventions: ED Discharge Assessment Last Done: 05/03/23 04:47
[2023-05-03 00:33] LABS: Basophils # (auto) 0.05 K/uL (0-0.2); Basophils % (auto) 0.5 %; Eosinophils # (auto) 0.14 K/uL (0-0.50); Eosinophils % (auto) 1.4 %; Hematocrit (blood only) 23.9 % (37.0-47.0); Hemoglobin 7.7 g/dl (12.0-16.0); Immature Granulocytes # (auto) 0.06 K/uL (0.01-0.20); Immature Granulocytes % (auto) 0.6 %; Lymphocytes # (auto) 0.77 K/uL (1.2-3.4); Lymphocytes % (auto) 7.6 %; Mean Corpuscular Hemoglobin 25.3 pg (25.0-34.0); Mean Corpuscular Hgb Conc 32.2 g/dL (32.0-36.0); Mean Corpuscular Volume 78.6 fL (80.0-100.0); Mean Platelet Volume 9.8 fL (9.4-12.4); Monocytes # (auto) 0.59 K/uL (0.11-0.59); Monocytes % (auto) 5.8 %; Neutrophils # (auto) 8.57 K/uL (1.40-6.50); Neutrophils % (auto) 84.1 %; Platelet Count 432 K/uL (130-400); RDW Coefficient of Variation 16.4 % (11.5-14.5); RDW Standard Deviation 47.2 fL (36.4-46.3); Red Blood Count 3.04 M/uL (4.20-5.40); White Blood Count 10.18 K/ul (4.8-10.8)
[2023-05-03 00:45] LABS: Alanine Aminotransferase 3 U/L (7-52); Albumin Globulin Ratio 0.8 (0.9-2); Albumin Level 2.8 gm/dl (3.4-5.0); Alkaline Phosphatase 45 U/L (34-104); Anion Gap 9 (3-11); Aspartate Aminotransferase 8 U/L (13-39); BUN Creatinine Ratio 12.8 (10-20); Bilirubin,Total 0.7 mg/dl (0.2-1.0); Blood Urea Nitrogen 36 mg/dl (6-23); Carbon Dioxide 21 mmol/L (21-32); Chloride 111 mmol/L (98-107); Est GFR (African American) 22.8 ml/min; Est GFR (Non-African American) 19.6 ml/min; Globulin 3.4 gm/dl (2.5-4.0); Glucose 87 mg/dl (70-99(Fasting)); Lipase 22 U/L (11-82); Magnesium 1.6 mg/dl (1.7-2.4); Potassium 3.2 mmol/L (3.5-5.1); Sodium 141 mmol/L (136-145); Total Protein 6.2 gm/dl (6.0-8.3)
[2023-05-03 00:53] LABS: INR 1.2 (0.9-1.1); Partial Thromboplastin Ratio 1.2; Prothrombin Time 12.9 Seconds (9.0-12.0)
[2023-05-03 00:57] LABS: Poikilocytosis Present; Polychromasia 1+
[2023-05-03] MEDS ORDERED: ALBUMIN 25% 25 GM/100 ML VIAL IV ONE (01:16)
[2023-05-03] MEDS ORDERED: MAGNESIUM SULFATE / D5W 1 GM/100 ML BAG IV ONE (01:17)
[2023-05-03] MEDS: POTASSIUM CHLORIDE CRTAB 20 MEQ TABCR PO STA ×2 (01:42→01:56)
[2023-05-03] MEDS ORDERED: MELATONIN 3 MG TAB PO STA (03:08)
[2023-05-03] MEDS ORDERED: oxyCODONE HCL IR 5 MG TAB (IMMEDIATE RELEASE) PO STA (03:08)
--- NOTE | 2023-05-03 03:09 | History & Physical Report ---
Date of Service May 03, 2023 Assessment & Plan (1) ARF (acute renal failure): Plan: On CKD History of nephrotic syndrome Decompensated cirrhosis secondary to medical noncompliance chronic diastolic heart failure (EF 60-65%, TTE 2022), decreased fluid retention post large-volume paracentesis yesterday hypertension, stable DM 2 on oral medications, well-controlled as of recent hemoglobin A1c of 4.22 Feb 2023 Acute on chronic anemia, hemoglobin drop from baseline, patient denies overt bleeding Hypokalemia Leg pain possibly from hypokalemia, probable underlying neuropathy VINCENT (CPAP noncompliance) transgender identity (female to male) medical noncompliance ongoing tobacco abuse Medical telemetry Baseline chest x-ray (patient adamantly refusing due to discomfort) monitor creatinine response to IV albumin Nephrology consult Re: ARF on CKD, follow-up eval GI consult Re: Decompensated cirrhosis, follow-up eval Anemia work-up, transfuse PRBC if hemoglobin less than 7 and or for symptomatic anemia Patient refusing FOBT by provider. Replace electrolytes Nicotine patch as needed DVT prophylaxis with heparin subcu Full code Text document was generated using [employer] voice recognition software. It may contain grammatical or spelling errors. Kindly contact undersigned for clarification of any documentation item in question. Addendum 05/03, 8:30 AM No new recommendations from GI service as as per conversation with Dr. Lewis. Will cancel GI consult. History of Present Illness Chief Complaint: Bilateral leg pain Primary Care Provider: Albino Tenorio MD History obtained from patient and records. Medical history significant for chronic diastolic heart failure (EF 60-65%, TTE 2022), hypertension, cirrhosis, CRI (baseline creatinine 2s), cirrhosis, DM 2 on oral medications, chronic anemia (baseline hemoglobin 8-9), VINCENT (CPAP noncompliance), transgender identity (female to male), medical noncompliance, ongoing tobacco abuse. Recent overnight confinement May 01 to 2022 for ascites. 5 L of ascites fluid drained via ultrasound-guided paracentesis. Patient given antibiotics for possible pneumonia/abdominal wall cellulitis. Lasix albumin recommended by Nephrology. Liver biopsy and possible Cardiology eval recommended by GI. Patient signed out AGAINST MEDICAL ADVICE yesterday because he wanted to see his . Patient returned to ER after he experienced usual bilateral leg pain while driving his car. Unable to walk out of the car without help. Patient denies headache, chest pain, unusual SOB, abdominal pain, black/bloody stools. No fever, no chills. Medical History as above Surgical History : Tonsillectomy, partial foot amputation Family History : Heart disease Personal/Social history : Half pack daily, no EtOH intake, disabled Allergies Allergy/AdvReac Type Severity Reaction Status Date / Time penicillin G Allergy Intermediate HIVES Verified 02/24/23 17:19 aloe vera Allergy Difficulty Verified 02/24/23 17:17 Breathing/ edema Sulfa (Sulfonamide AdvReac Mild RETAINS Verified 02/24/23 17:19 Antibiotics) WATER Home Medications Medication Instructions Recorded Confirmed Type carvedilol 12.5 mg tablet 12.5 mg PO AMPM 05/01/23 05/03/23 History pantoprazole 40 mg tablet,delayed 40 mg PO QAM 05/01/23 05/03/23 History release azithromycin 250 mg tablet 250 mg PO DAILY 4 days #4 tabs 05/02/23 05/03/23 Rx cefuroxime axetil 500 mg tablet 500 mg PO DAILY #7 tabs 05/02/23 05/03/23 Rx furosemide 40 mg tablet 40 mg PO QAM 05/03/23 05/03/23 History metformin 500 mg tablet 50 mg PO DAILY 05/03/23 05/03/23 History potassium chloride 10 mEq 10 meq PO BID 05/03/23 05/03/23 History capsule,extended release spironolactone 25 mg tablet 25 mg PO DAILY 05/03/23 05/03/23 History Past Med/Surg History Medical History ADHD Amputation of right foot CKD (chronic kidney disease) stage 4, GFR 15-29 ml/min [id number]-[id number] transgender person Gas gangrene HTN (hypertension) Osteomyelitis of foot, right, acute Severe anxiety Tobacco use Surgical History History of tonsillectomy Social History Smoking Status: Current every day smoker Tobacco Type: Cigarettes Cigarettes Per Day: 1 pack; Second Hand Exposure: Yes; Do You Dip or Chew Tobacco: No; Hx Alcohol Use: No Hx Substance Use: No Preferred Language: Uzbek Communication Ability: Effective Dietetic Technician Required: No Beliefs That Will Affect Care: None Current Living Situation: Significant Other Current Living Situation Comment: lives with girlfriend Feels Safe at Home: Yes Gender Identity: Male Assistive Devices: Walker Review of Systems Review of Systems: As per HPI, all other systems reviewed and negative Physical Exam Physical Exam: GENERAL: uncomfortable, alert and stated age, obese, no respiratory distress SKIN: Pallor, warm HEENT: Pale palpebral conjunctivae, no ptosis, dry buccal mucosa NECK : Supple, short neck, no tenderness CHEST : Decreased breath sounds, occasional expiratory wheezes, no tenderness HEART : RRR, no obvious murmurs ABDOMEN: distention, nontender EXTREMITIES : Bilateral LE swelling, no LE tenderness, no other conspicuous de formities noted NEUROLOGIC : Coherent, no facial asymmetry, no other gross focality Results & Data Results & Data Vital Signs (Past 12 Hours) Vital Signs Temp Pulse Resp BP Pulse Ox O2 Del Method 05/03/23 01:50 78 20 94 05/03/23 01:40 79 21 91 05/03/23 01:30 75 20 93 05/03/23 01:20 78 17 95 05/03/23 01:10 80 18 05/03/23 01:00 83 19 05/03/23 00:50 79 19 90 05/03/23 00:40 74 19 91 05/03/23 00:30 74 18 116/65 93 05/03/23 00:20 75 21 95 05/03/23 00:14 76 13 134/74 96 05/03/23 00:10 69 21 95 05/03/23 00:00 73 24 97 05/02/23 23:50 73 16 97 05/02/23 23:40 67 22 93 05/02/23 23:30 68 16 96 05/02/23 23:20 82 23 96 05/02/23 23:10 69 22 96 05/02/23 23:00 64 22 130/69 95 05/02/23 22:50 74 21 93 05/02/23 22:40 59 L 19 95 05/02/23 22:30 63 21 124/67 95 05/02/23 22:24 65 20 97 05/02/23 22:56 64 16 96 Room Air 05/02/23 22:03 36.2 C L 70 16 118/76 100 Room Air Laboratory Results Laboratory Results WBC 10.18 K/ul (4.8-10.8) 05/03/23 00:02 RBC 3.04 M/uL (4.20-5.40) L 05/03/23 00:02 Hgb 7.7 g/dl (12.0-16.0) L 05/03/23 00:02 Hct 23.9 % (37.0-47.0) L 05/03/23 00:02 MCV 78.6 fL (80.0-100.0) L 05/03/23 00:02 MCH 25.3 pg (25.0-34.0) 05/03/23 00:02 MCHC 32.2 g/dL (32.0-36.0) 05/03/23 00:02 RDW Std Deviation 47.2 fL (36.4-46.3) H 05/03/23 00:02 RDW Coeff of [place] 16.4 % (11.5-14.5) H 05/03/23 00:02 Plt Count 432 K/uL (130-400) H 05/03/23 00:02 MPV 9.8 fL (9.4-12.4) 05/03/23 00:02 Immature Gran % (Auto) 0.6 % 05/03/23 00:02 Neut % (Auto) 84.1 % 05/03/23 00:02 Lymph % (Auto) 7.6 % 05/03/23 00:02 [place] % (Auto) 5.8 % 05/03/23 00:02 Eos % (Auto) 1.4 % 05/03/23 00:02 Baso % (Auto) 0.5 % 05/03/23 00:02 Neut # (Auto) 8.57 K/uL (1.40-6.50) H 05/03/23 00:02 Lymph # (Auto) 0.77 K/uL (1.2-3.4) L 05/03/23 00:02 [place] # (Auto) 0.59 K/uL (0.11-0.59) 05/03/23 00:02 Eos # (Auto) 0.14 K/uL (0-0.50) 05/03/23 00:02 Baso # (Auto) 0.05 K/uL (0-0.2) 05/03/23 00:02 Immature Gran # (Auto) 0.06 K/uL (0.01-0.20) 05/03/23 00:02 Polychromasia 1+ 05/03/23 00:02 Poikilocytosis Present 05/03/23 00:02 PT 12.9 Seconds (9.0-12.0) H 05/03/23 00:02 INR 1.2 (0.9-1.1) H 05/03/23 00:02 APTT 35.0 Seconds (21.0-31.0) H 05/03/23 00:02 PTT Ratio 1.2 05/03/23 00:02 Sodium 141 mmol/L (136-145) 05/03/23 00:02 Potassium 3.2 mmol/L (3.5-5.1) L 05/03/23 00:02 Chloride 111 mmol/L (98-107) H 05/03/23 00:02 Carbon Dioxide 21 mmol/L (21-32) 05/03/23 00:02 Anion Gap 9 (3-11) 05/03/23 00:02 BUN 36 mg/dl (6-23) H 05/03/23 00:02 Creatinine 2.81 mg/dl (0.6-1.2) H 05/03/23 00:02 Est Cr Clr Drug Dosing Not Reportable 05/03/23 00:02 Est GFR ( Amer) 22.8 ml/min 05/03/23 00:02 Est GFR (Non-Af Amer) 19.6 ml/min 05/03/23 00:02 BUN/Creatinine Ratio 12.8 (10-20) 05/03/23 00:02 Glucose 87 mg/dl (70-99(Fasting)) 05/03/23 00:02 Calcium 8.0 mg/dl (8.6-10.3) L 05/03/23 00:02 Magnesium 1.6 mg/dl (1.7-2.4) L 05/03/23 00:02 Total Bilirubin 0.7 mg/dl (0.2-1.0) 05/03/23 00:02 AST 8 U/L (13-39) L 05/03/23 00:02 ALT 3 U/L (7-52) L 05/03/23 00:02 Alkaline Phosphatase 45 U/L (34-104) 05/03/23 00:02 Ammonia 11.0 umol/L (18-72) L 05/03/23 00:08 Total Protein 6.2 gm/dl (6.0-8.3) 05/03/23 00:02 Albumin 2.8 gm/dl (3.4-5.0) L 05/03/23 00:02 Globulin 3.4 gm/dl (2.5-4.0) 05/03/23 00:02 Albumin/Globulin Ratio 0.8 (0.9-2) L 05/03/23 00:02 Lipase 22 U/L (11-82) 05/03/23 00:02 SARS-CoV-2, RNA, NAAT NEGATIVE (NEGATIVE) 05/02/23 23:23
[2023-05-03] MEDS ORDERED: LORazepam 0.5 MG TAB PO PRN (03:14)
[2023-05-03] MEDS: POTASSIUM CHLORIDE / WTR 10 MEQ/100 ML PLCT IV SCH ×4 (03:48→07:00)
[2023-05-03] MEDS ORDERED: ALBUT/IPRATROP 3MG/0.5MG NEB 3 ML VIAL NEB STA (04:22)
[2023-05-03] MEDS ORDERED: DEXTROSE 50% 50 ML SYRINGE IV PRN (04:45)
[2023-05-03] MEDS ORDERED: GLUCOSE 10 TAB/TUBE PO PRN (04:45)
[2023-05-03] MEDS ORDERED: GLUCOSE 40% GEL 15 GM TUBE PO PRN (04:45)
[2023-05-03] MEDS ORDERED: GLUCAGON FOR INJ 1 MG VIAL SQ PRN (04:45)
[2023-05-03] MEDS ORDERED: CARBOHYDRATES FOR HYPOGLYCEMIA PO PRN (04:45)
[2023-05-03] MEDS ORDERED: carvediloL 12.5 MG TAB PO STA (05:01)
[2023-05-03 05:10] LABS: Base Excess ABG -2.9 mEq/L (-9-1.8); HCO3 ABG 21 mmol/L (19-24); PCO2 ABG 33 mmHg (35-46); PO2 ABG 64 mmHg (80-95); pH ABG 7.41 (7.35-7.45)
[2023-05-03] MEDS: INSULIN ASPART PER UNIT CHARGE SC SCH ×4 (05:11→22:13)
[2023-05-03 05:15] LABS: Allen Test Pos (Pos)
[2023-05-03] MEDS ORDERED: ALBUMIN 25% 25 GM/100 ML VIAL IV SCH (06:00)
[2023-05-03] MEDS: HEPARIN SOD 5,000 UNIT/0.5 ML VIAL SQ SCH ×3 (06:40→22:19)
[2023-05-03 08:28] LABS: Basophils # (auto) 0.06 K/uL (0-0.2); Basophils % (auto) 0.6 %; Eosinophils # (auto) 0.15 K/uL (0-0.50); Eosinophils % (auto) 1.4 %; Hematocrit (blood only) 21.9 % (37.0-47.0); Hemoglobin 7.1 g/dl (12.0-16.0); Immature Granulocytes # (auto) 0.06 K/uL (0.01-0.20); Immature Granulocytes % (auto) 0.6 %; Lymphocytes # (auto) 0.79 K/uL (1.2-3.4); Lymphocytes % (auto) 7.3 %; Mean Corpuscular Hemoglobin 25.1 pg (25.0-34.0); Mean Corpuscular Hgb Conc 32.4 g/dL (32.0-36.0); Mean Corpuscular Volume 77.4 fL (80.0-100.0); Mean Platelet Volume 9.8 fL (9.4-12.4); Monocytes # (auto) 0.73 K/uL (0.11-0.59); Monocytes % (auto) 6.7 %; Neutrophils % (auto) 83.4 %; Platelet Count 386 K/uL (130-400); RDW Coefficient of Variation 16.4 % (11.5-14.5); RDW Standard Deviation 46.8 fL (36.4-46.3); Red Blood Count 2.83 M/uL (4.20-5.40); Reticulocyte % 1.5 % (0.5-2.0); Reticulocytes # 0.04 10^6/uL (0.02-0.10); White Blood Count 10.89 K/ul (4.8-10.8)
[2023-05-03 08:50] LABS: Anion Gap 5 (3-11); BUN Creatinine Ratio 12.9 (10-20); Blood Urea Nitrogen 35 mg/dl (6-23); Calcium 7.8 mg/dl (8.6-10.3); Carbon Dioxide 23 mmol/L (21-32); Chloride 112 mmol/L (98-107); Creatinine Clr Calc Pharmacy 17.6 ml/min; Est GFR (African American) 23.8 ml/min; Est GFR (Non-African American) 20.5 ml/min; Glucose 89 mg/dl (70-99(Fasting)); Potassium 3.7 mmol/L (3.5-5.1); Sodium 140 mmol/L (136-145)
[2023-05-03 08:57] LABS: Anisocytosis Present
[2023-05-03 09:08] LABS: Alanine Aminotransferase 3 U/L (7-52); Albumin Globulin Ratio 0.9 (0.9-2); Albumin Level 2.8 gm/dl (3.4-5.0); Alkaline Phosphatase 41 U/L (34-104); Aspartate Aminotransferase 6 U/L (13-39); Bilirubin,Total 0.6 mg/dl (0.2-1.0); Globulin 3.1 gm/dl (2.5-4.0); Iron 23 mcg/dl (35-150); Total Protein 5.9 gm/dl (6.0-8.3); Transferrin < 95 mg/dl (200-360)
[2023-05-03 09:09] LABS: Ferritin 151.5 ng/ml (8-388)
[2023-05-03 09:12] LABS: Folate (Folic Acid),Ser orPlas 8.96 ng/ml (>5.38)
[2023-05-03] MEDS: DOXYCYCLINE HYCLATE 100 MG CAP PO SCH ×2 (09:32→22:20)
[2023-05-03] MEDS: ALBUMIN 25% 25 GM/100 ML VIAL IV SCH ×3 (09:32→23:38)
[2023-05-03] MEDS: PANTOprazole 40 MG TAB PO SCH (09:32)
--- NOTE | 2023-05-03 11:18 | Nephrology Consultation ---
Date of Consultation May 03, 2023 Assessment & Plan (1) CKD (chronic kidney disease) stage 4, GFR 15-29 ml/min: CKD 4 which appears to be progressive and high risk for ESRD. That said, chemistries currently acceptable. Chronic hypervolemia best managed w/ diuretics. no indication at this time for dialysis; if that need arises this will be an even more challenging situation clinically. creatinine ran low 2's in September 2022 (eGFR 8); now more in mid 2's (eGFR 21). -repeat UACM ordered -absolutely needs OP f/u w/ nephro > for cystatin C testing, for renal biopsy, for ESRD orientation/discussion -avoid nsaids -would not continue metformin at hospital d/c given eGFR and non adherence to medical recommendations -had extensive discussion w/ pt > recommended resuming diuretics to hel get fluid off (which he tells me is his primary goal)>>however he declines this, tells me he wants to wait a day, doesnt feel ready (2) Proteinuria: longstanding nephritic sediment with variable proteinuria > 1.5-11.5 gm. in the setting of hepatic steatosis and + anti smooth MM Ab, concern for liver disease. GI recommends outpt liver bx and liver w/u. negative serologic work up severe /persistent hypoalbuminemia and volume overload which are intertwined and may or may not relate to nephrotic syndrome or/and liver disease -needs OP renal biopsy -repeat prot/creat ratio and consider 24 hr urine for protein, sodium, creatinine if /when able (3) Noncompliance: pt has signed out AMA repeatedly from hospital and has done no requested outpt f/u for renal care/bx or for liver biopsy while all patients have the right to make bad decisions, concern here that severe anxiety or other ?psych or ?psychosocial barrier may be hindering his care he denies having OP psych care; tells me his is primary support for psych issues >consider family conference/palliative consultation/psych eval to identify /address barriers to care where possible History of Present Illness Reason for Consultation: acute on chronic renal failure Requesting Physician: Dr Garduno Attending Physician: Amandeep Milian MD History of Present Illness 42-year-old transgender female to male patient (preferred pronoun HE) whom I am asked to see for acute on chronic renal insufficiency was readmitted overnight after presenting with abrupt onset generalized weakness. The patient had signed out AMA yesterday afternoon after being admitted here on 05/01 w / ascites s/p 5L paracentesis; concern also on that admission for abdominal wall cellulilitis and pneumonia. PMH includes variable proteinuria (>11 gm in 2021 and yesterday 1.6 gm), CKD4 (baseline creatinine mid 2's, eGFR 22), hepatic steatosis and suspected liver cirrhosis, HTN, HF, large weight swings (weighed 100 kg [facility] clinic scale 02/2023 but currently 42 kg BMI currently 14), irritable bowel syndrome, ADHD, severe anxiety, medical nonadherence, active tobacco abuse, hx of R ankle osteomyelitis s/p 2020 partial R foot amputation. Concern for nephrotic syndrome which has been in process of work up in September 2022, February 2023 > both times pt signed out AMA and did not follow up as OP. Serologic panel including anti-PLAR2 antibody, C3, C4, ALFONZO, ANCA, urine for Bence-Ordaz, serum immunofixation---all were normal/negative. He had a dose of IV lasix on 05/01 80 mg IV; on lasix 40 mg daily po. Tells me he came back b/c cannot walk/move at home d/t fluid overload. "my body swelled up w/ water and my legs just gave up." Review of systems----positive for significant abdominal distention adn generalized weakness. No sob; no n/v, no f/c.. Allergies Allergy/AdvReac Type Severity Reaction Status Date / Time penicillin G Allergy Intermediate HIVES Verified 02/24/23 17:19 aloe vera Allergy Difficulty Verified 02/24/23 17:17 Breathing/ edema Sulfa (Sulfonamide AdvReac Mild RETAINS Verified 02/24/23 17:19 Antibiotics) WATER Home Medications Medication Instructions Recorded Confirmed Type carvedilol 12.5 mg tablet 12.5 mg PO AMPM 05/01/23 05/03/23 History pantoprazole 40 mg tablet,delayed 40 mg PO QAM 05/01/23 05/03/23 History release azithromycin 250 mg tablet 250 mg PO DAILY 4 days #4 tabs 05/02/23 05/03/23 Rx cefuroxime axetil 500 mg tablet 500 mg PO DAILY #7 tabs 05/02/23 05/03/23 Rx furosemide 40 mg tablet 40 mg PO QAM 05/03/23 05/03/23 History metformin 500 mg tablet 50 mg PO DAILY 05/03/23 05/03/23 History potassium chloride 10 mEq 10 meq PO BID 05/03/23 05/03/23 History capsule,extended release spironolactone 25 mg tablet 25 mg PO DAILY 05/03/23 05/03/23 History Patient History Medical History ADHD Amputation of right foot CKD (chronic kidney disease) stage 4, GFR 15-29 ml/min Pukzda-oj-brek transgender person Gas gangrene HTN (hypertension) Osteomyelitis of foot, right, acute Severe anxiety Tobacco use Surgical History History of tonsillectomy Social History Smoking Status: Current every day smoker Tobacco Type: Cigarettes Cigarettes Per Day: 1 pack; Second Hand Exposure: Yes; Do You Dip or Chew Tobacco: No; Hx Alcohol Use: No Hx Substance Use: No Preferred Language: Czech Communication Ability: Effective Digital Circuit Designer Required: No Beliefs That Will Affect Care: None Current Living Situation: Significant Other Current Living Situation Comment: lives with girlfriend Feels Safe at Home: Yes Gender Identity: Male Assistive Devices: Walker Review of Systems Review of Systems: All systems reviewed & are unremarkable except as noted in HPI & below Physical Exam Constitutional: well developed, + frail appearing, cooperative and + malnourished; no acute distress Eyes: EOM intact bilaterally ENMT: Ears: no external ear abnormality Nose: no external nose abnormality Mouth: + dry oral mucous membranes Neck: no nuchal rigidity Respiratory: normal respiratory effort Auscultation: + diminished lung sounds Cardiovascular: RRR, no murmur, no edema Gastrointestinal (Abdomen): Inspection/Auscultation: + abdomen distended, normal bowel sounds and + abdominal edema (abd wall) Percussion/Palpation: + ascites and + abdomen firm; abdomen nontender Musculoskeletal: Extremities: strength 5/5 throughout Skin: no rashes, warm and dry Neurologic: holcomb, fluent speech, no tremor Psychiatric: Orientation: alert and oriented x 3 Speech: normal rate/rhythm/volume of speech Affect: + anxious affect Results & Data Vital Signs (Past 12 Hours) Vital Signs Pulse Resp BP Pulse Ox Pulse Ox O2 Del Method O2 Del Method 05/03/23 10:00 59 L 15 109/64 98 Nasal Cannula 05/03/23 09:30 71 16 146/72 H 99 Nasal Cannula 05/03/23 09:00 66 15 144/70 H 99 Nasal Cannula 05/03/23 08:30 69 15 131/80 98 Nasal Cannula 05/03/23 08:00 62 14 130/68 99 Nasal Cannula 05/03/23 07:30 66 13 134/79 98 Nasal Cannula 05/03/23 07:00 67 13 125/71 99 Nasal Cannula 05/03/23 06:30 73 16 137/72 96 Nasal Cannula 05/03/23 07:33 70 05/03/23 05:38 75 05/03/23 05:28 Nasal Cannula 05/03/23 05:22 75 19 132/74 96 05/03/23 05:20 73 15 97 05/03/23 05:10 74 18 90 05/03/23 05:00 74 20 121/70 91 05/03/23 04:50 78 20 92 05/03/23 04:40 82 21 99 05/03/23 04:30 75 20 136/68 98 05/03/23 04:20 79 21 97 05/03/23 04:10 76 19 96 05/03/23 04:00 78 32 H 130/71 89 L 05/03/23 03:50 80 24 93 05/03/23 03:40 76 17 90 05/03/23 03:30 79 14 140/75 93 05/03/23 03:20 78 19 91 05/03/23 03:10 87 13 92 05/03/23 03:00 75 20 138/75 94 05/03/23 02:50 78 17 94 05/03/23 02:44 79 23 137/61 93 05/03/23 02:40 79 15 92 05/03/23 02:30 81 19 92 05/03/23 02:20 80 17 94 05/03/23 02:10 81 17 93 05/03/23 02:00 79 17 93 05/03/23 04:45 91 Room Air 05/03/23 04:16 87 L Room Air, Nasal Cannula 05/03/23 01:50 78 20 94 05/03/23 01:40 79 21 91 05/03/23 01:30 75 20 93 05/03/23 01:20 78 17 95 05/03/23 01:10 80 18 05/03/23 01:00 83 19 05/03/23 00:50 79 19 90 05/03/23 00:40 74 19 91 05/03/23 00:30 74 18 116/65 93 05/03/23 00:20 75 21 95 05/03/23 00:14 76 13 134/74 96 05/03/23 00:10 69 21 95 05/03/23 00:00 73 24 97 05/02/23 23:50 73 16 97 05/02/23 23:40 67 22 93 05/02/23 23:30 68 16 96 05/02/23 23:20 82 23 96 O2 Flow Rate 05/03/23 10:00 2 05/03/23 09:30 2 05/03/23 09:00 2 05/03/23 08:30 2 05/03/23 08:00 2 05/03/23 07:30 2 05/03/23 07:00 2 05/03/23 06:30 2 05/03/23 07:33 05/03/23 05:38 05/03/23 05:28 2 05/03/23 05:22 2 05/03/23 05:20 2 05/03/23 05:10 0 05/03/23 05:00 05/03/23 04:50 05/03/23 04:40 05/03/23 04:30 05/03/23 04:20 05/03/23 04:10 05/03/23 04:00 05/03/23 03:50 05/03/23 03:40 05/03/23 03:30 05/03/23 03:20 05/03/23 03:10 05/03/23 03:00 05/03/23 02:50 05/03/23 02:44 05/03/23 02:40 05/03/23 02:30 05/03/23 02:20 05/03/23 02:10 05/03/23 02:00 05/03/23 04:45 05/03/23 04:16 0 05/03/23 01:50 05/03/23 01:40 05/03/23 01:30 05/03/23 01:20 05/03/23 01:10 05/03/23 01:00 05/03/23 00:50 05/03/23 00:40 05/03/23 00:30 05/03/23 00:20 05/03/23 00:14 05/03/23 00:10 05/03/23 00:00 05/02/23 23:50 05/02/23 23:40 05/02/23 23:30 05/02/23 23:20 Laboratory Results 05/03/23 08:02 05/03/23 08:02 1.6 gm poteinuria on spot ratio 05/02/23 11.5 gm spot ratio 09/[address] a/p non con 05/01 FINDINGS: Suboptimal evaluation of the abdomen and pelvis due to patient positi oning. A few bibasilar linear densities consistent with subsegmental atelectasis. There are few small patchy peripheral groundglass densities within the right lower lobe. This could represent a pneumonia. No pneumoperitoneum. No pneumatosis. No acute fractures identified. Small hiatus hernia. Trace pericardial effusion is noted. The heart is top normal in size. Extensive subcutaneous edema within the anterior abdominal wall. An underlying cellulitis is not excluded. No soft tissue gas identified. Mild bilateral inguinal lymphadenopathy. This may be reactive. There is a markedly distended abdomen secondary to the large amount of ascites. Borderline enlarged bilateral pelvic sidewall lymph nodes are again noted. The bladder, uterus, bilateral adnexa are unremarkable. Hepatic steatosis. Cholelithiasis. No definite gallbladder wall thickening. The unenhanced spleen, adrenal glands, and pancreas are unremarkable. Right-sided nephrolithiasis again noted. Additional punctate calcifications within the renal sinuses may be vascular. No ureteral stones. No hydronephrosis. Moderate bilateral perinephric edema persists. Normal caliber abdominal aorta. No retroperitoneal lymphadenopathy. Suboptimal evaluation for bowel pathology due to the lack of intravenous and oral contrast. There is a 5.2 cm rectal stool ball. No definite bowel wall thickening or obstruction. IMPRESSION: 1. Large amount of ascites resulting in the markedly distended abdomen. 2. Extensive subcutaneous edema within the anterior abdominal wall. An underlying cellulitis is not excluded. 3. No significant change in the mildly enlarged pelvic and inguinal lymph nodes. These may be reactive. 4. No definite bowel wall thickening or obstruction. 5. Cholelithiasis. 6. Right-sided nephrolithiasis. No hydronephrosis. 7. Additional findings as described above. TTE 02/2023 EF 60%; moderate CLVH; valves ok; limited study
[2023-05-03] MEDS: cefTRIAXone SODIUM 2,000 MG in DEXTROSE 5% 50 ML IV SCH (14:45)
[2023-05-03] MEDS: FUROSEMIDE 40 MG/4 ML VIAL IV SCH ×2 (14:48→22:18)
--- NOTE | 2023-05-03 16:31 | Hospitalist Progress Note ---
Date of Service May 03, 2023 Assessment & Plan (1) Ascites: Plan: (1) Ascites: likely from Proteinuria possible underlying Cirrhosis? -- 05/02 s/p therapeutic parecentesis draining 3 L No SBP based on fluid studies --Nephro consulted --Lasix 80 mg IV every 8 hours with albumin Possible repeat paracentesis on Friday (2) Nephrotic range proteinuria: Plan: Chronic kidney disease, stage 4 Has not been worked up secondary to patient lack of followup in the office. Consulting nephrology here for assistance. May be the main reason for his ascites. Patient with large volume ascites for over 6 months with previous admissions where he left AMA prior to workup or treatment for decompensation of this now presents with extreme fluid overload limiting QOL and daily functions. There is wasting of arms and a cachectic and malnourished appearance to the patient who also is reporting not being able to eat in the past week. SAAG gradient is 0.8 suggesting that portal HTN is not necessarily the cause of the ascites. Previously, it was suspected that this ascites may be related to nephrotic range proteinuria. He has a known history of noncompliance with medications and nephrotic range proteinuria with no workup as he has declined followup. Notably, he was recently admitted for a short time where an echo revealed a preserved EF and diastolic dysfunction was present. Notably CAT scan reveals fatty liver without evidence of cirrhosis. No comment on clear portal vein on CT scan so US liver ordered to ensure this was ruled out. -- crea 2.6-2.7 Nephro consulted (3) HTN (hypertension): Plan: uncontrolled, patient has a h/o noncompliance and poorly controlled blood pressure. Cont current medications for now and adjust medications as needed in hospital. Low salt diet for now. -- continue Carvedilol (4) Abdominal wall cellulitis: Plan: continue Ceftriaxone IV plus doxycycline (5) Pneumonia: Plan: chronic smoker with ongoing chronic disease at risk for pneumonia, especially given the lack of physical movement recently. Covering empirically for pneumonia with Rocephin and azithromycin for now until he is more clinically improved and may be reassessed pending blood and sputum cultures and clinical improvement. -- sputum culture: pending Ceftri + doxycycline (6) Tobacco use: Plan: ongoing smoker, contemplative phase. (7) Severe protein-calorie malnutrition: Plan: 2/2 ongoing cirrhosis and poor PO intake and some vomiting in the last 3 days. Supportive care with antiemetics as needed and dietary consulted. (8) Morbid obesity: (9) Noncompliance: Plan: He is a member of the [facility]. Heparin Full Code as confirmed with the patient on admission. Disposition pending lives at home plan of care discussed with patient in detail all questions answered patient is understanding, agreeable, comfortable with the plan of care Admission and Anticipated Discharge Date Admission Date: May 03, 2023 Subjective Follow-up for ascites, proteinuria, possible underlying cirrhosis, etc. Seen resting in bed, sleeping but easily awakened States she feels tired, has less abdominal discomfort Denies cough, shortness of breath, fevers or chills Denies pain on the abdominal wall No other symptoms Review of Systems Review of Systems: all noted and negative except for above Physical Exam Physical Exam: Exam performed in the presence of FATEMEH Mejía General- oriented x 3, not in distress, speaks in sentences with no effort or accessory muscle use Eyes- anicteric Neck- no JVD Lungs-very faint crackles at the right base, clear on the left Heart- normal rate, regular rhythm; no murmurs Abdomen- normal bowel sounds, distended, not tense, soft, nontender Mild erythema and warmth on the lower abdominal wall Extremities-grade 1 lower extremity edema, dry skin bilateral feet Neuro- alert, oriented x 3; no gross focal neurologic deficits Skin- warm & dry Results & Data Results & Data Vital Signs (Past 12 Hours) Vital Signs Temp Pulse Pulse Resp BP BP Pulse Ox 05/03/23 15:34 36.3 C L 68 18 131/66 90 05/03/23 11:30 73 13 100 05/03/23 11:30 136/80 05/03/23 11:20 67 14 99 05/03/23 11:10 67 12 99 05/03/23 11:00 67 12 99 05/03/23 11:00 134/73 05/03/23 10:50 68 18 100 05/03/23 10:40 66 14 97 05/03/23 10:30 64 15 99 05/03/23 10:30 140/80 05/03/23 10:20 62 13 99 05/03/23 10:00 59 L 15 109/64 98 05/03/23 09:30 71 16 146/72 H 99 05/03/23 09:00 66 15 144/70 H 99 05/03/23 08:30 69 15 131/80 98 05/03/23 08:00 62 14 130/68 99 05/03/23 07:30 66 13 134/79 98 05/03/23 07:00 67 13 125/71 99 05/03/23 06:30 73 16 137/72 96 05/03/23 07:33 70 05/03/23 05:38 75 05/03/23 05:28 05/03/23 05:22 75 19 132/74 96 05/03/23 05:20 73 15 97 05/03/23 05:10 74 18 90 05/03/23 05:00 74 20 121/70 91 05/03/23 04:50 78 20 92 05/03/23 04:40 82 21 99 05/03/23 04:30 75 20 136/68 98 05/03/23 04:45 Pulse Ox O2 Del Method O2 Del Method O2 Flow Rate 05/03/23 15:34 Room Air 05/03/23 11:30 05/03/23 11:30 05/03/23 11:20 05/03/23 11:10 05/03/23 11:00 05/03/23 11:00 05/03/23 10:50 05/03/23 10:40 05/03/23 10:30 05/03/23 10:30 05/03/23 10:20 05/03/23 10:00 Nasal Cannula 2 05/03/23 09:30 Nasal Cannula 2 05/03/23 09:00 Nasal Cannula 2 05/03/23 08:30 Nasal Cannula 2 05/03/23 08:00 Nasal Cannula 2 05/03/23 07:30 Nasal Cannula 2 05/03/23 07:00 Nasal Cannula 2 05/03/23 06:30 Nasal Cannula 2 05/03/23 07:33 05/03/23 05:38 05/03/23 05:28 Nasal Cannula 2 05/03/23 05:22 2 05/03/23 05:20 2 05/03/23 05:10 0 05/03/23 05:00 05/03/23 04:50 05/03/23 04:40 05/03/23 04:30 05/03/23 04:45 91 Room Air all noted and reviewed including below
[2023-05-03] MEDS: oxyCODONE HCL IR 5 MG TAB (IMMEDIATE RELEASE) PO PRN (22:18)
[2023-05-03] MEDS: MELATONIN 3 MG TAB PO PRN (22:18)
[2023-05-03] MEDS: carvediloL 12.5 MG TAB PO SCH (22:20)
[2023-05-04] MEDS: HEPARIN SOD 5,000 UNIT/0.5 ML VIAL SQ SCH ×3 (06:18→21:33)
[2023-05-04] MEDS: FUROSEMIDE 40 MG/4 ML VIAL IV SCH ×2 (06:18→18:10)
[2023-05-04] MEDS: ALBUMIN 25% 25 GM/100 ML VIAL IV SCH ×2 (08:00→18:10)
[2023-05-04] MEDS: DOXYCYCLINE HYCLATE 100 MG CAP PO SCH ×2 (08:00→19:48)
[2023-05-04] MEDS: carvediloL 12.5 MG TAB PO SCH ×2 (08:00→19:47)
[2023-05-04] MEDS: PANTOprazole 40 MG TAB PO SCH (08:01)
[2023-05-04] MEDS: INSULIN ASPART PER UNIT CHARGE SC SCH ×4 (08:12→21:36)
[2023-05-04 10:11] LABS: Hematocrit (blood only) 20.9 % (37.0-47.0); Hemoglobin 6.7 g/dl (12.0-16.0); Mean Corpuscular Hemoglobin 25.2 pg (25.0-34.0); Mean Corpuscular Hgb Conc 32.1 g/dL (32.0-36.0); Mean Corpuscular Volume 78.6 fL (80.0-100.0); Mean Platelet Volume 10.1 fL (9.4-12.4); Platelet Count 347 K/uL (130-400); RDW Coefficient of Variation 16.7 % (11.5-14.5); RDW Standard Deviation 47.8 fL (36.4-46.3); Red Blood Count 2.66 M/uL (4.20-5.40); White Blood Count 12.53 K/ul (4.8-10.8)
[2023-05-04 10:24] LABS: Basophils # (auto) 0.05 K/uL (0-0.2); Basophils % (auto) 0.4 %; Eosinophils # (auto) 0.21 K/uL (0-0.50); Eosinophils % (auto) 1.7 %; Immature Granulocytes # (auto) 0.09 K/uL (0.01-0.20); Immature Granulocytes % (auto) 0.7 %; Lymphocytes % (auto) 5.6 %; Monocytes # (auto) 0.74 K/uL (0.11-0.59); Monocytes % (auto) 5.9 %; Neutrophils # (auto) 10.74 K/uL (1.40-6.50); Neutrophils % (auto) 85.7 %; Ovalocytes 1+
--- NOTE | 2023-05-04 11:43 | Nephrology Progress Note ---
Date of Service May 04, 2023 Assessment & Plan (1) CKD (chronic kidney disease) stage 4, GFR 15-29 ml/min: Plan: CKD 4 which appears to be progressive and high risk for ESRD. That said, chemistries currently acceptable. Chronic hypervolemia best managed w/ diure tics. no indication at this time for dialysis; if that need arises this will be an even more challenging situation clinically. creatinine ran low 2's in September 2022 (eGFR 28); now more in mid 2's (eGFR 21). -repeat UACM ordered 05/03 and pending -absolutely needs OP f/u w/ nephro > for cystatin C testing, for renal biopsy, for ESRD orientation/discussion -avoid nsaids -would not continue metformin at hospital d/c given eGFR and non adherence to medical recommendations >>pt scheduled to start IV diuresis this evening lasix 80 mg IV bid17; follow for adherence >>for BMP from later today after pRBC >>ordered 1.5L FR (2) Proteinuria: Plan: longstanding nephritic sediment with variable proteinuria > 1.5-11.5 gm. in the setting of hepatic steatosis and + anti smooth MM Ab, concern for liver disease. GI recommends outpt liver bx and liver w/u. negative serologic work up severe /persistent hypoalbuminemia and volume overload which are intertwined and may or may not relate to possible nephrotic syndrome or/and liver disease -needs OP renal biopsy most likely -repeat prot/creat ratio and consider 24 hr urine for protein, sodium, creatinine if /when able (3) Noncompliance: Plan: pt has signed out AMA repeatedly from hospital and has done no requested outpt f/u for renal care/bx or for liver biopsy while all patients have the right to make bad decisions, concern here that severe anxiety or other ?psych or ?psychosocial barrier may be hindering his care he denies having OP psych care; tells me his is primary support for psych issues >consider family conference/palliative consultation/psych eval to identify /address barriers to care where possible Admission and Anticipated Discharge Date Admission Date: May 03, 2023 Subjective hgb 6.7 this am for pRBC; at bedside. pt denies sob, uncontrolled pain, edema. tolerating po; not sure how her abdomen is but thinks [place]. Review of Systems Review of Systems: All systems reviewed & are unremarkable except as noted in Subjective Physical Exam Constitutional: well developed, + frail appearing, cooperative and + malnourished; no acute distress Eyes: EOM intact bilaterally ENMT: Ears: no external ear abnormality Nose: no external nose abnormality Mouth: + dry oral mucous membranes Neck: no nuchal rigidity Respiratory: normal respiratory effort Auscultation: + diminished lung sounds Cardiovascular: RRR, no murmur, no edema Gastrointestinal (Abdomen): Inspection/Auscultation: + abdomen distended, normal bowel sounds and + abdominal edema (abd wall) Percussion/Palpation: + ascites and + abdomen firm; abdomen nontender Musculoskeletal: Extremities: strength 5/5 throughout Skin: no rashes, warm and dry Psychiatric: Orientation: alert and oriented x 3 Speech: normal rate/rhythm/volume of speech Affect: + anxious affect Results & Data Vital Signs (Past 12 Hours) Vital Signs Temp Pulse Resp BP Pulse Ox O2 Del Method 05/04/23 07:00 36.9 C 74 18 122/76 94 Room Air Laboratory Results 05/04/23 09:51 05/03/23 08:02
[2023-05-04] MEDS: cefTRIAXone SODIUM 2,000 MG in DEXTROSE 5% 50 ML IV SCH (13:43)
[2023-05-04] MEDS ORDERED: SODIUM CHLORIDE 0.9% 250 ML IV PRN (13:55)
[2023-05-04] MEDS ORDERED: diphenhydrAMINE Capsule 25 MG CAP PO ONE (13:59)
[2023-05-04] MEDS: ACETAMINOPHEN 325 MG TAB PO PRN ×2 (14:38→21:31)
--- NOTE | 2023-05-04 17:13 | Hospitalist Progress Note ---
Date of Service May 04, 2023 Assessment & Plan (1) ARF (acute renal failure): Plan: (1) Ascites: likely from Proteinuria possible underlying Cirrhosis? -- 05/02 s/p therapeutic parecentesis draining 3 L No SBP based on fluid studies --Nephro consulted --Lasix 80 mg IV every12 hours with albumin repeat paracentesis 5 L tomorrow (2) Nephrotic range proteinuria: Plan: Chronic kidney disease, stage 4 Has not been worked up secondary to patient lack of followup in the office. Consulting nephrology here for assistance. May be the main reason for his ascites. Patient with large volume ascites for over 6 months with previous admissions where he left AMA prior to workup or treatment for decompensation of this now presents with extreme fluid overload limiting QOL and daily functions. There is wasting of arms and a cachectic and malnourished appearance to the patient who also is reporting not being able to eat in the past week. SAAG gradient is 0.8 suggesting that portal HTN is not necessarily the cause of the ascites. Previously, it was suspected that this ascites may be related to nephrotic range proteinuria. He has a known history of noncompliance with medications and nephrotic range proteinuria with no workup as he has declined followup. Notably, he was recently admitted for a short time where an echo revealed a preserved EF and diastolic dysfunction was present. Notably CAT scan reveals fatty liver without evidence of cirrhosis. No comment on clear portal vein on CT scan so US liver ordered to ensure this was ruled out. -- crea 2.6 --> 2.7 Nephro consulted Iron deficiency anemia Also likely secondary to CKD -- We will give 1 unit of packed RBCs We will replace on (3) HTN (hypertension): Plan: uncontrolled, patient has a h/o noncompliance and poorly controlled blood pressure. Cont current medications for now and adjust medications as needed in hospital. Low salt diet for now. -- continue Carvedilol (4) Abdominal wall cellulitis: Plan: continue Ceftriaxone IV plus doxycycline (5) Pneumonia: Plan: chronic smoker with ongoing chronic disease at risk for pneumonia, especially given the lack of physical movement recently. Covering empirically for pneumonia with Rocephin and azithromycin for now until he is more clinically improved and may be reassessed pending blood and sputum cultures and clinical improvement. -- sputum culture: pending Ceftri + doxycycline (6) Tobacco use: Plan: ongoing smoker, contemplative phase. (7) Severe protein-calorie malnutrition: Plan: 2/2 ongoing cirrhosis and poor PO intake and some vomiting in the last 3 days. Supportive care with antiemetics as needed and dietary consulted. (8) Morbid obesity: (9) Noncompliance: Plan: He is a member of the [employer] [facility] [facility]. Heparin Full Code as confirmed with the patient on admission. Disposition pending lives at home plan of care discussed with patient in detail all questions answered patient is understanding, agreeable, comfortable with the plan of care Admission and Anticipated Discharge Date Admission Date: May 03, 2023 Subjective ff up for ascites, etc Patient's at the bedside seen resting in bed, not in distress states he is having pain in the lower abdomen no RUQ pain but concerned about her gallstones no chest pain, dyspnea, palpitations, dizziness no fever/chills no other symptoms Review of Systems Review of Systems: all noted and negative except for above Physical Exam Physical Exam: General- oriented x 3, not in distress, speaks in sentences with no effort or accessory muscle use Eyes- anicteric Neck- no JVD Lungs- clear breath sounds BL Heart- normal rate, regular rhythm; no murmurs Abdomen- normal bowel sounds, distended, not tense, soft, nontender Mild erythema and warmth on the lower abdominal wall Extremities-grade 1 lower extremity edema, dry skin bilateral feet Neuro- alert, oriented x 3; no gross focal neurologic deficits Skin- warm & dry Results & Data Results & Data Vital Signs (Past 12 Hours) Vital Signs Temp Pulse Pulse Resp BP BP Pulse Ox 05/04/23 16:15 36.2 C L 71 18 149/74 H 95 05/04/23 15:00 36.6 C 68 18 135/69 93 05/04/23 15:45 36.3 C L 68 19 124/66 05/04/23 15:30 36.5 C 69 18 136/67 92 05/04/23 15:11 36.6 C 68 18 135/69 93 05/04/23 11:00 36.8 C 79 18 113/62 97 05/04/23 07:00 36.9 C 74 18 122/76 94 O2 Del Method 05/04/23 16:15 05/04/23 15:00 Room Air 05/04/23 15:45 05/04/23 15:30 05/04/23 15:11 05/04/23 11:00 Room Air 05/04/23 07:00 Room Air all noted and reviewed including below
[2023-05-04 18:01] LABS: Appearance Urine Cloudy (Clear); Bacteria Urine Automated Negative (Negative); Bilirubin Urine Negative (Negative); Blood Urine Negative (Negative); Color Urine Dark Yellow; Epithelial Cell Urine Auto >30 /lpf (0-5); Glucose Urine UA Negative (Negative); Ketones Urine Trace (Negative); Leukocyte Esterase Urine Trace (Negative); Nitrite Urine Negative (Negative); Protein Urine 3+ (Negative); Specific Gravity Urine 1.019 (1.000-1.030); Urobilinogen Urine Negative (Negative); pH Urine 5.5 (4.5-7.5)
[2023-05-04 18:32] LABS: RBC Urine Automated 0-4 /hpf (0-4)
[2023-05-04 18:59] LABS: Creatinine Urine Random 156.3 mg/dl; Protein Creatinine Ratio Urine 2.5 (0-0.2); Total Protein Urine Random 388.2 mg/dl (0-11.9)
[2023-05-04 19:23] LABS: Basophils # (auto) 0.03 K/uL (0-0.2); Basophils % (auto) 0.3 %; Eosinophils % (auto) 1.7 %; Hematocrit (blood only) 23.8 % (37.0-47.0); Hemoglobin 7.8 g/dl (12.0-16.0); Immature Granulocytes # (auto) 0.08 K/uL (0.01-0.20); Immature Granulocytes % (auto) 0.7 %; Lymphocytes # (auto) 0.92 K/uL (1.2-3.4); Lymphocytes % (auto) 7.9 %; Mean Corpuscular Hemoglobin 25.8 pg (25.0-34.0); Mean Corpuscular Hgb Conc 32.8 g/dL (32.0-36.0); Mean Corpuscular Volume 78.8 fL (80.0-100.0); Mean Platelet Volume 10.1 fL (9.4-12.4); Monocytes # (auto) 0.68 K/uL (0.11-0.59); Monocytes % (auto) 5.8 %; Neutrophils # (auto) 9.75 K/uL (1.40-6.50); Neutrophils % (auto) 83.6 %; Platelet Count 346 K/uL (130-400); RDW Coefficient of Variation 16.8 % (11.5-14.5); RDW Standard Deviation 48.5 fL (36.4-46.3); Red Blood Count 3.02 M/uL (4.20-5.40); White Blood Count 11.66 K/ul (4.8-10.8)
[2023-05-04 19:36] LABS: BUN Creatinine Ratio 12.9 (10-20); Calcium 8.1 mg/dl (8.6-10.3); Creatinine Clr Calc Pharmacy 36.6 ml/min; Est GFR (African American) 25.5 ml/min; Potassium 3.2 mmol/L (3.5-5.1)
[2023-05-04 19:41] LABS: Ovalocytes 1+
[2023-05-04] MEDS: oxyCODONE HCL IR 5 MG TAB (IMMEDIATE RELEASE) PO PRN (21:32)
[2023-05-04] MEDS: MELATONIN 3 MG TAB PO PRN (21:32)
[2023-05-04] MEDS ORDERED: POTASSIUM CHLORIDE CRTAB 20 MEQ TABCR PO STA (21:50)
--- NOTE | 2023-05-04 22:59 | Ultrasound Report ---
US gallbladder CLINICAL HISTORY: r/o cholecystitis, cholelithiasis TECHNIQUE: Multiple real-time sonographic images of the right upper quadrant were obtained. Comparison: Comparison is made to CT abdomen pelvis 05/01/2023 FINDINGS: The liver is diffusely coarsened in echotexture, with a nodular contour. The liver appears shrunken i n appearance. These findings are suggestive of cirrhosis. No focal mass lesions are seen. No intr ahepatic ductal dilatation is seen. Linear hyperechoic foci with posterior shadowing are identified layering dependently within the gallbladder, which are consistent with gallstones. The gallbladder wa ll is not thickened. There is no pericholecystic fluid present. A sonographic Ceron's sign was not elicited by the laboratory development technician. The common duct was not visualized. The pancreas is not well visualiz ed secondary to overlying bowel gas. The right kidney shows normal echogenicity, cortical thickness and renal contour. The right kidney sh ows no evidence of hydronephrosis or mass. Large ascites is seen. IMPRESSION: 1. Cholelithiasis is seen without evidence of cholecystitis. 2. Large ascites with cirrhosis. ACT 112: Negative or not required by law. Electronically signed by: Aneudy Mark M.D. 05/04/2023 10:58 PM
--- NOTE | 2023-05-04 23:57 | Communication Note ---
Date of Service: May 04, 2023 Patient refusing telemetry monitoring and vital signs check as per RN. Stable vital signs. Downgrade from med telemetry as per RN recommendation.
[2023-05-05] MEDS: ALBUMIN 25% 25 GM/100 ML VIAL IV SCH ×3 (00:54→15:36)
[2023-05-05] MEDS: HEPARIN SOD 5,000 UNIT/0.5 ML VIAL SQ SCH ×3 (05:50→19:30)
[2023-05-05 07:53] LABS: Basophils # (auto) 0.07 K/uL (0-0.2); Basophils % (auto) 0.6 %; Eosinophils # (auto) 0.29 K/uL (0-0.50); Eosinophils % (auto) 2.7 %; Hematocrit (blood only) 22.6 % (37.0-47.0); Hemoglobin 7.3 g/dl (12.0-16.0); Immature Granulocytes # (auto) 0.07 K/uL (0.01-0.20); Immature Granulocytes % (auto) 0.6 %; Lymphocytes # (auto) 1.02 K/uL (1.2-3.4); Lymphocytes % (auto) 9.5 %; Mean Corpuscular Hgb Conc 32.3 g/dL (32.0-36.0); Mean Corpuscular Volume 80.4 fL (80.0-100.0); Mean Platelet Volume 10.4 fL (9.4-12.4); Monocytes # (auto) 0.74 K/uL (0.11-0.59); Monocytes % (auto) 6.9 %; Neutrophils # (auto) 8.59 K/uL (1.40-6.50); Neutrophils % (auto) 79.7 %; Platelet Count 340 K/uL (130-400); RDW Coefficient of Variation 16.7 % (11.5-14.5); Red Blood Count 2.81 M/uL (4.20-5.40); White Blood Count 10.78 K/ul (4.8-10.8)
[2023-05-05 08:10] LABS: BUN Creatinine Ratio 13.4 (10-20); Calcium 8.2 mg/dl (8.6-10.3); Creatinine Clr Calc Pharmacy 37.1 ml/min; Est GFR (African American) 25.8 ml/min; Est GFR (Non-African American) 22.3 ml/min; Potassium 3.1 mmol/L (3.5-5.1)
[2023-05-05] MEDS: DOXYCYCLINE HYCLATE 100 MG CAP PO SCH ×2 (08:15→19:30)
[2023-05-05] MEDS: carvediloL 12.5 MG TAB PO SCH ×3 (08:15→19:38)
[2023-05-05] MEDS: FUROSEMIDE 40 MG/4 ML VIAL IV SCH ×2 (08:16→08:50)
[2023-05-05] MEDS: PANTOprazole 40 MG TAB PO SCH (08:16)
[2023-05-05 08:21] LABS: Ovalocytes 1+; Polychromasia 1+; Tear Drop Cells 1+
--- NOTE | 2023-05-05 08:39 | Nephrology Progress Note ---
Date of Service May 05, 2023 Assessment & Plan (1) CKD (chronic kidney disease) stage 4, GFR 15-29 ml/min: Plan: CKD 4 which appears to be progressive and high risk for ESRD. That said, chemistries currently acceptable. Chronic hypervolemia best managed w/ diure tics. no indication at this time for dialysis; if that need arises this will be an even more challenging situation clinically. creatinine ran low 2's in September 2022 (eGFR 28); now more in mid 2's (eGFR 21). -repeat UACM remarkable for 2.5 gm proteinuria, ketonuria -absolutely needs OP f/u w/ nephro > for cystatin C testing, for renal biopsy, for ESRD orientation/discussion -avoid nsaids -would not continue metformin at hospital d/c given eGFR and non adherence to medical recommendations >>>for today w/ paracentesis held lasix 80 mg IV bid17; await labs tomorrow before resuming -cont 1.5L FR -agree w/ 40 mEq po bid K >> had 2 x 40 mEq doses po today and will then put it on hold while lasix on hold >>>consider adding spironolactone if labs stable -continue albumin IV periprocedural (2) Proteinuria: Plan: longstanding nephritic sediment with variable proteinuria > 1.5-11.5 gm. notably no microhematuria 05/03 but this is exception. in the setting of hepatic steatosis and + anti smooth MM Ab, concern for liver disease. GI recommends outpt liver bx and liver w/u. negative serologic work up severe /persistent hypoalbuminemia and volume overload which are intertwined and may or may not relate to possible nephrotic syndrome or/and liver disease -needs OP renal biopsy most likely -repeat prot/creat ratio and consider 24 hr urine for protein, sodium, creatinine if /when able (3) Noncompliance: Plan: pt has signed out AMA repeatedly from hospital and has done no requested outpt f/u for renal care/bx or for liver biopsy while all patients have the right to make bad decisions, concern here that severe anxiety or other ?psych or ?psychosocial barrier may be hindering his care he denies having OP psych care; tells me his is primary support for psych issues >consider family conference/palliative consultation/psych eval to identify /addr ess barriers to care where possible Admission and Anticipated Discharge Date Admission Date: May 03, 2023 Subjective seen on AM rounds; pt focussed on paracentesis; no sob or edema; feels his abdominal girth increasing Review of Systems Review of Systems: All systems reviewed & are unremarkable except as noted in Subjective Physical Exam Constitutional: well developed, + frail appearing, cooperative and + malnourished; no acute distress Eyes: EOM intact bilaterally ENMT: Ears: no external ear abnormality Nose: no external nose abnormality Mouth: + dry oral mucous membranes Neck: no nuchal rigidity Respiratory: normal respiratory effort Auscultation: + diminished lung sounds Cardiovascular: RRR, no murmur, no edema Gastrointestinal (Abdomen): Inspection/Auscultation: + abdomen distended, normal bowel sounds and + abdominal edema (abd wall) Percussion/Palpation: + ascites and + abdomen firm; abdomen nontender Musculoskeletal: Extremities: strength 5/5 throughout Skin: no rashes, warm and dry Psychiatric: Orientation: alert and oriented x 3 Speech: normal rate/rhythm/volume of speech Affect: + anxious affect Results & Data Vital Signs (Past 12 Hours) Vital Signs Temp Pulse Resp BP Pulse Ox O2 Del Method 05/05/23 07:40 36.8 C 05/05/23 07:29 75 18 138/76 94 Room Air 05/05/23 00:39 36.4 C L 68 16 129/69 93 Room Air 05/05/23 00:35 Room Air 05/05/23 00:11 36.8 C 73 18 137/66 94 Room Air Laboratory Results 05/05/23 06:56 05/05/23 06:56
[2023-05-05] MEDS: INSULIN ASPART PER UNIT CHARGE SC SCH ×4 (08:49→21:54)
[2023-05-05] MEDS ORDERED: POTASSIUM CHLORIDE CRTAB 20 MEQ TABCR PO SCH ×2 (09:00→11:55)
[2023-05-05 09:07] LABS: Magnesium 1.6 mg/dl (1.7-2.4)
[2023-05-05] MEDS ORDERED: POTASSIUM CHLORIDE 20 MEQ/15 ML UDC PO SCH (09:15)
[2023-05-05] MEDS ORDERED: POTASSIUM CHLORIDE CRTAB 20 MEQ TABCR PO STA (10:51)
--- NOTE | 2023-05-05 14:13 | Ultrasound Report ---
Ultrasound-guided paracentesis INDICATION: Ascites PROCEDURE: Procedure and risks were explained. Informed consent was obtained. A final timeout was com pleted. The left lower quadrant was prepped and draped in sterile fashion. 1% buffered lidocaine was utilized for skin anesthesia. Utilizing ultrasound guidance, a 5 [place] safety centesis catheter was advanced into the pocket of clayton dexter. Ultrasound images were obtained. 5 L of yellow ascites fluid was removed, with 1 L sent to the lab for analysis. The catheter was removed and Band-Aid applied. The patient tolerated the procedure well. Vital signs will be monitored postprocedure. IMPRESSION: Ultrasound-guided paracentesis as above. Performed, dictated, and signed by Pedrito Maya PA-C; to be co-signed by Dr. Buddy Velez. Electronically signed by: Buddy Velez M.D. 05/05/2023 2:19 PM
[2023-05-05] MEDS: cefTRIAXone SODIUM 2,000 MG in DEXTROSE 5% 50 ML IV SCH (14:44)
[2023-05-05] MEDS ORDERED: Nursing to Pharmacy Communication SCH (17:00)
[2023-05-05] MEDS: POTASSIUM CHLORIDE CRTAB 20 MEQ TABCR PO SCH (17:23)
--- NOTE | 2023-05-05 18:49 | Hospitalist Progress Note ---
Date of Service May 05, 2023 Assessment & Plan (1) ARF (acute renal failure): Plan: (1) Ascites: likely from Proteinuria possible underlying Cirrhosis? -- 05/02 s/p therapeutic parecentesis draining 3 L No SBP based on fluid studies --Nephro consulted --Lasix 80 mg IV every12 hours with albumin 05/05 repeat paracentesis 5 L today with albumin hold Lasix after paracentesis replace K (2) Nephrotic range proteinuria: Plan: Chronic kidney disease, stage 4 Has not been worked up secondary to patient lack of followup in the office. Consulting nephrology here for assistance. May be the main reason for his ascites. Patient with large volume ascites for over 6 months with previous admissions where he left AMA prior to workup or treatment for decompensation of this now presents with extreme fluid overload limiting QOL and daily functions. There is wasting of arms and a cachectic and malnourished appearance to the patient who also is reporting not being able to eat in the past week. SAAG gradient is 0.8 suggesting that portal HTN is not necessarily the cause of the ascites. Previously, it was suspected that this ascites may be related to nephrotic range proteinuria. He has a known history of noncompliance with medications and nephrotic range proteinuria with no workup as he has declined followup. Notably, he was recently admitted for a short time where an echo revealed a preserved EF and diastolic dysfunction was present. Notably CAT scan reveals fatty liver without evidence of cirrhosis. No comment on clear portal vein on CT scan so US liver ordered to ensure this was ruled out. -- crea 2.6 --> 2.7--> 2.5 Nephro consulted Iron deficiency anemia Also likely secondary to CKD -- given 1 unit PRBC Hg 7.3 (3) HTN (hypertension): Plan: uncontrolled, patient has a h/o noncompliance and poorly controlled blood pressure. Cont current medications for now and adjust medications as needed in hospital. Low salt diet for now. -- continue Carvedilol (4) Abdominal wall cellulitis: Plan: continue Ceftriaxone IV plus doxycycline (5) Pneumonia: Plan: chronic smoker with ongoing chronic disease at risk for pneumonia, especially given the lack of physical movement recently. Covering empirically for pneumonia with Rocephin and azithromycin for now until he is more clinically improved and may be reassessed pending blood and sputum cultures and clinical improvement. -- respiratory status stable Ceftri + doxycycline (6) Tobacco use: Plan: ongoing smoker, contemplative phase. (7) Severe protein-calorie malnutrition: Plan: 2/2 ongoing cirrhosis and poor PO intake and some vomiting in the last 3 days. Supportive care with antiemetics as needed and dietary consulted. (8) Morbid obesity: (9) Noncompliance: Plan: He is a member of the [employer]. Heparin Full Code as confirmed with the patient on admission. Disposition pending lives at home plan of care discussed with patient in detail, patient's present as well all questions answered they are understanding, agreeable, comfortable with the plan of care Admission and Anticipated Discharge Date Admission Date: May 03, 2023 Subjective ff up for ascites, etc seen with patient's Drea and FATEMEH Dickens at bedside throughout whole encounter states he feels ok overall eager to have paracentesis performed discussed re: K supplement- patient states she cannot tolerate PO, liquid K, offered powdered form, he declined explained we do not recommend IV K as this may contribute to fluid overload offered to split K pills, patient got upset- "no one is listening to me in this hospital" explained to patient we are listening to him and we are just trying to figure out what would be best for K repletion patient 's nodding with my explanation patient states she will try split K pills no other symptoms Review of Systems Review of Systems: all noted and negative except for above Physical Exam Physical Exam: General- oriented x 3, not in distress, speaks in sentences with no effort or accessory muscle use Eyes- anicteric Neck- no JVD Lungs- clear breath sounds bilaterally, no rales/wheezes Heart- normal rate, regular rhythm; no murmurs Abdomen- normal bowel sounds, significantly distended, soft, somewhat tender on palpation of lower abd wall Extremities- grade 1 pretibial edema, no calf tenderness Neuro- alert, oriented x 3; no gross focal neurologic deficits Skin- warm & dry Results & Data Results & Data Vital Signs (Past 12 Hours) Vital Signs Temp Pulse Resp BP Pulse Ox O2 Del Method 05/05/23 14:00 36.3 C L 73 16 154/73 H 95 Room Air 05/05/23 14:15 36.8 C 71 16 156/72 H 94 Room Air 05/05/23 07:35 Room Air 05/05/23 07:40 36.8 C 07/17/23 07:29 75 18 138/76 94 Room Air all noted and reviewed including below
[2023-05-05] MEDS: MELATONIN 3 MG TAB PO PRN (19:26)
[2023-05-05] MEDS: oxyCODONE HCL IR 5 MG TAB (IMMEDIATE RELEASE) PO PRN (19:26)
[2023-05-05] MEDS: POTASSIUM CHLORIDE / WTR 10 MEQ/100 ML PLCT IV SCH ×2 (19:28→20:41)
[2023-05-06] MEDS: ALBUMIN 25% 25 GM/100 ML VIAL IV SCH (00:07)
[2023-05-06] MEDS: HEPARIN SOD 5,000 UNIT/0.5 ML VIAL SQ SCH ×3 (05:53→21:25)
[2023-05-06 08:09] LABS: BUN Creatinine Ratio 13.7 (10-20); Calcium 8.1 mg/dl (8.6-10.3); Creatinine Clr Calc Pharmacy 37.8 ml/min; Est GFR (African American) 26.5 ml/min; Est GFR (Non-African American) 22.8 ml/min; Potassium 3.3 mmol/L (3.5-5.1)
[2023-05-06] MEDS: POTASSIUM CHLORIDE CRTAB 20 MEQ TABCR PO SCH ×2 (08:54→17:21)
[2023-05-06] MEDS: carvediloL 12.5 MG TAB PO SCH ×2 (08:54→20:48)
[2023-05-06] MEDS: DOXYCYCLINE HYCLATE 100 MG CAP PO SCH ×2 (08:55→20:48)
[2023-05-06] MEDS: PANTOprazole 40 MG TAB PO SCH (08:55)
[2023-05-06] MEDS: INSULIN ASPART PER UNIT CHARGE SC SCH ×4 (09:04→20:52)
--- NOTE | 2023-05-06 13:06 | Nephrology Progress Note ---
Date of Service May 06, 2023 Assessment & Plan (1) CKD (chronic kidney disease) stage 4, GFR 15-29 ml/min: Plan: CKD 4 which appears to be progressive and high risk for ESRD. That said, chemistries currently acceptable since K is being repleted aggressively. Chr onic hypervolemia best managed w/ diuretics. no indication at this time for dialysis; if that need arises this will be an even more challenging situation clinically, ezequiel in pt who possibly has decompensated liver failure (cause of recurrent ascites not well established). creatinine ran low 2's in September 2022 (eGFR 28); now more in mid 2's (eGFR 21). cause of renal failure unclear; ? role for liver disease though liver disease status also not clear. repeat UACM remarkable for 2.5 gm proteinuria, ketonuria -absolutely needs OP f/u w/ nephro > for cystatin C testing, for renal biopsy, for ESRD orientation/discussion -avoid nsaids >>>w/ recent paracentesis and repeat procedure, continue to hold lasix 80 mg IV bid17 >> I explained this to the pt -cont 1.5L FR -agree w/ 40 mEq po bid K >> pt refusing doses at times >consider adding spironolactone when labs stable -continue albumin IV periprocedural per hospitalist ->>> hemoglobin drifting down and may require repeat transfusion soon >>>>in general would advise against 3 large volume paracenteses in one week in pt w/ CKD 4 and no clear cause for ascites NEPHRO D/C RECOMMENDATIONS (if for d/c given her tendency to leave AMA) -resume diuretics 05/09/23 -recommend lasix 80 mg 2 daily doses at least 4 h apart and spironolactone 50 mg daily and K 40 mEq bid -bmp w/in one week of discharge -hospital d/c appt w/ nephro w/in one week of hospital d/c Dr Louise or Melania -do not d/c on metformin (2) Proteinuria: Plan: longstanding nephritic sediment with variable proteinuria > 1.5-11.5 gm. notably no microhematuria 05/03 but this is exception. in the setting of hepatic steatosis and + anti smooth MM Ab, concern for liver disease. GI recommends outpt liver bx and liver w/u. negative serologic work up for proteinuria. severe /persistent hypoalbuminemia and volume overload which are intertwined and may or may not relate to possible nephrotic syndrome or/and liver disease -needs OP renal biopsy most likely -repeat prot/creat ratio and consider 24 hr urine for protein, sodium, creatinine if /when able (3) Noncompliance: Plan: pt has signed out AMA repeatedly from hospital and has done no requested outpt f/u for renal care/bx or for liver biopsy while all patients have the right to make bad decisions, concern here that severe anxiety or other ?psych or ?psychosocial barrier may be hindering his care he denies having OP psych care; tells me his is primary support for psych issues >>>pt has repeatedly declined palliative consultation to discuss goals of care and identify /address barriers to care where possible >> With at bedside on 2 previous days and again to pt today today, I stressed the importance of outpatient follow-up for liver and kidney issues and mentioned that this has been an large challenge for this patient Admission and Anticipated Discharge Date Admission Date: May 03, 2023 Subjective Tolerated 5 L paracentesis 05/05 without issue. today had 7 L paracentesis. Denies shortness of breath, uncontrolled pain, worsening edema. Some clear drainage from paracentesis site. Still unable to ambulate. Pt requests further 7 L paracentesis on 05/09; also wants to resume diuretics Review of Systems Review of Systems: All systems reviewed & are unremarkable except as noted in Subjective Physical Exam Constitutional: well developed, + frail appearing, cooperative and + m alnourished; no acute distress Eyes: EOM intact bilaterally ENMT: Ears: no external ear abnormality Nose: no external nose abnormality Mouth: + dry oral mucous membranes Neck: no nuchal rigidity Respiratory: normal respiratory effort Auscultation: + diminished lung sounds Cardiovascular: RRR, no murmur, no edema Gastrointestinal (Abdomen): Inspection/Auscultation: + abdomen distended, nor mal bowel sounds and + abdominal edema (abd wall) Percussion/Palpation: + ascites and + abdomen firm; abdomen nontender Musculoskeletal: Extremities: strength 5/5 throughout Skin: no rashes, warm and dry Psychiatric: Orientation: alert and oriented x 3 Speech: normal rate/rhythm/volume of speech Affect: + anxious affect Genitourinary: lozano present Results & Data Vital Signs (Past 12 Hours) Vital Signs Temp Pulse Resp BP Pulse Ox O2 Del Method 05/06/23 08:55 Room Air 05/06/23 07:41 36.9 C 74 16 146/70 H 96 Room Air Laboratory Results 05/05/23 06:56 05/06/23 06:51
[2023-05-06] MEDS: cefTRIAXone SODIUM 2,000 MG in DEXTROSE 5% 50 ML IV SCH (13:52)
--- NOTE | 2023-05-06 14:35 | Hospitalist Progress Note ---
Date of Service May 06, 2023 Assessment & Plan (1) ARF (acute renal failure): (2) Ascites: Plan: ASCITES IN THE SETTING OF PROTEINURIA, CHRONIC KIDNEY DISEASE STAGE IV POSSIBLE UNDERLYING LIVER CIRRHOSIS Status post paracentesis x2 draining 5 L each Improving but still has significant ascites Repeat paracentesis for 7 L ordered for tomorrow Discussed with nephrology, review BUN/creatinine tomorrow, if stable proceed with removal of 7 L ascitic fluid Albumin 50 mg IV ordered for tomorrow with paracentesis Also given Lasix 80 mg IV every 12 with albumin--> currently on hold Creatinine remained stable while admitted around 2.5 Nephrology service managing diuretic regimen Will also need kidney biopsy as an outpatient to determine cause of proteinuria, CKD stage IV GI service consulted Recommend liver biopsy to confirm cirrhosis as an outpatient HYPERTENSION Secondary to poor adherence Continue carvedilol LOWER ABDOMINAL WALL CELLULITIS Improving Continue ceftriaxone IV plus doxycycline PNEUMONIA Seen on CT abdomen pelvis:A few bibasilar linear densities consistent with subsegmental atelectasis. There are few small patchy peripheral groundglass densities within the right lower lobe. This could represent a pneumonia. Improving Continue ceftriaxone plus doxycycline day #4 Active smoker Counseling done Severe protein calorie malnutrition Pediatric Dental Hygienist consulted Morbid obesity Counseling done DVT prophylaxis Heparin subcutaneous daily Disposition Lives with significant other at home plan of care discussed with patient in detail, patient's present as well all questions answered they are understanding, agreeable, comfortable with the plan of care Admission and Anticipated Discharge Date Admission Date: May 03, 2023 Subjective Follow-up for massive ascites, acute on chronic CKD, etc. Seen resting in bed, comfortable, not in distress Patient's At the bedside visiting States she feels okay Less abdominal pain Denies cough, shortness of breath, sputum production, fevers or chills No other new symptoms Review of Systems Review of Systems: all noted and negative except for above Physical Exam Physical Exam: General- oriented x 3, not in distress, speaks in sentences with no effort or accessory muscle use Eyes- anicteric Neck- no JVD Lungs- clear breath sounds bilaterally, no wheezing, no crackles noted Heart- normal rate, regular rhythm; no murmurs Abdomen- normal bowel sounds, significantly distended, erythema and tenderness and warmth over the lower abdominal wall improving Extremities-grade 1 lower extremity edema, no calf tenderness Neuro- alert, oriented x 3; no gross focal neurologic deficits Skin- warm & dry Results & Data Results & Data Vital Signs (Past 12 Hours) Vital Signs Temp Pulse Resp BP Pulse Ox O2 Del Method 05/06/23 08:55 Room Air 05/06/23 07:41 36.9 C 74 16 146/70 H 96 Room Air all noted and reviewed including below (2) Ascites Ascites type: other type Qualified Code(s): R18.8 - Other ascites
[2023-05-06] MEDS: PROMETHAZINE HCL 12.5 MG in SODIUM CHLORIDE 0.9% 50 ML IV PRN (20:45)
[2023-05-06] MEDS: oxyCODONE HCL IR 5 MG TAB (IMMEDIATE RELEASE) PO PRN (20:46)
[2023-05-06] MEDS: MELATONIN 3 MG TAB PO PRN (20:46)
[2023-05-07] MEDS: HEPARIN SOD 5,000 UNIT/0.5 ML VIAL SQ SCH ×3 (05:49→21:07)
[2023-05-07] MEDS: carvediloL 12.5 MG TAB PO SCH ×2 (07:49→21:07)
[2023-05-07] MEDS: PANTOprazole 40 MG TAB PO SCH (07:49)
[2023-05-07] MEDS: DOXYCYCLINE HYCLATE 100 MG CAP PO SCH ×2 (07:50→21:07)
[2023-05-07] MEDS: ALBUMIN 25% 25 GM/100 ML VIAL IV SCH ×2 (07:50→10:28)
[2023-05-07] MEDS: POTASSIUM CHLORIDE CRTAB 20 MEQ TABCR PO SCH ×3 (07:51→17:57)
[2023-05-07 08:38] LABS: Basophils # (auto) 0.08 K/uL (0-0.2); Basophils % (auto) 0.8 %; Eosinophils % (auto) 4.2 %; Hematocrit (blood only) 24.4 % (37.0-47.0); Hemoglobin 7.9 g/dl (12.0-16.0); Immature Granulocytes # (auto) 0.08 K/uL (0.01-0.20); Immature Granulocytes % (auto) 0.8 %; Lymphocytes # (auto) 0.97 K/uL (1.2-3.4); Lymphocytes % (auto) 10.2 %; Mean Corpuscular Hemoglobin 25.9 pg (25.0-34.0); Mean Corpuscular Hgb Conc 32.4 g/dL (32.0-36.0); Mean Platelet Volume 10.1 fL (9.4-12.4); Monocytes # (auto) 0.77 K/uL (0.11-0.59); Monocytes % (auto) 8.1 %; Neutrophils # (auto) 7.19 K/uL (1.40-6.50); Neutrophils % (auto) 75.9 %; Platelet Count 360 K/uL (130-400); RDW Coefficient of Variation 16.9 % (11.5-14.5); RDW Standard Deviation 49.4 fL (36.4-46.3); Red Blood Count 3.05 M/uL (4.20-5.40); White Blood Count 9.49 K/ul (4.8-10.8)
[2023-05-07 08:47] LABS: Creatinine Clr Calc Pharmacy 38.7 ml/min; Est GFR (African American) 27.3 ml/min; Est GFR (Non-African American) 23.5 ml/min; Potassium 4.1 mmol/L (3.5-5.1)
[2023-05-07 09:01] LABS: Ovalocytes 1+; Polychromasia 1+
[2023-05-07] MEDS: INSULIN ASPART PER UNIT CHARGE SC SCH ×4 (09:41→21:08)
[2023-05-07] MEDS: cefTRIAXone SODIUM 2,000 MG in DEXTROSE 5% 50 ML IV SCH (12:26)
--- NOTE | 2023-05-07 13:58 | Ultrasound Report ---
ULTRASOUND-GUIDED PARACENTESIS CLINICAL HISTORY: Ascites PROCEDURE: Procedure and risks were explained. Informed consent was obtained. A final timeout was com pleted. The right lower quadrant was prepped and draped in sterile fashion. 1% buffered lidocaine was utilized for skin anesthesia. Utilizing ultrasound guidance, a 5 Yoruba safety centesis catheter was advanced into the pocket of clayton dexter. Ultrasound images were obtained. 7 L of yellow ascites fluid was removed, with 1 L sent to the lab for analysis. The catheter was removed and Band-Aid applied. The patient tolerated the procedure well. Vital signs will be monitored postprocedure. IMPRESSION: Ultrasound-guided paracentesis as above. Performed, dictated, and signed by Pedrito Maya PA-C; to be co-signed by Dr. Laci Morgan. Electronically signed by: Laci Morgan M.D. 05/07/2023 2:49 PM
--- NOTE | 2023-05-07 15:58 | Hospitalist Progress Note ---
Date of Service May 07, 2023 Assessment & Plan (1) ARF (acute renal failure): (2) Ascites: Plan: ASCITES IN THE SETTING OF PROTEINURIA, CHRONIC KIDNEY DISEASE STAGE IV LIVER CIRRHOSIS Status post paracentesis on 05/02(5L) , 05/05(5L) and 05/07(7L) Albumin 50 mg IV ith paracentesis Also given Lasix 80 mg IV every 12 with albumin--> currently on hold Creatinine remained stable while admitted around 2.5 Nephrology service managing diuretic regimen Will also need kidney biopsy as an outpatient to determine cause of proteinuria, CKD stage IV GI service consulted Recommend liver biopsy to confirm cirrhosis as an outpatient HYPERTENSION Secondary to poor adherence Continue carvedilol LOWER ABDOMINAL WALL CELLULITIS Improving Continue ceftriaxone IV plus doxycycline PNEUMONIA Seen on CT abdomen pelvis:A few bibasilar linear densities consistent with subsegmental atelectasis. There are few small patchy peripheral groundglass densities within the right lower lobe. This could represent a pneumonia. Improving Continue ceftriaxone plus doxycycline day #4 Active smoker Counseling done Severe protein calorie malnutrition Store [employer] consulted Morbid obesity Counseling done DVT prophylaxis Heparin subcutaneous daily Disposition Lives with significant other at home Time spent evaluating patient, direct bedside care, chart review, placing orders, interpretation of diagnostic studies, discussion with consultants, patient, and family members, as well as other required patient management activities is 60 minutes. Please note the above document was generated using voice recognition software. It may contain grammatical, syntax or spelling errors. Any formal questions or concerns about the content, text or information contained within the body of this dictation should be directly addressed to the provider for clarification Admission and Anticipated Discharge Date Admission Date: May 03, 2023 Subjective Patient seen and examined after paracentesis. Reports improvement in abdominal discomfort. Denies fever or chills. Review of Systems Review of Systems: All systems reviewed & are unremarkable except as noted in Subjective Physical Exam Physical Exam: General- oriented x 3, not in distress, speaks in sentences with no effort or accessory muscle use Eyes- anicteric Neck- no JVD Lungs- clear breath sounds bilaterally, no wheezing, no crackles noted Heart- normal rate, regular rhythm; no murmurs Abdomen- normal bowel sounds, abdominal wall distended. He is abdomen no warmth on the lower abdomen improving Extremities-grade 1 lower extremity edema, no calf tenderness Neuro- alert, oriented x 3; no gross focal neurologic deficits Skin- warm & dry Results & Data Results & Data Vital Signs (Past 12 Hours) Vital Signs Temp Pulse Resp BP Pulse Ox O2 Del Method 05/07/23 15:03 36.6 C 60 16 153/70 H 97 Room Air 05/07/23 13:07 36.4 C L 64 16 154/75 H 99 Room Air 05/07/23 12:36 36.7 C 59 L 16 156/73 H 96 Room Air 05/07/23 12:05 36.7 C 56 L 16 135/68 95 Room Air 05/07/23 11:38 36.7 C 58 L 16 157/73 H 97 Room Air 05/07/23 11:06 36.9 C 54 L 16 150/75 H 97 Room Air 05/07/23 10:52 36.3 C L 65 16 150/74 H 99 Room Air 05/07/23 10:35 36 C L 61 18 138/69 96 Room Air 05/07/23 07:50 Room Air 05/07/23 09:21 36.7 C 62 20 145/63 H 95 Room Air 05/07/23 06:54 36.8 C 64 16 152/68 H 96 Room Air Laboratory Results Laboratory Results WBC 9.49 K/ul (4.8-10.8) 05/07/23 07:59 RBC 3.05 M/uL (4.20-5.40) L 05/07/23 07:59 Hgb 7.9 g/dl (12.0-16.0) L 05/07/23 07:59 Hct 24.4 % (37.0-47.0) L 05/07/23 07:59 MCV 80.0 fL (80.0-100.0) 05/07/23 07:59 MCH 25.9 pg (25.0-34.0) 05/07/23 07:59 MCHC 32.4 g/dL (32.0-36.0) 05/07/23 07:59 RDW Std Deviation 49.4 fL (36.4-46.3) H 05/07/23 07:59 RDW Coeff of [place] 16.9 % (11.5-14.5) H 05/07/23 07:59 Plt Count 360 K/uL (130-400) 05/07/23 07:59 MPV 10.1 fL (9.4-12.4) 05/07/23 07:59 Immature Gran % (Auto) 0.8 % 05/07/23 07:59 Neut % (Auto) 75.9 % 05/07/23 07:59 Lymph % (Auto) 10.2 % 05/07/23 07:59 [place] % (Auto) 8.1 % 05/07/23 07:59 Eos % (Auto) 4.2 % 05/07/23 07:59 Baso % (Auto) 0.8 % 05/07/23 07:59 Reticulocyte % (Auto) 1.5 % (0.5-2.0) 05/03/23 08:02 Neut # (Auto) 7.19 K/uL (1.40-6.50) H 05/07/23 07:59 Lymph # (Auto) 0.97 K/uL (1.2-3.4) L 05/07/23 07:59 [place] # (Auto) 0.77 K/uL (0.11-0.59) H 05/07/23 07:59 Eos # (Auto) 0.40 K/uL (0-0.50) 05/07/23 07:59 Baso # (Auto) 0.08 K/uL (0-0.2) 05/07/23 07:59 Reticulocyte # 0.04 10^6/uL (0.02-0.10) 05/03/23 08:02 Immature Gran # (Auto) 0.08 K/uL (0.01-0.20) 05/07/23 07:59 Polychromasia 1+ 05/07/23 07:59 Poikilocytosis Present 05/03/23 00:02 Anisocytosis Present 05/03/23 08:02 Tear Drop Cells 1+ 05/05/23 06:56 Ovalocytes 1+ 05/07/23 07:59 PT 12.9 Seconds (9.0-12.0) H 05/03/23 00:02 INR 1.2 (0.9-1.1) H 05/03/23 00:02 APTT 35.0 Seconds (21.0-31.0) H 05/03/23 00:02 PTT Ratio 1.2 05/03/23 00:02 ABG pH 7.41 (7.35-7.45) 05/03/23 04:50 ABG pCO2 33 mmHg (35-46) L 05/03/23 04:50 ABG pO2 64 mmHg (80-95) L 05/03/23 04:50 ABG HCO3 21 mmol/L (19-24) 05/03/23 04:50 ABG O2 Saturation 92.0 % (90-95) 05/03/23 04:50 ABG Base Excess -2.9 mEq/L (-9-1.8) 05/03/23 04:50 Art Test Pos (Pos) 05/03/23 04:50 Oxygen Given 2L 05/03/23 04:50 Sodium 140 mmol/L (136-145) 05/07/23 07:59 Potassium 4.1 mmol/L (3.5-5.1) D 05/07/23 07:59 Chloride 112 mmol/L (98-107) H 05/07/23 07:59 Carbon Dioxide 23 mmol/L (21-32) 05/07/23 07:59 Anion Gap 5 (3-11) 05/07/23 07:59 BUN 34 mg/dl (6-23) H 05/07/23 07:59 Creatinine 2.42 mg/dl (0.6-1.2) H 05/07/23 07:59 Est Cr Clr Drug Dosing 38.7 ml/min 05/07/23 07:59 Est GFR ( Amer) 27.3 ml/min 05/07/23 07:59 Est GFR (Non-Af Amer) 23.5 ml/min 05/07/23 07:59 BUN/Creatinine Ratio 14.0 (10-20) 05/07/23 07:59 Glucose 83 mg/dl (70-99(Fasting)) 05/07/23 07:59 POC Glucose 92 mg/dl (70-99) 05/07/23 12:06 Calcium 8.0 mg/dl (8.6-10.3) L 05/07/23 07:59 Magnesium 1.6 mg/dl (1.7-2.4) L 05/05/23 06:56 Iron 23 mcg/dl (35-150) L 05/03/23 08:02 Transferrin < 95 mg/dl (200-360) L 05/03/23 08:02 Ferritin 151.5 ng/ml (8-388) 05/03/23 08:02 Total Bilirubin 0.6 mg/dl (0.2-1.0) 05/03/23 08:02 AST 6 U/L (13-39) L 05/03/23 08:02 ALT 3 U/L (7-52) L 05/03/23 08:02 Alkaline Phosphatase 41 U/L (34-104) 05/03/23 08:02 Ammonia 11.0 umol/L (18-72) L 05/03/23 00:08 Total Protein 5.9 gm/dl (6.0-8.3) L 05/03/23 08:02 Albumin 2.8 gm/dl (3.4-5.0) L 05/03/23 08:02 Globulin 3.1 gm/dl (2.5-4.0) 05/03/23 08:02 Albumin/Globulin Ratio 0.9 (0.9-2) 05/03/23 08:02 Lipase 22 U/L (11-82) 05/03/23 00:02 Vitamin B12 425 pg/ml (180-914) 05/03/23 08:02 Folate 8.96 ng/ml (>5.38) 05/03/23 08:02 Urine Color Dark Yellow 05/04/23 16:45 Urine Appearance Cloudy (Clear) A 05/04/23 16:45 Urine pH 5.5 (4.5-7.5) 05/04/23 16:45 Ur Specific [place] 1.019 (1.000-1.030) 05/04/23 16:45 Urine Protein 3+ (Negative) H 05/04/23 16:45 Urine Glucose (UA) Negative (Negative) 05/04/23 16:45 Urine Ketones Trace (Negative) H 05/04/23 16:45 Urine Blood Negative (Negative) 05/04/23 16:45 Urine Nitrite Negative (Negative) 05/04/23 16:45 Urine Bilirubin Negative (Negative) 05/04/23 16:45 Urine Urobilinogen Negative (Negative) 05/04/23 16:45 Ur Leukocyte Esterase Trace (Negative) H 05/04/23 16:45 Urine WBC (Auto) 5-10 /hpf (0-5) H 05/04/23 16:45 Urine RBC (Auto) 0-4 /hpf (0-4) 05/04/23 16:45 U Hyaline Cast (Auto) 1-5 /lpf (0-5) 05/04/23 16:45 U Epithel Cells (Auto) >30 /lpf (0-5) H 05/04/23 16:45 Urine Bacteria (Auto) Negative (Negative) 05/04/23 16:45 Ur Random Creatinine 156.3 mg/dl 05/04/23 16:45 U Random Total Protein 388.2 mg/dl (0-11.9) H 05/04/23 16:45 Protein/Creatinin Ratio 2.5 (0-0.2) H 05/04/23 16:45 SARS-CoV-2, RNA, NAAT NEGATIVE (NEGATIVE) 05/02/23 23:23 Blood Type O Positive 05/03/23 08:02 Antibody Screen NEGATIVE 05/03/23 08:02 Crossmatch See Detail 05/03/23 08:02 Impressions Gallbladder Ultrasound 05/04/23 14:01 US gallbladder CLINICAL HISTORY: r/o cholecystitis, cholelithiasis TECHNIQUE: Multiple real-time sonographic images of the right upper quadrant were obtained. Comparison: Comparison is made to CT abdomen pelvis 05/01/2023 FINDINGS: The liver is diffusely coarsened in echotexture, with a nodular contour. The liver appears shrunken in appearance. These findings are suggestive of cirrhosis. No focal mass lesions are seen. No intrahepatic ductal dilatation is seen. Linear hyperechoic foci with posterior shadowing are identified layering dependently within the gallbladder, which are consistent with gallstones. The gallbladder wall is not thickened. There is no pericholecystic fluid present. A sonographic Ceron's sign was not elicited by the railway traction line worker. The common duct was not visualized. The pancreas is not well visualized secondary to overlying bowel gas. The right kidney shows normal echogenicity, cortical thickness and renal contour. The right kidney shows no evidence of hydronephrosis or mass. Large ascites is seen. IMPRESSION: 1. Cholelithiasis is seen without evidence of cholecystitis. 2. Large ascites with cirrhosis. ACT 112: Negative or not required by law. Electronically signed by: Aneudy Mark M.D. 05/04/2023 10:58 PM Paracentesis Ultrasound 05/07/23 09:00 ULTRASOUND-GUIDED PARACENTESIS CLINICAL HISTORY: Ascites PROCEDURE: Procedure and risks were explained. Informed consent was obtained. A final timeout was completed. The right lower quadrant was prepped and draped in sterile fashion. 1% buffered lidocaine was utilized for skin anesthesia. Utilizing ultrasound guidance, a 5 Welsh safety centesis catheter was advanced into the pocket of ascites. Ultrasound images were obtained. 7 L of yellow ascites fluid was removed, with 1 L sent to the lab for analysis. The catheter was removed and Band-Aid applied. The patient tolerated the procedure well. Vital signs will be monitored postprocedure. IMPRESSION: Ultrasound-guided paracentesis as above. Performed, dictated, and signed by Pedrito Maya PA-C; to be co-signed by Dr. Laci Morgan. Electronically signed by: Laci Morgan M.D. 05/07/2023 2:49 PM (2) Ascites Ascites type: other type Qualified Code(s): R18.8 - Other ascites
[2023-05-08] MEDS: MELATONIN 3 MG TAB PO PRN ×2 (00:24→21:51)
[2023-05-08] MEDS: oxyCODONE HCL IR 5 MG TAB (IMMEDIATE RELEASE) PO PRN ×2 (00:24→21:51)
[2023-05-08] MEDS: HEPARIN SOD 5,000 UNIT/0.5 ML VIAL SQ SCH ×3 (05:24→21:43)
[2023-05-08 08:07] LABS: BUN Creatinine Ratio 13.9 (10-20); Calcium 7.9 mg/dl (8.6-10.3); Creatinine Clr Calc Pharmacy 40.8 ml/min; Potassium 4.1 mmol/L (3.5-5.1)
[2023-05-08] MEDS: carvediloL 12.5 MG TAB PO SCH ×2 (08:12→21:43)
[2023-05-08] MEDS: PANTOprazole 40 MG TAB PO SCH (08:12)
[2023-05-08] MEDS: DOXYCYCLINE HYCLATE 100 MG CAP PO SCH ×2 (08:13→21:43)
[2023-05-08] MEDS: POTASSIUM CHLORIDE CRTAB 20 MEQ TABCR PO SCH ×2 (08:13→18:39)
[2023-05-08] MEDS: INSULIN ASPART PER UNIT CHARGE SC SCH ×4 (10:29→20:51)
[2023-05-08] MEDS: PROMETHAZINE HCL 12.5 MG in SODIUM CHLORIDE 0.9% 50 ML IV PRN (12:01)
--- NOTE | 2023-05-08 12:25 | Gastroenterology Progress Note ---
Date of Service May 08, 2023 Assessment & Plan (1) Ascites: Plan: 42 year old FTM with history of HTN, diastolic CHF, JUAN, T2DM, CKD, dyslipidemia, obesity, medical noncompliance admitted on 05/01 w/ volume overload, EVA on CKD - GI asked to evaluate for refractory ascites, cirrhosis (MELD 16 driven by TUBE SPLICER) fluid studies indicate that portal HTN is not necessarily the cause of ascites - Ascites - Paracentesis 05/07: 7 L - Paracentesis 05/05: 5 L - Paracentesis 05/02: 5 L - No SBP - SAAG 0.7 indicating that portal HTN is not necessarily the cause of ascites - Elevated total protein of 4.2 - Negative for malignancy. - 1.5 L fluid restriction advised by nephrology - Low sodium diet, less than 2G daily - Albumin 25% 25G TID x 48 hours - Continue diuresis as directed by nephrology - Lasix 80 mg BID - If able, would add Aldactone 100 mg once daily to start - There was questions regarding use of TIPS for refractory ascites, this is not an option as we do not even know if he has cirrhosis. - Cirrhosis on imaging - + ASMA otherwise serology inconclusive - Is to have an OP EUS guided LB - MELD labs every 6 months - HCC screening with imaging and AFP every 6 months - Remain alcohol free - Remain drug free - No NSAIDs - Less than 2g of tylenol containing medications if using - OP EGD/Colonoscopy - Hepatology evaluation as OP Thank you for allowing us to participate in the care of this patient. Please call with any acute changes, questions or concerns. Please see addendum below with additional recommendation from my supervising physician. Admission and Anticipated Discharge Date Admission Date: May 03, 2023 Supervising Physician Co-Signing Physician Notes I performed a history and physical examination of the patient today, including specifically on physical exam - soft abdomen. I have discussed the patient's management with the advanced practitioner. Please refer to the nurse practitioner's note for the documented findings and plan of care. I absolutely question the diagnosis of Liver cirrhosis, regardless of the imaging, his PLT count and INR are normal. His tap is consistnet with Nephrotic ascites. Would defer his management totally to Renal service. Can consider EUS/LB as OP to r/o Cirrhosis. TIPS is contraindication in his case. Recall GI if needed. Subjective GI asked to re-evaluate for refractory ascites. Partner at bedside. They note diagnosis of liver disease is new. Ascites requiring repeat paracentesis. Last paracentesis was 05/07 w/ 7L off Abdominal duplex on 05/01 without evidence of PVT. Grandfather with cirrhosis related to ETOH abuse. Presently feels bloated, distended. Had some nausea/vomiting which was bilious. No black or bloody emesis. Moves bowels infrequent. Denies black or bloody stool. Last reported BM in the medical record is 02/23. No fever, chills, CP, SOB. Has not been following any sodium restriction, notes they add salt to everything. 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 Large ascites with cirrhosis. ABD Duplex 2022: No portal vein thrombosis. CTAP 2022:. Large amount of ascites resulting in the markedly distended abdomen. Extensive subcutaneous edema within the anterior abdominal wall. An underlying cellulitis is not excluded. No significant change in the mildly enlarged pelvic and inguinal lymph nodes. These may be reactive. No definite bowel wall thickening or obstruction.Cholelithiasis. Right-sided nephrolithiasis. No hydronephrosis. Additional findings as described above. Review of Systems Review of Systems: All systems reviewed & are unremarkable except as noted in HPI & below Physical Exam Constitutional: WD/WN, vitals as above Respiratory: normal respiratory effort, lungs clear to auscultation Cardiovascular: Rate/Rhythm: regular rate and regular rhythm Gastrointestinal (Abdomen): Inspection/Auscultation: + abdomen distended and normal bowel sounds Percussion/Palpation: abdomen soft and + ascites; abdomen nontender, no guarding and abdomen not rigid Skin: no rashes, warm and dry + right foot amputation Results & Data Vital Signs (Past 12 Hours) Vital Signs Temp Pulse Resp BP Pulse Ox O2 Del Method 05/08/23 08:11 63 05/08/23 07:40 36.8 C 56 L 16 135/64 96 Room Air Laboratory Results 05/08/23 05/08/23 05/08/23 Range/Units 12:10 08:16 06:46 Sodium 140 (136-145) mmol/L Potassium 4.1 (3.5-5.1) mmol/L Chloride 111 H (98-107) mmol/L Carbon Dioxide 24 (21-32) mmol/L Anion Gap 5 (3-11) BUN 32 H (6-23) mg/dl Creatinine 2.30 H (0.6-1.2) mg/dl Est Cr Clr Drug Dosing 40.8 ml/min Est GFR ( Amer) 29.0 ml/min Est GFR (Non-Af Amer) 25.0 ml/min BUN/Creatinine Ratio 13.9 (10-20) Glucose 82 (70-99(Fasting)) mg/dl POC Glucose 95 91 (70-99) mg/dl Calcium 7.9 L (8.6-10.3) mg/dl 05/07/23 05/07/23 Range/Units 21:03 17:01 Sodium (136-145) mmol/L Potassium (3.5-5.1) mmol/L Chloride (98-107) mmol/L Carbon Dioxide (21-32) mmol/L Anion Gap (3-11) BUN (6-23) mg/dl Creatinine (0.6-1.2) mg/dl Est Cr Clr Drug Dosing ml/min Est GFR ( Amer) ml/min Est GFR (Non-Af Amer) ml/min BUN/Creatinine Ratio (10-20) Glucose (70-99(Fasting)) mg/dl POC Glucose 99 110 H (70-99) mg/dl Calcium (8.6-10.3) mg/dl (1) Ascites Ascites type: other type Qualified Code(s): R18.8 - Other ascites
--- NOTE | 2023-05-08 12:46 | Palliative Care Consultation ---
Date of Consultation May 08, 2023 Assessment & Plan (1) Palliative care encounter: I spoke with Paul and his significant other, Huyen Montalvo, at bedside. They talked about the last 7 months and how he has been coping with his illness. I asked him what gets him through these difficult times and he told me that it is Huyen that gets him through. He tells me that he does not want to and his hope is to be well enough to be at home with Huyen and be able to get around the house and possibly drive. I asked him if there were limits to what he would be willing to go through to achieve that. He initially told me that he would not want life support and would not want a feeding tube. He has a POLST form on file that was completed with him and a PA who visited him at home in February. However, he does not recall that conversation or completing the form. POLST indicates full code, full treatment, though it does specify no feeding tube. We talked about the discrepancy between what he is telling me and POLST with full code. We also discussed concern that if he did not want intubation or vent support, doing cardiac resuscitation would have limited benefit and likely not the outcome that he hopes for. He and Huyen decided that he would want intubation and full code but if he did not improve and could not be weaned from the vent, he would not want tracheostomy or school health aide vent support. He confirms that Huyen is his surrogate decision maker. She expressed some concern about knowing what he would want. Paul tells me that for now, he would want full code, full support and that he and Huyen will consider this further and discuss together. At this time, the POLST signed on 03/05/23 and scanned into the chart does reflect his wishes. History of Present Illness Reason for Consultation: goals of care Requesting Physician: Dr. Muir Attending Physician: López Muir MD History of Present Illness 42 yo gentleman wit history of diastolic heart failure, cirrhosis, diabetes, chronic anemia and VINCENT who presented with increased ascites and leg pain. He has had paracentesis x 3 since admission with a total of 17L removed. He is noted to proteinuria and Stage IV CKD. His creatinine is 2.3 with a GFR of 25. His creatinine has slowly been trending down in the last few days from a high of 2.82 on 05/02. He appears to have a baseline creatinine in the low 2s since September of 2022.He is being treated for abdominal wall cellulitis and pneumonia. He has been noncompliant and declined treatment at times and left hospital AMA during this admission, returning with uncontrolled pain. We have been consulted assist with goals of care. Allergies Allergy/AdvReac Type Severity Reaction Status Date / Time penicillin G Allergy Intermediate HIVES Verified 02/24/23 17:19 aloe vera Allergy Difficulty Verified 02/24/23 17:17 Breathing/ edema Sulfa (Sulfonamide AdvReac Mild RETAINS Verified 02/24/23 17:19 Antibiotics) WATER Home Medications Medication Instructions Recorded Confirmed Type carvedilol 12.5 mg tablet 12.5 mg PO AMPM 05/01/23 05/03/23 History pantoprazole 40 mg tablet,delayed 40 mg PO QAM 05/01/23 05/03/23 History release azithromycin 250 mg tablet 250 mg PO DAILY 4 days #4 tabs 05/02/23 05/03/23 Rx cefuroxime axetil 500 mg tablet 500 mg PO DAILY #7 tabs 05/02/23 05/03/23 Rx furosemide 40 mg tablet 40 mg PO QAM 05/03/23 05/03/23 History metformin 500 mg tablet 50 mg PO DAILY 05/03/23 05/03/23 History potassium chloride 10 mEq 10 meq PO BID 05/03/23 05/03/23 History capsule,extended release spironolactone 25 mg tablet 25 mg PO DAILY 05/03/23 05/03/23 History Patient History Medical History ADHD Amputation of right foot CKD (chronic kidney disease) stage 4, GFR 15-29 ml/min [id number] transgender person Gas gangrene HTN (hypertension) Osteomyelitis of foot, right, acute Severe anxiety Tobacco use Surgical History History of tonsillectomy Social History Smoking Status: Current every day smoker Tobacco Type: Cigarettes Cigarettes Per Day: 1 pack; Second Hand Exposure: Yes; Do You Dip or Chew Tobacco: No; Hx Alcohol Use: No Hx Substance Use: No Preferred Language: Tunisian Communication Ability: Effective Case Assembler Required: No Beliefs That Will Affect Care: None Current Living Situation: Significant Other Current Living Situation Comment: lives with girlfriend Feels Safe at Home: Yes Gender Identity: Male Assistive Devices: Bedside Commode, Cane and Walker Review of Systems Review of Systems: ESAS Pain 0/3 Dyspnea 0/3 Drowsiness 0/3 Physical Exam Constitutional: no acute distress Respiratory: normal respiratory effort; no labored breathing Gastrointestinal (Abdomen): significant abdominal distension with ascites Musculoskeletal: Extremities: + muscle atrophy Neurologic: Speech / Cognition: normal cognition Results & Data Vital Signs (Past 12 Hours) Vital Signs Temp Pulse Resp BP Pulse Ox O2 Del Method 05/08/23 12:10 Room Air 05/08/23 08:11 63 05/08/23 07:40 98.2 F 56 L 16 135/64 96 Room Air PG Care Time/CCT Total # of Minutes Spent Total Time Spent: 60 Total Time Spent with Patient: Total time spent is greater than 50% in coordination of care (as documented) at patient's floor/unit and/or counseling patient:[id number] goals of care, code status, POLST, surrogate decision maker, patient and family education and support Coding Level of Care Code 90141 INT INP/OBS CARE 2/55MIN Diagnoses Palliative care encounter Z51.5
--- NOTE | 2023-05-08 14:00 | Hospitalist Progress Note ---
Date of Service May 08, 2023 Assessment & Plan (1) ARF (acute renal failure): (2) Ascites: Plan: ASCITES IN THE SETTING OF PROTEINURIA, CHRONIC KIDNEY DISEASE STAGE IV LIVER CIRRHOSIS Status post paracentesis on 05/02(5L) , 05/05(5L) and 05/07(7L) Albumin 50 mg IV with paracentesis Also given Lasix 80 mg IV every 12 with albumin--> currently on hold Creatinine remained stable while admitted around 2.5 Nephrology service managing diuretic regimen Will also need kidney biopsy as an outpatient to determine cause of proteinuria, CKD stage IV GI service consulted Recommend liver biopsy to confirm cirrhosis as an outpatient Discussed regarding possible TIPS procedure due to refractory nature of the ascites. Plan for repeat paracentesis tomorrow. HYPERTENSION Secondary to poor adherence Continue carvedilol LOWER ABDOMINAL WALL CELLULITIS Improving Continue ceftriaxone IV plus doxycycline PNEUMONIA Seen on CT abdomen pelvis:A few bibasilar linear densities consistent with subsegmental atelectasis. There are few small patchy peripheral groundglass densities within the right lower lobe. This could represent a pneumonia. Improving Continue ceftriaxone plus doxycycline day #5 Active smoker Counseling done Severe protein calorie malnutrition Catalyst Supervisor consulted Morbid obesity Counseling done DVT prophylaxis Heparin subcutaneous daily Disposition Lives with significant other at home Goals of care; discussion done by palliative care with the patient and patient's significant other; patient remains full code. Time spent evaluating patient, direct bedside care, chart review, placing orders, interpretation of diagnostic studies, discussion with consultants, patient, and family members, as well as other required patient management activities is 60 minutes. Please note the above document was generated using voice recognition software. It may contain grammatical, syntax or spelling errors. Any formal questions or concerns about the content, text or information contained within the body of this dictation should be directly addressed to the provider for clarification Admission and Anticipated Discharge Date Admission Date: May 03, 2023 Subjective Patient seen and examined at bedside. He is comfortably lying in the bed. Reports being comfortable after removal of fluid yesterday. Refused PT OT eval. Review of Systems Review of Systems: All systems reviewed & are unremarkable except as noted in Subjective Physical Exam Physical Exam: General- oriented x 3, not in distress, speaks in sentences with no effort or accessory muscle use Eyes- anicteric Neck- no JVD Lungs- clear breath sounds bilaterally, no wheezing, no crackles noted Heart- normal rate, regular rhythm; no murmurs Abdomen- normal bowel sounds, abdominal wall distended. Lower abdomen cellulitis improving. Extremities-grade 1 lower extremity edema, no calf tenderness Neuro- alert, oriented x 3; no gross focal neurologic deficits Skin- warm & dry Results & Data Results & Data Vital Signs (Past 12 Hours) Vital Signs Temp Pulse Resp BP Pulse Ox O2 Del Method 05/08/23 12:10 Room Air 05/08/23 08:11 63 05/08/23 07:40 36.8 C 56 L 16 135/64 96 Room Air Laboratory Results Laboratory Results WBC 9.49 K/ul (4.8-10.8) 05/07/23 07:59 RBC 3.05 M/uL (4.20-5.40) L 05/07/23 07:59 Hgb 7.9 g/dl (12.0-16.0) L 05/07/23 07:59 Hct 24.4 % (37.0-47.0) L 05/07/23 07:59 MCV 80.0 fL (80.0-100.0) 05/07/23 07:59 MCH 25.9 pg (25.0-34.0) 05/07/23 07:59 MCHC 32.4 g/dL (32.0-36.0) 05/07/23 07:59 RDW Std Deviation 49.4 fL (36.4-46.3) H 05/07/23 07:59 RDW Coeff of [place] 16.9 % (11.5-14.5) H 05/07/23 07:59 Plt Count 360 K/uL (130-400) 05/07/23 07:59 MPV 10.1 fL (9.4-12.4) 05/07/23 07:59 Immature Gran % (Auto) 0.8 % 05/07/23 07:59 Neut % (Auto) 75.9 % 05/07/23 07:59 Lymph % (Auto) 10.2 % 05/07/23 07:59 [place] % (Auto) 8.1 % 05/07/23 07:59 Eos % (Auto) 4.2 % 05/07/23 07:59 Baso % (Auto) 0.8 % 05/07/23 07:59 Reticulocyte % (Auto) 1.5 % (0.5-2.0) 05/03/23 08:02 Neut # (Auto) 7.19 K/uL (1.40-6.50) H 05/07/23 07:59 Lymph # (Auto) 0.97 K/uL (1.2-3.4) L 05/07/23 07:59 [place] # (Auto) 0.77 K/uL (0.11-0.59) H 05/07/23 07:59 Eos # (Auto) 0.40 K/uL (0-0.50) 05/07/23 07:59 Baso # (Auto) 0.08 K/uL (0-0.2) 05/07/23 07:59 Reticulocyte # 0.04 10^6/uL (0.02-0.10) 05/03/23 08:02 Immature Gran # (Auto) 0.08 K/uL (0.01-0.20) 05/07/23 07:59 Polychromasia 1+ 05/07/23 07:59 Poikilocytosis Present 05/03/23 00:02 Anisocytosis Present 05/03/23 08:02 Tear Drop Cells 1+ 05/05/23 06:56 Ovalocytes 1+ 05/07/23 07:59 PT 12.9 Seconds (9.0-12.0) H 05/03/23 00:02 INR 1.2 (0.9-1.1) H 05/03/23 00:02 APTT 35.0 Seconds (21.0-31.0) H 05/03/23 00:02 PTT Ratio 1.2 05/03/23 00:02 ABG pH 7.41 (7.35-7.45) 05/03/23 04:50 ABG pCO2 33 mmHg (35-46) L 05/03/23 04:50 ABG pO2 64 mmHg (80-95) L 05/03/23 04:50 ABG HCO3 21 mmol/L (19-24) 05/03/23 04:50 ABG O2 Saturation 92.0 % (90-95) 05/03/23 04:50 ABG Base Excess -2.9 mEq/L (-9-1.8) 05/03/23 04:50 Art Test Pos (Pos) 05/03/23 04:50 Oxygen Given 2L 05/03/23 04:50 Sodium 140 mmol/L (136-145) 05/08/23 06:46 Potassium 4.1 mmol/L (3.5-5.1) 05/08/23 06:46 Chloride 111 mmol/L (98-107) H 05/08/23 06:46 Carbon Dioxide 24 mmol/L (21-32) 05/08/23 06:46 Anion Gap 5 (3-11) 05/08/23 06:46 BUN 32 mg/dl (6-23) H 05/08/23 06:46 Creatinine 2.30 mg/dl (0.6-1.2) H 05/08/23 06:46 Est Cr Clr Drug Dosing 40.8 ml/min 05/08/23 06:46 Est GFR ( Amer) 29.0 ml/min 05/08/23 06:46 Est GFR (Non-Af Amer) 25.0 ml/min 05/08/23 06:46 BUN/Creatinine Ratio 13.9 (10-20) 05/08/23 06:46 Glucose 82 mg/dl (70-99(Fasting)) 05/08/23 06:46 POC Glucose 95 mg/dl (70-99) 05/08/23 12:10 Calcium 7.9 mg/dl (8.6-10.3) L 05/08/23 06:46 Magnesium 1.6 mg/dl (1.7-2.4) L 05/05/23 06:56 Iron 23 mcg/dl (35-150) L 05/03/23 08:02 Transferrin < 95 mg/dl (200-360) L 05/03/23 08:02 Ferritin 151.5 ng/ml (8-388) 05/03/23 08:02 Total Bilirubin 0.6 mg/dl (0.2-1.0) 05/03/23 08:02 AST 6 U/L (13-39) L 05/03/23 08:02 ALT 3 U/L (7-52) L 05/03/23 08:02 Alkaline Phosphatase 41 U/L (34-104) 05/03/23 08:02 Ammonia 11.0 umol/L (18-72) L 05/03/23 00:08 Total Protein 5.9 gm/dl (6.0-8.3) L 05/03/23 08:02 Albumin 2.8 gm/dl (3.4-5.0) L 05/03/23 08:02 Globulin 3.1 gm/dl (2.5-4.0) 05/03/23 08:02 Albumin/Globulin Ratio 0.9 (0.9-2) 05/03/23 08:02 Lipase 22 U/L (11-82) 05/03/23 00:02 Vitamin B12 425 pg/ml (180-914) 05/03/23 08:02 Folate 8.96 ng/ml (>5.38) 05/03/23 08:02 Urine Color Dark Yellow 05/04/23 16:45 Urine Appearance Cloudy (Clear) A 05/04/23 16:45 Urine pH 5.5 (4.5-7.5) 05/04/23 16:45 Ur Specific [place] 1.019 (1.000-1.030) 05/04/23 16:45 Urine Protein 3+ (Negative) H 05/04/23 16:45 Urine Glucose (UA) Negative (Negative) 05/04/23 16:45 Urine Ketones Trace (Negative) H 05/04/23 16:45 Urine Blood Negative (Negative) 05/04/23 16:45 Urine Nitrite Negative (Negative) 05/04/23 16:45 Urine Bilirubin Negative (Negative) 05/04/23 16:45 Urine Urobilinogen Negative (Negative) 05/04/23 16:45 Ur Leukocyte Esterase Trace (Negative) H 05/04/23 16:45 Urine WBC (Auto) 5-10 /hpf (0-5) H 05/04/23 16:45 Urine RBC (Auto) 0-4 /hpf (0-4) 05/04/23 16:45 U Hyaline Cast (Auto) 1-5 /lpf (0-5) 05/04/23 16:45 U Epithel Cells (Auto) >30 /lpf (0-5) H 05/04/23 16:45 Urine Bacteria (Auto) Negative (Negative) 05/04/23 16:45 Ur Random Creatinine 156.3 mg/dl 05/04/23 16:45 U Random Total Protein 388.2 mg/dl (0-11.9) H 05/04/23 16:45 Protein/Creatinin Ratio 2.5 (0-0.2) H 05/04/23 16:45 SARS-CoV-2, RNA, NAAT NEGATIVE (NEGATIVE) 05/02/23 23:23 Blood Type O Positive 05/03/23 08:02 Antibody Screen NEGATIVE 05/03/23 08:02 Crossmatch See Detail 05/03/23 08:02 Impressions Gallbladder Ultrasound 05/04/23 14:01 US gallbladder CLINICAL HISTORY: r/o cholecystitis, cholelithiasis TECHNIQUE: Multiple real-time sonographic images of the right upper quadrant were obtained. Comparison: Comparison is made to CT abdomen pelvis 05/01/2023 FINDINGS: The liver is diffusely coarsened in echotexture, with a nodular contour. The liver appears shrunken in appearance. These findings are suggestive of cirrhosis. No focal mass lesions are seen. No intrahepatic ductal dilatation is seen. Linear hyperechoic foci with posterior shadowing are identified layering dependently within the gallbladder, which are consistent with gallstones. The gallbladder wall is not thickened. There is no pericholecystic fluid present. A sonographic Ceron's sign was not elicited by the upper trimmer. The common duct was not visualized. The pancreas is not well visualized secondary to overlying bowel gas. The right kidney shows normal echogenicity, cortical thickness and renal contour. The right kidney shows no evidence of hydronephrosis or mass. Large ascites is seen. IMPRESSION: 1. Cholelithiasis is seen without evidence of cholecystitis. 2. Large ascites with cirrhosis. ACT 112: Negative or not required by law. Electronically signed by: Aneudy Mark M.D. 05/04/2023 10:58 PM Paracentesis Ultrasound 05/07/23 09:00 ULTRASOUND-GUIDED PARACENTESIS CLINICAL HISTORY: Ascites PROCEDURE: Procedure and risks were explained. Informed consent was obtained. A final timeout was completed. The right lower quadrant was prepped and draped in sterile fashion. 1% buffered lidocaine was utilized for skin anesthesia. Utilizing ultrasound guidance, a 5 Yemeni safety centesis catheter was advanced into the pocket of ascites. Ultrasound images were obtained. 7 L of yellow ascites fluid was removed, with 1 L sent to the lab for analysis. The catheter was removed and Band-Aid applied. The patient tolerated the procedure well. Vital signs will be monitored postprocedure. IMPRESSION: Ultrasound-guided paracentesis as above. Performed, dictated, and signed by Pedrito Maya PA-C; to be co-signed by Dr. Laci Morgan. Electronically signed by: Laci Morgan M.D. 05/07/2023 2:49 PM (2) Ascites Ascites type: other type Qualified Code(s): R18.8 - Other ascites
[2023-05-08] MEDS: cefTRIAXone SODIUM 2,000 MG in DEXTROSE 5% 50 ML IV SCH (14:23)
--- NOTE | 2023-05-08 17:48 | Nephrology Progress Note ---
Date of Service May 08, 2023 Assessment & Plan (1) CKD (chronic kidney disease) stage 4, GFR 15-29 ml/min: Plan: CKD 4 which appears to be progressive and high risk for ESRD. That said, chemistries currently acceptable since K is being repleted aggressively. Chr onic hypervolemia best managed w/ diuretics. no indication at this time for dialysis; if that need arises this will be an even more challenging situation clinically, ezequiel in pt who possibly has decompensated liver failure (cause of recurrent ascites not well established). creatinine ran low 2's in September 2022 (eGFR 28); now more in mid 2's (eGFR 21). cause of renal failure unclear; ? role for liver disease though liver disease status also not clear. repeat UACM remarkable for 2.5 gm proteinuria, ketonuria -absolutely needs OP f/u w/ nephro > for cystatin C testing, for renal biopsy, for ESRD orientation/discussion -avoid nsaids >w/ serial high volume paracentesis, continue to hold lasix 80 mg IV bid17 >> -cont 1.5L FR -agree w/ 40 mEq po bid K >> pt refusing doses at times >consider adding spironolactone when labs stable -continue albumin IV periprocedural per hospitalist -hemoglobin drifting down and may require repeat transfusion soon >>>>in general would advise against 4 large volume paracenteses in one week in pt w/ CKD 4 and no clear cause for ascites NEPHRO D/C RECOMMENDATIONS (if for d/c given her tendency to leave AMA) -resume diuretics 05/10/23 IN EVENING -recommend lasix 80 mg 2 daily doses at least 4 h apart and spironolactone 50 mg daily and K 60 mEq bid -bmp w/in one week of discharge -hospital d/c appt w/ nephro w/in one week of hospital d/c Dr Louise or Melania -do not d/c on metformin Care coordinated w/ Dr Muir (2) Proteinuria: Plan: longstanding nephritic sediment with variable proteinuria > 1.5 and 2.5 gm most recently; back in September was 11.5 gm. notably no microhematuria 05/03 but this is exception. in the setting of hepatic steatosis and + anti smooth MM Ab, concern for liver disease. GI recommends outpt liver bx and liver w/u. negative serologic work up for proteinuria. chronic hypoalbuminemia and volume overload which are intertwined and may or may not relate to possible nephrotic syndrome; again recent proteinuria assesments subnephrotic -needs OP renal biopsy most likely -this evening pt to start 24 hr urine for protein, sodium, creatinine (3) Noncompliance: Plan: pt has signed out AMA repeatedly from hospital and has done no requested outpt f/u for renal care/bx or for liver biopsy while all patients have the right to make bad decisions, concern here that severe anxiety or other ?psych or ?psychosocial barrier may be hindering his care he denies having OP psych care; tells me his is primary support for psych issues >appreciate pallitiave input today regarding goals of care> continue to work to identify /address barriers to care where possible >> With at bedside on 2 previous days and again to pt today today, I stressed the importance of outpatient follow-up for liver and kidney issues and mentioned that this has been an large challenge for this patient (4) Ascites: Plan: cause unclear; while ascites is not uncommon w/ nephrotic syndrome, isolated ascites without florid edema, pulmonary vascular congestion, uncontrolled HTN is unusual. this patient has none of those and recent proteinuria assessments are subnephrotic. per GI not a candidate for TIPS undergoing serial high volume paracenteses >recommend arranging OP paracenteses though PCP, GI, or other if indicated; nephrology is not appropriate for managing serial paracentesis in liver cirrhosis >would not resume diuretics until at least 36 hrs after paracentesis adn would stop at least 24 hrs before any proposed paracentesis Admission and Anticipated Discharge Date Admission Date: May 03, 2023 Physical Exam Constitutional: well developed, + frail appearing, cooperative and + malnourished; no acute distress Eyes: EOM intact bilaterally ENMT: Ears: no external ear abnormality Nose: no external nose abnormality Mouth: + dry oral mucous membranes Neck: no nuchal rigidity Respiratory: normal respiratory effort Auscultation: + diminished lung s ounds Cardiovascular: RRR, no murmur, no edema Gastrointestinal (Abdomen): Inspection/Auscultation: + abdomen distended, normal bowel sounds and + abdominal edema (abd wall) Percussion/Palpation: + ascites and + abdomen firm; abdomen nontender Musculoskeletal: Extremities: strength 5/5 throughout Skin: no rashes, warm and dry Psychiatric: Orientation: alert and oriented x 3 Speech: normal rate/rhythm/volume of speech Affect: + anxious affect Results & Data Vital Signs (Past 12 Hours) Vital Signs Temp Pulse Resp BP Pulse Ox O2 Del Method 05/08/23 15:07 36.8 C 59 L 16 132/60 98 Room Air 05/08/23 12:10 Room Air 05/08/23 08:11 63 05/08/23 07:40 36.8 C 56 L 16 135/64 96 Room Air Laboratory Results 05/07/23 07:59 05/08/23 06:46 (4) Ascites Ascites type: other type Qualified Code(s): R18.8 - Other ascites
[2023-05-09 06:33] LABS: Basophils # (auto) 0.08 K/uL (0-0.2); Eosinophils # (auto) 0.42 K/uL (0-0.50); Eosinophils % (auto) 5.1 %; Hematocrit (blood only) 23.6 % (37.0-47.0); Hemoglobin 7.6 g/dl (12.0-16.0); Immature Granulocytes # (auto) 0.04 K/uL (0.01-0.20); Immature Granulocytes % (auto) 0.5 %; Lymphocytes # (auto) 1.24 K/uL (1.2-3.4); Mean Corpuscular Hemoglobin 26.1 pg (25.0-34.0); Mean Corpuscular Hgb Conc 32.2 g/dL (32.0-36.0); Mean Corpuscular Volume 81.1 fL (80.0-100.0); Mean Platelet Volume 10.4 fL (9.4-12.4); Monocytes # (auto) 0.89 K/uL (0.11-0.59); Monocytes % (auto) 10.8 %; Neutrophils % (auto) 67.6 %; Platelet Count 328 K/uL (130-400); RDW Coefficient of Variation 16.5 % (11.5-14.5); Red Blood Count 2.91 M/uL (4.20-5.40); White Blood Count 8.27 K/ul (4.8-10.8)
[2023-05-09] MEDS: HEPARIN SOD 5,000 UNIT/0.5 ML VIAL SQ SCH ×3 (06:59→22:15)
[2023-05-09 07:01] LABS: BUN Creatinine Ratio 14.1 (10-20); Calcium 7.9 mg/dl (8.6-10.3); Creatinine Clr Calc Pharmacy 42.6 ml/min; Est GFR (African American) 30.6 ml/min; Est GFR (Non-African American) 26.4 ml/min
[2023-05-09 07:18] LABS: Ovalocytes 1+
[2023-05-09] MEDS: ALBUMIN 25% 25 GM/100 ML VIAL IV SCH ×2 (07:35→09:41)
[2023-05-09] MEDS ORDERED: ALBUMIN 25% 25 GM/100 ML VIAL IV SCH (09:00)
[2023-05-09] MEDS: PANTOprazole 40 MG TAB PO SCH (09:15)
[2023-05-09] MEDS: DOXYCYCLINE HYCLATE 100 MG CAP PO SCH ×2 (09:15→21:27)
[2023-05-09] MEDS: INSULIN ASPART PER UNIT CHARGE SC SCH ×4 (09:33→22:14)
[2023-05-09] MEDS: POTASSIUM CHLORIDE CRTAB 20 MEQ TABCR PO SCH ×2 (09:36→17:51)
--- NOTE | 2023-05-09 12:35 | Ultrasound Report ---
IR paracentesis abd w/img US CLINICAL HISTORY: Refractory ascites. COMPARISON STUDY: Ultrasound guided paracentesis May 07, 2023. PROCEDURE: The procedure, risks and benefits were discussed with the patient and informed written con sent was obtained. The procedure was performed by Dr. Myles following a timeout. Sonography revea led a large amount of ascites. Suitable window was noted. Skin was prepped and draped in sterile fash ion and local anesthesia was achieved with 1% lidocaine. A 5 Hungarian one-step catheter was then insert ed into the peritoneal cavity with immediate return of serous ascites. 7 L of ascites was withdrawn. The catheter was removed. The patient tolerated the procedure well and no immediate complications wer e evident. 1 L of ascites was sent to the laboratory for analysis as ordered. IMPRESSION: Successful ultrasound guided diagnostic and therapeutic paracentesis with drainage of 7 L of serous ascites. 1 L of ascites sent to the laboratory for analysis as ordered. ACT 112: Negative or not required by law. Electronically signed by: Anthony Myles M.D. 05/09/2023 12:34 PM
[2023-05-09 12:49] LABS: Albumin Peritoneal Fluid 1.8 gm/dl
[2023-05-09 12:55] LABS: Total Protein Peritoneal Fluid 3.9 gm/dl
[2023-05-09 13:25] LABS: Appearance Peritoneal Fluid Clear; Basophils, Fluid 1 %; Color Peritoneal Fluid Straw; Eosinophils, Fluid 3 %; Lymphocytes, Fluid 11 %; Mono,Macrophage,Mesothelial 80 %; Neutrophils, Fluid 5 %; RBC Peritoneal Fluid Auto < 2000 /uL; WBC Peritoneal Fluid Auto 154 /ul (0-300)
[2023-05-09] MEDS: cefTRIAXone SODIUM 2,000 MG in DEXTROSE 5% 50 ML IV SCH (14:31)
[2023-05-09 15:20] LABS: Albumin Level 2.4 gm/dl (3.4-5.0)
--- NOTE | 2023-05-09 15:26 | Hospitalist Progress Note ---
Date of Service May 09, 2023 Assessment & Plan (1) ARF (acute renal failure): (2) Ascites: Plan: ASCITES IN THE SETTING OF PROTEINURIA, CHRONIC KIDNEY DISEASE STAGE IV LIVER CIRRHOSIS Status post paracentesis on 05/02(5L) , 05/05(5L) and 05/07(7L), 05/09 (7). Albumin 50 mg IV with paracentesis Also given Lasix 80 mg IV every 12 with albumin--> currently on hold Creatinine remained stable while admitted around 2.5 Nephrology service managing diuretic regimen Will also need kidney biopsy as an outpatient to determine cause of proteinuria, CKD stage IV GI service consulted Recommend liver biopsy to confirm cirrhosis as an outpatient Discussed regarding possible TIPS procedure due to refractory nature of the ascites. Do not feel that is indicated. HYPERTENSION Secondary to poor adherence Continue carvedilol LOWER ABDOMINAL WALL CELLULITIS Improving Continue ceftriaxone IV plus doxycycline PNEUMONIA Seen on CT abdomen pelvis:A few bibasilar linear densities consistent with subsegmental atelectasis. There are few small patchy peripheral groundglass densities within the right lower lobe. This could represent a pneumonia. Improving Continue ceftriaxone plus doxycycline day #6 Active smoker Counseling done Severe protein calorie malnutrition Deputy Director Of Nursing consulted Morbid obesity Counseling done DVT prophylaxis Heparin subcutaneous daily Disposition Lives with significant other at home. She reports that her goal is to go home. However, has not been able to get out of bed. She reports that she will try to get out of the bed after paracentesis today. Goals of care; discussion done by palliative care with the patient and patient's significant other; patient remains full code. Time spent evaluating patient, direct bedside care, chart review, placing orders, interpretation of diagnostic studies, discussion with consultants, patient, and family members, as well as other required patient management activities is 60 minutes. Please note the above document was generated using voice recognition software. It may contain grammatical, syntax or spelling errors. Any formal questions or concerns about the content, text or information contained within the body of this dictation should be directly addressed to the provider for clarification Admission and Anticipated Discharge Date Admission Date: May 03, 2023 Subjective Patient seen and examined at bedside. His significant other at bedside as well. She is very adamant about having 7 L of paracentesis done today. She is hoping that her mobility will be better after the paracentesis. Review of Systems Review of Systems: All systems reviewed & are unremarkable except as noted in Subjective Physical Exam Physical Exam: General- oriented x 3, not in distress, speaks in sentences with no effort or accessory muscle use Eyes- anicteric Neck- no JVD Lungs- clear breath sounds bilaterally, no wheezing, no crackles noted Heart- normal rate, regular rhythm; no murmurs Abdomen- normal bowel sounds, abdominal wall distended. Lower abdomen cellulitis improving. Extremities-grade 1 lower extremity edema, no calf tenderness Neuro- alert, oriented x 3; no gross focal neurologic deficits Skin- warm & dry Results & Data Results & Data Vital Signs (Past 12 Hours) Vital Signs Temp Pulse Resp BP Pulse Ox Pulse Ox O2 Del Method 05/09/23 13:57 99 05/09/23 11:37 Room Air 05/09/23 07:42 36.5 C 58 L 16 139/67 97 Room Air O2 Flow Rate 05/09/23 13:57 0 05/09/23 11:37 05/09/23 07:42 Laboratory Results Laboratory Results WBC 8.27 K/ul (4.8-10.8) 05/09/23 05:48 RBC 2.91 M/uL (4.20-5.40) L 05/09/23 05:48 Hgb 7.6 g/dl (12.0-16.0) L 05/09/23 05:48 Hct 23.6 % (37.0-47.0) L 05/09/23 05:48 MCV 81.1 fL (80.0-100.0) 05/09/23 05:48 MCH 26.1 pg (25.0-34.0) 05/09/23 05:48 MCHC 32.2 g/dL (32.0-36.0) 05/09/23 05:48 RDW Std Deviation 49.0 fL (36.4-46.3) H 05/09/23 05:48 RDW Coeff of Yola 16.5 % (11.5-14.5) H 05/09/23 05:48 Plt Count 328 K/uL (130-400) 05/09/23 05:48 MPV 10.4 fL (9.4-12.4) 05/09/23 05:48 Immature Gran % (Auto) 0.5 % 05/09/23 05:48 Neut % (Auto) 67.6 % 05/09/23 05:48 Lymph % (Auto) 15.0 % 05/09/23 05:48 Armstrong % (Auto) 10.8 % 05/09/23 05:48 Eos % (Auto) 5.1 % 05/09/23 05:48 Baso % (Auto) 1.0 % 05/09/23 05:48 Reticulocyte % (Auto) 1.5 % (0.5-2.0) 05/03/23 08:02 Neut # (Auto) 5.60 K/uL (1.40-6.50) 05/09/23 05:48 Lymph # (Auto) 1.24 K/uL (1.2-3.4) 05/09/23 05:48 Armstrong # (Auto) 0.89 K/uL (0.11-0.59) H 05/09/23 05:48 Eos # (Auto) 0.42 K/uL (0-0.50) 05/09/23 05:48 Baso # (Auto) 0.08 K/uL (0-0.2) 05/09/23 05:48 Reticulocyte # 0.04 10^6/uL (0.02-0.10) 05/03/23 08:02 Immature Gran # (Auto) 0.04 K/uL (0.01-0.20) 05/09/23 05:48 Polychromasia 1+ 05/07/23 07:59 Poikilocytosis Present 05/03/23 00:02 Anisocytosis Present 05/03/23 08:02 Tear Drop Cells 1+ 05/05/23 06:56 Ovalocytes 1+ 05/09/23 05:48 PT 12.9 Seconds (9.0-12.0) H 05/03/23 00:02 INR 1.2 (0.9-1.1) H 05/03/23 00:02 APTT 35.0 Seconds (21.0-31.0) H 05/03/23 00:02 PTT Ratio 1.2 05/03/23 00:02 ABG pH 7.41 (7.35-7.45) 05/03/23 04:50 ABG pCO2 33 mmHg (35-46) L 05/03/23 04:50 ABG pO2 64 mmHg (80-95) L 05/03/23 04:50 ABG HCO3 21 mmol/L (19-24) 05/03/23 04:50 ABG O2 Saturation 92.0 % (90-95) 05/03/23 04:50 ABG Base Excess -2.9 mEq/L (-9-1.8) 05/03/23 04:50 Art Test Pos (Pos) 05/03/23 04:50 Oxygen Given 2L 05/03/23 04:50 Sodium 137 mmol/L (136-145) 05/09/23 05:48 Potassium 4.0 mmol/L (3.5-5.1) 05/09/23 05:48 Chloride 110 mmol/L (98-107) H 05/09/23 05:48 Carbon Dioxide 22 mmol/L (21-32) 05/09/23 05:48 Anion Gap 5 (3-11) 05/09/23 05:48 BUN 31 mg/dl (6-23) H 05/09/23 05:48 Creatinine 2.20 mg/dl (0.6-1.2) H 05/09/23 05:48 Est Cr Clr Drug Dosing 42.6 ml/min 05/09/23 05:48 Est GFR ( Amer) 30.6 ml/min 05/09/23 05:48 Est GFR (Non-Af Amer) 26.4 ml/min 05/09/23 05:48 BUN/Creatinine Ratio 14.1 (10-20) 05/09/23 05:48 Glucose 74 mg/dl (70-99(Fasting)) 05/09/23 05:48 POC Glucose 89 mg/dl (70-99) 05/09/23 12:33 Calcium 7.9 mg/dl (8.6-10.3) L 05/09/23 05:48 Magnesium 1.6 mg/dl (1.7-2.4) L 05/05/23 06:56 Iron 23 mcg/dl (35-150) L 05/03/23 08:02 Transferrin < 95 mg/dl (200-360) L 05/03/23 08:02 Ferritin 151.5 ng/ml (8-388) 05/03/23 08:02 Total Bilirubin 0.6 mg/dl (0.2-1.0) 05/03/23 08:02 AST 6 U/L (13-39) L 05/03/23 08:02 ALT 3 U/L (7-52) L 05/03/23 08:02 Alkaline Phosphatase 41 U/L (34-104) 05/03/23 08:02 Ammonia 11.0 umol/L (18-72) L 05/03/23 00:08 Total Protein 5.9 gm/dl (6.0-8.3) L 05/03/23 08:02 Albumin 2.4 gm/dl (3.4-5.0) L 05/09/23 05:48 Globulin 3.1 gm/dl (2.5-4.0) 05/03/23 08:02 Albumin/Globulin Ratio 0.9 (0.9-2) 05/03/23 08:02 Lipase 22 U/L (11-82) 05/03/23 00:02 Vitamin B12 425 pg/ml (180-914) 05/03/23 08:02 Folate 8.96 ng/ml (>5.38) 05/03/23 08:02 Urine Color Dark Yellow 05/04/23 16:45 Urine Appearance Cloudy (Clear) A 05/04/23 16:45 Urine pH 5.5 (4.5-7.5) 05/04/23 16:45 Ur Specific Severy 1.019 (1.000-1.030) 05/04/23 16:45 Urine Protein 3+ (Negative) H 05/04/23 16:45 Urine Glucose (UA) Negative (Negative) 05/04/23 16:45 Urine Ketones Trace (Negative) H 05/04/23 16:45 Urine Blood Negative (Negative) 05/04/23 16:45 Urine Nitrite Negative (Negative) 05/04/23 16:45 Urine Bilirubin Negative (Negative) 05/04/23 16:45 Urine Urobilinogen Negative (Negative) 05/04/23 16:45 Ur Leukocyte Esterase Trace (Negative) H 05/04/23 16:45 Urine WBC (Auto) 5-10 /hpf (0-5) H 05/04/23 16:45 Urine RBC (Auto) 0-4 /hpf (0-4) 05/04/23 16:45 U Hyaline Cast (Auto) 1-5 /lpf (0-5) 05/04/23 16:45 U Epithel Cells (Auto) >30 /lpf (0-5) H 05/04/23 16:45 Urine Bacteria (Auto) Negative (Negative) 05/04/23 16:45 Ur Random Creatinine 156.3 mg/dl 05/04/23 16:45 U Random Total Protein 388.2 mg/dl (0-11.9) H 05/04/23 16:45 Protein/Creatinin Ratio 2.5 (0-0.2) H 05/04/23 16:45 Fluid Neutrophils % 5 % 05/09/23 12:00 Fluid Lymphocytes % 11 % 05/09/23 12:00 Fluid Eosinophils % 3 % 05/09/23 12:00 Fluid Basophils % 1 % 05/09/23 12:00 Fluid Meso/Macro/Armstrong % 80 % 05/09/23 12:00 Fluid Comment 05/09/23 12:00 Peritoneal Color Straw 05/09/23 12:00 Peritoneal Appearance Clear 05/09/23 12:00 Peritoneal WBC (Auto) 154 /ul (0-300) 05/09/23 12:00 Peritoneal RBC (Auto) < 2000 /uL 05/09/23 12:00 Peritoneal Tot Protein 3.9 gm/dl 05/09/23 12:00 Peritoneal Albumin 1.8 gm/dl 05/09/23 12:00 Peritoneal Glucose 71 mg/dl 05/09/23 12:00 SARS-CoV-2, RNA, NAAT NEGATIVE (NEGATIVE) 05/02/23 23:23 Blood Type O Positive 05/03/23 08:02 Antibody Screen NEGATIVE 05/03/23 08:02 Crossmatch See Detail 05/03/23 08:02 Impressions Gallbladder Ultrasound 05/04/23 14:01 US gallbladder CLINICAL HISTORY: r/o cholecystitis, cholelithiasis TECHNIQUE: Multiple real-time sonographic images of the right upper quadrant were obtained. Comparison: Comparison is made to CT abdomen pelvis 05/01/2023 FINDINGS: The liver is diffusely coarsened in echotexture, with a nodular contour. The liver appears shrunken in appearance. These findings are suggestive of cirrhosis. No focal mass lesions are seen. No intrahepatic ductal dilatation is seen. Linear hyperechoic foci with posterior shadowing are identified layering dependently within the gallbladder, which are consistent with gallstones. The gallbladder wall is not thickened. There is no pericholecystic fluid present. A sonographic Ceron's sign was not elicited by the pbx installer. The common duct was not visualized. The pancreas is not well visualized secondary to overlying bowel gas. The right kidney shows normal echogenicity, cortical thickness and renal contour. The right kidney shows no evidence of hydronephrosis or mass. Large ascites is seen. IMPRESSION: 1. Cholelithiasis is seen without evidence of cholecystitis. 2. Large ascites with cirrhosis. ACT 112: Negative or not required by law. Electronically signed by: Aneudy Mark M.D. 05/04/2023 10:58 PM Paracentesis Ultrasound 05/09/23 08:00 IR paracentesis abd w/img US CLINICAL HISTORY: Refractory ascites. COMPARISON STUDY: Ultrasound guided paracentesis May 07, 2023. PROCEDURE: The procedure, risks and benefits were discussed with the patient and informed written consent was obtained. The procedure was performed by Dr. Myles following a timeout. Sonography revealed a large amount of ascites. Suitable window was noted. Skin was prepped and draped in sterile fashion and local anesthesia was achieved with 1% lidocaine. A 5 Croatian one-step catheter was then inserted into the peritoneal cavity with immediate return of serous ascites. 7 L of ascites was withdrawn. The catheter was removed. The patient tolerated the procedure well and no immediate complications were evident. 1 L of ascites was sent to the laboratory for analysis as ordered. IMPRESSION: Successful ultrasound guided diagnostic and therapeutic paracentesis with drainage of 7 L of serous ascites. 1 L of ascites sent to the laboratory for analysis as ordered. ACT 112: Negative or not required by law. Electronically signed by: Anthony Myles M.D. 05/09/2023 12:34 PM (2) Ascites Ascites type: other type Qualified Code(s): R18.8 - Other ascites
[2023-05-09 20:34] LABS: Urine Creatinine 105.8 mg/dl; Urine Total Protein 388.2 mg/dl
[2023-05-09 20:42] LABS: Creatinine 24 Hour Urine 0.6 gm/24 HR (0.6-2.5); Total Protein 24 Hour Urine 2329.2 mg/24 Hr (0-149.1)
[2023-05-09] MEDS: oxyCODONE HCL IR 5 MG TAB (IMMEDIATE RELEASE) PO PRN (21:27)
[2023-05-09] MEDS: MELATONIN 3 MG TAB PO PRN (21:28)
[2023-05-10] MEDS: HEPARIN SOD 5,000 UNIT/0.5 ML VIAL SQ SCH ×3 (06:01→21:31)
[2023-05-10 07:40] LABS: Basophils # (auto) 0.08 K/uL (0-0.2); Basophils % (auto) 0.9 %; Eosinophils # (auto) 0.39 K/uL (0-0.50); Eosinophils % (auto) 4.6 %; Hematocrit (blood only) 23.6 % (37.0-47.0); Hemoglobin 7.5 g/dl (12.0-16.0); Immature Granulocytes # (auto) 0.06 K/uL (0.01-0.20); Immature Granulocytes % (auto) 0.7 %; Lymphocytes % (auto) 14.1 %; Mean Corpuscular Hgb Conc 31.8 g/dL (32.0-36.0); Mean Corpuscular Volume 81.7 fL (80.0-100.0); Mean Platelet Volume 10.4 fL (9.4-12.4); Monocytes # (auto) 0.89 K/uL (0.11-0.59); Monocytes % (auto) 10.4 %; Neutrophils # (auto) 5.92 K/uL (1.40-6.50); Neutrophils % (auto) 69.3 %; Platelet Count 343 K/uL (130-400); RDW Coefficient of Variation 16.3 % (11.5-14.5); RDW Standard Deviation 48.6 fL (36.4-46.3); Red Blood Count 2.89 M/uL (4.20-5.40); White Blood Count 8.54 K/ul (4.8-10.8)
[2023-05-10 08:21] LABS: Ovalocytes 1+; Polychromasia 1+
[2023-05-10] MEDS: POTASSIUM CHLORIDE CRTAB 20 MEQ TABCR PO SCH ×2 (08:49→17:45)
[2023-05-10] MEDS: PANTOprazole 40 MG TAB PO SCH (08:49)
[2023-05-10] MEDS: INSULIN ASPART PER UNIT CHARGE SC SCH ×4 (08:51→21:19)
[2023-05-10 09:38] LABS: Anion Gap 4 (3-11); BUN Creatinine Ratio 13.5 (10-20); Blood Urea Nitrogen 30 mg/dl (6-23); Calcium 8.1 mg/dl (8.6-10.3); Carbon Dioxide 23 mmol/L (21-32); Chloride 110 mmol/L (98-107); Est GFR (African American) 30.1 ml/min; Glucose 73 mg/dl (70-99(Fasting)); Potassium 4.3 mmol/L (3.5-5.1); Sodium 137 mmol/L (136-145)
[2023-05-10 10:00] LABS: Alanine Aminotransferase < 3 U/L (7-52)
[2023-05-10 10:01] LABS: Albumin Level 2.5 gm/dl (3.4-5.0); Alkaline Phosphatase 38 U/L (34-104); Aspartate Aminotransferase 5 U/L (13-39); Bilirubin,Total 0.5 mg/dl (0.2-1.0); Globulin 2.6 gm/dl (2.5-4.0); Total Protein 5.1 gm/dl (6.0-8.3)
--- NOTE | 2023-05-10 13:17 | Hospitalist Progress Note ---
Date of Service May 10, 2023 Assessment & Plan (1) ARF (acute renal failure): (2) Ascites: Plan: ASCITES IN THE SETTING OF PROTEINURIA, CHRONIC KIDNEY DISEASE STAGE IV LIVER CIRRHOSIS Status post paracentesis on 05/02(5L) , 05/05(5L) and 05/07(7L), 05/09 (7). Creatinine remained stable while admitted around 2.5 Nephrology service managing diuretic regimen Will also need kidney biopsy as an outpatient to determine cause of proteinuria, CKD stage IV GI service consulted Recommend liver biopsy to confirm cirrhosis as an outpatient Discussed regarding possible TIPS procedure due to refractory nature of the ascites. Do not feel that is indicated. HYPERTENSION Secondary to poor adherence Coreg on hold given normotensive. LOWER ABDOMINAL WALL CELLULITIS Improving Completed ceftriaxone and doxycycline. PNEUMONIA Seen on CT abdomen pelvis:A few bibasilar linear densities consistent with subsegmental atelectasis. There are few small patchy peripheral groundglass densities within the right lower lobe. This could represent a pneumonia. Improving Completed 7 days of antibiotics Noncompliance: Patient has been resistant to medical care. has signed out AMA multiple times Has not followed up since his discharges. Active smoker Counseling done Severe protein calorie malnutrition [employer] consulted Morbid obesity Counseling done DVT prophylaxis Heparin subcutaneous daily Disposition Lives with significant other at home. She reports that her goal is to go home. However, has not been able to get out of bed. PT OT on board. Goals of care; discussion done by palliative care with the patient and patient's significant other; patient remains full code. Time spent evaluating patient, direct bedside care, chart review, placing orders, interpretation of diagnostic studies, discussion with consultants, patient, and family members, as well as other required patient management activities is 60 minutes. Please note the above document was generated using voice recognition software. It may contain grammatical, syntax or spelling errors. Any formal questions or concerns about the content, text or information contained within the body of this dictation should be directly addressed to the provider for clarification Admission and Anticipated Discharge Date Admission Date: May 03, 2023 Subjective Patient seen and examined at bedside. Reports that she does not want to be seen by anybody till Friday. Encourage patient to participate in PT OT and to take medications. However, patient continues to deny care. Review of Systems Review of Systems: All systems reviewed & are unremarkable except as noted in Subjective Physical Exam Physical Exam: Patient denies physical examination Results & Data Results & Data Vital Signs (Past 12 Hours) Vital Signs Temp Pulse Resp BP Pulse Ox O2 Del Method 05/10/23 07:30 Room Air 05/10/23 08:13 36.8 C 58 L 16 135/70 97 Room Air Laboratory Results Laboratory Results WBC 8.54 K/ul (4.8-10.8) 05/10/23 07:00 RBC 2.89 M/uL (4.20-5.40) L 05/10/23 07:00 Hgb 7.5 g/dl (12.0-16.0) L 05/10/23 07:00 Hct 23.6 % (37.0-47.0) L 05/10/23 07:00 MCV 81.7 fL (80.0-100.0) 05/10/23 07:00 MCH 26.0 pg (25.0-34.0) 05/10/23 07:00 MCHC 31.8 g/dL (32.0-36.0) L 05/10/23 07:00 RDW Std Deviation 48.6 fL (36.4-46.3) H 05/10/23 07:00 RDW Coeff of [place] 16.3 % (11.5-14.5) H 05/10/23 07:00 Plt Count 343 K/uL (130-400) 05/10/23 07:00 MPV 10.4 fL (9.4-12.4) 05/10/23 07:00 Immature Gran % (Auto) 0.7 % 05/10/23 07:00 Neut % (Auto) 69.3 % 05/10/23 07:00 Lymph % (Auto) 14.1 % 05/10/23 07:00 [place] % (Auto) 10.4 % 05/10/23 07:00 Eos % (Auto) 4.6 % 05/10/23 07:00 Baso % (Auto) 0.9 % 05/10/23 07:00 Reticulocyte % (Auto) 1.5 % (0.5-2.0) 05/03/23 08:02 Neut # (Auto) 5.92 K/uL (1.40-6.50) 05/10/23 07:00 Lymph # (Auto) 1.20 K/uL (1.2-3.4) 05/10/23 07:00 [place] # (Auto) 0.89 K/uL (0.11-0.59) H 05/10/23 07:00 Eos # (Auto) 0.39 K/uL (0-0.50) 05/10/23 07:00 Baso # (Auto) 0.08 K/uL (0-0.2) 05/10/23 07:00 Reticulocyte # 0.04 10^6/uL (0.02-0.10) 05/03/23 08:02 Immature Gran # (Auto) 0.06 K/uL (0.01-0.20) 05/10/23 07:00 Polychromasia 1+ 05/10/23 07:00 Poikilocytosis Present 05/03/23 00:02 Anisocytosis Present 05/03/23 08:02 Tear Drop Cells 1+ 05/05/23 06:56 Ovalocytes 1+ 05/10/23 07:00 PT 12.9 Seconds (9.0-12.0) H 05/03/23 00:02 INR 1.2 (0.9-1.1) H 05/03/23 00:02 APTT 35.0 Seconds (21.0-31.0) H 05/03/23 00:02 PTT Ratio 1.2 05/03/23 00:02 ABG pH 7.41 (7.35-7.45) 05/03/23 04:50 ABG pCO2 33 mmHg (35-46) L 05/03/23 04:50 ABG pO2 64 mmHg (80-95) L 05/03/23 04:50 ABG HCO3 21 mmol/L (19-24) 05/03/23 04:50 ABG O2 Saturation 92.0 % (90-95) 05/03/23 04:50 ABG Base Excess -2.9 mEq/L (-9-1.8) 05/03/23 04:50 Art Test Pos (Pos) 05/03/23 04:50 Oxygen Given 2L 05/03/23 04:50 Sodium 137 mmol/L (136-145) 05/10/23 07:00 Potassium 4.3 mmol/L (3.5-5.1) 05/10/23 07:00 Chloride 110 mmol/L (98-107) H 05/10/23 07:00 Carbon Dioxide 23 mmol/L (21-32) 05/10/23 07:00 Anion Gap 4 (3-11) 05/10/23 07:00 BUN 30 mg/dl (6-23) H 05/10/23 07:00 Creatinine 2.23 mg/dl (0.6-1.2) H 05/10/23 07:00 Est Cr Clr Drug Dosing 42.0 ml/min 05/10/23 07:00 Est GFR ( Amer) 30.1 ml/min 05/10/23 07:00 Est GFR (Non-Af Amer) 26.0 ml/min 05/10/23 07:00 BUN/Creatinine Ratio 13.5 (10-20) 05/10/23 07:00 Glucose 73 mg/dl (70-99(Fasting)) 05/10/23 07:00 POC Glucose 105 mg/dl (70-99) H 05/10/23 11:58 Calcium 8.1 mg/dl (8.6-10.3) L 05/10/23 07:00 Magnesium 1.6 mg/dl (1.7-2.4) L 05/05/23 06:56 Iron 23 mcg/dl (35-150) L 05/03/23 08:02 Transferrin < 95 mg/dl (200-360) L 05/03/23 08:02 Ferritin 151.5 ng/ml (8-388) 05/03/23 08:02 Total Bilirubin 0.5 mg/dl (0.2-1.0) 05/10/23 07:00 AST 5 U/L (13-39) L 05/10/23 07:00 ALT < 3 U/L (7-52) L 05/10/23 07:00 Alkaline Phosphatase 38 U/L (34-104) 05/10/23 07:00 Ammonia 11.0 umol/L (18-72) L 05/03/23 00:08 Total Protein 5.1 gm/dl (6.0-8.3) L 05/10/23 07:00 Albumin 2.5 gm/dl (3.4-5.0) L 05/10/23 07:00 Globulin 2.6 gm/dl (2.5-4.0) 05/10/23 07:00 Albumin/Globulin Ratio 1.0 (0.9-2) 05/10/23 07:00 Lipase 22 U/L (11-82) 05/03/23 00:02 Vitamin B12 425 pg/ml (180-914) 05/03/23 08:02 Folate 8.96 ng/ml (>5.38) 05/03/23 08:02 Urine Color Dark Yellow 05/04/23 16:45 Urine Appearance Cloudy (Clear) A 05/04/23 16:45 Urine pH 5.5 (4.5-7.5) 05/04/23 16:45 Ur Specific [place] 1.019 (1.000-1.030) 05/04/23 16:45 Urine Protein 3+ (Negative) H 05/04/23 16:45 Urine Glucose (UA) Negative (Negative) 05/04/23 16:45 Urine Ketones Trace (Negative) H 05/04/23 16:45 Urine Blood Negative (Negative) 05/04/23 16:45 Urine Nitrite Negative (Negative) 05/04/23 16:45 Urine Bilirubin Negative (Negative) 05/04/23 16:45 Urine Urobilinogen Negative (Negative) 05/04/23 16:45 Ur Leukocyte Esterase Trace (Negative) H 05/04/23 16:45 Urine WBC (Auto) 5-10 /hpf (0-5) H 05/04/23 16:45 Urine RBC (Auto) 0-4 /hpf (0-4) 05/04/23 16:45 U Hyaline Cast (Auto) 1-5 /lpf (0-5) 05/04/23 16:45 U Epithel Cells (Auto) >30 /lpf (0-5) H 05/04/23 16:45 Urine Bacteria (Auto) Negative (Negative) 05/04/23 16:45 Ur Random Creatinine 156.3 mg/dl 05/04/23 16:45 U Random Total Protein 388.2 mg/dl (0-11.9) H 05/04/23 16:45 Urine Total Volume 600 mL 05/09/23 19:27 Urine Creatinine 105.8 mg/dl 05/09/23 19:27 Ur Creatinine 24 Hour 0.6 gm/24 HR (0.6-2.5) 07/21/23 19:27 Ur Total Protein 24 Hr 2329.2 mg/24 Hr (0-149.1) H 05/09/23 19:27 Protein/Creatinin Ratio 2.5 (0-0.2) H 05/04/23 16:45 Urine Sodium 33 mmol/L 05/09/23 19:27 Ur Sodium 24 Hour 20 mmol/24 (40-220) L 05/09/23 19:27 Urine Total Protein 388.2 mg/dl 05/09/23 19:27 Fluid Neutrophils % 5 % 05/09/23 12:00 Fluid Lymphocytes % 11 % 05/09/23 12:00 Fluid Eosinophils % 3 % 05/09/23 12:00 Fluid Basophils % 1 % 05/09/23 12:00 Fluid Meso/Macro/[place] % 80 % 05/09/23 12:00 Fluid Comment 05/09/23 12:00 Peritoneal Color Straw 05/09/23 12:00 Peritoneal Appearance Clear 05/09/23 12:00 Peritoneal WBC (Auto) 154 /ul (0-300) 05/09/23 12:00 Peritoneal RBC (Auto) < 2000 /uL 05/09/23 12:00 Peritoneal Tot Protein 3.9 gm/dl 05/09/23 12:00 Peritoneal Albumin 1.8 gm/dl 05/09/23 12:00 Peritoneal Glucose 71 mg/dl 05/09/23 12:00 SARS-CoV-2, RNA, NAAT NEGATIVE (NEGATIVE) 05/02/23 23:23 Blood Type O Positive 05/03/23 08:02 Antibody Screen NEGATIVE 05/03/23 08:02 Crossmatch See Detail 05/03/23 08:02 Impressions Gallbladder Ultrasound 05/04/23 14:01 US gallbladder CLINICAL HISTORY: r/o cholecystitis, cholelithiasis TECHNIQUE: Multiple real-time sonographic images of the right upper quadrant were obtained. Comparison: Comparison is made to CT abdomen pelvis 05/01/2023 FINDINGS: The liver is diffusely coarsened in echotexture, with a nodular contour. The liver appears shrunken in appearance. These findings are suggestive of cirrhosis. No focal mass lesions are seen. No intrahepatic ductal dilatation is seen. Linear hyperechoic foci with posterior shadowing are identified layering dependently within the gallbladder, which are consistent with gallstones. The gallbladder wall is not thickened. There is no pericholecystic fluid present. A sonographic Ceron's sign was not elicited by the banquet pilot. The common duct was not visualized. The pancreas is not well visualized secondary to overlying bowel gas. The right kidney shows normal echogenicity, cortical thickness and renal contour. The right kidney shows no evidence of hydronephrosis or mass. Large ascites is seen. IMPRESSION: 1. Cholelithiasis is seen without evidence of cholecystitis. 2. Large ascites with cirrhosis. ACT 112: Negative or not required by law. Electronically signed by: Aneudy Mark M.D. 05/04/2023 10:58 PM Paracentesis Ultrasound 05/09/23 08:00 IR paracentesis abd w/img US CLINICAL HISTORY: Refractory ascites. COMPARISON STUDY: Ultrasound guided paracentesis May 07, 2023. PROCEDURE: The procedure, risks and benefits were discussed with the patient and informed written consent was obtained. The procedure was performed by Dr. Myles following a timeout. Sonography revealed a large amount of ascites. Suitable window was noted. Skin was prepped and draped in sterile fashion and local anesthesia was achieved with 1% lidocaine. A 5 [place] one-step catheter was then inserted into the peritoneal cavity with immediate return of serous ascites. 7 L of ascites was withdrawn. The catheter was removed. The patient tolerated the procedure well and no immediate complications were evident. 1 L of ascites was sent to the laboratory for analysis as ordered. IMPRESSION: Successful ultrasound guided diagnostic and therapeutic paracentesis with drainage of 7 L of serous ascites. 1 L of ascites sent to the laboratory for analysis as ordered. ACT 112: Negative or not required by law. Electronically signed by: Anthony Myles M.D. 05/09/2023 12:34 PM (2) Ascites Ascites type: other type Qualified Code(s): R18.8 - Other ascites
[2023-05-10] MEDS: FUROSEMIDE 80 MG TAB PO SCH (17:45)
[2023-05-10] MEDS: MELATONIN 3 MG TAB PO PRN (21:27)
[2023-05-11] MEDS: HEPARIN SOD 5,000 UNIT/0.5 ML VIAL SQ SCH ×3 (06:11→21:01)
[2023-05-11 07:35] LABS: Basophils # (auto) 0.08 K/uL (0-0.2); Basophils % (auto) 0.8 %; Eosinophils # (auto) 0.39 K/uL (0-0.50); Eosinophils % (auto) 4.1 %; Hematocrit (blood only) 23.7 % (37.0-47.0); Hemoglobin 7.5 g/dl (12.0-16.0); Immature Granulocytes # (auto) 0.08 K/uL (0.01-0.20); Immature Granulocytes % (auto) 0.8 %; Lymphocytes # (auto) 1.29 K/uL (1.2-3.4); Lymphocytes % (auto) 13.5 %; Mean Corpuscular Hemoglobin 25.4 pg (25.0-34.0); Mean Corpuscular Hgb Conc 31.6 g/dL (32.0-36.0); Mean Corpuscular Volume 80.3 fL (80.0-100.0); Mean Platelet Volume 10.4 fL (9.4-12.4); Monocytes # (auto) 0.83 K/uL (0.11-0.59); Monocytes % (auto) 8.7 %; Neutrophils # (auto) 6.89 K/uL (1.40-6.50); Neutrophils % (auto) 72.1 %; Platelet Count 373 K/uL (130-400); RDW Coefficient of Variation 16.3 % (11.5-14.5); Red Blood Count 2.95 M/uL (4.20-5.40); White Blood Count 9.56 K/ul (4.8-10.8)
[2023-05-11 07:59] LABS: BUN Creatinine Ratio 12.9 (10-20); Creatinine Clr Calc Pharmacy 41.7 ml/min; Est GFR (African American) 29.8 ml/min; Est GFR (Non-African American) 25.7 ml/min
[2023-05-11 09:00] LABS: Ovalocytes 1+
[2023-05-11] MEDS: INSULIN ASPART PER UNIT CHARGE SC SCH ×4 (10:03→21:55)
[2023-05-11] MEDS: FUROSEMIDE 80 MG TAB PO SCH ×2 (10:05→18:34)
[2023-05-11] MEDS: PANTOprazole 40 MG TAB PO SCH (10:05)
[2023-05-11] MEDS: POTASSIUM CHLORIDE CRTAB 20 MEQ TABCR PO SCH ×2 (10:09→18:35)
--- NOTE | 2023-05-11 15:25 | Hospitalist Progress Note ---
Date of Service May 11, 2023 Assessment & Plan (1) ARF (acute renal failure): (2) Ascites: Plan: ASCITES IN THE SETTING OF PROTEINURIA, CHRONIC KIDNEY DISEASE STAGE IV LIVER CIRRHOSIS Status post paracentesis on 05/02(5L) , 05/05(5L) and 05/07(7L), 05/09 (7). Creatinine remained stable while admitted around 2.5 Nephrology service managing diuretic regimen; currently on Lasix 80 mg twice daily. Will also need kidney biopsy as an outpatient to determine cause of proteinuria, CKD stage IV GI service consulted Recommend liver biopsy to confirm cirrhosis as an outpatient Discussed regarding possible TIPS procedure due to refractory nature of the ascites. Do not feel that is indicated. HYPERTENSION Secondary to poor adherence Coreg on hold given normotensive. LOWER ABDOMINAL WALL CELLULITIS Improving Completed ceftriaxone and doxycycline. PNEUMONIA Seen on CT abdomen pelvis:A few bibasilar linear densities consistent with subsegmental atelectasis. There are few small patchy peripheral groundglass densities within the right lower lobe. This could represent a pneumonia. Improving Completed 7 days of antibiotics Noncompliance: Patient has been resistant to medical care. has signed out AMA multiple times Has not followed up since his discharges. Active smoker Counseling done Severe protein calorie malnutrition [employer] consulted Morbid obesity Counseling done DVT prophylaxis Heparin subcutaneous daily Disposition Lives with significant other at home. He is open to the idea of rehab. Encouraged him to participate in PT OT. Case management on board. Goals of care; discussion done by palliative care with the patient and patient's significant other; patient remains full code. Time spent evaluating patient, direct bedside care, chart review, placing orders, interpretation of diagnostic studies, discussion with consultants, patient, and family members, as well as other required patient management activities is 60 minutes. Please note the above document was generated using voice recognition software. It may contain grammatical, syntax or spelling errors. Any formal questions or concerns about the content, text or information contained within the body of this dictation should be directly addressed to the provider for clarification Admission and Anticipated Discharge Date Admission Date: May 03, 2023 Subjective Patient seen and examined at bedside. Patient comfortably lying on the bed; not in any distress. Denies abdominal pain, fever, chills, chest pain or shortness of breath. Review of Systems Review of Systems: All systems reviewed & are unremarkable except as noted in Subjective Physical Exam Physical Exam: General- oriented x 3, not in distress, speaks in sentences with no effort or accessory muscle use Eyes- anicteric Neck- no JVD Lungs- clear breath sounds bilaterally, no wheezing, no crackles noted Heart- normal rate, regular rhythm; no murmurs Abdomen- normal bowel sounds, abdominal wall distended. Extremities-grade 1 lower extremity edema, no calf tenderness Neuro- alert, oriented x 3; no gross focal neurologic deficits Skin- warm & dry Results & Data Results & Data Vital Signs (Past 12 Hours) Vital Signs Temp Pulse Resp BP Pulse Ox O2 Del Method 05/11/23 08:10 36.9 C 54 L 16 125/74 97 Room Air Laboratory Results Laboratory Results WBC 9.56 K/ul (4.8-10.8) 05/11/23 07:03 RBC 2.95 M/uL (4.20-5.40) L 05/11/23 07:03 Hgb 7.5 g/dl (12.0-16.0) L 05/11/23 07:03 Hct 23.7 % (37.0-47.0) L 05/11/23 07:03 MCV 80.3 fL (80.0-100.0) 05/11/23 07:03 MCH 25.4 pg (25.0-34.0) 05/11/23 07:03 MCHC 31.6 g/dL (32.0-36.0) L 05/11/23 07:03 RDW Std Deviation 48.0 fL (36.4-46.3) H 05/11/23 07:03 RDW Coeff of [place] 16.3 % (11.5-14.5) H 05/11/23 07:03 Plt Count 373 K/uL (130-400) 05/11/23 07:03 MPV 10.4 fL (9.4-12.4) 05/11/23 07:03 Immature Gran % (Auto) 0.8 % 05/11/23 07:03 Neut % (Auto) 72.1 % 05/11/23 07:03 Lymph % (Auto) 13.5 % 05/11/23 07:03 [place] % (Auto) 8.7 % 05/11/23 07:03 Eos % (Auto) 4.1 % 05/11/23 07:03 Baso % (Auto) 0.8 % 05/11/23 07:03 Reticulocyte % (Auto) 1.5 % (0.5-2.0) 05/03/23 08:02 Neut # (Auto) 6.89 K/uL (1.40-6.50) H 05/11/23 07:03 Lymph # (Auto) 1.29 K/uL (1.2-3.4) 05/11/23 07:03 [place] # (Auto) 0.83 K/uL (0.11-0.59) H 05/11/23 07:03 Eos # (Auto) 0.39 K/uL (0-0.50) 05/11/23 07:03 Baso # (Auto) 0.08 K/uL (0-0.2) 05/11/23 07:03 Reticulocyte # 0.04 10^6/uL (0.02-0.10) 05/03/23 08:02 Immature Gran # (Auto) 0.08 K/uL (0.01-0.20) 05/11/23 07:03 Polychromasia 1+ 05/10/23 07:00 Poikilocytosis Present 05/03/23 00:02 Anisocytosis Present 05/03/23 08:02 Tear Drop Cells 1+ 05/05/23 06:56 Ovalocytes 1+ 05/11/23 07:03 PT 12.9 Seconds (9.0-12.0) H 05/03/23 00:02 INR 1.2 (0.9-1.1) H 05/03/23 00:02 APTT 35.0 Seconds (21.0-31.0) H 05/03/23 00:02 PTT Ratio 1.2 05/03/23 00:02 ABG pH 7.41 (7.35-7.45) 05/03/23 04:50 ABG pCO2 33 mmHg (35-46) L 05/03/23 04:50 ABG pO2 64 mmHg (80-95) L 05/03/23 04:50 ABG HCO3 21 mmol/L (19-24) 05/03/23 04:50 ABG O2 Saturation 92.0 % (90-95) 05/03/23 04:50 ABG Base Excess -2.9 mEq/L (-9-1.8) 05/03/23 04:50 Art Test Pos (Pos) 05/03/23 04:50 Oxygen Given 2L 05/03/23 04:50 Sodium 137 mmol/L (136-145) 05/11/23 07:03 Potassium 4.0 mmol/L (3.5-5.1) 05/11/23 07:03 Chloride 109 mmol/L (98-107) H 05/11/23 07:03 Carbon Dioxide 24 mmol/L (21-32) 05/11/23 07:03 Anion Gap 4 (3-11) 05/11/23 07:03 BUN 29 mg/dl (6-23) H 05/11/23 07:03 Creatinine 2.25 mg/dl (0.6-1.2) H 05/11/23 07:03 Est Cr Clr Drug Dosing 41.7 ml/min 05/11/23 07:03 Est GFR ( Amer) 29.8 ml/min 05/11/23 07:03 Est GFR (Non-Af Amer) 25.7 ml/min 05/11/23 07:03 BUN/Creatinine Ratio 12.9 (10-20) 05/11/23 07:03 Glucose 84 mg/dl (70-99(Fasting)) 05/11/23 07:03 POC Glucose 85 mg/dl (70-99) 05/11/23 11:56 Calcium 8.0 mg/dl (8.6-10.3) L 05/11/23 07:03 Magnesium 1.6 mg/dl (1.7-2.4) L 05/05/23 06:56 Iron 23 mcg/dl (35-150) L 05/03/23 08:02 Transferrin < 95 mg/dl (200-360) L 05/03/23 08:02 Ferritin 151.5 ng/ml (8-388) 05/03/23 08:02 Total Bilirubin 0.5 mg/dl (0.2-1.0) 05/10/23 07:00 AST 5 U/L (13-39) L 05/10/23 07:00 ALT < 3 U/L (7-52) L 05/10/23 07:00 Alkaline Phosphatase 38 U/L (34-104) 05/10/23 07:00 Ammonia 11.0 umol/L (18-72) L 05/03/23 00:08 Total Protein 5.1 gm/dl (6.0-8.3) L 05/10/23 07:00 Albumin 2.5 gm/dl (3.4-5.0) L 05/10/23 07:00 Globulin 2.6 gm/dl (2.5-4.0) 05/10/23 07:00 Albumin/Globulin Ratio 1.0 (0.9-2) 05/10/23 07:00 Lipase 22 U/L (11-82) 05/03/23 00:02 Vitamin B12 425 pg/ml (180-914) 05/03/23 08:02 Folate 8.96 ng/ml (>5.38) 05/03/23 08:02 Urine Color Dark Yellow 05/04/23 16:45 Urine Appearance Cloudy (Clear) A 05/04/23 16:45 Urine pH 5.5 (4.5-7.5) 05/04/23 16:45 Ur Specific [place] 1.019 (1.000-1.030) 05/04/23 16:45 Urine Protein 3+ (Negative) H 05/04/23 16:45 Urine Glucose (UA) Negative (Negative) 05/04/23 16:45 Urine Ketones Trace (Negative) H 05/04/23 16:45 Urine Blood Negative (Negative) 05/04/23 16:45 Urine Nitrite Negative (Negative) 05/04/23 16:45 Urine Bilirubin Negative (Negative) 05/04/23 16:45 Urine Urobilinogen Negative (Negative) 05/04/23 16:45 Ur Leukocyte Esterase Trace (Negative) H 05/04/23 16:45 Urine WBC (Auto) 5-10 /hpf (0-5) H 05/04/23 16:45 Urine RBC (Auto) 0-4 /hpf (0-4) 05/04/23 16:45 U Hyaline Cast (Auto) 1-5 /lpf (0-5) 05/04/23 16:45 U Epithel Cells (Auto) >30 /lpf (0-5) H 05/04/23 16:45 Urine Bacteria (Auto) Negative (Negative) 05/04/23 16:45 Ur Random Creatinine 156.3 mg/dl 05/04/23 16:45 U Random Total Protein 388.2 mg/dl (0-11.9) H 05/04/23 16:45 Urine Total Volume 600 mL 05/09/23 19: Urine Creatinine 105.8 mg/dl 05/09/23 19: Ur Creatinine 24 Hour 0.6 gm/24 HR (0.6-2.5) 05/09/23 19:27 Ur Total Protein 24 Hr 2329.2 mg/24 Hr (0-149.1) H 05/09/23 19: Protein/Creatinin Ratio 2.5 (0-0.2) H 05/04/23 16:45 Urine Sodium 33 mmol/L 05/09/23 19: Ur Sodium 24 Hour 20 mmol/24 (40-220) L 05/09/23 19:27 Urine Total Protein 388.2 mg/dl 05/09/23 19:27 Fluid Neutrophils % 5 % 05/09/23 12:00 Fluid Lymphocytes % 11 % 05/09/23 12:00 Fluid Eosinophils % 3 % 05/09/23 12:00 Fluid Basophils % 1 % 05/09/23 12:00 Fluid Meso/Macro/[place] % 80 % 05/09/23 12:00 Fluid Comment 05/09/23 12:00 Peritoneal Color Straw 05/09/23 12:00 Peritoneal Appearance Clear 05/09/23 12:00 Peritoneal WBC (Auto) 154 /ul (0-300) 05/09/23 12:00 Peritoneal RBC (Auto) < 2000 /uL 05/09/23 12:00 Peritoneal Tot Protein 3.9 gm/dl 05/09/23 12:00 Peritoneal Albumin 1.8 gm/dl 05/09/23 12:00 Peritoneal Glucose 71 mg/dl 05/09/23 12:00 SARS-CoV-2, RNA, NAAT NEGATIVE (NEGATIVE) 05/02/23 23:23 Blood Type O Positive 05/03/23 08:02 Antibody Screen NEGATIVE 05/03/23 08:02 Crossmatch See Detail 05/03/23 08:02 Impressions Gallbladder Ultrasound 05/04/23 14:01 US gallbladder CLINICAL HISTORY: r/o cholecystitis, cholelithiasis TECHNIQUE: Multiple real-time sonographic images of the right upper quadrant were obtained. Comparison: Comparison is made to CT abdomen pelvis 05/01/2023 FINDINGS: The liver is diffusely coarsened in echotexture, with a nodular contour. The liver appears shrunken in appearance. These findings are suggestive of cirrhosis. No focal mass lesions are seen. No intrahepatic ductal dilatation is seen. Linear hyperechoic foci with posterior shadowing are identified layering dependently within the gallbladder, which are consistent with gallstones. The gallbladder wall is not thickened. There is no pericholecystic fluid present. A sonographic Ceron's sign was not elicited by the practicing dermatologist. The common duct was not visualized. The pancreas is not well visualized secondary to overlying bowel gas. The right kidney shows normal echogenicity, cortical thickness and renal contour. The right kidney shows no evidence of hydronephrosis or mass. Large ascites is seen. IMPRESSION: 1. Cholelithiasis is seen without evidence of cholecystitis. 2. Large ascites with cirrhosis. ACT 112: Negative or not required by law. Electronically signed by: Aneudy Mark M.D. 05/04/2023 10:58 PM Paracentesis Ultrasound 05/09/23 08:00 IR paracentesis abd w/img US CLINICAL HISTORY: Refractory ascites. COMPARISON STUDY: Ultrasound guided paracentesis May 07, 2023. PROCEDURE: The procedure, risks and benefits were discussed with the patient and informed written consent was obtained. The procedure was performed by Dr. Myles following a timeout. Sonography revealed a large amount of ascites. Suitable window was noted. Skin was prepped and draped in sterile fashion and local anesthesia was achieved with 1% lidocaine. A 5 [place] one-step catheter was then inserted into the peritoneal cavity with immediate return of serous ascites. 7 L of ascites was withdrawn. The catheter was removed. The patient tolerated the procedure well and no immediate complications were evident. 1 L of ascites was sent to the laboratory for analysis as ordered. IMPRESSION: Successful ultrasound guided diagnostic and therapeutic paracentesis with drainage of 7 L of serous ascites. 1 L of ascites sent to the laboratory for analysis as ordered. ACT 112: Negative or not required by law. Electronically signed by: Anthony Myles M.D. 05/09/2023 12:34 PM (2) Ascites Ascites type: other type Qualified Code(s): R18.8 - Other ascites
[2023-05-11] MEDS: ACETAMINOPHEN 500 MG TAB PO PRN (18:37)
[2023-05-11] MEDS: MELATONIN 3 MG TAB PO PRN (21:06)
[2023-05-11] MEDS: PROMETHAZINE HCL 12.5 MG in SODIUM CHLORIDE 0.9% 50 ML IV PRN (22:53)
[2023-05-12] MEDS: HEPARIN SOD 5,000 UNIT/0.5 ML VIAL SQ SCH ×3 (06:11→22:13)
[2023-05-12 07:27] LABS: Estimated Average Glucose 94 mg/dl; Hemoglobin A1C 4.9 % (4.5-5.6)
[2023-05-12 07:50] LABS: Basophils # (auto) 0.08 K/uL (0-0.2); Basophils % (auto) 0.8 %; Eosinophils # (auto) 0.33 K/uL (0-0.50); Eosinophils % (auto) 3.4 %; Hematocrit (blood only) 23.6 % (37.0-47.0); Hemoglobin 7.5 g/dl (12.0-16.0); Immature Granulocytes # (auto) 0.06 K/uL (0.01-0.20); Immature Granulocytes % (auto) 0.6 %; Lymphocytes # (auto) 1.34 K/uL (1.2-3.4); Lymphocytes % (auto) 13.7 %; Mean Corpuscular Hemoglobin 25.4 pg (25.0-34.0); Mean Corpuscular Hgb Conc 31.8 g/dL (32.0-36.0); Mean Platelet Volume 10.3 fL (9.4-12.4); Monocytes # (auto) 0.75 K/uL (0.11-0.59); Monocytes % (auto) 7.7 %; Neutrophils % (auto) 73.8 %; Platelet Count 391 K/uL (130-400); RDW Coefficient of Variation 16.1 % (11.5-14.5); RDW Standard Deviation 47.3 fL (36.4-46.3); Red Blood Count 2.95 M/uL (4.20-5.40); White Blood Count 9.76 K/ul (4.8-10.8)
[2023-05-12 08:09] LABS: BUN Creatinine Ratio 12.6 (10-20); Calcium 8.1 mg/dl (8.6-10.3); Creatinine Clr Calc Pharmacy 40.6 ml/min; Est GFR (African American) 28.8 ml/min; Est GFR (Non-African American) 24.9 ml/min; Potassium 3.7 mmol/L (3.5-5.1)
[2023-05-12 08:13] LABS: Ovalocytes 1+
[2023-05-12] MEDS: POTASSIUM CHLORIDE CRTAB 20 MEQ TABCR PO SCH (08:39)
[2023-05-12] MEDS: FUROSEMIDE 80 MG TAB PO SCH ×2 (08:40→17:17)
[2023-05-12] MEDS: PANTOprazole 40 MG TAB PO SCH (08:40)
[2023-05-12] MEDS: INSULIN ASPART PER UNIT CHARGE SC SCH ×4 (08:43→20:53)
--- NOTE | 2023-05-12 10:56 | Nephrology Progress Note ---
Date of Service May 12, 2023 Assessment & Plan (1) CKD (chronic kidney disease) stage 4, GFR 15-29 ml/min: Plan: CKD 4 in setting of decompensated cirrhosis which appears to be progressive and high risk for ESRD. creatinine ran low 2's in September 2022 (eGFR 28); now more in mid 2's (eGFR 21). repeat UACM remarkable for 2.5 gm proteinuria, ketonuria -avoid nsaids -cont 1.5L FR -Stop potassium chloride > Add Aldactone 25 mg daily NEPHRO D/C RECOMMENDATIONS -Start Aldactone 25 mg daily as above -lasix 80 mg twice daily -Stop potassium chloride as patient has been refusing and his potassium is stable and Coreg -bmp w/in one week of discharge -hospital d/c appt w/ nephro w/in one week of hospital d/c Dr Louise or Melania -do not d/c on metformin Care coordinated w/ Dr Muir (2) Proteinuria: Plan: longstanding nephritic sediment with variable proteinuria > 1.5 and 2.5 gm most recently; back in September was 11.5 gm. notably no microhematuria 05/03 but this is exception. in the setting of hepatic steatosis and + anti smooth MM Ab, concern for liver disease. GI recommends outpt liver bx and liver w/u. negative serologic work up for proteinuria. chronic hypoalbuminemia and volume overload which are intertwined and may or may not relate to possible nephrotic syndrome; again recent proteinuria assesments subnephrotic -needs OP renal biopsy most likely Admission and Anticipated Discharge Date Admission Date: May 03, 2023 Subjective Seen for acute kidney injury on CKD. Main complaint is weakness. No shortness of breath. Review of Systems Review of Systems: All other systems were reviewed and negative except as noted in HPI Physical Exam Physical Exam: General exam: Appears comfortable, no acute distress HEENT: Pupils are equal and reactive to light Neck: No JVD, neck is supple trachea is midline Respiratory system: Clear breath sounds bilaterally. Gastrointestinal: Abdomen is soft, moderately distended, non tender, bowel sounds are present CVS: Regular rate and rhythm. No murmurs, rubs or gallops Musculoskeletal: No joint or muscle tenderness Extremities: Non tender, no edema, peripheral pulses are present Neuro: Oriented, no tremors, no focal neurological deficits Skin: No rashes Results & Data Vital Signs (Past 12 Hours) Vital Signs Temp Pulse Resp BP Pulse Ox O2 Del Method 05/12/23 09:59 Room Air 05/12/23 07:08 36.6 C 52 L 14 152/66 H 99 Room Air Laboratory Results 05/12/23 07:17 05/12/23 07:17 WBC 9.76 RBC 2.95 L MCV 80.0 MCH 25.4 MCHC 31.8 L RDW Std Deviation 47.3 H RDW Coeff of [place]ola 16.1 H Plt Count 391 MPV 10.3
[2023-05-12] MEDS: SPIRONOLACTONE 25 MG TAB PO SCH (12:15)
--- NOTE | 2023-05-12 14:54 | Hospitalist Progress Note ---
Date of Service May 12, 2023 Assessment & Plan (1) ARF (acute renal failure): (2) Ascites: Plan: ASCITES IN THE SETTING OF PROTEINURIA, CHRONIC KIDNEY DISEASE STAGE IV LIVER CIRRHOSIS Status post paracentesis on 05/02(5L) , 05/05(5L) and 05/07(7L), 05/09 (7). Creatinine remained stable while admitted around 2.5 Nephrology service managing diuretic regimen; currently on Lasix 80 mg twice daily. Also on aspirin lactone. Will also need kidney biopsy as an outpatient to determine cause of proteinuria, CKD stage IV GI service consulted Recommend liver biopsy to confirm cirrhosis as an outpatient Discussed regarding possible TIPS procedure due to refractory nature of the ascites. Do not feel that is indicated. Ambulatory dysfunction Reports ambulatory dysfunction due to large ascites. Has refused PT OT evaluation multiple times. Also requesting for oxycodone for bilateral lower extremity pain. He reports that he was taking 10 mg twice daily at home Reports that it was prescribed by a physician kennel assistant in both for about a year ago from [facility]. Outpatient chart was reviewed and prescription monitoring program was reviewed; no history of opioid prescription in the past. Offered gabapentin; declined HYPERTENSION Secondary to poor adherence Coreg on hold given normotensive. LOWER ABDOMINAL WALL CELLULITIS Resolved Completed ceftriaxone and doxycycline. PNEUMONIA Seen on CT abdomen pelvis:A few bibasilar linear densities consistent with subsegmental atelectasis. There are few small patchy peripheral groundglass densities within the right lower lobe. This could represent a pneumonia. Improving Completed 7 days of antibiotics Noncompliance: Patient has been resistant to medical care. has signed out AMA multiple times Has not followed up since his discharges. Active smoker Counseling done Severe protein calorie malnutrition [employer] consulted Morbid obesity Counseling done DVT prophylaxis Heparin subcutaneous daily Disposition Lives with significant other at home. Open to the idea of hospice care as per case management today. Palliative care to follow-up. Time spent evaluating patient, direct bedside care, chart review, placing orders, interpretation of diagnostic studies, discussion with consultants, patient, and family members, as well as other required patient management activities is 60 minutes. Please note the above document was generated using voice recognition software. It may contain grammatical, syntax or spelling errors. Any formal questions or concerns about the content, text or information contained within the body of this dictation should be directly addressed to the provider for clarification Admission and Anticipated Discharge Date Admission Date: May 03, 2023 Subjective Patient seen and examined at bedside. He is comfortable lying in the bed. He is requesting for oxycodone for bilateral lower extremity pain. He reports that he was taking 10 mg twice daily. Reports that it was prescribed by a physician kennel assistant in both for about a year ago from [facility]. Outpatient chart was reviewed and prescription monitoring program was reviewed; no history of opioid prescription in the past. Offered gabapentin; declined Review of Systems Review of Systems: All systems reviewed & are unremarkable except as noted in Subjective Physical Exam Physical Exam: General- oriented x 3, not in distress, speaks in sentences with no effort or accessory muscle use Eyes- anicteric Neck- no JVD Lungs- clear breath sounds bilaterally, no wheezing, no crackles noted Heart- normal rate, regular rhythm; no murmurs Abdomen- normal bowel sounds, abdominal wall distended. Extremities-grade 1 lower extremity edema, no calf tenderness. Right foot with transmetatarsal amputation Neuro- alert, oriented x 3; no gross focal neurologic deficits Skin- warm & dry Results & Data Results & Data Vital Signs (Past 12 Hours) Vital Signs Temp Pulse Resp BP Pulse Ox O2 Del Method 05/12/23 09:59 Room Air 05/12/23 07:08 36.6 C 52 L 14 152/66 H 99 Room Air Laboratory Results Laboratory Results WBC 9.76 K/ul (4.8-10.8) 05/12/23 07:17 RBC 2.95 M/uL (4.20-5.40) L 05/12/23 07:17 Hgb 7.5 g/dl (12.0-16.0) L 05/12/23 07:17 Hct 23.6 % (37.0-47.0) L 05/12/23 07:17 MCV 80.0 fL (80.0-100.0) 05/12/23 07:17 MCH 25.4 pg (25.0-34.0) 05/12/23 07:17 MCHC 31.8 g/dL (32.0-36.0) L 05/12/23 07:17 RDW Std Deviation 47.3 fL (36.4-46.3) H 05/12/23 07:17 RDW Coeff of [place]ola 16.1 % (11.5-14.5) H 05/12/23 07:17 Plt Count 391 K/uL (130-400) 05/12/23 07:17 MPV 10.3 fL (9.4-12.4) 05/12/23 07:17 Immature Gran % (Auto) 0.6 % 05/12/23 07:17 Neut % (Auto) 73.8 % 05/12/23 07:17 Lymph % (Auto) 13.7 % 05/12/23 07:17 [place] % (Auto) 7.7 % 05/12/23 07:17 Eos % (Auto) 3.4 % 05/12/23 07:17 Baso % (Auto) 0.8 % 05/12/23 07:17 Reticulocyte % (Auto) 1.5 % (0.5-2.0) 05/03/23 08:02 Neut # (Auto) 7.20 K/uL (1.40-6.50) H 05/12/23 07:17 Lymph # (Auto) 1.34 K/uL (1.2-3.4) 05/12/23 07:17 [place] # (Auto) 0.75 K/uL (0.11-0.59) H 05/12/23 07:17 Eos # (Auto) 0.33 K/uL (0-0.50) 05/12/23 07:17 Baso # (Auto) 0.08 K/uL (0-0.2) 05/12/23 07:17 Reticulocyte # 0.04 10^6/uL (0.02-0.10) 05/03/23 08:02 Immature Gran # (Auto) 0.06 K/uL (0.01-0.20) 05/12/23 07:17 Polychromasia 1+ 05/10/23 07:00 Poikilocytosis Present 05/03/23 00:02 Anisocytosis Present 05/03/23 08:02 Tear Drop Cells 1+ 05/05/23 06:56 Ovalocytes 1+ 05/12/23 07:17 PT 12.9 Seconds (9.0-12.0) H 05/03/23 00:02 INR 1.2 (0.9-1.1) H 05/03/23 00:02 APTT 35.0 Seconds (21.0-31.0) H 05/03/23 00:02 PTT Ratio 1.2 05/03/23 00:02 ABG pH 7.41 (7.35-7.45) 05/03/23 04:50 ABG pCO2 33 mmHg (35-46) L 05/03/23 04:50 ABG pO2 64 mmHg (80-95) L 05/03/23 04:50 ABG HCO3 21 mmol/L (19-24) 05/03/23 04:50 ABG O2 Saturation 92.0 % (90-95) 05/03/23 04:50 ABG Base Excess -2.9 mEq/L (-9-1.8) 05/03/23 04:50 Art Test Pos (Pos) 05/03/23 04:50 Oxygen Given 2L 05/03/23 04:50 Sodium 136 mmol/L (136-145) 05/12/23 07:17 Potassium 3.7 mmol/L (3.5-5.1) 05/12/23 07:17 Chloride 107 mmol/L (98-107) 05/12/23 07:17 Carbon Dioxide 24 mmol/L (21-32) 05/12/23 07:17 Anion Gap 5 (3-11) 05/12/23 07:17 BUN 29 mg/dl (6-23) H 05/12/23 07:17 Creatinine 2.31 mg/dl (0.6-1.2) H 05/12/23 07:17 Est Cr Clr Drug Dosing 40.6 ml/min 05/12/23 07:17 Est GFR ( Amer) 28.8 ml/min 05/12/23 07:17 Est GFR (Non-Af Amer) 24.9 ml/min 05/12/23 07:17 BUN/Creatinine Ratio 12.6 (10-20) 05/12/23 07:17 Glucose 78 mg/dl (70-99(Fasting)) 05/12/23 07:17 POC Glucose 86 mg/dl (70-99) 05/12/23 11:57 Estimat Average Glucose 94 mg/dl 05/11/23 07:03 Hemoglobin A1c 4.9 % (4.5-5.6) 05/11/23 07:03 Calcium 8.1 mg/dl (8.6-10.3) L 05/12/23 07:17 Magnesium 1.6 mg/dl (1.7-2.4) L 05/05/23 06:56 Iron 23 mcg/dl (35-150) L 05/03/23 08:02 Transferrin < 95 mg/dl (200-360) L 05/03/23 08:02 Ferritin 151.5 ng/ml (8-388) 05/03/23 08:02 Total Bilirubin 0.5 mg/dl (0.2-1.0) 05/10/23 07:00 AST 5 U/L (13-39) L 05/10/23 07:00 ALT < 3 U/L (7-52) L 05/10/23 07:00 Alkaline Phosphatase 38 U/L (34-104) 05/10/23 07:00 Ammonia 11.0 umol/L (18-72) L 05/03/23 00:08 Total Protein 5.1 gm/dl (6.0-8.3) L 05/10/23 07:00 Albumin 2.5 gm/dl (3.4-5.0) L 05/10/23 07:00 Globulin 2.6 gm/dl (2.5-4.0) 05/10/23 07:00 Albumin/Globulin Ratio 1.0 (0.9-2) 05/10/23 07:00 Lipase 22 U/L (11-82) 05/03/23 00:02 Vitamin B12 425 pg/ml (180-914) 05/03/23 08:02 Folate 8.96 ng/ml (>5.38) 05/03/23 08:02 Urine Color Dark Yellow 05/04/23 16:45 Urine Appearance Cloudy (Clear) A 05/04/23 16:45 Urine pH 5.5 (4.5-7.5) 05/04/23 16:45 Ur Specific [place] 1.019 (1.000-1.030) 05/04/23 16:45 Urine Protein 3+ (Negative) H 05/04/23 16:45 Urine Glucose (UA) Negative (Negative) 05/04/23 16:45 Urine Ketones Trace (Negative) H 05/04/23 16:45 Urine Blood Negative (Negative) 05/04/23 16:45 Urine Nitrite Negative (Negative) 05/04/23 16:45 Urine Bilirubin Negative (Negative) 05/04/23 16:45 Urine Urobilinogen Negative (Negative) 05/04/23 16:45 Ur Leukocyte Esterase Trace (Negative) H 05/04/23 16:45 Urine WBC (Auto) 5-10 /hpf (0-5) H 05/04/23 16:45 Urine RBC (Auto) 0-4 /hpf (0-4) 05/04/23 16:45 U Hyaline Cast (Auto) 1-5 /lpf (0-5) 05/04/23 16:45 U Epithel Cells (Auto) >30 /lpf (0-5) H 05/04/23 16:45 Urine Bacteria (Auto) Negative (Negative) 05/04/23 16:45 Ur Random Creatinine 156.3 mg/dl 05/04/23 16:45 U Random Total Protein 388.2 mg/dl (0-11.9) H 05/04/23 16:45 Urine Total Volume 600 mL 05/09/23 19:27 Urine Creatinine 105.8 mg/dl 05/09/23 19:27 Ur Creatinine 24 Hour 0.6 gm/24 HR (0.6-2.5) 05/09/23 19:27 Ur Total Protein 24 Hr 2329.2 mg/24 Hr (0-149.1) H 05/09/23 19:27 Protein/Creatinin Ratio 2.5 (0-0.2) H 05/04/23 16:45 Urine Sodium 33 mmol/L 05/09/23 19:27 Ur Sodium 24 Hour 20 mmol/24 (40-220) L 05/09/23 19:27 Urine Total Protein 388.2 mg/dl 05/09/23 19:27 Fluid Neutrophils % 5 % 05/09/23 12:00 Fluid Lymphocytes % 11 % 05/09/23 12:00 Fluid Eosinophils % 3 % 05/09/23 12:00 Fluid Basophils % 1 % 05/09/23 12:00 Fluid [place] % 80 % 05/09/23 12:00 Fluid Comment 05/09/23 12:00 Peritoneal Color Straw 05/09/23 12:00 Peritoneal Appearance Clear 05/09/23 12:00 Peritoneal WBC (Auto) 154 /ul (0-300) 05/09/23 12:00 Peritoneal RBC (Auto) < 2000 /uL 05/09/23 12:00 Peritoneal Tot Protein 3.9 gm/dl 05/09/23 12:00 Peritoneal Albumin 1.8 gm/dl 05/09/23 12:00 Peritoneal Glucose 71 mg/dl 05/09/23 12:00 SARS-CoV-2, RNA, NAAT NEGATIVE (NEGATIVE) 05/02/23 23:23 Blood Type O Positive 05/03/23 08:02 Antibody Screen NEGATIVE 05/03/23 08:02 Crossmatch See Detail 05/03/23 08:02 Impressions Gallbladder Ultrasound 05/04/23 14:01 US gallbladder CLINICAL HISTORY: r/o cholecystitis, cholelithiasis TECHNIQUE: Multiple real-time sonographic images of the right upper quadrant were obtained. Comparison: Comparison is made to CT abdomen pelvis 05/01/2023 FINDINGS: The liver is diffusely coarsened in echotexture, with a nodular contour. The liver appears shrunken in appearance. These findings are suggestive of cirrhosis. No focal mass lesions are seen. No intrahepatic ductal dilatation is seen. Linear hyperechoic foci with posterior shadowing are identified layering dependently within the gallbladder, which are consistent with gallstones. The gallbladder wall is not thickened. There is no pericholecystic fluid present. A sonographic Ceron's sign was not elicited by the audio visual technician. The common duct was not visualized. The pancreas is not well visualized secondary to overlying bowel gas. The right kidney shows normal echogenicity, cortical thickness and renal contour. The right kidney shows no evidence of hydronephrosis or mass. Large ascites is seen. IMPRESSION: 1. Cholelithiasis is seen without evidence of cholecystitis. 2. Large ascites with cirrhosis. ACT 112: Negative or not required by law. Electronically signed by: Aneudy Mark M.D. 05/04/2023 10:58 PM Paracentesis Ultrasound 05/09/23 08:00 IR paracentesis abd w/img US CLINICAL HISTORY: Refractory ascites. COMPARISON STUDY: Ultrasound guided paracentesis May 07, 2023. PROCEDURE: The procedure, risks and benefits were discussed with the patient and informed written consent was obtained. The procedure was performed by Dr. Myles following a timeout. Sonography revealed a large amount of ascites. Suitable window was noted. Skin was prepped and draped in sterile fashion and local anesthesia was achieved with 1% lidocaine. A 5 [place] one-step catheter was then inserted into the peritoneal cavity with immediate return of serous ascites. 7 L of ascites was withdrawn. The catheter was removed. The patient tolerated the procedure well and no immediate complications were evident. 1 L of ascites was sent to the laboratory for analysis as ordered. IMPRESSION: Successful ultrasound guided diagnostic and therapeutic paracentesis with drainage of 7 L of serous ascites. 1 L of ascites sent to the laboratory for analysis as ordered. ACT 112: Negative or not required by law. Electronically signed by: Anthony Myles M.D. 05/09/2023 12:34 PM (2) Ascites Ascites type: other type Qualified Code(s): R18.8 - Other ascites
--- NOTE | 2023-05-12 16:00 | Palliative Care Progress Note ---
Date of Service May 12, 2023 Assessment & Plan (1) Left leg swelling: Plan: Pain with edema related to cirrhosis He does have h/o neuropathy with diabetes Gabapentin not ideal with progressive renal failure Could consider lidocaine patch (2) Palliative care encounter: Plan: Asked to see Paul and his SO to talk about hospice. He tells me that he is tired and he wants to give up. He realizes that his condition is not likely to improve significantly. He talks about wanting to go home but his SO has some reservations about being able to care for him at home. We talked about hospice benefit and support provided. We also discussed option of SNF with hospice. Hospice would be able to monitor his pain and symptom management to help relieve his anxiety about being discharged from the hospital. He and his SO would like to discuss this together. Will f/u tomorrow for further discussion. Admission and Anticipated Discharge Date Admission Date: May 03, 2023 Subjective Complains of pain in left leg which he describes as burning pain. Review of Systems Review of Systems: ESAS Pain 2/3 Dyspnea 0/3 Nausea 0/3 Anxiety 2/3 Physical Exam Constitutional: + ill appearing Respiratory: normal respiratory effort; no labored breathing Gastrointestinal (Abdomen): distended Musculoskeletal: LLE tender to touch, mild edema, stasis skin changes Neurologic: Speech / Cognition: normal cognition Results & Data Vital Signs (Past 12 Hours) Vital Signs Temp Pulse Resp BP Pulse Ox O2 Del Method 05/12/23 15:01 98.2 F 55 L 16 128/65 95 Room Air 05/12/23 09:59 Room Air 05/12/23 07:08 97.9 F 52 L 14 152/66 H 99 Room Air PG Care Time/CCT Total # of Minutes Spent Total Time Spent: 45 Total Time Spent with Patient: Total time spent is greater than 50% in coordination of care (as documented) at patient's floor/unit and/or counseling patient: goals of care, symptom management, hospice, patient and family education and support Coding Level of Care Code 60920 SUB INP/OBS CARE 2/35MIN Diagnoses Left leg swelling M79.89 Palliative care encounter Z51.5
[2023-05-12] MEDS: ACETAMINOPHEN 500 MG TAB PO PRN (19:45)
[2023-05-12] MEDS: MELATONIN 3 MG TAB PO PRN (19:45)
[2023-05-13] MEDS: HEPARIN SOD 5,000 UNIT/0.5 ML VIAL SQ SCH ×3 (06:11→22:01)
[2023-05-13] MEDS: PANTOprazole 40 MG TAB PO SCH (07:39)
[2023-05-13] MEDS: FUROSEMIDE 80 MG TAB PO SCH ×2 (07:39→17:29)
[2023-05-13] MEDS: SPIRONOLACTONE 25 MG TAB PO SCH (07:39)
[2023-05-13 07:57] LABS: Basophils # (auto) 0.11 K/uL (0-0.2); Eosinophils # (auto) 0.33 K/uL (0-0.50); Hematocrit (blood only) 23.8 % (37.0-47.0); Hemoglobin 7.6 g/dl (12.0-16.0); Immature Granulocytes # (auto) 0.09 K/uL (0.01-0.20); Immature Granulocytes % (auto) 0.8 %; Lymphocytes # (auto) 1.38 K/uL (1.2-3.4); Lymphocytes % (auto) 12.4 %; Mean Corpuscular Hemoglobin 24.9 pg (25.0-34.0); Mean Corpuscular Hgb Conc 31.9 g/dL (32.0-36.0); Mean Platelet Volume 10.1 fL (9.4-12.4); Monocytes # (auto) 0.78 K/uL (0.11-0.59); Neutrophils # (auto) 8.43 K/uL (1.40-6.50); Neutrophils % (auto) 75.8 %; Platelet Count 426 K/uL (130-400); RDW Coefficient of Variation 15.9 % (11.5-14.5); RDW Standard Deviation 45.6 fL (36.4-46.3); Red Blood Count 3.05 M/uL (4.20-5.40); White Blood Count 11.12 K/ul (4.8-10.8)
[2023-05-13 08:08] LABS: BUN Creatinine Ratio 13.2 (10-20); Calcium 8.2 mg/dl (8.6-10.3); Creatinine Clr Calc Pharmacy 38.7 ml/min; Est GFR (African American) 27.3 ml/min; Est GFR (Non-African American) 23.5 ml/min; Potassium 3.7 mmol/L (3.5-5.1)
[2023-05-13] MEDS: INSULIN ASPART PER UNIT CHARGE SC SCH ×4 (08:28→21:41)
[2023-05-13 08:31] LABS: Microcytosis Present; Ovalocytes 1+; Poikilocytosis Present; Polychromasia 1+
--- NOTE | 2023-05-13 10:40 | Nephrology Progress Note ---
Date of Service May 13, 2023 Assessment & Plan Admission and Anticipated Discharge Date Admission Date: May 03, 2023 Subjective Assessment & Plan (1) CKD (chronic kidney disease) stage 4, GFR 15-29 ml/min: Plan: CKD 4 in setting of decompensated cirrhosis which appears to be progressive and high risk for ESRD. Could also have Some underlying renal Dz also. May benefit with renal biopsy butnot critical. However patient is now thinking of Hospice care--reviewed palliative med note. creatinine ran low 2's in September 2022 (eGFR 28); now more in mid 2's (eGFR 21). NEPHRO D/C RECOMMENDATIONS -Start Aldactone 25 mg daily as above -lasix 80 mg twice daily -Stop potassium chloride as patient has been refusing and his potassium is stable and Coreg -bmp w/in one week of discharge -hospital d/c appt w/ nephro w/in one week of hospital d/c Dr Louise or Melania. No need if patient gets into hospice program. -do not d/c on metformin Care coordinated w/ Dr Muir (2) Proteinuria: Plan: longstanding nephritic sediment with variable proteinuria > 1.5 and 2.5 gm most recently; back in September was 11.5 gm. notably no microhematuria 05/03 but this is exception. in the setting of hepatic steatosis and + anti smooth MM Ab, concern for liver disease. GI recommends outpt liver bx and liver w/u. negative serologic work up for proteinuria. chronic hypoalbuminemia and volume overload which are intertwined and may or may not relate to possible nephrotic syndrome; again recent proteinuria assesments s ubnephrotic -needs OP renal biopsy most likely Subjective Seen for acute kidney injury on CKD. Main complaint is weakness. No shortness of breath. Review of Systems Review of Systems: All other systems were reviewed and negative except as noted in HPI Physical Exam B Physical Exam: General exam: Appears comfortable, no acute distress HEENT: Pupils are equal and reactive to light Neck: No JVD, neck is supple trachea is midline Respiratory system: Clear breath sounds bilaterally. Gastrointestinal: Abdomen is soft, moderately distended, non tender, bowel sounds are present CVS: Regular rate and rhythm. No murmurs, rubs or gallops Musculoskeletal: No joint or muscle tenderness Extremities: Non tender, 1+ edema Neuro: Oriented, no tremors, no focal neurological deficits Skin: No rashes Results & Data Vital Signs (Past 12 Hours) Vital Signs Temp Pulse Resp BP Pulse Ox O2 Del Method 05/13/23 08:20 Room Air 05/13/23 07:09 36.5 C 54 L 14 135/69 99 Room Air
--- NOTE | 2023-05-13 15:32 | Palliative Care Progress Note ---
Date of Service May 13, 2023 Assessment & Plan (1) Palliative care encounter: Plan: I met with Paul and his SO at bedside. They have considered the options together and his wish is to go home with hospice. We again reviewed support provided by hospice and what to expect. Answered their questions about nursing support and routine. He feels that he will be more comfortable at home and Huyen supports this. We did discuss option for respite care through hospice if Huyen is overwhelmed and needs a break. Paul tells me that he does not want to go to SNF. He wants to be at home until his dying time. Admission and Anticipated Discharge Date Admission Date: May 03, 2023 Subjective No complaints currently Continues to have LE neuropathic pain Creatinine continues to increase at 2.42 today Review of Systems Review of Systems: Pain 1/3 Dyspnea 0/3 Nausea 0/3 Drowsiness 0/3 Physical Exam Constitutional: no acute distress Respiratory: normal respiratory effort; no labored breathing Gastrointestinal (Abdomen): distended Neurologic: Speech / Cognition: normal cognition Results & Data Vital Signs (Past 12 Hours) Vital Signs Temp Pulse Resp BP Pulse Ox O2 Del Method 05/13/23 15:23 97.9 F 51 L 16 136/68 96 Room Air 05/13/23 08:20 Room Air 05/13/23 07:09 97.7 F 54 L 14 135/69 99 Room Air PG Care Time/CCT Total # of Minutes Spent Total Time Spent with Patient: Total time spent is greater than 50% in coordination of care (as documented) at patient's floor/unit and/or counseling patient: Coding Level of Care Code 55259 SUB INP/OBS CARE 11/13MIN Diagnoses Palliative care encounter Z51.5
--- NOTE | 2023-05-13 18:11 | Hospitalist Progress Note ---
Date of Service May 13, 2023 Assessment & Plan (1) Ascites: Plan: ASCITES IN THE SETTING OF NEPHROTIC RANGE PROTEINURIA, CHRONIC KIDNEY DISEASE STAGE IV, LIVER CIRRHOSIS Status post paracentesis on 05/02(5L) , 05/05(5L) and 05/07(7L), 05/09 (7). Creatinine remained stable while admitted around 2.5 Nephrology service managing diuretic regimen; currently on Lasix 80 mg twice daily, spironolactone 25 mg daily Will also need kidney biopsy as an outpatient to determine cause of proteinuria, CKD stage IV GI service consulted Recommend liver biopsy to confirm cirrhosis as an outpatient Discussed regarding possible TIPS procedure due to refractory nature of the ascites. Do not feel that is indicated. Patient wishing to go home with hospice services. Plan for discharge home tomorrow. AMBULATORY DYSFUNCTION Reports ambulatory dysfunction due to large ascites. Has refused PT OT evaluation multiple times. Also requesting for oxycodone for bilateral lower extremity pain. He reports that he was taking 10 mg twice daily at home Reports that it was prescribed by a physician freezer assistant in both for about a year ago from [employer]. Outpatient chart was reviewed and prescription monitoring program was reviewed; no history of opioid prescription in the past. Offered gabapentin; declined HYPERTENSION Secondary to poor adherence Coreg on hold given normotensive. LOWER ABDOMINAL WALL CELLULITIS Resolved Completed ceftriaxone and doxycycline. PNEUMONIA Seen on CT abdomen pelvis:A few bibasilar linear densities consistent with subsegmental atelectasis. There are few small patchy peripheral groundglass densities within the right lower lobe. This could represent a pneumonia. Improving Completed 7 days of antibiotics NONCOMPLIANCE Patient has been resistant to medical care. has signed out AMA multiple times Has not followed up since his discharges. ACTIVE SMOKER Counseling done SEVERE PROTEIN CALORIE MALNUTRITION Family Nurse consulted MORBID OBESITY Counseling done DVT PROPHYLAXIS SQ heparin Disposition - Patient wishes to go home with hospice services. Case management following, plan for DC home tomorrow. Patient seen in collaboration with Dr. Muir. Admission and Anticipated Discharge Date Admission Date: May 03, 2023 Supervising Physician Co-Signing Physician Notes Patient seen and examined independently. Discussed with the provider. Patient opted for hospice care at home. Discussed with case management and palliative care physician. Discharge tomorrow. Subjective Follow-up for decompensated cirrhosis with ascites, CKD stage IV with nephrotic range proteinuria. Patient seen and examined. Considering going home with hospice services. Denies pain, states he is feeling "ok". No other symptoms reported. Physical Exam Constitutional: WD/WN, vitals as above no acute distress Respiratory: normal respiratory effort; no respiratory distress Auscultation: + diminished lung sounds (Bilateral bases) Cardiovascular: Rate/Rhythm: regular rate and regular rhythm Vessels: normal peripheral pulses Extremities: + edema (+2 edema BLE) Gastrointestinal (Abdomen): Inspection/Auscultation: + abdomen distended Percussion/Palpation: abdomen soft; abdomen nontender Musculoskeletal: S/p right foot transmetatarsal potation Skin: no rashes, warm and dry Dry, cracked skin LLE Neurologic: no focal motor deficits Psychiatric: Orientation: alert and oriented x 3 Affect: + depressed affect and + flat affect Results & Data Results & Data Vital Signs (Past 12 Hours) Vital Signs Temp Pulse Resp BP Pulse Ox O2 Del Method 05/13/23 15:23 36.6 C 51 L 16 136/68 96 Room Air 05/13/23 08:20 Room Air 05/13/23 07:09 36.5 C 54 L 14 135/69 99 Room Air Laboratory Results Short CBC 05/13/23 Range/Units 07:13 WBC 11.12 H (4.8-10.8) K/ul Hgb 7.6 L (12.0-16.0) g/dl Hct 23.8 L (37.0-47.0) % Plt Count 426 H (130-400) K/uL BMP 05/13/23 07:13 Sodium 135 L Potassium 3.7 Chloride 104 Carbon Dioxide 25 BUN 32 H Creatinine 2.42 H Glucose 91 Calcium 8.2 L (1) Ascites Ascites type: other type Qualified Code(s): R18.8 - Other ascites
[2023-05-13] MEDS: MELATONIN 3 MG TAB PO PRN (22:00)
[2023-05-13] MEDS: ACETAMINOPHEN 500 MG TAB PO PRN (22:00)
[2023-05-14] MEDS: HEPARIN SOD 5,000 UNIT/0.5 ML VIAL SQ SCH (06:11)
[2023-05-14 07:37] LABS: Basophils # (auto) 0.11 K/uL (0-0.2); Eosinophils # (auto) 0.26 K/uL (0-0.50); Eosinophils % (auto) 2.5 %; Hematocrit (blood only) 23.5 % (37.0-47.0); Hemoglobin 7.6 g/dl (12.0-16.0); Immature Granulocytes # (auto) 0.08 K/uL (0.01-0.20); Immature Granulocytes % (auto) 0.8 %; Lymphocytes # (auto) 1.58 K/uL (1.2-3.4); Mean Corpuscular Hemoglobin 25.1 pg (25.0-34.0); Mean Corpuscular Hgb Conc 32.3 g/dL (32.0-36.0); Mean Corpuscular Volume 77.6 fL (80.0-100.0); Mean Platelet Volume 10.4 fL (9.4-12.4); Monocytes # (auto) 0.73 K/uL (0.11-0.59); Monocytes % (auto) 6.9 %; Neutrophils % (auto) 73.8 %; Platelet Count 478 K/uL (130-400); RDW Standard Deviation 45.1 fL (36.4-46.3); Red Blood Count 3.03 M/uL (4.20-5.40); White Blood Count 10.56 K/ul (4.8-10.8)
[2023-05-14 08:07] LABS: BUN Creatinine Ratio 13.1 (10-20); Calcium 8.3 mg/dl (8.6-10.3); Creatinine Clr Calc Pharmacy 37.2 ml/min; Est GFR (Non-African American) 22.4 ml/min; Potassium 3.7 mmol/L (3.5-5.1)
[2023-05-14 08:21] LABS: Ovalocytes 1+; Polychromasia 1+
[2023-05-14] MEDS: INSULIN ASPART PER UNIT CHARGE SC SCH (09:42)
[2023-05-14] MEDS: PANTOprazole 40 MG TAB PO SCH (09:46)
[2023-05-14] MEDS: FUROSEMIDE 80 MG TAB PO SCH (09:46)
[2023-05-14] MEDS: SPIRONOLACTONE 25 MG TAB PO SCH (09:47)
--- NOTE | 2023-05-14 16:36 | Discharge Summary ---
Date of Service May 14, 2023 Admission HPI Per Admitting Provider History obtained from patient and records. Medical history significant for chronic diastolic heart failure (EF 60-65%, TTE 2022), hypertension, cirrhosis, CRI (baseline creatinine 2s), cirrhosis, DM 2 on oral medications, chronic anemia (baseline hemoglobin 8-9), VINCENT (CPAP noncompliance), transgender identity (female to male), medical noncompliance, ongoing tobacco abuse. Recent overnight confinement May 01 to 2022 for ascites. 5 L of ascites fluid drained via ultrasound-guided paracentesis. Patient given antibiotics for possible pneumonia/abdominal wall cellulitis. Lasix albumin recommended by Nephrology. Liver biopsy and possible Cardiology eval recommended by GI. Patient signed out AGAINST MEDICAL ADVICE yesterday because he wanted to see his . Patient returned to ER after he experienced usual bilateral leg pain while driving his car. Unable to walk out of the car without help. Patient denies headache, chest pain, unusual SOB, abdominal pain, black/bloody stools. No fever, no chills. Admission Exam Per Admitting Provider GENERAL: uncomfortable, alert and stated age, obese, no respiratory distress SKIN: Pallor, warm HEENT: Pale palpebral conjunctivae, no ptosis, dry buccal mucosa NECK : Supple, short neck, no tenderness CHEST : Decreased breath sounds, occasional expiratory wheezes, no tenderness HEART : RRR, no obvious murmurs ABDOMEN: distention, nontender EXTREMITIES : Bilateral LE swelling, no LE tenderness, no other conspicuous deformities noted NEUROLOGIC : Coherent, no facial asymmetry, no other gross focality Principal Diagnosis ASCITES IN THE SETTING OF NEPHROTIC RANGE PROTEINURIA, CHRONIC KIDNEY DISEASE STAGE IV, LIVER CIRRHOSIS Discharge Exam Constitutional Chronically ill appearing Respiratory normal respiratory effort; no respiratory distress Auscultation: + diminished lung sounds (Bilateral bases) Cardiovascular Rate/Rhythm: regular rate and regular rhythm Vessels: normal peripheral pulses Extremities: + edema (+2 edema BLE,L > R) Gastrointestinal (Abdomen) Inspection/Auscultation: + abdomen distended Percussion/Palpation: abdomen soft Musculoskeletal S/p right foot transmetatarsal amputation Skin no rashes, warm and dry Dry, cracked skin LLE Neurologic no focal motor deficits Psychiatric A+Ox3, euthymic affect Discharge Data Allergies Allergy/AdvReac Type Severity Reaction Status Date / Time penicillin G Allergy Intermediate HIVES Verified 02/24/23 17:19 aloe vera Allergy Difficulty Verified 02/24/23 17:17 Breathing/ edema Sulfa (Sulfonamide AdvReac Mild RETAINS Verified 02/24/23 17:19 Antibiotics) WATER Consultations 05/03/23 04:45 Consult Nephrology Routine 05/08/23 07:26 Consult Palliative Care Routine 05/08/23 11:42 Consult Gastroenterology Routine Ordered Studies Laboratory Results WBC 10.56 K/ul (4.8-10.8) 05/14/23 06:41 RBC 3.03 M/uL (4.20-5.40) L 05/14/23 06:41 Hgb 7.6 g/dl (12.0-16.0) L 05/14/23 06:41 Hct 23.5 % (37.0-47.0) L 05/14/23 06:41 MCV 77.6 fL (80.0-100.0) L 05/14/23 06:41 MCH 25.1 pg (25.0-34.0) 05/14/23 06:41 MCHC 32.3 g/dL (32.0-36.0) 05/14/23 06:41 RDW Std Deviation 45.1 fL (36.4-46.3) 05/14/23 06:41 RDW Coeff of Yola 16.0 % (11.5-14.5) H 05/14/23 06:41 Plt Count 478 K/uL (130-400) H 05/14/23 06:41 MPV 10.4 fL (9.4-12.4) 05/14/23 06:41 Immature Gran % (Auto) 0.8 % 05/14/23 06:41 Neut % (Auto) 73.8 % 05/14/23 06:41 Lymph % (Auto) 15.0 % 05/14/23 06:41 [place] % (Auto) 6.9 % 05/14/23 06:41 Eos % (Auto) 2.5 % 05/14/23 06:41 Baso % (Auto) 1.0 % 05/14/23 06:41 Reticulocyte % (Auto) 1.5 % (0.5-2.0) 05/03/23 08:02 Neut # (Auto) 7.80 K/uL (1.40-6.50) H 05/14/23 06:41 Lymph # (Auto) 1.58 K/uL (1.2-3.4) 05/14/23 06:41 [place] # (Auto) 0.73 K/uL (0.11-0.59) H 05/14/23 06:41 Eos # (Auto) 0.26 K/uL (0-0.50) 05/14/23 06:41 Baso # (Auto) 0.11 K/uL (0-0.2) 05/14/23 06:41 Reticulocyte # 0.04 10^6/uL (0.02-0.10) 05/03/23 08:02 Immature Gran # (Auto) 0.08 K/uL (0.01-0.20) 05/14/23 06:41 Polychromasia 1+ 05/14/23 06:41 Poikilocytosis Present 05/13/23 07:13 Anisocytosis Present 05/03/23 08:02 Microcytosis Present 05/13/23 07:13 Tear Drop Cells 1+ 05/05/23 06:56 Ovalocytes 1+ 05/14/23 06:41 PT 12.9 Seconds (9.0-12.0) H 05/03/23 00:02 INR 1.2 (0.9-1.1) H 05/03/23 00:02 APTT 35.0 Seconds (21.0-31.0) H 05/03/23 00:02 PTT Ratio 1.2 05/03/23 00:02 ABG pH 7.41 (7.35-7.45) 05/03/23 04:50 ABG pCO2 33 mmHg (35-46) L 05/03/23 04:50 ABG pO2 64 mmHg (80-95) L 05/03/23 04:50 ABG HCO3 21 mmol/L (19-24) 05/03/23 04:50 ABG O2 Saturation 92.0 % (90-95) 05/03/23 04:50 ABG Base Excess -2.9 mEq/L (-9-1.8) 05/03/23 04:50 Art Test Pos (Pos) 05/03/23 04:50 Oxygen Given 2L 05/03/23 04:50 Sodium 135 mmol/L (136-145) L 05/14/23 06:41 Potassium 3.7 mmol/L (3.5-5.1) 05/14/23 06:41 Chloride 103 mmol/L (98-107) 05/14/23 06:41 Carbon Dioxide 26 mmol/L (21-32) 05/14/23 06:41 Anion Gap 6 (3-11) 05/14/23 06:41 BUN 33 mg/dl (6-23) H 05/14/23 06:41 Creatinine 2.52 mg/dl (0.6-1.2) H 05/14/23 06:41 Est Cr Clr Drug Dosing 37.2 ml/min 05/14/23 06:41 Est GFR ( Amer) 26.0 ml/min 05/14/23 06:41 Est GFR (Non-Af Amer) 22.4 ml/min 05/14/23 06:41 BUN/Creatinine Ratio 13.1 (10-20) 05/14/23 06:41 Glucose 78 mg/dl (70-99(Fasting)) 05/14/23 06:41 POC Glucose 87 mg/dl (70-99) 05/14/23 11:50 Estimat Average Glucose 94 mg/dl 05/11/23 07:03 Hemoglobin A1c 4.9 % (4.5-5.6) 05/11/23 07:03 Calcium 8.3 mg/dl (8.6-10.3) L 05/14/23 06:41 Magnesium 1.6 mg/dl (1.7-2.4) L 05/05/23 06:56 Iron 23 mcg/dl (35-150) L 05/03/23 08:02 Transferrin < 95 mg/dl (200-360) L 05/03/23 08:02 Ferritin 151.5 ng/ml (8-388) 05/03/23 08:02 Total Bilirubin 0.5 mg/dl (0.2-1.0) 05/10/23 07:00 AST 5 U/L (13-39) L 05/10/23 07:00 ALT < 3 U/L (7-52) L 05/10/23 07:00 Alkaline Phosphatase 38 U/L (34-104) 05/10/23 07:00 Ammonia 11.0 umol/L (18-72) L 05/03/23 00:08 Total Protein 5.1 gm/dl (6.0-8.3) L 05/10/23 07:00 Albumin 2.5 gm/dl (3.4-5.0) L 05/10/23 07:00 Globulin 2.6 gm/dl (2.5-4.0) 05/10/23 07:00 Albumin/Globulin Ratio 1.0 (0.9-2) 05/10/23 07:00 Lipase 22 U/L (11-82) 05/03/23 00:02 Vitamin B12 425 pg/ml (180-914) 05/03/23 08:02 Folate 8.96 ng/ml (>5.38) 05/03/23 08:02 Urine Color Dark Yellow 05/04/23 16:45 Urine Appearance Cloudy (Clear) A 05/04/23 16:45 Urine pH 5.5 (4.5-7.5) 05/04/23 16:45 Ur Specific O'Brien 1.019 (1.000-1.030) 05/04/23 16:45 Urine Protein 3+ (Negative) H 05/04/23 16:45 Urine Glucose (UA) Negative (Negative) 05/04/23 16:45 Urine Ketones Trace (Negative) H 05/04/23 16:45 Urine Blood Negative (Negative) 05/04/23 16:45 Urine Nitrite Negative (Negative) 05/04/23 16:45 Urine Bilirubin Negative (Negative) 05/04/23 16:45 Urine Urobilinogen Negative (Negative) 05/04/23 16:45 Ur Leukocyte Esterase Trace (Negative) H 05/04/23 16:45 Urine WBC (Auto) 5-10 /hpf (0-5) H 05/04/23 16:45 Urine RBC (Auto) 0-4 /hpf (0-4) 05/04/23 16:45 U Hyaline Cast (Auto) 1-5 /lpf (0-5) 05/04/23 16:45 U Epithel Cells (Auto) >30 /lpf (0-5) H 05/04/23 16:45 Urine Bacteria (Auto) Negative (Negative) 05/04/23 16:45 Ur Random Creatinine 156.3 mg/dl 05/04/23 16:45 U Random Total Protein 388.2 mg/dl (0-11.9) H 05/04/23 16:45 Urine Total Volume 600 mL 05/09/23 19: Urine Creatinine 105.8 mg/dl 05/09/23 19: Ur Creatinine 24 Hour 0.6 gm/24 HR (0.6-2.5) 05/09/23 19: Ur Total Protein 24 Hr 2329.2 mg/24 Hr (0-149.1) H 05/09/23 19: Protein/Creatinin Ratio 2.5 (0-0.2) H 05/04/23 16:45 Urine Sodium 33 mmol/L 05/09/23 19: Ur Sodium 24 Hour 20 mmol/24 (40-220) L 05/09/23 19: Urine Total Protein 388.2 mg/dl 05/09/23 19:27 Fluid Neutrophils % 5 % 05/09/23 12:00 Fluid Lymphocytes % 11 % 05/09/23 12:00 Fluid Eosinophils % 3 % 05/09/23 12:00 Fluid Basophils % 1 % 05/09/23 12:00 Fluid [place] % 80 % 05/09/23 12:00 Fluid Comment 05/09/23 12:00 Peritoneal Color Straw 05/09/23 12:00 Peritoneal Appearance Clear 05/09/23 12:00 Peritoneal WBC (Auto) 154 /ul (0-300) 05/09/23 12:00 Peritoneal RBC (Auto) < 2000 /uL 05/09/23 12:00 Peritoneal Tot Protein 3.9 gm/dl 05/09/23 12:00 Peritoneal Albumin 1.8 gm/dl 05/09/23 12:00 Peritoneal Glucose 71 mg/dl 05/09/23 12:00 SARS-CoV-2, RNA, NAAT NEGATIVE (NEGATIVE) 05/02/23 23:23 Blood Type O Positive 05/03/23 08:02 Antibody Screen NEGATIVE 05/03/23 08:02 Crossmatch See Detail 05/03/23 08:02 Impressions Gallbladder Ultrasound 05/04/23 14:01 US gallbladder CLINICAL HISTORY: r/o cholecystitis, cholelithiasis TECHNIQUE: Multiple real-time sonographic images of the right upper quadrant were obtained. Comparison: Comparison is made to CT abdomen pelvis 05/01/2023 FINDINGS: The liver is diffusely coarsened in echotexture, with a nodular contour. The liver appears shrunken in appearance. These findings are suggestive of cirrhosis. No focal mass lesions are seen. No intrahepatic ductal dilatation is seen. Linear hyperechoic foci with posterior shadowing are identified layering dependently within the gallbladder, which are consistent with gallstones. The gallbladder wall is not thickened. There is no pericholecystic fluid present. A sonographic Ceron's sign was not elicited by the farm equipment mechanic apprentice. The common duct was not visualized. The pancreas is not well visualized secondary to overlying bowel gas. The right kidney shows normal echogenicity, cortical thickness and renal contour. The right kidney shows no evidence of hydronephrosis or mass. Large ascites is seen. IMPRESSION: 1. Cholelithiasis is seen without evidence of cholecystitis. 2. Large ascites with cirrhosis. ACT 112: Negative or not required by law. Electronically signed by: Aneudy Mark M.D. 05/04/2023 10:58 PM Paracentesis Ultrasound 05/09/23 08:00 IR paracentesis abd w/img US CLINICAL HISTORY: Refractory ascites. COMPARISON STUDY: Ultrasound guided paracentesis May 07, 2023. PROCEDURE: The procedure, risks and benefits were discussed with the patient and informed written consent was obtained. The procedure was performed by Dr. Myles following a timeout. Sonography revealed a large amount of ascites. Suitable window was noted. Skin was prepped and draped in sterile fashion and local anesthesia was achieved with 1% lidocaine. A 5 Slovak one-step catheter was then inserted into the peritoneal cavity with immediate return of serous ascites. 7 L of ascites was withdrawn. The catheter was removed. The patient tolerated the procedure well and no immediate complications were evident. 1 L of ascites was sent to the laboratory for analysis as ordered. IMPRESSION: Successful ultrasound guided diagnostic and therapeutic paracentesis with drainage of 7 L of serous ascites. 1 L of ascites sent to the laboratory for analysis as ordered. ACT 112: Negative or not required by law. Electronically signed by: Anthony Myles M.D. 05/09/2023 12:34 PM Hospital Course (1) Ascites: ASCITES IN THE SETTING OF NEPHROTIC RANGE PROTEINURIA, CHRONIC KIDNEY DISEASE STAGE IV, LIVER CIRRHOSIS Status post paracentesis on 05/02(5L) , 05/05(5L) and 05/07(7L), 05/09 (7). Creatinine remained stable while admitted around 2.5 Nephrology service managing diuretic regimen; currently on Lasix 80 mg twice daily, spironolactone 25 mg daily GI consulted Additional outpatient work-up recommended including renal and liver biopsies however patient wishes to go home with hospice services. Will continue diuretics at discharge. Hospice services to manage pain medications. HYPERTENSION Secondary to poor adherence Coreg on hold given normotensive. LOWER ABDOMINAL WALL CELLULITIS Resolved Completed ceftriaxone and doxycycline. PNEUMONIA Seen on CT abdomen pelvis:A few bibasilar linear densities consistent with subsegmental atelectasis. There are few small patchy peripheral groundglass densities within the right lower lobe. This could represent a pneumonia. Completed 7 days of antibiotics NONCOMPLIANCE Patient has been resistant to medical care. has signed out AMA multiple times Has not followed up since his discharges. ACTIVE SMOKER Counseling done SEVERE PROTEIN CALORIE MALNUTRITION Level Designer consulted MORBID OBESITY Counseling done Total Time Total Time Spent Total Time Spent (In Minutes): 40 Discharge Plan Discharge Items Patient Disposition: Hospice - Home Reason For Visit: Leg Pain Discharge Diagnosis: Ascites (fluid in the abdomen) Liver Cirrhosis Chronic Kidney Disease Condition on Discharge: Good Activity: Resume your previous activity Non-emergency contact: Primary Care Provider Call non-emergency contact if: you have any medication questions, your symptoms worsen, your pain is not controlled and you have a fever Follow-up/Referrals: Albino Tenorio MD [Primary Care Provider] - ( ) Diet: Low Sodium (2gm) Addtl Attending Provider Instructions: You came to the hospital for evaluation of leg pain. You were found to have fluid in your abdomen and had it removed. This is likely due to liver cirrhosis and chronic kidney disease. You were started on diuretics which will be continued at discharge: Spironolactone 25 mg daily and Lasix 80 mg twice daily. Your wishes to go home on hospice, home hospice services have been arranged. Your urinary catheter will remain in place. It was a pleasure taking care of you. If you need to reach a member of the [facility] hospitalist team at [facility], please call [phone]. MARISOL Lima Pending Studies at Discharge: No Stand-Alone Forms: My [facility] Medications and DC Order Prescriptions: New furosemide 80 mg Tablet 80 mg PO [id number] Qty: 60 0RF Continued pantoprazole 40 mg tablet,delayed release (DR/EC) 40 mg PO QAM spironolactone 25 mg tablet 25 mg PO DAILY Qty: 30 0RF Discontinued carvedilol 12.5 mg tablet 12.5 mg PO AMPM cefuroxime axetil 500 mg tablet 500 mg PO DAILY Qty: 7 0RF azithromycin 250 mg tablet 250 mg PO DAILY 4 Days Qty: 4 0RF furosemide 40 mg tablet 40 mg PO QAM metformin 500 mg tablet 50 mg PO DAILY potassium chloride 10 mEq capsule, extended release 10 meq PO BID Discharge Orders: Discharge Order (Routine); Ordered 05/14/23 Ordered By: Saranya Conner/Other Patient Handouts: What Is Palliative Care Admission Data Admit Date/Time: 05/03/23 03:12 Attending Provider: López Muir Admit Provider: Sunday Garduno Primary Care Provider: Albino Tenorio Other Providers: Sunday Garduno ; Grace Brewster ; Bill Velázquez ; Halina Myers ; Vamshi Louise ; Maribel Early ; Melisa Santos ; Amandeep Milian ; Sienna Wayne ; Johnna Yoder ; Yosef Garces ; Brittany Montero ; Maribel Maxwell ; Tonia Perez ; Nathaly Peacock ; Ta Murphy ; Eleazar Collado ; Isabela Lewis ; Ela Hernandez ; Alec Alexander ; Shayna Crews ; Lisa Sanchez ; Tina Solorzano ; Angela Concepcion ; Broderick El ; Edgardo Rios ; Montrell Darnell ; Dee Monge ; Dheeraj Cunningham Jr Other Interventions: Discharge Summary Assessment (RN) Last Done: 05/14/23 13:04 Supervising Physician Co-Signing Physician Notes Patient seen and examined independently. Discussed with the provider. Patient opted for hospice care at home. Discharge today.
== END 2023-05-14 13:16 | disposition hospice, home (50) | DRG 291 ==
LOC: EDSEX → ED 22:01 → SUATTDRO 05-03 03:12 → EDINP 05-03 03:12 → 2W 05-03 11:52 → 3N 05-05 00:49